=== PATIENT | male | born 1955 | race Caucasian/White ===

== ENCOUNTER → 2018-03-13 10:32 | Outpatient (CLI) | payer BC, SELFPAY | PROVIDERS: PCP Nurse Practitioner Family; Visit Provider Nurse Practitioner Family ==

== ENCOUNTER → 2019-08-29 11:07 | Outpatient (CLI) | payer BC, SELFPAY ==
[2019-08-29 13:07] LABS: Blood Urea Nitrogen 16 mg/dL (7-18); Creatinine,Serum 1.13 mg/dL (0.70-1.30); Estimated Glomerular Filt Rate 66 ml/min (>60); GFR (African American) 79 ML/MIN (>60)
== END ==
PROVIDERS: Visit Provider Urology
DX: Z01.818 Encounter for other preprocedural examination (principal)
CPT/HCPCS: 36415; 82565; 84520

== ENCOUNTER → 2019-09-02 09:46 | Outpatient (CLI) | payer BC, SELFPAY ==
--- NOTE | 2019-09-02 09:50 | CT_ITS ---
PROCEDURE: CT ABDOMEN PELVIS W CON CLINICAL INDICATION: PROSTATE CANCER COMPARISON: ABDPELW/O CT ABD PELVIS W/O CONTRAST from 05/16/2014 TSW/O MRI-T-SPINE W/O from 04/06/2017 TECHNIQUE: IV Contrast: 75ML OPTIRAY 350 Oral Contrast 450ml Redicat Axial images obtained with sagittal and coronal reformats. All CT scans at the facility use one or more dose reduction, viz: automated exposure control, ma/kV adjustment per patient size (including targeted exams where dose is matched to indication, i.e. head), or iterative reconstruction technique. FINDINGS: The liver, spleen, right adrenal gland, and pancreas have an unremarkable appearance. There has been a prior cholecystectomy. There is mild nodularity of the left adrenal gland nonspecific this measures approximately 8 mm. No intestinal obstruction or free air. Unremarkable appendix. No intra-abdominal or pelvic mass evident. There is colonic diverticulosis involving the descending and sigmoid colon with mild thickening of the bowel the sigmoid colon possibly due to muscular hyperplasia. No evidence of diverticulitis. Prostate measures 4 x 2.6 cm. There is prominence of the seminal vesicles. Urinary bladder is decompressed. No pelvic mass abnormal fluid collection or focal inflammatory change. No acute bony findings are evident. No blastic lesions are apparent. No evidence of metastatic disease small cystic area involves the left femoral neck anteriorly well-circumscribed measuring 1 cm may be due to cortical defect. IMPRESSION: 1. No convincing evidence of metastatic disease. There is mild nodularity left adrenal gland nonspecific. 2. Colonic diverticulosis. Dictated by: Serge Booth MD 09/03/2019 15:11 Electronically signed by Serge Booth MD in [facility] 09/03/2019 15:11
--- NOTE | 2019-09-02 09:50 | CT_ITS ---
PROCEDURE: CT CHEST W CON CLINCAL INDICATION: PROSTATE CA Prostate cancer follow-up, evaluate for metastatic disease COMPARISON: CT ABDOMEN PELVIS W CON from 09/02/2019 TECHNIQUE: IV Contrast: 75ml Optiray 350 Axial images obtained with sagittal and coronal reformats. All CT scans at the facility use one or more dose reduction, viz: automated exposure control, ma/kV adjustment per patient size (including targeted exams where dose is matched to indication, i.e. head), or iterative reconstruction technique. FINDINGS: There are coronary artery calcifications. Normal heart size. No mediastinal or hilar mass. No evidence of aortic aneurysm dissection or pulmonary embolus. Small calcific density is present in the right posterior costophrenic sulcus. The lungs are otherwise clear. IMPRESSION: 1. No evidence of metastatic disease. 2. Coronary artery calcifications. Dictated by: Serge Booth MD 09/03/2019 14:02 Electronically signed by Serge Booth MD in [facility] 09/03/2019 14:02
== END ==
PROVIDERS: PCP Family Medicine; Visit Provider Urology
DX: C61 Malignant neoplasm of prostate (principal)
CPT/HCPCS: 36415; 71260; 74177; 82565; 84520; Q9967

== ENCOUNTER → 2019-09-04 08:38 | Outpatient (CLI) | payer BC, SELFPAY ==
--- NOTE | 2019-09-04 08:50 | NM_ITS ---
PROCEDURE: NM BONE SCAN WHOLE BODY CLINICAL INDICATION: PROSTATE CA Malignant neoplasm of the prostate COMPARISON: CT CHEST W CON from 09/02/2019 TECHNIQUE: 26.2 mCi technetium MDP IV FINDINGS: Entire skeletal images obtained. Generalized articular activity noted in the shoulders, sternoclavicular joints, and hips. Small area of increased activity is present involving the right L4-5 region and may be due to facet arthritic change. No convincing evidence of metastatic disease. IMPRESSION: No convincing evidence of bony metastasis Dictated by: Serge Booth MD 09/05/2019 05:36 Electronically signed by Serge Booth MD in [facility] 09/05/2019 05:36
--- NOTE | 2019-09-04 12:25 | HMH.ITSHM ---
Current Home Medications as stated by this patient Kevin Haines or patient accounting representative. []
== END ==
PROVIDERS: PCP Nurse Practitioner Family; Visit Provider Urology
DX: C61 Malignant neoplasm of prostate (principal)
CPT/HCPCS: 78306; A9503

== ENCOUNTER 2025-09-24 04:49 | Emergency (ER) | payer MEDICARE, BC, SELFPAY ==
[2025-09-24] VITALS (12 sets, daily range): BP systolic 150–214; BP diastolic 83–107; PULSE 40–57; RESP 10–18; TEMP 36.7–37; O2SAT 92–99; BMI 26.3
--- NOTE | 2025-09-24 04:49 | ECG_ITS ---
APPROVED REPORT Exam: Resting ECG HR:53 bpm ECG Measurements Heart Rate 53 AXES RI 180 P 65 QRSd 110 QRS 85 QT 446 T 72 QTc 430 Conclusion SINUS BRADYCARDIA WITH OCCASIONAL SUPRAVENTRICULAR PREMATURE COMPLEXES NONSPECIFIC ST & T-WAVE ABNORMALITY BORDERLINE ECG UNCONFIRMED REPORT Electronically signed by : KAVEH HATCH, 09/27/2025 02:14:29
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
--- NOTE | 2025-09-24 05:01 | CT_ITS ---
PROCEDURE INFORMATION: Exam: CTA Chest With Contrast Exam date and time: 09/24/2025 5:36 AM Age: 70 years old Clinical indication: Other: Back pain; Additional info: Severe back pain, HTN TECHNIQUE: Imaging protocol: Computed tomographic angiography of the chest with contrast. Exam focused on the arteries. 3D rendering (Not supervised by radiologist): MIP and/or 3D reconstructed images were created by the technologist. Radiation optimization: All CT scans at this facility use at least one of these dose optimization techniques: automated exposure control; mA and/or kV adjustment per patient size (includes targeted exams where dose is matched to clinical indication); or iterative reconstruction. Contrast material: ISOVUE; Contrast volume: 80 ml; Contrast route: INTRAVENOUS (IV); COMPARISON: CT CHEST W CON 09/02/2019 9:59 AM FINDINGS: Pulmonary arteries: No filling defects suspicious for pulmonary emboli. Aorta: Unremarkable. No aortic aneurysm. No aortic dissection. Lungs: No distinct nodules or infiltrates. There is mild bibasilar subsegmental atelectasis. Mild apical predominant centrilobular emphysema. Minimal diffuse interlobular and intra lobular septal thickening. Nonspecific. Can be seen with minimal interstitial pulmonary edema versus interstitial lung disease. No distinct honeycombing. Minimal diffuse bronchiectasis. Pleural spaces: Unremarkable. No pneumothorax. No pleural effusion. Heart: Cardiomegaly. No pericardial fluid. Mild coronary vessel atherosclerosis. Lymph nodes: Unremarkable. No enlarged lymph nodes. Bones/joints: No acute osseous abnormality. No worrisome lytic or blastic osseous lesion. No cortical erosion or periosteal reaction. No acute osseous fracture or malalignment. Soft tissues: No soft tissue abnormality. IMPRESSION: 1. Cardiomegaly. 2. No filling defects suspicious for pulmonary emboli. 3. No acute osseous abnormality. No worrisome lytic or blastic osseous lesion. No cortical erosion or periosteal reaction. No acute osseous fracture or malalignment. 4. No distinct nodules or infiltrates. 5. Mild apical predominant centrilobular emphysema. 6. Minimal diffuse interlobular and intra lobular septal thickening. Nonspecific. Can be seen with minimal interstitial pulmonary edema versus interstitial lung disease. No distinct honeycombing. Minimal diffuse bronchiectasis. According to clinical discretion, outpatient high-resolution CT can be obtained to evaluate for interstitial lung disease. COMMENTS: The presence of pulmonary emphysema on CT is an independent risk factor for lung cancer. In the absence of a history or active diagnosis of lung cancer, it is recommended that this patient with emphysema be evaluated for enrollment in a low dose CT lung cancer screening program.
--- OUTSIDE RECORDS SUMMARY | 2025-09-24 05:02 | XMS_ITS | Encounter Summary ---
Author Organization [employer] ([place], [place], [place], [place], [place]) Address [address] [place] [address] Care Team Providers Care Bull Wheel Worker Name Role Phone Tee Wade MD Primary Care Provider + [phone] Lennie Coates PA-C Unavailable [phone] Encounter Details Date Type Department Care Team (Late st Contact Info) Description 10/24/2019 Transcribed Document [facility] [place] Family Medicine [address] [place] [address] ProviderJuan MD [address] [place], [place] [id number] Social History Tobacco Use Types Packs/Day Years Used Date Smoking Tobacco: Never Assessed Sex and Gender Information Value Date Recorded Sex Assigned at Not on file Legal Sex Male 3:26 PM CDT Gender Identity Not on file Sexual Orientation Not on file documented as of this encounter Miscellaneous Notes * Cerner Conversion Note - Juan Summers MD - 10/24/2019 5:00 AM LAW LIBRARIAN Chart Check - Review Order Profile Entered On: 10/24/2019 6:55 EST Performed On: 10/24/2019 5:00 EST by BRYANT GABRIEL RN Chart Check Powerplans Initiated/Discontinued as Appropriate : Yes All Active Orders Reviewed : Yes BRYANT GABRIEL RN - 10/24/2019 6:54 EST documented in this encounter Plan of Treatment Not on file documented as of this encounter Visit Diagnoses Not on filedocumented in this encounter Care Teams Bull Wheel Worker Relationship Specialty Start Date End Date Tee Wade MD [address] [facility] [address] [place] [address] PCP - General Neurology 03/07/23 Lennie Coates, PALoveC [address] [facility] [address] [place], [place] [id number] Cardiology 03/11/24 documented as of this encounter
--- OUTSIDE RECORDS SUMMARY | 2025-09-24 05:02 | XMS_ITS | Encounter Summary ---
Author Organization [employer] ([place], [place], [place], [place], [place]) Address [address] [place] [address] Care Team Providers Care Mammography Technician Name Role Phone Tee Wade MD Primary Care Provider + [phone] Lennie Coates PA-C Unavailable [phone] Encounter Details Date Type Department Care Team (Late st Contact Info) Description 10/23/2019 Transcribed Document [facility] Family Medicine [address] [place] [address] ProviderJuan MD [address] [place] [address] Social History Tobacco Use Types Packs/Day Years Used Date Smoking Tobacco: Never Assessed Sex and Gender Information Value Date Recorded Sex Assigned at Not on file Legal Sex Male 3:26 PM CDT Gender Identity Not on file Sexual Orientation Not on file documented as of this encounter Miscellaneous Notes * Cerner Conversion Note - Juan Summers MD - 10/23/2019 11:28 AM COYOTE HUNTER Pain Assessment Entered On: 10/24/2019 15:27 EST Performed On: 10/24/2019 10:48 EST by Jessica Oshea RN-Traveler Intervention Information: acetaminophen-HYDROcodone Performed by Jessica Oshea RN-Traveler on 10/24/2019 09:48:00 EST acetaminophen-HYDROcodone,1Tab Oral,Pain Pain Assessment Pain Assessment : Follow-up assessment Pain Scale Goal : 4 Pain Improved by Intervention : Yes Jessica Oshea RN-Traveler - 10/24/2019 15:27 EST Electronically signed by Mima [facility] Conversion Quality Engineer Medical Device Cerner at 03/09/2023 10:56 AM CDT documented in this encounter Plan of Treatment Not on file documented as of this encounter Visit Diagnoses Not on filedocumented in this encounter Care Teams Mammography Technician Relationship Specialty Start Date End Date Tee Wade MD [address] [facility] [address] [place] [address] PCP - General Neurology 03/07/23 Lennie Coates, PA-C [address] [place] [address] [address] [place] [address] Cardiology 03/11/24 documented as of this encounter
--- OUTSIDE RECORDS SUMMARY | 2025-09-24 05:02 | XMS_ITS | Encounter Summary ---
Author Organization [employer] ([place], [place], [place], [place], [place]) Address [address] [place] [address] Care Team Providers Care Court Bailiff Or Sheriff Name Role Phone Tee Wade MD Primary Care Provider + [phone] Lennie Coates PA-C Unavailable [phone] Encounter Details Date Type Department Care Team (Late st Contact Info) Description 10/24/[address] [facility] [place] Family Medicine [address] [place] [address] ProviderJuan MD [address] [place] [address] Social History Tobacco Use Types Packs/Day Years Used Date Smoking Tobacco: Never Assessed Sex and Gender Information Value Date Recorded Sex Assigned at Not on file Legal Sex Male 3:26 PM CDT Gender Identity Not on file Sexual Orientation Not on file documented as of this encounter Miscellaneous Notes * Cerner Conversion Note - Juan ProviderMD - 10/24/2019 2:00 AM ACCOUNTS ADMINISTRATOR Lap Grinder Details Entered On: 10/24/2019 1:16 EST Performed On: 10/24/2019 2:00 EST by BRYANT GABRIEL RN Order Details Transport Mode Order Detail : Stretcher/Gurney Isolation Precautions Order Detail : Standard Precautions Order Detail : N/A IV Order Detail : 1 Oxygen Order Detail : 0 Nurse Collect Order Detail : 0 Lift/Transfer : Minimal Central Line Order Detail : No Room Service : Appropriate Arterial Line : No BRYANT GABRIEL RN - 10/24/2019 1:16 EST documented in this encounter Plan of Treatment Not on file documented as of this encounter Visit Diagnoses Not on filedocumented in this encounter Care Teams Court Bailiff Or Sheriff Relationship Specialty Start Date End Date Tee Wade MD [address] [facility] [address] [place] [address] PCP - General Neurology 03/07/23 Lennie Coates PA-C [address] [place] [address] [address] [place] [id number] Cardiology 03/11/24 documented as of this encounter
--- OUTSIDE RECORDS SUMMARY | 2025-09-24 05:02 | XMS_ITS | Encounter Summary ---
Author Organization [employer] ([place], [place], [place], [place], [place]) Address [address] [place] [address] Care Team Providers Care Litigation Specialist Name Role Phone Tee Wade MD Primary Care Provider + [phone] Lennie Coates PA-C Unavailable [phone] Encounter Details Date Type Department Care Team (Late st Contact Info) Description 10/24/[address] [facility] [place] Family Medicine [facility] [place] [address] ProviderJuan MD [address] [place] [address] Social History Tobacco Use Types Packs/Day Years Used Date Smoking Tobacco: Never Assessed Sex and Gender Information Value Date Recorded Sex Assigned at Not on file Legal Sex Male 3:26 PM CDT Gender Identity Not on file Sexual Orientation Not on file documented as of this encounter Miscellaneous Notes * Cerner Conversion Note - Juan Summers MD - 10/24/2019 11:45 AM CONTAINER SHOP WELDER Final Discharge Planning Entered On: 10/24/2019 11:45 EST Performed On: 10/24/2019 11:45 EST by LINDA BARRY, Marketing Account Manager Final Discharge Planning Discharge Arrangements : Patient Post-Acute Information Patient Name: JHOANA BRAMBILA Gender: Male : 55 Age: 64 Years No Post-Acute Placement(s) Listed No Post-Acute Service(s) Listed No [place] Referral(s) Listed Transportation Needs : Family/Friend Is Patient High/Moderate Readmission Risk? : No Discharge To Care Management : Home/Residential/Halfway or Self Care -01 LINDA BARRY, Marketing Account Manager - 10/24/2019 11:45 EST Electronically signed by Mima, [facility] Conversion Network Administrator Cerner at 03/07/2023 10:11 AM CDT documented in this encounter Plan of Treatment Not on file documented as of this encounter Visit Diagnoses Not on filedocumented in this encounter Care Teams Litigation Specialist Relationship Specialty Start Date End Date Tee Wade MD [address] [place] [address] [address] [place] [address] PCP - General Neurology 03/07/23 Lennie Coates, PA-C [address] [place] [address] [address] [place] [address] Cardiology 03/11/24 documented as of this encounter
--- OUTSIDE RECORDS SUMMARY | 2025-09-24 05:02 | XMS_ITS | Encounter Summary ---
Author Organization [employer] ([place], [place], [place], [place], [place]) Address [address] [place] [address] Care Team Providers Care Linotype Operator Name Role Phone Tee Wade MD Primary Care Provider [phone] Lennie Coates PA-C Unavailable [phone] Encounter Details Date Type Department Care Team (Late st Contact Info) Description 10/23/2019 Transcribed Document [facility] Family Medicine [address] [place] [address] ProviderJuan MD [address] [place] [address] Social History Tobacco Use Types Packs/Day Years Used Date Smoking Tobacco: Never Assessed Sex and Gender Information Value Date Recorded Sex Assigned at Not on file Legal Sex Male 3:26 PM CDT Gender Identity Not on file Sexual Orientation Not on file documented as of this encounter Miscellaneous Notes * Cerner Conversion Note - Juan Summers MD - 10/23/2019 9:01 AM FIBER OPTICS TECHNICIAN [facility] Main OR IntraOp Summary Primary Physician: LEIGHA LOMBARDI MD-URO Finalized Date/Time: 10/26/19 10:56:42 Pt. Name: JHOANA HAINESO.B./Sex: 1955 Male Med Rec #: [id number] Physician: LEIGHA LOMBARDI MD-URO Financial #: [id number] Pt. Type: O Room/Bed: [facility]/ Admit/Disch: 10/24/19 12:26:00 - 10/24/19 12:40:00 Institution: [facility] IntraOp Case Attendance Entry 1 Entry 2 Entry 3 Case Attendee LEIGHA LOMBARDI GILBERT, DAVID M, POST SPLITTER, AMALIA CARLOS MD-ANS -URO ERGONOMIC SPECIALIST-ANS Role Performed Surgeon/Proceduralist, ERGONOMIC SPECIALIST/Nurse Mandarin Teacher Anesthesiologist of First Record Time In 10/23/19 08:27:00 10/23/19 08:27:00 10/23/19 08:27:00 Time Out 10/23/19 11:30:00 10/23/19 11:30:00 10/23/19 11:30:00 Procedure Prostatectomy Radical Prostatectomy Radical Prostatectomy Radical Robotic, Lymph Node Robotic, Lymph Node Robotic, Lymph Node Dissection Pelvic Dissection Pelvic Dissection Pelvic Laparoscopi(Left) Laparoscopi(Left) Laparoscopi(Left) Other Attendee Superficial Wound Closed By: Last Modified By: Mary Carmen Caro RN Poff, Janie, RN Poff, Janie, RN 10/23/19 11:30:57 10/23/19 11:30:57 10/23/19 11:30:57 Entry 4 Entry 5 Entry 6 Case Attendee JIGNESH LING Robin A, Surgical TODD, JUDY Nurse Assessor Role Performed Frame Gate Mortiser Operator, First Scrub, First Scrub, Second Time In 10/23/19 08:27:00 10/23/19 08:27:00 10/23/19 08:27:00 Time Out 10/23/19 11:30:00 10/23/19 11:30:00 10/23/19 11:30:00 Procedure Prostatectomy Radical Prostatectomy Radical Prostatectomy Radical Robotic, Lymph Node Robotic, Lymph Node Robotic, Lymph Node Dissection Pelvic Dissection Pelvic Dissection Pelvic Laparoscopi(Left) Laparoscopi(Left) Laparoscopi(Left) Other Attendee Superficial Wound Closed By: Last Modified By: Mary Carmen Caro RN Poff, Janie, RN Poff, Janie, RN 10/23/19 11:30:57 10/23/19 11:30:57 10/23/19 11:30:57 Entry 7 Entry 8 Entry 9 Case Attendee Remigio Hall, REP-SSI VITALIY HAGER SSI Poff, Janie, OSVALDO Role Performed Nurse Assessor, Ancillary Nurse Assessor, Ancillary Workers Compensation Manager, First Time In 10/23/19 08:27:00 10/23/19 08:27:00 10/23/19 08:27:00 Time Out 10/23/19 11:30:00 10/23/19 11:30:00 10/23/19 11:30:00 Procedure Prostatectomy Radical Prostatectomy Radical Prostatectomy Radical Robotic, Lymph Node Robotic, Lymph Node Robotic, Lymph Node Dissection Pelvic Dissection Pelvic Dissection Pelvic Laparoscopi(Left) Laparoscopi(Left) Laparoscopi(Left) Other Attendee Superficial Wound Closed By: Last Modified By: Mary Carmen Caro RN Poff, Janie, RN Poff, Janie, RN 10/23/19 11:30:57 10/23/19 11:30:57 10/23/19 11:30:57 Entry 10 Entry 11 Case Attendee Nilsa Fu, REGINE BLOCK, ERGONOMIC SPECIALIST Role Performed Workers Compensation Manager, First ERGONOMIC SPECIALIST/Nurse Mandarin Teacher Time In 10/23/19 09:23:00 10/23/19 10:52:00 Time Out 10/23/19 09:45:00 10/23/19 11:20:00 Procedure Prostatectomy Radical Prostatectomy Radical Robotic, Lymph Node Robotic, Lymph Node Dissection Pelvic Dissection Pelvic Laparoscopi(Left) Laparoscopi(Left) Other Attendee Break relief Superficial Wound Closed By: Last Modified By: Mary Carmen Caro RN Poff, Janie, RN 10/23/19 09:47:22 10/23/19 10:52:27 [facility] IntraOp Case Attendance Audit 10/23/19 11:30:57 Spark Plug Tester: NILSON Modifier: NILSON 1 <+> Time Out 1 <*> Procedure Prostatectomy Radical Robotic, Lymph Node Dissection Pelvic Laparoscopi(Left) 2 <+> Time Out 2 <*> Procedure Prostatectomy Radical Robotic, Lymph Node Dissection Pelvic Laparoscopi(Left) 3 <+> Time Out 3 <*> Procedure Prostatectomy Radical Robotic, Lymph Node Dissection Pelvic Laparoscopi(Left) 4 <+> Time Out 4 <*> Procedure Prostatectomy Radical Robotic, Lymph Node Dissection Pelvic Laparoscopi(Left) 5 <+> Time Out 5 <*> Procedure Prostatectomy Radical Robotic, Lymph Node Dissection Pelvic Laparoscopi(Left) 6 <+> Time Out 6 <*> Procedure Prostatectomy Radical Robotic, Lymph Node Dissection Pelvic Laparoscopi(Left) 7 <+> Time Out 7 <*> Procedure Prostatectomy Radical Robotic, Lymph Node Dissection Pelvic Laparoscopi(Left) 8 <+> Time Out 8 <*> Procedure Prostatectomy Radical Robotic, Lymph Node Dissection Pelvic Laparoscopi(Left) 9 <+> Time Out 9 <*> Procedure Prostatectomy Radical Robotic, Lymph Node Dissection Pelvic Laparoscopi(Left) 10 <*> Procedure Prostatectomy Radical Robotic, Lymph Node Dissection Pelvic Laparoscopi(Left) 11 <*> Procedure Prostatectomy Radical Robotic, Lymph Node Dissection Pelvic Laparoscopi(Left) 10/23/19 11:20:22 Spark Plug Tester: NILSON Modifier: POFFJAN 11 <+> Time Out 11 <*> Procedure Prostatectomy Radical Robotic, Lymph Node Dissection Pelvic Laparoscopi(Left) 10/23/19 10:52:27 Spark Plug Tester: NILSON Modifier: [email or web address] <+> 11 Case Attendee <+> 11 Role Performed <+> 11 Time In <+> 11 Procedure <+> 11 Other Attendee 10/23/19 09:47:22 Spark Plug Tester: NILSON Modifier: [email or web address] 1 <*> Procedure Prostatectomy Radical Robotic, Lymph Node Dissection Pelvic Laparoscopi(Left) 2 <*> Procedure Prostatectomy Radical Robotic, Lymph Node Dissection Pelvic Laparoscopi(Left) 3 <*> Procedure Prostatectomy Radical Robotic, Lymph Node Dissection Pelvic Laparoscopi(Left) 4 <*> Procedure Prostatectomy Radical Robotic, Lymph Node Dissection Pelvic Laparoscopi(Left) 5 <*> Procedure Prostatectomy Radical Robotic, Lymph Node Dissection Pelvic Laparoscopi(Left) 6 <*> Procedure Prostatectomy Radical Robotic, Lymph Node Dissection Pelvic Laparoscopi(Left) 7 <*> Procedure Prostatectomy Radical Robotic, Lymph Node Dissection Pelvic Laparoscopi(Left) 8 <*> Procedure Prostatectomy Radical Robotic, Lymph Node Dissection Pelvic Laparoscopi(Left) 9 <+> Time In 9 <*> Procedure Prostatectomy Radical Robotic, Lymph Node Dissection Pelvic Laparoscopi(Left) <+> 10 Case Attendee <+> 10 Role Performed <+> 10 Time In <+> 10 Time Out <+> 10 Procedure 10/23/19 09:12:34 Spark Plug Tester: NILSON Modifier: POFFJAN 1 <*> Procedure Prostatectomy Radical Robotic, Lymph Node Dissection Pelvic Laparoscopi(Left) 2 <+> Time In 2 <*> Procedure Prostatectomy Radical Robotic, Lymph Node Dissection Pelvic Laparoscopi(Left) 3 <+> Time In 3 <*> Procedure Prostatectomy Radical Robotic, Lymph Node Dissection Pelvic Laparoscopi(Left) 4 <+> Time In 4 <*> Procedure Prostatectomy Radical Robotic, Lymph Node Dissection Pelvic Laparoscopi(Left) 5 <+> Time In 5 <*> Procedure Prostatectomy Radical Robotic, Lymph Node Dissection Pelvic Laparoscopi(Left) 6 <+> Time In 6 <*> Procedure Prostatectomy Radical Robotic, Lymph Node Dissection Pelvic Laparoscopi(Left) 7 <+> Time In 7 <*> Procedure Prostatectomy Radical Robotic, Lymph Node Dissection Pelvic Laparoscopi(Left) 8 <+> Time In 8 <*> Procedure Prostatectomy Radical Robotic, Lymph Node Dissection Pelvic Laparoscopi(Left) <+> 9 Case Attendee <+> 9 Role Performed <+> 9 Procedure [facility] IntraOp Case Times Entry 1 Patient In Room Time 10/23/19 08:27:00 Out Room Time 10/23/19 11:30:00 Anesthesia Start Time 10/23/19 08:27:00 Stop Time 10/23/19 11:30:00 Surgery / Procedure Times Start Time 10/23/19 09:01:00 Stop Time 10/23/19 11:21:00 Last Modified By: Mary Carmen Caro RN 10/23/19 11:21:33 [facility] IntraOp Case Times Audit 10/23/19 11:30:52 Spark Plug Tester: NILSNO Modifier: POFFJAN <+> 1 Out Room Time <+> 1 Stop Time 10/23/19 11:21:33 Spark Plug Tester: NILSON Modifier: POFFJAN <+> 1 Stop Time [facility] IntraOp Cautery Entry 1 ESU Identification Cautery Type Monopolar ESU ID Number [id number] ID Type Hospital Number Cautery Settings Cut Setting 3 Coag Setting 3 Bipolar Setting 4 ESU Grounding Pad Ground Pad Type Adult Grounding Pad Site Left thigh Grounding Pad JIGNESH LING Applied By Grounding Pad Site Warm, dry and intact Skin Condition Before Cautery Grounding Pad Site Warm, dry and intact Skin Condition After Cautery Last Modified By: Mary Carmen Caro RN 10/23/19 09:17:43 [facility] IntraOp Communication Entry 1 Entry 2 Communication To Family/Significant other Family/Significant other Comment PROCEDURE START UPDATE Communication By Mary Carmen Caro, Mary Carmen Syed RN Date and Time 10/23/19 09:01:00 10/23/19 10:08:00 Last Modified By: Mary Carmen Caro RN Poff, Janie, RN 10/23/19 09:18:28 10/23/19 10:08:23 [facility] IntraOp Communication Audit 10/23/19 10:08:23 Spark Plug Tester: NILSON Modifier: NILSON <+> 2 Communication By <+> 2 Date and Time <+> 2 Communication To <+> 2 Comment [facility] IntraOp Counts Verification Entry 1 Procedure Prostatectomy Radical Robotic, Lymph Node Dissection Pelvic Laparoscopi(Left) Count Info Count Type Sponge, Sharps, Instrument, Miscellaneous Counts Verification Baseline/pre-procedure Sequence Count Results Not Applicable Counts Performed By Count Performed By Rajiv Haro, Surgical (Scrub) Nurse Assessor Count Performed By Mary Carmen Caro RN (RN) Last Modified By: Mary Carmen Caro RN 10/23/19 09:15:13 [facility] IntraOp Counts Final Entry 1 Procedure Prostatectomy Radical Robotic, Lymph Node Dissection Pelvic Laparoscopi(Left) Final Count Info Count Type Sponge, Sharps, Miscellaneous Counts Verification Skin Closure/end of Sequence procedure Count Results Correct, surgeon notified Counts Performed By Count Performed By Rajiv Haro, Surgical (Scrub) Nurse Assessor Count Performed By Mary Carmen Caro RN (RN) Last Modified By: Mary Carmen Caro RN 10/23/19 09:19:50 [facility] IntraOp Counts Final Audit 10/23/19 11:13:54 Spark Plug Tester: NILSON Modifier: NILSON 1 <*> Procedure Prostatectomy Radical Robotic, Lymph Node Dissection Pelvic Laparoscopi(Left) 1 <+> Count Performed By (Scrub) 1 <+> Count Performed By (RN) [facility] IntraOp Cultures and Spec Summary Entry 1 Cultrures and Specimens Specimen Ordered: Yes Test(s) Routine/Path-Lab Requested/Final Disposition Last Modified By: Mary Carmen Caro RN 10/23/19 09:19:26 General Comments: A. BLADDER NECK B. LEFT OBTURATOR LYMPH NODE C. PROSTATE AND SEMINAL VESICLES [facility] IntraOp Departure from OR Entry 1 Integumentary Assessment Integumentary WDL with patient Assessment WDL specific variances Patient's Normal Surgical Integumentary incisions-abdomen Variance(s) Transfer/Handoff Transfer to PACU Phase I Handoff Method Phone call Post-op Transport Stretcher/Gurney Via Patient Transport EDITH TERRELL APRN, Accompanied by ERGONOMIC SPECIALIST-ANURADHA CESAR KAREN A. Last Modified By: Mary Carmen Caro RN 10/23/19 09:20:07 [facility] IntraOp Drains and Tubes Entry 1 Device Type Aydin Hamm flat drain Size 10 mm Drain/Tube Activity Inserted Drain/Tube Suction Bulb Drain/Tube Drainage Sanguineous Device Location Abdomen Method of Drainage Active Tube Dressing Dry, Intact Condition Last Modified By: Mary Carmen Caro RN 10/23/19 09:19:41 [facility] IntraOp Dressing and Packing Entry 1 Type Dressing Location Abdomen Wound Dressing Item Skin Closure Glue, 4x4's Tape Type Other Applied By JIGNESH LING Other Comments MEDIPORE TAPE APPLIED TO DRAIN DRESSING. Last Modified By: Mary Carmen Caro RN 10/23/19 09:19:58 [facility] IntraOp Fire Risk Assessment Entry 1 Fire Info Surgical Site or 0- No Incision Above the Xyphoid Open O2 Source 0- No (Mask or Cannula) Available Ignition 1- Yes (ESU, Laser, Light Source) Fire Risk 1 Assessment Score Fire Score Fire Risk Yes Assessment Complete Fire Risk Mary Carmen Caro RN Assessment Verified By Fire Risk 10/23/19 09:01:00 Assessment Verified Date/Time Fire Risk Standard Fire Yes Safety Precautions Followed Last Modified By: Mary Carmen Caro RN 10/23/19 09:13:50 [facility] IntraOp General Case Lathe Set Up Person 1 Case Information OR OR 13 [facility] Case Level 1 Room Verified Yes Wound Class II - Clean-Contaminated Specialty SN Urology Anesthesia Type General ASA Class 2 Diagnosis Preop Diagnosis PROSTATE CANCER Postop Same As Preop No Postop Diagnosis SEE POSTOPERATIVE NOTE Last Modified By: Mary Carmen Caro RN 10/23/19 09:15:36 [facility] IntraOp Intraoperative Assessment Entry 1 Handoff Method Online nursing summary Valid History / Yes Physical in Chart Preoperative Yes Checklist Reviewed/Evaluated Allergies Reviewed Yes Patient is Latex No Sensitive Isolation Not applicable Precautions Noted Level of WDL Consciousness (WDL = Alert, Oriented to Person, Place, and Time) Skin Assessment Yes Verified Present Upon IVs Arrival to OR Last Modified By: Mary Carmen Caro RN 10/23/19 09:14:51 [facility] IntraOp Intraoperative Equipment Entry 1 Type Monitoring Equipment Equipment Jeannie Suction System ID Number [id number] Intraop Monitoring Electrocardiogram Three lead placement (ECG) Electrode Placement Blood Pressure Non-Invasive BP Device Source Blood Pressure Arm, right upper Location Pulse Oximeter Hand, left Probe Site Antiembolic Devices Antiembolic Devices Sequential compression device, knee high Antiembolic Device Bilateral Location Antiembolic Device [id number] ID Number Antiembolic Device 40 mmHg Setting Scopes Photo/Video Documentation Photo No Video No Intraop Equipment Sequential compression Comment devices on and in operation prior to induction of anesthesia. Last Modified By: Mary Carmen Caro RN 10/23/19 09:16:59 [facility] IntraOp Medication Admin Entry 1 Medication/Irrigant JESSICA IRR 0.9% NACL 1000ML --[id number] Time Administered 10/23/19 09:01:00 Route of Irrigation Administration Dose Administered By JIGNESH LING Procedure Irrigation Last Modified By: Mary Carmen Caro RN 10/23/19 09:18:51 [facility] IntraOp Patient Positioning Entry 1 Procedure Prostatectomy Radical Robotic, Lymph Node Dissection Pelvic Laparoscopi(Left) Body Position Lithotomy Left Arm Position Tucked and padded at side Right Arm Position Tucked and padded at side Left Leg Position Secured in Leg Oro Right Leg Position Secured in Leg Oro Position Comments Steep Trendelenburg Feet Uncrossed Yes Pressure Points Yes Checked Positioning Devices Head Rest, Stirrups/Leg Oro, Boot, Pad, Arm, Pad, Arm, Safety Strap, Chest, Stirrups/Leg Oro, Boot Positioned By Mary Carmen Caro RN, EDITH TERRELL APRN, TIFFANY-ANS, JIGNESH LING, LEIGHA LOMBARDI MD-URO Position Verified Positioning Yes Verified by Anesthesia Positioning Yes Verified by Surgeon Last Modified By: Mary Carmen Caro RN 10/23/19 09:13:09 [facility] IntraOp Sign In Entry 1 Patient, Site, Yes Procedure Identified Surgical Consent Yes Confirmed Relevant Surgical Yes Documents Available Surgical Site N/A Marked by person performing procedure Anesthesia Machine Yes Check Completed Medication Checks Yes Completed Allergies Yes Airway Difficult Yes Airway/Aspiration Risk Difficult Yes Airway/Aspiration Intervention Equipment Available Blood Loss Risk Yes Blood Loss Yes Intervention Equipment Prepared and Ready Blood Identifiers Yes Verified Per Policy Hypothermia Risk Yes Warming Measures Yes Taken Last Modified By: Mary Carmen Caro RN 10/23/19 09:06:55 [facility] IntraOp Sign Out Entry 1 RN Confirmation Surgical Yes Procedure(s) Identified Instrument, Sponge Yes and Sharps Counts Correct/Documented Equipment Problems N/A Documented Specimen Labeled Yes Correctly Urinary Catheter Yes Documented in IView See Patient Yes Recovery Concerns Reviewed with Anesthesia Provider, Surgeon and RN See Patient Yes Management Concerns Reviewed with Anesthesia Provider, Surgeon and RN Safety Checklist Yes Elements Complete? RN Sign Out Mary Carmen Caro RN Signature RN Sign Out 10/23/19 11:31:00 Signature Date/Time Plan of Care Outcome - Fire Risk OUTCOME STATEMENT: Goal met Patient is free from injury related to surgical fire Plan of Care Outcome - Pt Positioning OUTCOME STATEMENT: Goal met Absence of signs and symptoms of positioning injury. Plan of Care Outcome - Skin Prep OUTCOME STATEMENT: Goal met Intraoperative care is consistent with measures to prevent infection Plan of Care Outcome - Xray/Images OUTCOME STATEMENT: N/A Absence of observable signs or symptoms of radiation injury Plan of Care Outcome - Counts OUTCOME STATEMENT: Goal met Absence of signs and symptoms of injury related to extraneous objects Last Modified By: Mary Carmen Caro RN 10/23/19 09:20:30 [facility] IntraOp Sign Out Audit 10/23/19 11:31:11 Spark Plug Tester: NILSON Modifier: NILSON <+> 1 RN Sign Out Signature Date/Time [facility] IntraOp Skin Prep Entry 1 Procedure Prostatectomy Radical Robotic, Lymph Node Dissection Pelvic Laparoscopi(Left) Prescribed Yes Pre-Surgical Prep Completed Prep Area Abdomen, genitalia Intraop Prep Integumentary WDL Assessment WDL Prep Agents Chloraprep, Betadine scrub, Betadine solution Prep by Mary Carmen Caro RN Skin Prep Comment Genitalia prepped with betadine scrub and solution Hair Removal Methods Clipper/Scissors Hair Removal Site ABDOMEN Hair Removal By JIGNESH LING Last Modified By: Mary Carmen Caro RN 10/23/19 09:16:12 [facility] IntraOp Surgical Procedures Entry 1 Entry 2 Procedure Prostatectomy Radical Lymph Node Dissection Robotic Pelvic Laparoscopic Modifiers Left Additional ROBOTIC PROSTATECTOMY Procedure WITH LEFT LYMPH NODE Description DISSECTION Primary Procedure Yes No Primary Surgeon LEIGHA LOMBARDI, LEIGHA LOMBARDI MD-URO MD-URO Start 10/23/19 09:01:00 10/23/19 09:01:00 Stop 10/23/19 11:21:00 10/23/19 11:21:00 Physician States Cecum Reached Anesthesia Type General General Specialty SN Urology SN Urology Wound Class II - Clean-Contaminated II - Clean-Contaminated Last Modified By: Mary Carmen Caro RN Poff, Janie, RN 10/23/19 09:13:39 10/23/19 09:20:40 [facility] IntraOp Surgical Procedures Audit 10/23/19 11:31:02 Spark Plug Tester: NILSON Modifier: [email or web address] <+> 1 Stop <+> 2 Stop 10/23/19 09:20:40 Spark Plug Tester: NILSON Modifier: NILSON 2 <*> Procedure Lymph Node Dissection Pelvic Laparoscopic 2 <*> Wound Class I - Clean [facility] IntraOp Temp Regulation Devices Entry 1 Temp Regulation Temperature Warm blankets, Forced Regulation Device Air Warming device, Room temperature Temperature 85406 Regulation Device Serial/Unit Number Temperature Upper body Regulation Site Temperature Device 43 degrees Celsius Setting Temperature EDITH TERRELL APRN, Regulation Device ERGONOMIC SPECIALIST-ANS Applied by Temperature Patient's temperature Regulation Comment and forced air warming device settings monitored by anesthesia provider. Last Modified By: Mary Carmen Caro RN 10/23/19 09:17:12 [facility] IntraOP Time Out Entry 1 Procedure to be Prostatectomy Radical Performed Robotic, Lymph Node Dissection Pelvic Laparoscopi(Left) Time Out Time Out Pause Time 10/23/19 09:01:00 All activity Yes suspended (unless life threatening emergency) Team Verbally Correct patient Confirms Information identity, Consent form is present and accurate, Agreement on the procedure to be done, Correct patient position, Relevant images/results properly labeled/appropriately displayed, Confirm antibiotics have been administered, Confirm the skin prep has dried, Confirm prosthesis/implant/devic e is present, Performed in location of procedure after prepped/draped Antibiotic Yes Prophylaxis Administered Or In Progress Within the Last 60 Minutes Beta Aron N/A Administered Venous Yes Thromboembolism Prophylaxis Required Anticipated Critical Events Surgeon None expected Anesthesia Provider None expected Nursing Assures Sterility of instruments Essential Imaging Yes Labeled and Displayed Last Modified By: Mary Carmen Caro RN 10/23/19 09:14:42 Case Comments <None> Finalized By: RICHA MEHTA Document Signatures Signed By: Mary Carmen Caro RN 10/23/19 11:31 RICHA MEHTA 10/26/19 10:56 Unfinalized History Date/Time Username Reason for Unfinalizing Freetext Reason for Unfinalizing 10/26/19 10:52 [email or web address] Correct Billing Electronically signed by Mima, [facility] Conversion Director Of Individual Giving Cerner at 03/07/2023 10:44 AM CDT documented in this encounter Plan of Treatment Not on file documented as of this encounter Visit Diagnoses Not on filedocumented in this encounter Care Teams Linotype Operator Relationship Specialty Start Date End Date Tee Wade MD [address] [facility] [address] [place] [address] PCP - General Neurology 03/07/23 Lennie Coates PA-C [address] [facility] [address] [place] [address] Cardiology 03/11/24 documented as of this encounter
--- OUTSIDE RECORDS SUMMARY | 2025-09-24 05:02 | XMS_ITS | Encounter Summary ---
Author Organization [employer] ([place], [place], [place], [place], [place]) Address [address] [place] [address] Care Team Providers Care Financial Specialist Name Role Phone Tee Wade MD Primary Care Provider + [phone] Lennie Coates PA-C Unavailable [phone] Encounter Details Date Type Department Care Team (Late st Contact Info) Description 10/23/2019 Transcribed Document [facility] Family Medicine [facility] [place] [address] Juan Summers MD [address] [place] [address] Social History Tobacco Use Types Packs/Day Years Used Date Smoking Tobacco: Never Assessed Sex and Gender Information Value Date Recorded Sex Assigned at Not on file Legal Sex Male 3:26 PM CDT Gender Identity Not on file Sexual Orientation Not on file documented as of this encounter Miscellaneous Notes * Cerner Conversion Note - Juan Summers MD - 10/23/2019 11:39 AM MOVING CONSULTANT DATE OF PROCEDURE: 10/23/2019 SURGEON: Ty Ghotra MD PREOPERATIVE DIAGNOSIS: Adenocarcinoma of the prostate. POSTOPERATIVE DIAGNOSIS: Adenocarcinoma of the prostate. PROCEDURE PERFORMED: Laparoscopic adhesiolysis, robotic-assisted laparoscopic radical prostatectomy with left pelvic lymph node dissection. ANESTHESIA: General. MEDICAL TECHNOLOGIST GENERALIST: Faviola Alatorre CFA. SPECIMENS: Prostate with seminal vesicles, left obturator lymph node packet. COMPLICATIONS: None. ESTIMATED BLOOD LOSS: Less than 50 mL. BRIEF HISTORY: The patient is a 64-year-old gentleman with a family history of prostate carcinoma in his brother. He has had a rising, fluctuating PSA. He had a recent needle biopsy of the prostate, which revealed 6/6 cores positive on the left, Calvin score of 6 (3+3.) All specimens on the right were benign. We discussed treatment options and due to the multiple focal areas, we decided to proceed with robotic prostatectomy. Risks and benefits were discussed extensively including the risk of bleeding and infection. We also discussed the risk of urinary incontinence and erectile dysfunction. He understands and wished to proceed. DESCRIPTION OF PROCEDURE: Sequential compression garments were placed and functioned at the time of induction. General anesthesia was administered. Preoperatively, he received a tap block in the holding area. A Corona catheter was placed. He was placed in the modified lithotomy position. The genital and abdominal area were prepped and draped in a normal fashion. The catheter was placed on the field. Pneumoperitoneum was established using the Veress technique at the umbilicus. He had no previous intra-abdominal surgery. The abdomen was entered at this level with a 0-degree lens. There were no adhesions in the area of trocar placement. There was nice spacing in the standard format. All placed under visualization. The sigmoid colon was adherent to the left groin and pelvic sidewall and this was carefully taken down after docking the robot. The bladder was dropped in the standard manner with nice development of the space of Retzius. This was grasped with the robotic arm and retracted cephalad. The space was developed and the prostate defatted. Endopelvic fascia was incised. The right-sided neurovascular bundle was identified and teased away from the pedicle area down toward the apex and up to the corner of the prostate. The puboprostatic ligaments were divided sharply. The dorsal vein complex was then controlled with a 0 Vicryl suture, passed twice. Attention was then turned to the bladder neck junction. This was established and entered anteriorly. The Corona catheter was grasped and brought through the incision of the anterior bladder and retracted anteriorly using the previously placed 0 Vicryl suture through the eyelet of the catheter. Relatively, the bladder neck was spared. There was a margin taken separately of the anterior bladder neck and sent separately. The ureteral orifices were well away from the bladder neck. There was no significant median lobe. A nice plane was developed posteriorly using electrocautery. This was exposed. The ampulla of the vas was identified bilaterally. This was skeletonized and a long segment of vas was mobilized, sealed, and divided. This was retracted anteriorly and each seminal vesicle was dissected to its apices without difficulty. Denonvilliers' fascia was incised and a nice plane was developed between the rectum and the prostate and the lateral pedicles developed. The robotic vessel sealer was then used to take down each lateral pedicle carefully. The margin was wider on the left. This was taken down toward the apex and then the prostate dropped and the dorsal vein area divided with electrocautery. The nice length of urethra was exposed circumferentially and this was divided sharply and the urethral plate divided and the prostate was freed. This was then placed in an EndoCatch bag. The pedicle area was hemostatic. The specimen was placed in the EndoCatch bag. The left obturator area was exposed and very carefully, the lymph node packet was dissected out and sealed distally and proximally. Care was taken to identify the obturator nerve throughout the dissection. There was no significant bleeding with this maneuver. This was sent separate. The bladder neck was then refashioned slightly using a 2-0 Vicryl suture down to about a centimeter in diameter. The double-armed 2-0 Monocryl suture was then used to perform the anastomosis with a buttress of vas placed posteriorly. The bladder was allowed to descend in the pelvis nicely and there was nice apposition and the new catheter was passed across the anastomosis. The bladder was filled and was demonstrating no leakage. The anastomotic suture was tied. A flat Aydin-Hamm drain was then placed in the pelvis. The robot was undocked and all trocars were removed under visualization and hemostasis was observed. The umbilical trocar site was extended slightly to remove the specimen. The fascia was then reapproximated with 0 PDS. Subcutaneous tissues were reapproximated with 2-0 Vicryl and Dermabond was placed. The patient tolerated the procedure well, was awakened, extubated, and transferred to postoperative recovery room in stable condition. /[id number] MD REENA Larry/AQ / TDDaniel / MODL /[id number] CC: Dr. Bernard Ghotra MD Electronically signed by Mima, [facility] Conversion Electrical Tryout Person Cerner at 03/07/2023 10:31 AM CDT documented in this encounter Plan of Treatment Not on file documented as of this encounter Visit Diagnoses Not on filedocumented in this encounter Care Teams Financial Specialist Relationship Specialty Start Date End Date Tee Wade MD [address] [facility] [address] [place] [id number] PCP - General Neurology 03/07/23 Lennie Coates, PA-C [address] [facility] [address] [place] [address] Cardiology 03/11/24 documented as of this encounter
--- OUTSIDE RECORDS SUMMARY | 2025-09-24 05:02 | XMS_ITS | Encounter Summary ---
Author Organization [employer] ([place], [place], [place], [place], [place]) Address [address] [place] [address] Care Team Providers Care Ip Architect Name Role Phone Tee Wade MD Primary Care Provider + [phone] Lennie Coates PA-C Unavailable [phone] Encounter Details Date Type Department Care Team (Late st Contact Info) Description 10/25/2019 Transcribed Document [facility] [place] Medicine [address] [place] [address] ProviderJuan MD [address] [place] [address] Social History Tobacco Use Types Packs/Day Years Used Date Smoking Tobacco: Never Assessed Sex and Gender Information Value Date Recorded Sex Assigned at Not on file Legal Sex Male 3:26 PM CDT Gender Identity Not on file Sexual Orientation Not on file documented as of this encounter Miscellaneous Notes * Cerner Conversion Note - Juan Summers MD - 10/25/2019 12:36 PM PROSTHETICS TECHNICIAN UM Authorization Entered On: 10/25/2019 12:36 EST Performed On: 10/25/2019 12:36 EST by Ashley López Rn-Utilization Review Primary Insurance Authorization Authorization and Policy Numbers : Insurance 1 Health Plan: [employer] Policy Number: [id number] Authorization Number: Insurance Primary Name : [employer] Policy Number: [id number] Historical Authorization Comments-Primary : Comment 1: Pt not precerted for IP surgery, the CPT code 23544 is for out pt surgery. Pt has d/c order on chart, Called MD office spoke to Marcelino and requested her to notify MD/medical/surgery registered nurse. Awaiting callback (TAMIKO HUERTAS RN 10/24/2019 12:30) Ashley López Rn-Utilization Review - 10/25/2019 12:36 EST Electronically signed by [facility] Conversion Wall Scraper Cerner at 03/07/2023 10:35 AM CDT documented in this encounter Plan of Treatment Not on file documented as of this encounter Visit Diagnoses Not on filedocumented in this encounter Care Teams Ip Architect Relationship Specialty Start Date End Date Tee Wade MD [address] [facility] [address] [place] [address] PCP - General Neurology 03/07/23 Lennie Coates PA-C [address] [place] [address] [address] [place] [address] Cardiology 03/11/24 documented as of this encounter
--- OUTSIDE RECORDS SUMMARY | 2025-09-24 05:02 | XMS_ITS | Encounter Summary ---
Author Organization [employer] ([place], [place], [place], [place], [place]) Address [address] [place] [address] Care Team Providers Care Feed Inspection Supervisor Name Role Phone Tee Wade MD Primary Care Provider + [phone] Lennie Coates PA-C Unavailable [phone] Encounter Details Date Type Department Care Team (Late st Contact Info) Description 10/23/2019 Transcribed Document [facility] Family Medicine [address] [place] [address] ProviderJuan MD [address] [place], [place] [address] Social History Tobacco Use Types Packs/Day Years Used Date Smoking Tobacco: Never Assessed Sex and Gender Information Value Date Recorded Sex Assigned at Not on file Legal Sex Male 3:26 PM CDT Gender Identity Not on file Sexual Orientation Not on file documented as of this encounter Miscellaneous Notes * Cerner Conversion Note - Juan Summers MD - 10/23/2019 8:01 AM TIME CLOCK INSPECTOR Procedural Documentation Entered On: 10/23/2019 8:05 EST Performed On: 10/23/2019 8:01 EST by Jannette Reyes postpartum rn Documentation Procedure to be Performed : taps block Time Out Pause Time : 10/23/2019 7:56 EST All Activity Suspended : Yes Team Verbally Confirms Information : Correct patient identity, Correct side and site are marked, Consent form is present and accurate, Agreement on the procedure to be done, Correct patient position, Confirm the skin prep has dried, Performed in location of procedure after prepped/draped, Performed before each procedure if multiple procedures, Reconcile problems if responses among team members differ Procedure Performed : taps block Proper Use of Sterile Apparel per Policy : Yes Procedure Case Attendee : AMALIA CARLOS MD-ANS Procedure Case Attendee Role : Anesthesiologist Procedure Case Attendee Role 2 : postpartum rn Case Attendee 2 : Jannette Reyes RN Procedure Case Attendee Role 3 : postpartum rn Case Attendee 3 : ROBERTO PORTER RN Wright, Vicky P, RN - 10/23/2019 8:01 EST Postprocedure Documentation Current Time : 8:01 EST Jannette Reyes RN - 10/23/2019 8:01 EST Primo Level I Post Anesthesia Assessment Primo I Activity Status : Moves 4 extremities voluntarily or on command Primo l Respiratory Component : Able to deep breathe and cough freely Primo I Circulation Component : BP 20% of preanesthetic level Primo I Consciousness : Arouses on calling Primo l Oxygen Saturation : Needs oxygen to maintain > 92% Primo l Score : 8 Jannette Reyes RN - 10/23/2019 8:01 EST Vital Measurements Systolic Blood Pressure : 146 mmHg ([place]) Diastolic Blood Pressure : 76 mmHg Jannette Reyes RN - 10/23/2019 8:11 EST Pulse Method : Non-Invasive BP Device Peripheral Pulse Rate : 55 bpm (LOW) Pulse Rhythm : Regular Respiratory Rate : 16 Breaths/Min Blood Pressure Location : Arm, right upper Blood Pressure Source : Non-Invasive BP Device Blood Pressure Position : Supine Jannette Reyes RN - 10/23/2019 8:01 EST Oxygen Therapy Oxygen Titrated : No Oxygen Therapy Mode : Nasal cannula Oxygen Flow Rate : 2 Liter/Min Pulse Oximeter Probe Site : Hand, left O2 Saturation Monitoring Frequency : Continuous Jannette Reyes RN - 10/23/2019 8:01 EST Oxygen Saturation : 100 % Jannette Reyes RN - 10/23/2019 8:11 EST Oxygen Humidification : None Jannette Reyes RN - 10/23/2019 8:01 EST Electronically signed by Mima [facility] Conversion Gaming Cage Worker Cerner at 03/07/2023 10:37 AM CDT documented in this encounter Plan of Treatment Not on file documented as of this encounter Visit Diagnoses Not on filedocumented in this encounter Care Teams Feed Inspection Supervisor Relationship Specialty Start Date End Date Tee Wade MD [address] [address] PCP - General Neurology 03/07/23 Lennie Coates PALoveC [address] [facility] [place] [address] Cardiology 03/11/24 documented as of this encounter
--- OUTSIDE RECORDS SUMMARY | 2025-09-24 05:02 | XMS_ITS | Encounter Summary ---
Author Organization [employer] ([place], [place], [place], [place], [place]) Address [address] [place] [address] Care Team Providers Care Headlight Adjuster Name Role Phone Tee Aguilar MD Primary Care Provider [phone] Lennie Coates PA-C Unavailable [phone] Encounter Details Date Type Department Care Team (Late st Contact Info) Description 10/24/2019 Transcribed Document [facility] Family Medicine [address] [place] [address] ProviderJuan MD [address] [place] [address] Social History Tobacco Use Types Packs/Day Years Used Date Smoking Tobacco: Never Assessed Sex and Gender Information Value Date Recorded Sex Assigned at Not on file Legal Sex Male 3:26 PM CDT Gender Identity Not on file Sexual Orientation Not on file documented as of this encounter Miscellaneous Notes * Cerner Conversion Note - Juan Summers MD - 10/24/2019 12:14 PM 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 [facility] [place], [place] [id number] KOSTA JHOANA LYNN :1955 Visit Time:10/23/2019 Your Visit Summary Your Care Team Admitting Physician - LEIGHA LOMBARDI MD-URO Attending Physician - LEIGHA LOMBARDI MD-URO Primary Care Physician - TEE AGUILAR, IM Referring Physician - LEIGHA LOMBARDI MD-URO PHY, NONE Your Diagnosis Cancer of prostate, Cancer of prostate, Malignant neoplasm of prostate, Malignant neoplasm of prostate What to do next Instructions From Your Care Team Discharge Follow Up Instructions: follow up 12-16 with cystogram at [facility] radiology prior to visit Activity: Discharge Activity: No heavy lifting over 10 lbs Diet: Discharge Diet: Resume usual diet as tolerated Showering/Bathing Instructions: May shower Follow-Up Appointments Follow Up with LEIGHA LOMBARDI MD-URO When 11/03/2019 12:00 AM EST Comments Call for follow up appointment Where: [address] [facility] [address] [place] [address]- Follow Up with TEE AGUILAR IM When Within 2 to 3 days Where: [address] [facility] [address] [place] [address]- Medications What How Much When Instructions Next Dose acetaminophen-hydrocodone ([place] 7.5 mg-325 mg oral tablet) 1 Tablet(s) Oral Every 6 Hours as needed for for pain docusate (Colace 100 mg oral capsule) 1 Capsule(s) Oral Every Day Printed Prescription sulfamethoxazole-trimethoprim (Bactrim DS 800 mg-160 mg oral tablet) 1 Tablet(s) Oral Two Times A Day Duration: 14 Day(s) Printed Prescription amLODIPine 5 Milligram(s) Oral At Bedtime ascorbic acid (Vitamin C) 500 Milligram(s) Oral Every Day garlic 2,000 Milligram(s) Oral Every Day lisinopril 20 Milligram(s) Oral At Bedtime Non Formulary (CBD oil) 1/2 dropper SubLINgual Every Day as needed for pain or sleep Non Formulary (Non Formulary med) 1 Tablet(s) Oral Every Day apple cider vinegar Take your medications faithfully. Do NOT skip medication. Do NOT stop taking medications without the direction of a physician. Carry a list of your medications with you at all times, and take this medication list with you to your first follow up visit. Report any side effects. Avoid herbal remedies unless discussed with your physician. As part of your treatment plan, your physician may have prescribed a limited course of a controlled substance. This medication may be given to help people with moderate or severe pain or for other medical conditions, but there are risks involved with treatment. Common side effects may include nausea, constipation, drowsiness, sweating, itching, dry mouth, and rash. More serious side effects may include cognitive and motor impairment, like problems with thinking, concentrating, alertness, and movement (e.g. slowed reflexes), and driving and operating heavy machinery can be dangerous. It is important for you to talk to your physician if you have these side effects or questions. These controlled substances can produce physical dependence and be habit-forming if taken for an extended period of time, which means that the body has gotten used to them and may experience withdrawal symptoms if they are abruptly stopped. Withdrawal symptoms can include runny nose, sweating, goose bumps, diarrhea, abdominal cramping, rapid heartbeat, difficulty sleeping, and nervousness. Please dispose of unused and medications per your retail pharmacy guidance. Allergies nabumetone (Nausea) Immunizations This Visit No Immunizations Found Education Materials Incision Care, Adult An incision is a surgical cut that is made through your skin. Most incisions are closed after surgery. Your incision may be closed with stitches (sutures), quita, skin glue, or adhesive strips. You may need to return to your health care provider to have sutures or quita removed. This may occur several days to several weeks after your surgery. The incision needs to be cared for properly to prevent infection. How to care for your incision Incision care ??? Follow instructions from your health care provider about how to take care of your incision. Make sure you: ? Wash your hands with soap and water before you change the bandage (dressing). If soap and water are not available, use hand unit clerk. ? Change your dressing as told by your health care provider. ? Leave sutures, skin glue, or adhesive strips in place. These skin closures may need to stay in place for 2 weeks or longer. If adhesive strip edges start to loosen and curl up, you may trim the loose edges. Do not remove adhesive strips completely unless your health care provider tells you to do that. ??? Check your incision area every day for signs of infection. Check for: ? More redness, swelling, or pain. ? More fluid or blood. ? Warmth. ? Pus or a bad smell. ??? Ask your health care provider how to clean the incision. This may include: ? Using mild soap and water. ? Using a clean towel to pat the incision dry after cleaning it. ? Applying a cream or ointment. Do this only as told by your health care provider. ? Covering the incision with a clean dressing. ??? Ask your health care provider when you can leave the incision uncovered. ??? Do not take baths, swim, or use a hot tub until your health care provider approves. Ask your health care provider if you can take showers. You may only be allowed to take sponge baths for bathing. Medicines ??? If you were prescribed an antibiotic medicine, cream, or ointment, take or apply the antibiotic as told by your health care provider. Do not stop taking or applying the antibiotic even if your condition improves. ??? Take zkih-gir-xddqdot and prescription medicines only as told by your health care provider. General instructions ??? Limit movement around your incision to improve healing. ? Avoid straining, lifting, or exercise for the first month, or for as long as told by your health care provider. ? Follow instructions from your health care provider about returning to your normal activities. ? Ask your health care provider what activities are safe. ??? Protect your incision from the sun when you are outside for the first 6 months, or for as long as told by your health care provider. Apply sunscreen around the scar or cover it up. ??? Keep all follow-up visits as told by your health care provider. This is important. Contact a health care provider if: ??? Your have more redness, swelling, or pain around the incision. ??? You have more fluid or blood coming from the incision. ??? Your incision feels warm to the touch. ??? You have pus or a bad smell coming from the incision. ??? You have a fever or shaking chills. ??? You are nauseous or you vomit. ??? You are dizzy. ??? Your sutures or quita come undone. Get help right away if: ??? You have a red streak coming from your incision. ??? Your incision bleeds through the dressing and the bleeding does not stop with gentle pressure. ??? The edges of your incision open up and separate. ??? You have severe pain. ??? You have a rash. ??? You are confused. ??? You faint. ??? You have trouble breathing and a fast heartbeat. This information is not intended to replace advice given to you by your health care provider. Make sure you discuss any questions you have with your health care provider. Document Released: 05/25/2006 Document Revised: 07/13/2017 Document Reviewed: 05/23/2017 [employer] Interactive Patient Education ?? 2019 [employer] Indwelling Urinary Catheter Care, Adult An indwelling urinary catheter is a thin, flexible, germ-free (sterile) tube that is placed into the bladder to help drain urine out of the body. The catheter is inserted into the part of the body that drains urine from the bladder (urethra). Urine drains from the catheter into a drainage bag outside of the body. Taking good care of your catheter will keep it working properly and help to prevent problems from developing. What are the risks? Bacteria may get into your bladder and cause a urinary tract infection. ??? Urine flow can become blocked. This can happen if the catheter is not working correctly, or if you have sediment or a blood clot in your bladder or the catheter. ??? Tissue near the catheter may become irritated and bleed. How to wear your catheter and your drainage bag Supplies needed ??? Adhesive tape or a leg strap. ??? Alcohol wipe or soap and water (if you use tape). ??? A clean towel (if you use tape). ??? Overnight drainage bag. ??? Smaller drainage bag (leg bag). Wearing your catheter and bag Use adhesive tape or a leg strap to attach your catheter to your leg. ??? Make sure the catheter is not pulled tight. ??? If a leg strap gets wet, replace it with a dry one. ??? If you use adhesive tape: 1. Use an alcohol wipe or soap and water to wash off any stickiness on your skin where you had tape before. 2. Use a clean towel to pat-dry the area. 3. Apply the new tape. You should have received a large overnight drainage bag and a smaller leg bag that fits underneath clothing. ??? You may wear the overnight bag at any time, but you should not wear the leg bag at night. ??? Always wear the leg bag below your knee. ??? Make sure the overnight drainage bag is always lower than the level of your bladder, but do not let it touch the floor. Before you go to sleep, hang the bag inside a wastebasket that is covered by a clean plastic bag. How to care for your skin around the catheter Supplies needed ??? A clean washcloth. ??? Water and mild soap. ??? A clean towel. Caring for your skin and catheter ??? Every day, use a clean washcloth and soapy water to clean the skin around your catheter. 1. Wash your hands with soap and water. 2. Wet a washcloth in warm water and mild soap. 3. Clean the skin around your urethra. ? If you are female: ? Use one hand to gently spread the folds of skin around your vagina (labia). ? With the washcloth in your other hand, wipe the inner side of your labia on each side. Do this in a lgqut-pa-lwps direction. ? If you are male: ? Use one hand to pull back any skin that covers the end of your penis (foreskin). ? With the washcloth in your other hand, wipe your penis in small circles. Start wiping at the tip of your penis, then move outward from the catheter. 4. With your free hand, hold the catheter close to where it enters your body. Keep holding the catheter during cleaning so it does not get pulled out. 5. Use your other hand to clean the catheter with the washcloth. ? Only wipe downward on the catheter. ? Do not wipe upward toward your body, because that may push bacteria into your urethra and cause infection. 6. Use a clean towel to pat-dry the catheter and the skin around it. Make sure to wipe off all soap. 7. Wash your hands with soap and water. ??? Shower every day. Do not take baths. ??? Do not use cream, ointment, or lotion on the area where the catheter enters your body, unless your health care provider tells you to do that. ??? Do not use powders, sprays, or lotions on your genital area. ??? Check your skin around the catheter every day for signs of infection. Check for: ? Redness, swelling, or pain. ? Fluid or blood. ? Warmth. ? Pus or a bad smell. How to empty the drainage bag Supplies needed ??? Rubbing alcohol. ??? Gauze pad or cotton ball. ??? Adhesive tape or a leg strap. Emptying the bag Empty your drainage bag (your overnight drainage bag or your leg bag) when it is ? full, or at least 2???3 times a day. Do not clean your drainage bag unless your health care provider tells you to do that. 1. Wash your hands with soap and water. 2. Detach the drainage bag from your leg. 3. Hold the drainage bag over the toilet or a clean container. Make sure the drainage bag is lower than your hips and bladder. This stops urine from going back into the tubing and into your bladder. 4. Open the pour spout at the bottom of the bag. 5. Empty the urine into the toilet or container. Do not let the pour spout touch any surface. This precaution is important to prevent bacteria from getting in the bag and causing infection. 6. Apply rubbing alcohol to a gauze pad or cotton ball. 7. Use the gauze pad or cotton ball to clean the pour spout. 8. Close the pour spout. 9. Attach the bag to your leg with adhesive tape or a leg strap. 10. Wash your hands with soap and water. How to change the drainage bag Supplies needed: ??? Alcohol wipes. ??? A clean drainage bag. ??? Adhesive tape or a leg strap. Changing the bag Replace your drainage bag with a clean bag once a month. Replace the bag sooner if it leaks, starts to smell bad, or looks dirty. 1. Wash your hands with soap and water. 2. Detach the dirty drainage bag from your leg. 3. Pinch the catheter with your fingers so that urine does not spill out. 4. Disconnect the catheter tube from the drainage tube at the connection valve. Do not let the tubes touch any surface. 5. Clean the end of the catheter tube with an alcohol wipe. Use a different alcohol wipe to clean the end of the drainage tube. 6. Connect the catheter tube to the drainage tube of the clean bag. 7. Attach the clean bag to your leg with adhesive tape or a leg strap. Avoid attaching the new bag too tightly. 8. Wash your hands with soap and water. General instructions ??? Never pull on your catheter or try to remove it. Pulling can damage your internal tissues. ??? Always wash your hands before and after you handle your catheter or drainage bag. Use a mild, fragrance-free soap. If soap and water are not available, use hand unit clerk. ??? Always make sure there are no twists or bends (kinks) in the catheter tube. ??? Always make sure there are no leaks in the catheter or drainage bag. ??? Drink enough fluid to keep your urine pale yellow. ??? Do not take baths, swim, or use a hot tub. ??? If you are female, wipe from front to back after having a bowel movement. Contact a health care provider if: ??? Your urine is cloudy. ??? Your urine smells unusually bad. ??? Your catheter gets clogged. ??? Your catheter starts to leak. ??? Your bladder feels full. Get help right away if: ??? You have redness, swelling, or pain where the catheter enters your body. ??? You have fluid, blood, pus, or a bad smell coming from the area where the catheter enters your body. ??? The area where the catheter enters your body feels warm to the touch. ??? You have a fever. ??? You have pain in your abdomen, legs, lower back, or bladder. ??? You see blood in the catheter. ??? Your urine is pink or red. ??? You have nausea, vomiting, or chills. ??? Your urine is not draining into the bag. ??? Your catheter gets pulled out. Summary ??? An indwelling urinary catheter is a thin, flexible, germ-free (sterile) tube that is placed into the bladder to help drain urine out of the body. ??? The catheter is inserted into the part of the body that drains urine from the bladder (urethra). ??? Take good care of your catheter to keep it working properly and help prevent problems from developing. ??? Always wash your hands before and after you handle your catheter or drainage bag. ??? Never pull on your catheter or try to remove it. This information is not intended to replace advice given to you by your health care provider. Make sure you discuss any questions you have with your health care provider. Document Released: 11/05/2006 Document Revised: 06/21/2018 Document Reviewed: 06/21/2018 [employer] Interactive Patient Education ?? 2019 [employer]. Laparoscopic Prostatectomy, Care After This sheet gives you information about how to care for yourself after your procedure. Your health care provider may also give you more specific instructions. If you have problems or questions, contact your health care provider. What can I expect after the procedure? After the procedure, it is common to have: ??? Pain. ??? Abdominal discomfort. ??? Nausea. Follow these instructions at home: Medicines ??? Take nadq-puf-oorkbem and prescription medicines only as told by your health care provider. ??? If you were prescribed an antibiotic medicine, take it as told by your health care provider. Do not stop taking the antibiotic even if you start to feel better. Activity ??? Increase your activity level slowly. Being active after your surgery is important because it reduces your risk of developing blood clots. ??? Get out of bed as much as possible, but do not do activities that require a lot of energy. Walk around as tolerated. ??? For the first 10 days after your procedure, avoid: ? Lifting. ? Straining. ? Running. ? Walking more than a couple of blocks. ? Driving or riding in a car for long periods of time. ? Sexual activity. Diet ??? Avoid alcohol and drinks with caffeine for 2 weeks. Alcohol and caffeine irritate the bladder. ??? Avoid spicy foods. These can irritate the bladder. ??? To prevent or treat constipation while you are taking prescription pain medicine, your health care provider may recommend that you: ? Drink enough fluid to keep your urine clear or pale yellow. ? Take bhxl-qnu-nnlensn or prescription medicines. ? Eat foods that are high in fiber, such as fresh fruits and vegetables, whole grains, and beans. ? Limit foods that are high in fat and processed sugars, such as fried and sweet foods. Bowel and bladder care ??? Follow your health care provider's instructions about caring for your [place]ona catheter. ??? Urinate when you feel the need to. Do not hold in your urine for long periods of time. ??? Do not strain to have a bowel movement. Straining increases the chances of bleeding. Incision care ??? Follow instructions from your health care provider about how to take care of your incisions. Make sure you: ? Wash your hands with soap and water before you change your bandage (dressing). If soap and water are not available, use hand unit clerk. ? Change your dressing as told by your health care provider. ? Leave stitches (sutures) or adhesive strips in place. These skin closures may need to stay in place for 2 weeks or longer. If adhesive strip edges start to loosen and curl up, you may trim the loose edges. Do not remove adhesive strips completely unless your health care provider tells you to do that. ??? Check your incision area every day for signs of infection. Check for: ? Redness, swelling, or pain. ? Fluid or blood discharge. ? Warmth. ? Pus or a bad smell. General instructions ??? Do coughing and deep breathing exercises as told by your health care provider. It may be helpful to take your pain medicines before doing these exercises. ??? Do not use any products that contain nicotine or tobacco, such as cigarettes and e-cigarettes. If you need help quitting, ask your health care provider. ??? Keep all follow-up visits as told by your health care provider. This is important. Contact a health care provider if: ??? You have redness, swelling, or pain around an incision. ??? You have more fluid or blood coming from an incision. ??? An incision feels warm to the touch. ??? You have pus or a bad smell coming from an incision. ??? You have a fever. ??? An incision breaks open before or after sutures or quita have been removed. Get help right away if: ??? Your catheter stops draining urine. ??? Your abdomen becomes swollen. ??? You develop shortness of breath. ??? You have a lot of bleeding from your incision. ??? You have a high fever that does not go away. ??? You develop pain in your chest, back, or abdomen. ??? You develop pain or swelling in your legs. ??? You suddenly gain weight. Summary ??? After your procedure, it is common to have pain, abdominal discomfort, and nausea. ??? Take srqo-anu-olfvjsn and prescription medicines only as told by your health care provider. Finish all the prescribed antibiotic medicines, even if you start to feel better. ??? Increase your activity level slowly to prevent blood clots. ??? Follow your health care provider's instructions about how to take care of your incisions. ??? Get help right away if you develop shortness of breath, or if you develop chest pain. This information is not intended to replace advice given to you by your health care provider. Make sure you discuss any questions you have with your health care provider. Document Released: 11/05/2006 Document Revised: 10/10/2017 Document Reviewed: 10/10/2017 [employer] Interactive Patient Education ?? 2019 [employer]. Laparoscopic Prostatectomy Laparoscopic prostatectomy is a surgery to remove the entire prostate gland and seminal vesicles. The surgery is performed using a thin, pencil-sized instrument (laparoscope) with a light and camera on the end to help the surgeon see inside the abdomen. This surgery may be done to treat prostate cancer or an enlarged prostate gland (benign prostatic hyperplasia). Laparoscopic prostatectomy is less invasive than other types of surgeries for removing the prostate gland. During this procedure, 4???5 small incisions are made in the abdomen. The laparoscope and other surgical instruments are placed through the incisions and the prostate gland is removed. Tell a health care provider about: ??? Any allergies you have. ??? All medicines you are taking, including vitamins, herbs, eye drops, creams, and wyrl-nvv-xzmvcmv medicines. ??? Any problems you or family members have had with anesthetic medicines. ??? Any blood disorders you have. ??? Any surgeries you have had. ??? Any medical conditions you have. What are the risks? Generally, this is a safe procedure. However, problems may occur, including: ??? Infection. ??? Bleeding and the risk that you may require donated blood (transfusion). ??? Allergic reactions to medicines. ??? Damage to other structures or organs, such as the rectum, bladder, or small bowel. ??? Blockage in the intestines or bowel. ??? Scarring (stricture) that causes problems with the flow of urine. ??? Inability to control when you urinate (incontinence). ??? Inability to get or keep an erection (erectile dysfunction). What happens before the procedure? Staying hydrated Follow instructions from your health care provider about hydration, which may include: ??? Up to 2 hours before the procedure ??? you may continue to drink clear liquids, such as water, clear fruit juice, black coffee, and plain tea. Eating and drinking restrictions Follow instructions from your health care provider about eating and drinking, which may include: ??? 8 hours before the procedure ??? stop eating heavy meals or foods such as meat, fried foods, or fatty foods. ??? 6 hours before the procedure ??? stop eating light meals or foods, such as toast or cereal. ??? 6 hours before the procedure ??? stop drinking milk or drinks that contain milk. ??? 2 hours before the procedure ??? stop drinking clear liquids. General instructions ??? Ask your health care provider about: ? Changing or stopping your regular medicines. This is especially important if you are taking diabetes medicines or blood thinners. ? Taking medicines such as aspirin and ibuprofen. These medicines can thin your blood. Do not take these medicines before your procedure if your health care provider instructs you not to. ??? Follow your health care provider's instructions about cleansing your bowels. ??? Do not use any products that contain nicotine or tobacco, such as cigarettes and e-cigarettes. If you need help quitting, ask your health care provider. ??? Practice any breathing exercises as told by your health care provider. ??? Plan to have someone take you home from the hospital or clinic. ??? If you will be going home right after the procedure, plan to have someone with you for 24 hours. What happens during the procedure? To reduce your risk of infection: ? Your health care team will wash or sanitize their hands. ? Your skin will be washed with soap. ? Hair may be removed from the surgical area. ??? An IV tube will be inserted into one of your veins. ??? You will be given one or more of the following: ? A medicine to help you relax (sedative). ? A medicine to make you fall asleep (general anesthetic). ??? A tube (Corona catheter) will be inserted into your urethra to drain urine from your bladder. ??? An incision will be made in your abdomen at your belly button. ??? A laparoscope will be inserted into your abdomen through the incision. ??? Four or more small incisions will be made. ??? Surgical instruments will be inserted into the incisions and used to remove your prostate and seminal vesicles. Your urethra will be disconnected from your bladder. ??? Your urethra will be reconnected to the group of muscles that help push urine through the urethra (bladder neck). ??? The laparoscope and other surgical instruments will be removed. ??? Your incisions will be closed with stitches (sutures). The procedure may vary among health care providers and hospitals. What happens after the procedure? Your blood pressure, heart rate, breathing rate, and blood oxygen level will be monitored until the medicines you were given have worn off. ??? You may continue to receive fluids and medicines through an IV tube. You may be given antibiotics, or medicine to help relieve pain or nausea. ??? You will be encouraged to walk as soon as possible. You will also use a device or do breathing exercises to keep your lungs clear. ??? You may continue to have a Corona catheter draining your urine. You will be instructed on how to care for this at home. ??? Do not drive for 24 hours if you received a sedative. Summary ??? Laparoscopic prostatectomy is a surgery to remove the entire prostate gland and seminal vesicles. The surgery is performed using a thin, pencil-sized instrument (laparoscope) with a light and camera on the end to help the surgeon see inside the abdomen. ??? You may continue to receive fluids and medicines through an IV tube. You may be given antibiotics, or medicine to help relieve pain or nausea. ??? You will continue to have a Corona catheter draining your urine. You will be instructed on how to care for this at home. ??? Plan to have someone take you home from the hospital or clinic. This information is not intended to replace advice given to you by your health care provider. Make sure you discuss any questions you have with your health care provider. Document Released: 11/05/2006 Document Revised: 10/22/2017 Document Reviewed: 10/22/2017 [employer] Interactive Patient Education ?? 2019 [employer] Emergency Awareness and Preventative Care STROKE is an EMERGENCY Every Minute Counts Act FAST and Check for these signs: FACE Does the face look uneven? ARM Does one arm drift down? SPEECH Does their speech sound strange? TIME Call at any sign of stroke Stroke Risk Factors Atrial Fibrillation (irregular heartbeat) Diabetes Family history of stroke Heart Disease Heavy alcohol use High Blood Pressure High Cholesterol Physical inactivity and obesity Smoking Cigarette Smoking The facts are clear, cigarette smoking will shorten your life. Smoking can cause many illnesses along the way. As a healthcare provider, we recommend that you stop smoking. Assistance with quitting is available by contacting 6-680-WDHRNOW. This is a free resource providing counseling, support, and referral. Or you may contact your personal physician. [place] Suicide Prevention Lifeline: The National Suicide Prevention Lifeline is a national network of local crisis centers that provides free and confidential emotional support to people in suicidal crisis or emotional distress 24 hours a day, 7 days a week. Don't Wait! Stop a Heart Attack Before it Starts What is a heart attack? A heart attack is damage or to a part of the heart from severely decreased or lack of blood flow to the heart. Over time, arteries can become narrow from the buildup of fat and cholesterol, which is called plaque. The plaque can rupture causing a blood clot to form. When the blood clot forms, the artery can become severely narrowed or completely blocked, causing a heart attack. Heart attack is the leading cause of in the [place]. 85% of muscle damage occurs within the first 2 hours. Delay in the recognition of heart attack symptoms increases the chances of . Know the early symptoms of a heart attack: Nausea Feeling of fullness in chest Jaw Pain Pain that travels down one or both arms Fatigue/being tired Anxiety Back Pain Chest pressure, squeezing, or discomfort Shortness of breath Sweating, or a cold sweat Feeling of impending doom There are unusual signs of a heart attack, too! Women, the elderly, and diabetics may present with atypical symptoms: Fainting/dizziness Weakness Confusion Risk Factors for a Heart Attack Some heart disease risk factors, such as age and family history, cannot be changed. Others, like smoking and lack of exercise, can be changed. Smoking High Cholesterol High Blood Pressure Family History Obesity Age Gender (Males are at higher risk) Lack of Exercise Diabetes Diet Stress Excessive Alcohol Intake If you or someone you know is experiencing the signs and symptoms of a heart attack, DON???T DELAY. Call immediately and seek help. If someone collapses, perform CPR! Do not attempt to drive if you are having symptoms of heart attack. Hands-Only CPR Why Hands-Only CPR? Hands-Only CPR has been shown to be as effective as conventional CPR for cardiac arrests that occur outside of a hospital. Survival depends on immediately receiving CPR from someone nearby. How do you perform Hands-Only CPR? There are two easy steps: Call 9-1-1 if you see a teen or adult collapse Push hard and fast in the center of the chest at a beat of 100 beats per minute. Save a life! 4 WAYS TO GET AHEAD OF SEPSIS SEPSIS is a MEDICAL EMERGENCY. Time matters! Infections put you and your family at risk for a life-threatening condition called sepsis. Sepsis is the body's extreme response to an infection. It is life-threatening, and without timely treatment, sepsis can rapidly lead to tissue damage, organ failure, and . Sepsis happens when an infection you already have-in your skin, lungs, urinary tract or somewhere else-triggers a chain reaction throughout your body. 1 PREVENT INFECTIONS Take good care of chronic conditions. Talk to your doctor about getting the recommended vaccines. 2 PRACTICE GOOD HYGIENE Wash your hands frequently. Keep cuts or open sores clean and covered until they are healed. 3 KNOW THE SYMPTOMS Confusion or disorientation Shortness of breath High heart rate Fever, shivering, or feeling very cold Extreme pain or discomfort Clammy or sweaty skin 4 ACT FAST Get medical care IMMEDIATELY if you suspect sepsis or if you have an infection that is not getting better or is getting worse. To learn more about sepsis and how to prevent infections, visit www.cdc.gov/sepsis. Test Results Laboratory or Other Results This Visit (last charted value for your 10/23/2019 visit) Hematology 10/24/2019 7:03 AM WBC: 13.8 K/uL -- Normal range between ( 3.6 and 9.5 ) RBC: 4.46 Million/uL -- Normal range between ( 4.20 and 5.70 ) Hct: 39.3 % -- Normal range between ( 40.1 and 51.0 ) Hgb: 13.3 g/dL -- Normal range between ( 13.5 and 17.3 ) Platelet Count: 178 K/uL -- Normal range between ( 163 and 369 ) MCH: 29.8 pg -- Normal range between ( 25.6 and 32.2 ) MCHC: 33.8 Gram/dL -- Normal range between ( 32.2 and 36.5 ) MCV: 88.1 fL -- Normal range between ( 79.0 and 94.8 ) Slide Review: No RDW: 13.2 % -- Normal range between ( 11.7 and 14.9 ) MPV: 11.3 fL -- Normal range between ( 9.4 and 12.4 ) Blood Bank 10/23/2019 7:35 AM ABO/Rh (ECHO): A NEG Antibody Screen (Tube): Negative ABSC 10/17/2019 12:37 PM ABO/Rh Repeat: A NEG General Chemistry 10/24/2019 7:03 AM Creatinine Level: 1.10 mg/dL -- Normal range between ( 0.70 and 1.30 ) Sodium Level: 139 mmol/L -- Normal range between ( 136 and 146 ) Potassium Level: 4.0 mmol/L -- Normal range between ( 3.5 and 5.1 ) Chloride Level: 110 mmol/L -- Normal range between ( 102 and 112 ) Carbon Dioxide Level: 26 mmol/L -- Normal range between ( 21 and 32 ) Anion Gap: 7 -- Normal range between ( 9 and 20 ) Bun/Creatinine: 11.8 -- Normal range between ( 8.0 and 20.0 ) Calcium Level: 8.1 mg/dL -- Normal range between ( 8.4 and 10.1 ) eGFR : >60 mL/min/1.73m2 eGFR NonAfrican: >60 mL/min/1.73m2 Glucose Level: 113 mg/dL -- Normal range between ( 74 and 106 ) Blood Urea Nitrogen: 13 mg/dL -- Normal range between ( 7 and 22 ) 10/23/2019 7:42 AM Potassium POC: 4.5 mmol/L -- Normal range between ( 3.5 and 4.9 ) :Potassium Level POC: :Potassium Level POC Patient Name:JHOANA BRAMBILA I have received and understand this information and was given the opportunity to ask questions. Patient/Ham Curer Name: Patient/Ham Curer Signature: Relationship to Patient: Clinician/Hospital Ham Curer Signature: Date: documented in this encounter Plan of Treatment Not on file documented as of this encounter Visit Diagnoses Not on filedocumented in this encounter Care Teams Headlight Adjuster Relationship Specialty Start Date End Date Tee Aguilar MD [address] [address] PCP - General Neurology 03/07/23 Lennie Coates PA-C [address] [facility] [address] [place] [address] Cardiology 03/11/24 documented as of this encounter
--- OUTSIDE RECORDS SUMMARY | 2025-09-24 05:02 | XMS_ITS | Encounter Summary ---
Author Organization [employer] ([place], [place], [place], [place], [place]) Address [address] [place] [address] Care Team Providers Care Workers Compensation Claims Adjuster Name Role Phone Tee Wade MD Primary Care Provider + [phone] Lennie Coates PA-C Unavailable [phone] Encounter Details Date Type Department Care Team (Late st Contact Info) Description 10/23/2019 Transcribed Document [facility] [place] [address] [place] [address] ProviderJuan MD [address] [place], [place] [id number] Social History Tobacco Use Types Packs/Day Years Used Date Smoking Tobacco: Never Assessed Sex and Gender Information Value Date Recorded Sex Assigned at Not on file Legal Sex Male 3:26 PM CDT Gender Identity Not on file Sexual Orientation Not on file documented as of this encounter Miscellaneous Notes * Cerner Conversion Note - Juan Summers MD - 10/23/2019 5:00 PM RUBBER GOODS TESTER WATER Chart Check - Review Order Profile Entered On: 10/23/2019 18:32 EST Performed On: 10/23/2019 17:00 EST by Jessica Oshea RN-Travelkathie Chart Check Powerplans Initiated/Discontinued as Appropriate : Yes All Active Orders Reviewed : Yes Jessica Oshea RN-Traveler - 10/23/2019 18:32 EST Electronically signed by Slim Guillermo Conversion Process Environmental Technician Cerner at 03/07/2023 10:41 AM CDT documented in this encounter Plan of Treatment Not on file documented as of this encounter Visit Diagnoses Not on filedocumented in this encounter Care Teams Workers Compensation Claims Adjuster Relationship Specialty Start Date End Date Tee Wade MD [address] [facility] [address] [place] [address] PCP - General Neurology 03/07/23 Lennie Coates PALoveC [address] [facility] [address] [place] [address] Cardiology 03/11/24 documented as of this encounter
--- OUTSIDE RECORDS SUMMARY | 2025-09-24 05:02 | XMS_ITS | Encounter Summary ---
Author Organization [employer] ([place], [place], [place], [place], [place]) Address [address] [place] [address] Care Team Providers Care Strategies Analyst Name Role Phone Tee Wade MD Primary Care Provider + [phone] Lennie Coates PA-C Unavailable [phone] Encounter Details Date Type Department Care Team (Late st Contact Info) Description 10/24/2019 Transcribed Document [facility] [place] Family Medicine [address] [place] [address] ProviderJuan MD [address] [place] [address] Social History Tobacco Use Types Packs/Day Years Used Date Smoking Tobacco: Never Assessed Sex and Gender Information Value Date Recorded Sex Assigned at Not on file Legal Sex Male 3:26 PM CDT Gender Identity Not on file Sexual Orientation Not on file documented as of this encounter Miscellaneous Notes * Cerner Conversion Note - Juan Summers MD - 10/24/2019 12:30 PM TAG AND LABEL CUTTER UM Authorization Entered On: 10/24/2019 12:32 EST Performed On: 10/24/2019 12:30 EST by TAMIKO HUERTAS RN Primary Insurance Authorization Authorization and Policy Numbers : Insurance 1 Health Plan: [employer] Policy Number: [id number] Authorization Number: Insurance Primary [facility] Policy Number: [id number] Authorization Comments-Primary : Pt not precerted for IP surgery, the CPT code 78074 is for out pt surgery. Pt has d/c order on chart, Called MD office spoke to Marcelino and requested her to notify MD/home furnishings sales representative. Awaiting callback Historical Authorization Comments-Primary : No Authorization Comments Found TAMIKO HUERTAS, RN - 10/24/2019 12:30 EST Electronically signed by [facility] Conversion Plug Drill Operator Cerner at 03/07/2023 10:18 AM CDT documented in this encounter Plan of Treatment Not on file documented as of this encounter Visit Diagnoses Not on filedocumented in this encounter Care Teams Strategies Analyst Relationship Specialty Start Date End Date Tee Wade MD [address] [facility] [address] [place] [address] PCP - General Neurology 03/07/23 Lennie Coates PA-C [address] [place] [address] [address] [place] [address] Cardiology 03/11/24 documented as of this encounter
--- OUTSIDE RECORDS SUMMARY | 2025-09-24 05:02 | XMS_ITS | Encounter Summary ---
Author Organization [employer] ([place], [place], [place], [place], [place]) Address [address] [place] [address] Care Team Providers Care Validation Scientist Name Role Phone Tee Wade MD Primary Care Provider + [phone] Lennie Coates PA-C Unavailable [phone] Encounter Details Date Type Department Care Team (Late st Contact Info) Description 10/23/2019 Transcribed Document [facility] [place] Family Medicine [address] [place] [address] ProviderJuan MD [address] [place] [address] Social History Tobacco Use Types Packs/Day Years Used Date Smoking Tobacco: Never Assessed Sex and Gender Information Value Date Recorded Sex Assigned at Not on file Legal Sex Male 3:26 PM CDT Gender Identity Not on file Sexual Orientation Not on file documented as of this encounter Miscellaneous Notes * Cerner Conversion Note - Juan Summers MD - 10/23/2019 6:00 AM SYRUP SHED SUPERVISOR RX Interventions Entered On: 10/17/2019 11:30 EST Performed On: 10/17/2019 11:29 EST by GREGOR HAIR RPh Clinical Interventions Clarify Drug Order : Yes GREGOR HAIR RPh - 10/17/2019 11:29 EST Clarify Drug Order Clarify Drug Order, Order : need wt to clarify dose Clarify Drug Order, Value : 0 Dollar Clarify Drug Order, Time : 10 Minute(s) GREGOR HAIR RPh - 10/17/2019 11:29 EST Electronically signed by [facility] Conversion Control Operator Cerner at 03/07/2023 10:39 AM CDT documented in this encounter Plan of Treatment Not on file documented as of this encounter Visit Diagnoses Not on filedocumented in this encounter Care Teams Validation Scientist Relationship Specialty Start Date End Date Tee Wade MD [address] [facility] [address] [place] [address] PCP - General Neurology 03/07/23 Lennie Coates PA-C [address] [facility] [address] [place] [address] Cardiology 03/11/24 documented as of this encounter
--- OUTSIDE RECORDS SUMMARY | 2025-09-24 05:02 | XMS_ITS | Encounter Summary ---
Author Organization [employer] ([place], [place], [place], [place], [place]) Address [address] [place] [address] Care Team Providers Care Principal Technologist Name Role Phone Tee Wade MD Primary Care Provider + [phone] Lennie Coates PA-C Unavailable [phone] Encounter Details Date Type Department Care Team (Late st Contact Info) Description 10/24/2019 Transcribed Document [facility] [place] Family Medicine [address] [place] [address] ProviderJuan MD [address] [place] [address] Social History Tobacco Use Types Packs/Day Years Used Date Smoking Tobacco: Never Assessed Sex and Gender Information Value Date Recorded Sex Assigned at Not on file Legal Sex Male 3:26 PM CDT Gender Identity Not on file Sexual Orientation Not on file documented as of this encounter Miscellaneous Notes * Cerner Conversion Note - Juan Summers MD - 10/24/2019 3:39 PM SPORTS CLERK Nursing Discharge Summary Entered On: 10/24/2019 15:40 EST Performed On: 10/24/2019 15:39 EST by Jessica Oshea RN-Traveler Discharge Documentation Discharge Date/Time : 10/24/2019 12:45 EST Patient Disposition, General : Discharge Discharge To : Home with ambulatory/outpatient follow-up Mode Of Departure, General Discharge : Private vehicle, Wheelchair Accompanied By, Discharge : Spouse IV Discontinued : Yes Personal Belongings With Patient : Yes Prescriptions Given to Patient : Yes Discharge Instructions Reviewed With, Opportunity For Questions Given : Patient Patient Education Completed : Yes Number of Prescriptions Given : 3 Teaching Method : Explanation, Printed materials Teaching Evaluation : Verbalizes understanding Jessica Oshea RN-Traveler - 10/24/2019 15:39 EST Electronically signed by Mima, [facility] Conversion City Auditor Cerner at 03/07/2023 10:41 AM CDT documented in this encounter Plan of Treatment Not on file documented as of this encounter Visit Diagnoses Not on filedocumented in this encounter Care Teams Principal Technologist Relationship Specialty Start Date End Date Tee Wade MD [address] [facility] [address] [place] [address] PCP - General Neurology 03/07/23 Lennie Coates, PA-C [address] [facility] [address] [place] [address] Cardiology 03/11/24 documented as of this encounter
--- OUTSIDE RECORDS SUMMARY | 2025-09-24 05:02 | XMS_ITS | Encounter Summary ---
Author Organization [employer] ([place], [place], [place], [place], [place]) Address [address] [place] [address] Care Team Providers Care Safety Net Maker Name Role Phone Tee Wade MD Primary Care Provider + [phone] Lennie Coates PA-C Unavailable [phone] Encounter Details Date Type Department Care Team (Late st Contact Info) Description 10/23/2019 Transcribed Document [facility] [place] [address] [place] [address] ProviderJuan MD [address] [place] [address] Social History Tobacco Use Types Packs/Day Years Used Date Smoking Tobacco: Never Assessed Sex and Gender Information Value Date Recorded Sex Assigned at Not on file Legal Sex Male 3:26 PM CDT Gender Identity Not on file Sexual Orientation Not on file documented as of this encounter Miscellaneous Notes * Cerner Conversion Note - Juan Summers MD - 10/23/2019 9:30 AM SOCIAL SERVICES ASSISTANT Pain Assessment Entered On: 10/23/2019 15:57 EST Performed On: 10/23/2019 15:55 EST by Jessica Oshea RN-Traveler Intervention Information: fentaNYL Performed by TRAVIS CHRISTIANSON RN on 10/23/2019 15:25:00 EST fentaNYL,25mcg IV Push,Left Hand,Pain (Moderate 4-6) Pain Assessment Pain Assessment : Follow-up assessment Pain Scale Goal : 4 Pain Improved by Intervention : Yes Jessica Oshea RN-Traveler - 10/23/2019 15:57 EST documented in this encounter Plan of Treatment Not on file documented as of this encounter Visit Diagnoses Not on filedocumented in this encounter Care Teams Safety Net Maker Relationship Specialty Start Date End Date Tee Wade MD [facility] [address] [place] [address] PCP - General Neurology 03/07/23 Lennie Coates, PA-C [address] [place] [address] [address] [place] [address] Cardiology 03/11/24 documented as of this encounter
--- OUTSIDE RECORDS SUMMARY | 2025-09-24 05:02 | XMS_ITS | Encounter Summary ---
Author Organization [employer] ([place], [place], [place], [place], [place]) Address [address] [place] [address] Care Team Providers Care Knockup Worker Name Role Phone Tee Wade MD Primary Care Provider + [phone] Lennie Coates PA-C Unavailable [phone] Encounter Details Date Type Department Care Team (Late st Contact Info) Description 10/24/2019 Transcribed Document [facility] [place] [address] [place] [address] ProviderJuan MD [address] [place] [address] Social History Tobacco Use Types Packs/Day Years Used Date Smoking Tobacco: Never Assessed Sex and Gender Information Value Date Recorded Sex Assigned at Not on file Legal Sex Male 3:26 PM CDT Gender Identity Not on file Sexual Orientation Not on file documented as of this encounter Miscellaneous Notes * Cerner Conversion Note - Juan Summers MD - 10/24/2019 11:37 AM INVESTIGATOR CASH SHORTAGE Initial Discharge Planning Entered On: 10/24/2019 11:44 EST Performed On: 10/24/2019 11:37 EST by LINDA BARRY Bottom Turning Lathe Turner Initial Assessment I Previously Documented Living Environment : No qualifying data available. Living Situation : Home with family care Patient Lives With : Spouse Is the Patient a Caregiver at Home? : No Emergency Contact #1 : Minda Haines Emergency Contact #1 cell Emergency Contact #1 Relationship : Emergency Contact #2 : none Emergency Contact #2 Phone Number : none Emergency Contact #2 Relationship : none Enter Doctors Name : Tee Wade Does Patient have PCP Listed? : Yes Legal Guardian : No Is Guardianship Needed : No LINDA BARRY Bottom Turning Lathe Turner - 10/24/2019 11:37 EST Initial Assessment II Sensory and Motor Deficits : None Current Home Treatments and Equipment : None LINDA BARRY Social Worker - 10/24/2019 11:37 EST Discharge Needs I Anticipated Discharge Date : 10/24/2019 EST Anticipated Discharge To, CM : Home with family care Current Home Treatment/Equipment : Current Home Treatment/Equipment No qualifying data available. Post Acute/Home Treatments : None Documentation Status Complete : Yes LINDA BARRY Social Worker - 10/24/2019 11:37 EST Narrative Note Narrative Note : Pt admitted yesterday for robotic assisted lap radical prostatectomy. MDR rounds held in pts room. Explained role of care management. Pt states he will go home with his , Minda , and has no needs. LINDA BARRY Social Worker - 10/24/2019 11:37 EST Electronically signed by [facility], [facility] Conversion Telephone Appointment Clerk Cerner at 03/07/2023 10:42 AM CDT documented in this encounter Plan of Treatment Not on file documented as of this encounter Visit Diagnoses Not on filedocumented in this encounter Care Teams Knockup Worker Relationship Specialty Start Date End Date Tee Wade MD [address] [facility] [address] [place] [address] PCP - General Neurology 03/07/23 Lennie Coates PA-C [address] [facility] [address] [place], [place] [address] Cardiology 03/11/24 documented as of this encounter
--- OUTSIDE RECORDS SUMMARY | 2025-09-24 05:02 | XMS_ITS | Encounter Summary ---
Author Organization [employer] ([place], [place], [place], [place], [place]) Address [address] [place] [address] Care Team Providers Care Software Tester Name Role Phone Tee Wade MD Primary Care Provider + [phone] Lennie Coates PA-C Unavailable [phone] Encounter Details Date Type Department Care Team (Late st Contact Info) Description 10/23/2019 Transcribed Document [facility] [place] [address] [place] [address] ProviderJuan MD [address] [place] [address] Social History Tobacco Use Types Packs/Day Years Used Date Smoking Tobacco: Never Assessed Sex and Gender Information Value Date Recorded Sex Assigned at Not on file Legal Sex Male 3:26 PM CDT Gender Identity Not on file Sexual Orientation Not on file documented as of this encounter Miscellaneous Notes * Cerner Conversion Note - Juan Summers MD - 10/23/2019 8:30 AM FARE ENFORCEMENT OFFICER [facility] Main OR Preop Summary Primary Physician: LEIGHA LOMBARDI MD-URO Finalized Date/Time: 10/23/19 08:49:37 Pt. Name: JHOANA BRAMBILAO.B./Sex: 1955 Male Med Rec #: [id number] Physician: LEIGHA LOMBARDI MD-URO Financial #: [id number] Pt. Type: O Room/Bed: / Admit/Disch: 10/23/19 08:00:00 - Institution: [facility] PreOp Case Times Entry 1 In Preop 10/23/19 06:30:00 Ready for Holding n/a Room Patient Ready for 10/23/19 08:10:00 Surgery Patient Out of Preop 10/23/19 08:24:00 Patient Out of n/a Holding Room Last Modified By: Jannette Reyes RN 10/23/19 08:49:36 [facility] PreOp Case Times Audit 10/23/19 08:49:36 Emergency Vehicle Operations Instructor: WRIGHTVP Modifier: WRIGHTVP <+> 1 Patient Out of Preop 10/23/19 08:08:10 Emergency Vehicle Operations Instructor: WRIGHTVP Modifier: WRIGHTVP <+> 1 Patient Ready for Surgery Finalized By: Jannette Reyes, RN Document Signatures Signed By: Jannette Reyes RN 10/23/19 08:49 Electronically signed by [facility] Conversion Joy Loading Machine Operator Cerner at 03/07/2023 10:44 AM CDT documented in this encounter Plan of Treatment Not on file documented as of this encounter Visit Diagnoses Not on filedocumented in this encounter Care Teams Software Tester Relationship Specialty [place] [address] [place] [address] PCP - General Neurology 03/07/23 Lennie Coates, PA-C [address] [facility] [address] [place] [address] Cardiology 03/11/24 documented as of this encounter
--- OUTSIDE RECORDS SUMMARY | 2025-09-24 05:02 | XMS_ITS | Encounter Summary ---
Author Organization [employer] ([place], [place], [place], [place], [place]) Address [address] [place] [address] Care Team Providers Care Charge Machine Operator Name Role Phone Tee Wade MD Primary Care Provider + [phone] Lennie Coates PA-C Unavailable [phone] Encounter Details Date Type Department Care Team (Late st Contact Info) Description 10/23/2019 Transcribed Document [facility] [place] [address] [place] [address] ProviderJuan MD [address] [place] [address] Social History Tobacco Use Types Packs/Day Years Used Date Smoking Tobacco: Never Assessed Sex and Gender Information Value Date Recorded Sex Assigned at Not on file Legal Sex Male 3:26 PM CDT Gender Identity Not on file Sexual Orientation Not on file documented as of this encounter Miscellaneous Notes * Cerner Conversion Note - Juan Summers MD - 10/23/2019 9:01 AM FAMILY SUPPORT SPECIALIST [facility] Main OR PACU Summary Primary Physician: LEIGHA LOMBARDI MD-URO Finalized Date/Time: 10/23/19 15:50:55 Pt. Name: JHOANA BRAMBILA D.O.B./Sex: 1955 Male Med Rec #: [id number] Physician: LEIGHA LOMBARDI MD-URO Financial #: [id number] Pt. Type: I Room/Bed: [facility]/ Admit/Disch: 10/23/19 08:00:00 - Institution: [facility] Main OR PACU I Case Times Entry 1 In PACU I 10/23/19 11:32:00 Ready for PACU 10/23/19 13:00:00 Discharge Discharge from PACU 10/23/19 15:35:00 I Last Modified By: TRAVIS CHRISTIANSON RN 10/23/19 15:50:45 [facility] Main OR PACU Acuity Entry 1 Start Time 10/23/19 13:00:00 Stop Time 10/23/19 15:35:00 Acuity Level [facility] PACU Acuity I Last Modified By: TRAVIS CHRISTIANSON RN 10/23/19 15:50:53 Finalized By: TRAVIS CHRISTIANSON RN Document Signatures Signed By: TRAVIS CHRISTIANSON RN 10/23/19 15:50 Electronically signed by [facility] Conversion Spoilage Worker Cerner at 03/07/2023 10:30 AM CDT documented in this encounter Plan of Treatment Not on file documented as of this encounter Visit Diagnoses Not on filedocumented in this encounter Care Teams Charge Machine Operator Relationship Specialty [place] [address] [place] [address] [address] [place] [address] PCP - General Neurology 03/07/23 Lennie Coates PA-C [address] [facility] [address] [place] [address] Cardiology 03/11/24 documented as of this encounter
--- OUTSIDE RECORDS SUMMARY | 2025-09-24 05:02 | XMS_ITS | Encounter Summary ---
Author Organization [facility] ([place], [place], [place], [place], [place]) Address [address] [place] [address] Care Team Providers Care Wick And Base Assembler Name Role Phone Tee Wade MD Primary Care Provider + [phone] Lennie Coates PA-C Unavailable [phone] Encounter Details Date Type Department Care Team (Late st Contact Info) Description 10/24/2019 Transcribed Document [facility] [place] [facility] [address] Juan Summers MD [address] [place] [address] Social History Tobacco Use Types Packs/Day Years Used Date Smoking Tobacco: Never Assessed Sex and Gender Information Value Date Recorded Sex Assigned at Not on file Legal Sex Male 3:26 PM CDT Gender Identity Not on file Sexual Orientation Not on file documented as of this encounter Miscellaneous Notes * Cerner Conversion Note - Juan Summers MD - 10/24/2019 8:48 AM CATTLE MANAGER DATE OF DISCHARGE: 10/24/2019 DISCHARGE DIAGNOSIS: Adenocarcinoma of the prostate. OPERATION/PROCEDURE: Robotic assisted laparoscopic radical prostatectomy with left-sided pelvic lymph node dissection Dr. Ty Ghotra. BRIEF HISTORY: The patient is a 64-year-old gentleman who recently was diagnosed with adenocarcinoma of prostate, 6 cores positive on the left side, Custer score of 6. He underwent a metastatic evaluation. All was negative. He presented for a surgical intervention. He was taken to the operating room where this was performed without complications. Postoperatively, he has done excellent. He is tolerating a regular diet. Aydin-Hamm drains had very little output, and we removed. He will be discharged home later today. He will follow up again on the with a cystogram prior to his visit. He was placed on Bactrim Double Strength b.i.d. through that time. /[id number] Ty Ghotra MD TDA/AQ / TDA / MODL /[id number] CC: Ty Ghotra MD Electronically signed by [facility] Conversion Cold Type Composing Machine Operator Cerner at 03/07/2023 10:28 AM CDT documented in this encounter Plan of Treatment Not on file documented as of this encounter Visit Diagnoses Not on filedocumented in this encounter Care Teams Wick And Base Assembler Relationship Specialty Start Date End Date Tee Wade MD [address] [place] [address] PCP - General Neurology 03/07/23 Lennie Coates PA-C [address] [facility] [address] [place] [address] Cardiology 03/11/24 documented as of this encounter
--- OUTSIDE RECORDS SUMMARY | 2025-09-24 05:03 | XMS_ITS | Encounter Summary ---
Author Organization [employer] ([place], [place], [place], [place], [place]) Address [address] [place] [address] Care Team Providers Care Business Development Consultant Name Role Phone Tee Wade MD Primary Care Provider + [phone] Lennie Coates PA-C Unavailable [phone] Encounter Details Date Type Department Care Team (Late st Contact Info) Description 10/24/2019 Transcribed Document [facility] [place] [address] [place] [address] ProviderJuan MD [address] [place] [address] Social History Tobacco Use Types Packs/Day Years Used Date Smoking Tobacco: Never Assessed Sex and Gender Information Value Date Recorded Sex Assigned at Not on file Legal Sex Male 3:26 PM CDT Gender Identity Not on file Sexual Orientation Not on file documented as of this encounter Miscellaneous Notes * Cerner Conversion Note - Juan Summers MD - 10/24/2019 12:13 PM CUSTOMS DIRECTOR Stroke/Warfarin Instructions Entered On: 10/24/2019 12:13 EST Performed On: 10/24/2019 12:13 EST by Jessica Oshea RN-Traveler Stroke/Warfarin Instructions Stroke/TIA Discharge Ins : N/A Warfarin Discharge Ins : N/A Jessica Oshea RN-Traveler - 10/24/2019 12:13 EST documented in this encounter Plan of Treatment Not on file documented as of this encounter Visit Diagnoses Not on filedocumented in this encounter Care Teams Business Development Consultant Relationship Specialty Start Date End Date Tee Wade MD [address] [facility] [address] [place] [address] PCP - General Neurology 03/07/23 Lennie Coates PALoveC [address] [facility] [address] [place] [address] Cardiology 03/11/24 documented as of this encounter
--- OUTSIDE RECORDS SUMMARY | 2025-09-24 05:03 | XMS_ITS | Clinical Summary ---
Author Organization [employer] ([place], [place], [place], [place], [place]) Address [address] [place] [address] Care Team Providers Care Library Services Dean Name Role Phone Tee Wade MD Primary Care Provider [phone] Lennie Coates PA-C Unavailable Allergies Active Allergy Reactions Criticality Noted Date Comments [facility] 02/16/2017 Other reaction(s): Chest Pain, Nausea Medications cyanocobalamin (VITAMIN B-12) 1000 MCG tablet Take 1 tablet (1,000 mcg total) by mouth daily. Active ascorbic acid, vitamin C, (VITAMIN C) 250 MG tablet Take 1 tablet (250 mg total) by mouth daily CHEW AND SWALLOW 1 TABLET DAILY. Active amLODIPine (NORVASC) 5 MG tablet Take 1 tablet (5 mg total) by mouth 2 (two) times daily. 180 tablet 3 07/15/2024 Active losartan (COZAAR) 25 MG tablet Take 1 tablet by mouth twice daily 180 tablet 3 11/16/2024 Active Active Problems Problem Noted Date Diagnosed Date Mixed hyperlipidemia 03/11/2024 Primary hypertension 03/07/2023 Premature atrial contraction 09/13/2021 Palpitations 05/19/2020 Family History Medical History Relation Name Comments Heart disease Father Relation Name Status Comments Father Social History Tobacco Use Types Packs/Day Years Used Date Smoking Tobacco: Never Smokeless Tobacco: Never Tobacco Cessation:Counseling Given: Not Answered Alcohol Use Standard Drinks/Week Comments Yes 0 (1 standard drink = 0.6 oz pur e alcohol) every now and then Food Insecurity Answer Date Recorded Food run out past 12 months Not on file 11/19 Food did not last past 12 months Not on file 12/07/2023 Employment Answer Date Recorded Help finding and keeping a job Not on file 0 12/07/2023 Family and Community Support Answer Fabio e Recorded Help with Day to Day Activities Not on file 12/07/2023 Feeling Lonely or Isolated Not on file 12/07 Educational Attainment Answer Date Dennis rded Speak language other than Togolese at home Not on file 12/07/2023 Want help with school or training Not on file 12/07/2023 Substance Use Answer Date Recorded Used prescription meds for non-medical reasons N ot on file 12/07/2023 Used illegal drugs past 12 months Not on file 12/07/2023 Sex and Gender Information Value Date Recorded Sex Assigned at Not on file Legal Sex Male 3:26 PM CDT Gender Identity Not on file Sexual Orientation Not on file Last Filed Vital Signs Vital Sign Reading Time Taken Comments Blood Pressure 130/90 03/11/2024 1:22 PM EDT Pulse 54 03/11/2024 1:22 PM EDT Temperature - - Respiratory Rate - - Oxygen Saturation - - Inhaled Oxygen Concentration - - Weight 89.8 kg (198 lb) 03/11/2024 1:22 PM EDT Height 180.3 cm (5' 11 ) 03/11/2024 1:22 PM EDT Body Mass Index 27.62 03/11/2024 1:22 PM EDT Plan of Treatment Health Maintenance Due Date Last Done Comments Medicare Initial AWV G0438 CT Colonography 1955 Colonoscopy 1955 Colorectal Cancer Screening 1955 FOBT/FIT 1955 Fit-DNA (Cologuard) 1955 Sigmoidoscopy 1955 Depression Screening (12+) 1967 Hepatitis C Screening 1973 DTAP/TDAP/TD VACCINES (1 - Tdap) 1974 Pneumococcal 50+ years (1 of 1 - PCV) 2005 Shingles Vaccine (Zoster) (1 of 2) 2005 Falls Risk Screening 11/19/2024 Tobacco Cessation Counseling and Screening (12+) 03/1103/11/2024 COVID-19 VACCINE (1 - season) 2025 Influenza Vaccine (#1) 2025 Respiratory Syncytial Virus (RSV) Adult or (1 - 1-dose 75+ series) 2030 Insurance BLUE CROSS/BLUE SHIELD MEDICARE [place] [address] [place] [address] Care Teams Library Services Dean Relationship Specialty Start Date End Date Tee Wade MD [address] [facility] [address] [place] [address] PCP - General Neurology 03/07/23 Lennie Coates, PA-C [address] [facility] [place] [address] [facility] 03/11/24
--- OUTSIDE RECORDS SUMMARY | 2025-09-24 05:03 | XMS_ITS | Referral Summary ---
Author Organization [employer] ([place], [place], [place], [place], [place]) Address [address] [place] [address] Care Team Providers Care Extension Edger Name Role Phone Tee Wade MD Primary Care Provider [phone] Lennie Coates PA-C Unavailable [phone] Allergies Active Allergy Reactions Criticality Noted Date Comments [facility] 02/16/2017 Other reaction(s): Chest Pain, Nausea Medications [...] 03/07/2023 Premature atrial contraction 09/13/2021 Palpitations 05/19/2020 Social History Tobacco Use Types Packs/Day Years [...] Date Dennis rded Speak language other than Guamanian at home Not on file 12/07/2023 Want [...] 03/11/2024 1:22 PM EDT Plan of Treatment Not on file Insurance BLUE CROSS/BLUE SHIELD MEDICARE PART A B [facility] SU[facility] Care Teams Extension Edger Relationship Specialty Start Date End Date Tee Wade MD [address] [facility] [address] [place] [address] PCP - General Neurology 03/07/23 Lennie Coates, PA-C [address] [place] [address] [address] [place] [address] Cardiology 03/11/24
--- OUTSIDE RECORDS SUMMARY | 2025-09-24 05:03 | XMS_ITS | Encounter Summary ---
Author Organization [employer] ([place], [place], [place], [place], [place]) Address [address] [place] [address] Care Team Providers Care Cafe Or Restaurant Manager Name Role Phone Tee Wade MD Primary Care Provider + [phone] Lennie Coates PA-C Unavailable [phone] Encounter Details Date Type Department Care Team (Late st Contact Info) Description 10/25/2019 Transcribed Document [facility] [place] [facility] [place] [address] ProviderJuan MD [address] [place] [address] Social History Tobacco Use Types Packs/Day Years Used Date Smoking Tobacco: Never Assessed Sex and Gender Information Value Date Recorded Sex Assigned at Not on file Legal Sex Male 3:26 PM CDT Gender Identity Not on file Sexual Orientation Not on file documented as of this encounter Miscellaneous Notes * Cerner Conversion Note - Juan Summers MD - 10/25/2019 12:36 PM ADJUNCT PROFESSOR [facility] Authorization Entered On: 10/25/2019 12:36 EST Performed On: 10/25/2019 12:36 EST by Ashley López Rn-Utilization Review Primary Insurance Authorization Authorization and Policy Numbers : Insurance 1 Health Plan: [employer] Policy Number: [id number] Authorization Number: Insurance Primary Name : [employer] Policy Number: [id number] Authorized Service Begin Date-Primary : 10/24/2019 EST Historical Authorization Comments-Primary : Comment 1: Pt not precerted for IP surgery, the CPT code 73174 is for out pt surgery. Pt has d/c order on chart, Called MD office spoke to Marcelino and requested her to notify MD/oral surgery technician. Awaiting callback (TAMIKO HUERTAS RN 10/24/2019 12:30) Ashley López Rn-Utilization Review - 10/25/2019 12:36 EST Electronically signed by [facility] Conversion Supervisor Plastic Sheets Cerner at 03/07/2023 10:11 AM CDT documented in this encounter Plan of Treatment Not on file documented as of this encounter Visit Diagnoses Not on filedocumented in this encounter Care Teams Cafe Or Restaurant Manager Relationship Specialty [place] [address] [place] [address] [address] [place] [address] PCP - General Neurology 03/07/23 Lennie Coates, PA-C [address] [facility] [address] [place] [id number] Cardiology 03/11/24 documented as of this encounter
--- OUTSIDE RECORDS SUMMARY | 2025-09-24 05:03 | XMS_ITS | Encounter Summary ---
Author Organization [employer] ([place], [place], [place], [place], [place]) Address [address] [place] [address] Care Team Providers Care Director Rehabilitation Program Name Role Phone Tee Wade MD Primary Care Provider + [phone] Lennie Coates PA-C Unavailable [phone] Encounter Details Date Type Department Care Team (Late st Contact Info) Description 10/23/2019 Transcribed Document [facility] [place] Family Medicine [address] [place] [address] ProviderJuan MD [address] [place] [address] Social History Tobacco Use Types Packs/Day Years Used Date Smoking Tobacco: Never Assessed Sex and Gender Information Value Date Recorded Sex Assigned at Not on file Legal Sex Male 3:26 PM CDT Gender Identity Not on file Sexual Orientation Not on file documented as of this encounter Miscellaneous Notes * Cerner Conversion Note - Juan Summers MD - 10/23/2019 8:00 AM GAS BOOSTER ENGINEER Admission History, Adult Entered On: 10/23/2019 16:15 EST Performed On: 10/23/2019 16:12 EST by Jessica Oshea RN-Traveler Advance Directive Patient has Advance Directive *Q : No, patient refuses Advance Directive information Jessica Oshea RN-Traveler - 10/23/2019 16:10 EST Anesthesia/Transfusion History Family History of Anesthesia Reaction : No prior transfusion(s) Blood Transfusion Acceptable to Patient : Yes Transfusion History : Prior anesthesia without reaction Family History of Anesthesia Reaction : None Jessica Oshea RN-Traveler - 10/23/2019 16:10 EST Functional Assessment Living Situation : Home Patient Lives With : Spouse Current Home Treatments : None Jessica Oshea RN-Traveler - 10/23/2019 16:10 EST General Info Arrived From : Home Mode of Arrival on Unit : Ambulatory Legal Guardian : Unaccompanied Want Family/Rep/Phys Notified of Admit : No Emergency Contact #1 : Minda Haines Emergency Contact #1 cell Emergency Contact #1 Relationship : Emergency Contact #2 : none Emergency Contact #2 Phone Number : none Emergency Contact #2 Relationship : none Information Obtained From : Patient Primary Language : Belarusian Preferred Communication Mode : Verbal Communication Barrier : None Jessica Oshea RN-Traveler - 10/23/2019 16:10 EST Fall Risk Scales ABCs Fall Injury Risk Identification : Surgery ABC Fall Injury Risk : Moderate to high injury risk Injury Moderate to High Risk Interventions : Supervise toileting as indicated, Transport methods appropriate to patient, Visual cues in place ROBERTS Hx Falls Immediate/Within 3 Months : No Roberts Secondary Diagnosis : Yes ROBERTS Use of Ambulatory Aid : Bed rest/Nurse assist ROBERTS IV Therapy or IV Access : Yes Roberts Gait/Transferring : Normal, bedrest, immobile Roberts Mental Status : Oriented to own ability Roberts Fall Risk Score : 35 ROBERTS Fall Scale Risk Level : 25-45 Medium Risk [place] Fall Interventions : Adequate lighting, Assistive devices within reach, Bed in low position, Call device within reach, Fall prevention handout/education per facility policy, Frequent orientation to call device, Frequent orientation to surroundings, Hourly comfort/safety rounds, Non-slip footwear, Personal items within reach, Reinforced to call for assistance before getting out of bed, Room free of clutter/spills, Upper side-rails up, Wheels locked, Wires/Cords secured Barriers to Learning : None evident Learning Style Preferences Patient : Verbal explanation Fall Risk Scale Calc Temp : 0 Jessica Oshea RN-Traveler - 10/23/2019 16:10 EST Health Histories Smoking Status : Never (less than 100 in lifetime; none in last 30 days) Smokeless Tobacco Status : Never Jessica Oshea RN-Traveler - 10/23/2019 16:10 EST Social History (As Of: 10/23/2019 16:15:59 EST) Tobacco: Never (less than 100 in lifetime) Smoking Status. Never Smokeless Tobacco Status. (Last Updated: 10/17/2019 11:42:10 EST by RG CORRAL RN) Alcohol: Alcohol Use History Yes. Use in Last 12 Months: Yes. Alcohol Use Frequency Socially. (Last Updated: 10/17/2019 11:42:30 EST by RG CORRAL RN) Alcohol Use History Yes. Alcohol Use Frequency Monthly. (Last Updated: 10/17/2019 12:02:20 EST by MARY ALVES RN) Substance Abuse: Drug Use Hx: No. Use in Last 12 Months: No. (Last Updated: 10/17/2019 11:42:36 EST by RG CORRAL RN) Home/Environment: Lives with Spouse. (Last Updated: 10/17/2019 11:42:44 EST by RG CORRAL RN) Height and Weight, Clinical Dosing Height Source : Measured Height Entry Format : [place] Height, Feet : 5 ft(Converted to: 152 cm, 60 Inch) Height, Inches : 11 Inch(Converted to: 0 ft 11 Inch, 27.94 cm) Clinical Height : 180.34 cm Weight Source : Standing scale Weight Entry Format : [place] Clinical Dosing Weight : 89.05 kg Weight, Pounds : 195.9 lb Body Surface Area (BSA) : 2.09 m2 Body Mass Index : 27.4 kg/m2 (HI) [place] Body Weight : 74 kg Jessica Oshea RN-Traveler - 10/23/2019 16:10 EST Infectious Disease History Infectious Disease History : Hepatitis A Isolation Needed : Standard Fever/Chills Last 48 Hours : No Travel To Regions with Travel Advisories : No Travel Outside [place] Within Last 30 Days : No Contact With Traveler to Advisory Region : No Exposure to Contagious Illness : No Tuberculosis Symptoms : Fatigue, Loss of Appetite Jessica Oshea RN-Traveler - 10/23/2019 16:10 EST Influenza Vaccine Asmt, Adult Previous Vaccines from Immunization Schedule : No qualifying data available. Influenza Immunization, Current Season : No Inactivated Flu Vaccine Contraindications : No contraindications to inactivated influenza vaccine Transplant Workup/Recent Transplant : No Order for Influenza Vaccine : Declined Vaccination Jessica Oshea RN-Traveler - 10/23/2019 16:10 EST Pneumococcal Vaccine Previous Vaccines from Immunization Schedule : No qualifying data available. Pneumonia Immunization Received : No Pneumococcal Risk Assessment < Age 65 : None Jessica Oshea RN-Traveler - 10/23/2019 16:10 EST Nutrition History Eating Poorly Due to Decreased Appetite : No Unplanned Weight Loss in Past 3-6 Months : No Malnutrition Screening Tool Total(mal) : 0 Malnutrition Screening Tool Risk Level : Patient not at risk Jessica Oshea RN-Traveler - 10/23/2019 16:10 EST [place] Suicide Severity Rating Scale (C-SSRS) CSSRS Past Month Wish to be : No CSSRS Past Month Suicidal Thoughts : No CSSRS Lifetime Suicide Behavior : No Suicide Severity Rating Score : 0 Suicide Severity Rating : No Additional Care Required at this time Jessica Oshea RN-Traveler - 10/23/2019 16:10 EST Psychosocial History Do You Have a History of the Following? : Patient denies history Currently in Unsafe Situation : No Jessica Oshea RN-Traveler - 10/23/2019 16:10 EST Sleep Apnea Risk Assmt Hx of Obstructive Sleep Apnea Diagnosis : No Snore Loudly : Yes Tired, Fatigued, or Sleepy During Day : Yes Observed Stopping Breathing During Sleep : No Have/Are Being Treated for Hypertension : Yes BMI Greater Than 35 kg/m2 : No Age over 50 Years Old : Yes Neck Circumference Greater Than 40 cm : No Gender Male : Yes STOP-BANG Sleep Apnea Risk Level Score : 5 Jessica Oshea RN-Traveler - 10/23/2019 16:10 EST Valuables and Belongings Valuables and Belongings : Clothing, Personal items, No comfort items, No jewelry, No personal devices, No assistive devices, No respiratory devices, No medications Clothing : Common streetwear Clothing Disposition : Bedside, With patient Personal Items : [place], Cell phone Personal Items Disposition : Bedside, With patient Jessica Oshea RN-Traveler - 10/23/2019 16:10 EST documented in this encounter Plan of Treatment Not on file documented as of this encounter Visit Diagnoses Not on filedocumented in this encounter Care Teams Director Rehabilitation Program Relationship Specialty Start Date End Date Tee Wade MD [address] [address] PCP - General Neurology 03/07/23 Lennie Coates PALoveC [address] [facility] [place] [place] [address] Cardiology 03/11/24 documented as of this encounter
--- OUTSIDE RECORDS SUMMARY | 2025-09-24 05:03 | XMS_ITS | Encounter Summary ---
Author Organization [email or web address] ([place], [place], [place], [place], [place]) Address [address] [place] [address] Care Team Providers Care Literary Agent Name Role Phone Tee Wade MD Primary Care Provider [phone] Lennie Coates PA-C Unavailable [phone] Encounter Details Date Type Department Care Team (Late st Contact Info) Description 10/24/2019 Transcribed Document [facility] [place] Medicine Counts include [address] beds at the [facility] [place] [address] Juan Summers MD [address] [place] [address] Social History Tobacco Use Types Packs/Day Years Used Date Smoking Tobacco: Never Assessed Sex and Gender Information Value Date Recorded Sex Assigned at Not on file Legal Sex Male 3:26 PM CDT Gender Identity Not on file Sexual Orientation Not on file documented as of this encounter Miscellaneous Notes * Cerner Conversion Note - Juan Summers MD - 10/24/2019 12:14 PM [employer] ARCHITECT Patient Education Materials Follows: Incision Care, Adult An incision is a [...] and water are not available, use hand machinist apprentice. ? Change your dressing as told by [...] even if your condition improves. ??? Take xjuv-bll-vdtlvli and prescription medicines only as told by [...] 05/25/2006 Document Revised: 07/13/2017 Document Reviewed: 05/23/2017 [employer] Interactive Patient Education ? 2019 [employer]. Indwelling Urinary Catheter Care, Adult An indwelling [...] on each side. Do this in a vissk-vp-uomg direction. ? If you are male: ? [...] or your leg bag) when it is ??? full, or at least 2?3 times a day. Do not clean your [...] and water are not available, use hand machinist apprentice. ??? Always make sure there are no [...] 11/05/2006 Document Revised: 06/21/2018 Document Reviewed: 06/21/2018 [employer] Interactive Patient Education ? 2019 [employer]. Laparoscopic Prostatectomy, Care After This sheet gives [...] these instructions at home: Medicines ??? Take wthm-vts-vpjvmqq and prescription medicines only as told by [...] urine clear or pale yellow. ? Take qbyr-xyk-ydemfzs or prescription medicines. ? Eat foods that [...] and water are not available, use hand machinist apprentice. ? Change your dressing as told by [...] pain, abdominal discomfort, and nausea. ??? Take hdlo-lha-kvipobz and prescription medicines only as told by [...] 11/05/2006 Document Revised: 10/10/2017 Document Reviewed: 10/10/2017 [employer] Interactive Patient Education ? 2019 [employer] Laparoscopic Prostatectomy Laparoscopic prostatectomy is a surgery [...] removing the prostate gland. During this procedure, 4?5 small incisions are made in the abdomen. The laparoscope and other surgical instruments are placed through the incisions and the prostate gland is removed. Tell a health care provider about: ??? Any allergies you have. ??? All medicines you are taking, including vitamins, herbs, eye drops, creams, and yxmv-isv-uqrzwft medicines. ??? Any problems you or family [...] Up to 2 hours before the procedure ? you may continue to drink clear liquids, such as water, clear fruit juice, black coffee, and plain tea. Eating and drinking restrictions Follow instructions from your health care provider about eating and drinking, which may include: ??? 8 hours before the procedure ? stop eating heavy meals or foods such as meat, fried foods, or fatty foods. ??? 6 hours before the procedure ? stop eating light meals or foods, such as toast or cereal. ??? 6 hours before the procedure ? stop drinking milk or drinks that contain milk. ??? 2 hours before the procedure ? stop drinking clear liquids. General instructions ??? [...] (Corona catheter) will be inserted into your urethra?to drain urine from your bladder. ??? An [...] 11/05/2006 Document Revised: 10/22/2017 Document Reviewed: 10/22/2017 [employer] Interactive Patient Education ? 2019 [employer]. documented in this encounter Plan of Treatment Not on file documented as of this encounter Visit Diagnoses Not on filedocumented in this encounter Care Teams Literary Agent Relationship Specialty Start Date End Date Tee Wade MD [address] [place] [id number] PCP - General Neurology 03/07/23 Lennie Coates PA-C [address] [place] [address] [address] [place] [id number] Cardiology 03/11/24 documented as of this encounter
--- OUTSIDE RECORDS SUMMARY | 2025-09-24 05:03 | XMS_ITS | Encounter Summary ---
Author Organization [employer] ([place], [place], [place], [place], [place]) Address [address] [place] [address] Care Team Providers Care Tail Edger Name Role Phone Tee Wade MD Primary Care Provider + [phone] Lennie Coates PA-C Unavailable [phone] Encounter Details Date Type Department Care Team (Late st Contact Info) Description 10/23/2019 Transcribed Document [facility] [place] Family Medicine [facility] [place] [address] ProviderJuan MD [address] [place] [address] Social History Tobacco Use Types Packs/Day Years Used Date Smoking Tobacco: Never Assessed Sex and Gender Information Value Date Recorded Sex Assigned at Not on file Legal Sex Male 3:26 PM CDT Gender Identity Not on file Sexual Orientation Not on file documented as of this encounter Miscellaneous Notes * Cerner Conversion Note - Juan Summers MD - 10/23/2019 6:40 AM SAND CASTER Patient: JHOANA BRAMBILA Age: 64 years Sex: Male : 1955 Associated Diagnoses: None Author: JASON CASIANO, LAY MIDWIFE Chief Complaint prostate cancer Review of Systems ROS reviewed as documented in chart no change since last seen by surgeon Health Status Allergies: Allergic Reactions (Selected) Severity Not Documented Nabumetone- Nausea., Allergies (1) Active Reaction nabumetone Nausea Current medications: (Selected) Inpatient Medications Ordered Rocephin + Sodium Chloride 0.9% intravenous solution 50 mL: 2,000 mg, 100 mL/Hr, IV Piggyback, 1-Time Documented Medications Documented CBD oil: 1/2 dropper, SubLINgual, Daily, PRN: pain or sleep, 0 Refill(s) Non Formulary med: 1 Tab, Oral, Daily, apple cider vinegar, 0 Refill(s) Vitamin C: 500 mg, Oral, Daily, 0 Refill(s) amLODIPine: 20 mg, Oral, At Bedtime, 0 Refill(s) garlic: 2,000 mg, Oral, Daily, 0 Refill(s) lisinopril: 5 mg, Oral, At Bedtime, 0 Refill(s), Home Medications (6) Active amLODIPine 20 mg, Oral, At Bedtime CBD oil 1/2 dropper, PRN, SubLINgual, Daily garlic 2,000 mg, Oral, Daily lisinopril 5 mg, Oral, At Bedtime Non Formulary med 1 Tab, Oral, Daily Vitamin C 500 mg, Oral, Daily , Medications (1) Active Scheduled: (1) cefTRIAXone + NaCl 0.9% 50 mL 2,000 mg, IV Piggyback, 1-Time Continuous: (0) PRN: (0) Problem list: All Problems Hepatitis A//age early 20,s / SNOMED CT 24302412 / Confirmed at risk Sleep apnea / SNOMED CT 362019900 / Confirmed Renal calculus//HX / SNOMED CT 206280561 / Confirmed Neck pain//shoulder / SNOMED CT 840805625 / Confirmed IBS (irritable bowel syndrome) / SNOMED CT 8608212128 / Confirmed High blood pressure / SNOMED CT 56327370 / Confirmed Diverticulosis of colon / SNOMED CT 9479104589 / Confirmed DDD (degenerative disc disease), cervical / SNOMED CT 851007884 / Confirmed Colitis / SNOMED CT 773335164 / Confirmed Chronic pain / SNOMED CT 715200089 / Confirmed CA - Cancer of prostate / SNOMED CT 7510766924 / Confirmed Back pain / SNOMED CT 9341664847 / Confirmed At risk for sleep apnea / IMO 71044502 / Confirmed Arthritis / SNOMED CT 8454302 / Confirmed, Active Problems (14) Arthritis at risk Sleep apnea At risk for sleep apnea Back pain CA - Cancer of prostate Chronic pain Colitis DDD (degenerative disc disease), cervical Diverticulosis of colon Hepatitis A//age early 20,s High blood pressure IBS (irritable bowel syndrome) Neck pain//shoulder Renal calculus//HX Histories Past Medical History: No active or resolved past medical history items have been selected or recorded. Family History: No family history items have been selected or recorded. Procedure history: gall bladder. traumatic partial amputation left index finger. colonoscopy. Social History Social & Psychosocial Habits Alcohol 10/17/2019 Alcohol Use History, Social Habits Yes Alcohol Use in Last Twelve Months Yes Alcohol Use Frequency Socially 10/17/2019 Alcohol Use History, Social Habits Yes Alcohol Use Frequency Monthly Home/Environment 10/17/2019 Lives with: Spouse Substance Abuse 10/17/2019 Recreational Drug Use History No Recreational Drug Use Last 12 Months No Tobacco 10/17/2019 Smoking Status Never (less than 100 in l Smokeless Tobacco Status Never . Physical Examination VS/Measurements No qualifying data available General: Alert and oriented, No acute distress. Eye: Pupils are equal, round and reactive to light, Extraocular movements are intact, glasses. HENT: Normocephalic, Normal hearing. Neck: Supple, Non-tender. Respiratory: Lungs are clear to auscultation, Respirations are non-labored. Cardiovascular: Normal rate, Regular rhythm, No murmur, No gallop, No edema. Gastrointestinal: Soft, Non-tender. Genitourinary: No costovertebral angle tenderness. Lymphatics: No lymphadenopathy neck, axilla, groin. Musculoskeletal: Normal range of motion, Normal strength. Integumentary: Warm, Dry, [place]. Neurologic: Alert, Oriented. Psychiatric: Cooperative, Appropriate mood & affect. Review / Management Results review: Labs (Last four charted values) HCT 46.2 (OCT 17) K 4.1 (OCT 17) . Impression and Plan Condition: Stable. Electronically signed by Slim Guillermo Conversion Paper Processing Machine Helper Cerner at 03/07/2023 10:15 AM CDT documented in this encounter Plan of Treatment Not on file documented as of this encounter Visit Diagnoses Not on filedocumented in this encounter Care Teams Tail Edger Relationship Specialty Start Date End Date Tee Wade MD [address] [facility] [address] [place] [address] PCP - General Neurology 03/07/23 Lennie Coates PA-C [address] [place] [address] [place] [address] Cardiology 03/11/24 documented as of this encounter
--- OUTSIDE RECORDS SUMMARY | 2025-09-24 05:03 | XMS_ITS | Encounter Summary ---
Author Organization [employer] ([place], [place], [place], [place], [place]) Address [address] [place] [address] Care Team Providers Care Pre Certification Specialist Name Role Phone Tee Wade MD Primary Care Provider [phone] Lennie Coates PA-C Unavailable [phone] Encounter Details Date Type Department Care Team (Late st Contact Info) Description 10/17/2019 Transcribed Document [facility] [place] Family Medicine [address] [place] [address] ProviderJuan MD [address] [place], [place] [address] Social History Tobacco Use Types Packs/Day Years Used Date Smoking Tobacco: Never Assessed Sex and Gender Information Value Date Recorded Sex Assigned at Not on file Legal Sex Male 3:26 PM CDT Gender Identity Not on file Sexual Orientation Not on file documented as of this encounter Miscellaneous Notes * Cerner Conversion Note - Juan Summers MD - 10/17/2019 11:47 AM PARALEGAL SPECIALIST PAT Adult Entered On: 10/17/2019 11:56 EST Performed On: 10/17/2019 11:47 EST by RG CORRAL RN Vital Measurements Temperature, Fahrenheit : 97.9 Deg F Clinical Temperature, C : 36.6 Deg C Pulse Method : Non-Invasive BP Device Peripheral Pulse Rate : 52 bpm (LOW) Respiratory Rate : 18 Breaths/Min Blood Pressure Location : Arm, left upper Blood Pressure Source : Non-Invasive BP Device Blood Pressure Position : Sitting Systolic Blood Pressure : 185 mmHg (HI) Diastolic Blood Pressure : 90 mmHg Oxygen Saturation : 100 % Oxygen Therapy Mode : Room air MARY ALVES RN - 10/17/2019 12:33 EST Temperature Source : Temporal artery scanning Temperature Mode : RG Matias RN - 10/17/2019 11:47 EST Pain Assessment Pain Assessment : Initial assessment Pain Scale Goal : 5 MARY ALVES RN - 10/17/2019 12:00 EST Height and Weight, Clinical Dosing Height Source : Measured Height Entry Format : [place] Height, Feet : 5 ft(Converted to: 152 cm, 60 Inch) Height, Inches : 11 Inch(Converted to: 0 ft 11 Inch, 27.94 cm) Clinical Height : 180.34 cm Weight Source : Standing scale Weight Entry Format : [place] Clinical Dosing Weight : 89.05 kg Weight, Pounds : 195.9 lb Body Surface Area (BSA) : 2.09 m2 Body Mass Index : 27.4 kg/m2 (HI) [place] Body Weight : 74 kg MARY ALVES RN - 10/17/2019 11:58 EST Health Histories Smoking Status : Never (less than 100 in lifetime; none in last 30 days) Smokeless Tobacco Status : Never MARY ALVES RN - 10/17/2019 12:00 EST Social History (As Of: 10/17/2019 12:13:35 EST) Tobacco: Never (less than 100 in [...] 10/17/2019 11:42:44 EST by RG CORRAL RN) Infectious Disease History Fever/Chills Last 48 Hours : No Jannette Reyes RN - 10/23/2019 7:40 EST Infectious Disease History : Hepatitis A Isolation Needed : Standard Travel To Regions with Travel Advisories : No Travel Outside [place] Within Last 30 Days : No Contact With Traveler to Advisory Region : No Exposure to Contagious Illness : No Tuberculosis Symptoms : Fatigue, Loss of Appetite MARY ALVES RN - 10/17/2019 12:00 EST Anesthesia/Transfusion History Family History of Anesthesia Reaction : No prior transfusion(s) Blood Transfusion Acceptable to Patient : Yes Transfusion History : Prior anesthesia without reaction Family History of Anesthesia Reaction : None MARY ALVES RN - 10/17/2019 12:00 EST Advance Directive Patient has Advance Directive *Q : No, patient refuses Advance Directive information MARY ALVES RN - 10/17/2019 12:00 EST [place] Suicide Severity Rating Scale (C-SSRS) CSSRS Past Month Wish to be : No CSSRS Past Month Suicidal Thoughts : No CSSRS Lifetime Suicide Behavior : No Suicide Severity Rating Score : 0 Suicide Severity Rating : No Additional Care Required at this time MARY ALVES RN - 10/17/2019 12:00 EST Psychosocial History Do You Have a History of the Following? : Patient denies history Currently in Unsafe Situation : No MARY ALVES RN - 10/17/2019 12:00 EST Education Topics, Periop Preadmission Perioperative Education Grid Arrival Time/Place : Verbalizes understanding IV's : Verbalizes understanding NPO Status/Directions : Verbalizes understanding Pain Management : Verbalizes understanding Preprocedure Preparations : Verbalizes understanding Preprocedure Tests/Labs : Verbalizes understanding Remove Body Piercings : Verbalizes understanding Responsible Adult : Verbalizes understanding Take/Hold Medications Pre-Procedure : Verbalizes understanding MARY ALVES RN - 10/17/2019 12:00 EST General Info Arrived From : Home [...] Obtained From : Patient Primary Language : Romansh Preferred Communication Mode : Verbal Communication Barrier : None MARY ALVES RN - 10/17/2019 12:00 EST Scott Scale Scott Sensory Perception : No impairment Scott Moisture : Rarely moist Scott Activity : Walks frequently Scott Mobility : No limitation Scott Nutrition : Adequate Scott Friction and Shear : Potential problem Scott Score : 21 MARY ALVES RN - 10/17/2019 12:00 EST Sleep Apnea Risk Assmt Hx of [...] Sleep Apnea Risk Level Score : 5 MARY ALVES RN - 10/17/2019 12:00 EST Electronically signed by Mima, [facility] Conversion Concept Artist Cerner at 03/07/2023 10:22 AM CDT documented in this encounter Plan of Treatment Not on file documented as of this encounter Visit Diagnoses Not on filedocumented in this encounter Care Teams Pre Certification Specialist Relationship Specialty Start Date End Date Tee Wade MD [address] [place] [id number] PCP - General Neurology 03/07/23 Lennie Coates PALoveC [address] [facility] [address] [place] [address] Cardiology 03/11/24 documented as of this encounter
--- OUTSIDE RECORDS SUMMARY | 2025-09-24 05:03 | XMS_ITS | Encounter Summary ---
Author Organization [employer] ([place], [place], [place], [place], [place]) Address [address] [place] [address] Care Team Providers Care Human Resource Professional Name Role Phone Tee Wade MD Primary Care Provider + [phone] Lennie Coates PA-C Unavailable [phone] Reason for Visit * Reason Comments Medication Refill Encounter Details Date Type Department Care Team (Late st Contact Info) Description 03/30/2023 Refill [facility] Cardiology [address] [place] [address] Meghan Franco APRN [address] [facility] [address] [place], [place] [id number] Social History Tobacco Use Types Packs/Day Years Used Date Smoking Tobacco: Former Cigarettes Smokeless Tobacco: Never Sex and Gender Information Value Date Recorded Sex Assigned at Not on file Legal Sex Male 3:26 PM CDT Gender Identity Not on file Sexual Orientation Not on file documented as of this encounter Miscellaneous Notes * Telephone Encounter - Minda Cole - 03/30/2023 11:54 AM EDT Last Office Visit was with Lennie Coates on 03/07/2023. I just sent in a refill for losartan as requested. documented in this encounter Plan of Treatment Not on file documented as of this encounter Visit Diagnoses Not on filedocumented in this encounter Care Teams Human Resource Professional Relationship Specialty Start Date End Date Tee Wade MD [address] [facility] [address] [place] [address] PCP - General Neurology 03/07/23 Lennie Coates PA-C [address] [facility] [address] [place] [address] Cardiology 03/11/24 documented as of this encounter
--- OUTSIDE RECORDS SUMMARY | 2025-09-24 05:03 | XMS_ITS | Data Portability ---
Author Organization [facility] Alpeshi cANNELS ABINGDON CLOSED Address [address] [place] [address] Care Team Providers Care Supervisor Rework Name Role Phone LUIZ AGUILAR Primary Care Provider Assessment No assessment recorded. Plan of Treatment Reminders Order Date Submit Date Provider Last Modified By Organization Details Last Modified Time Details Appointments RECHECK 2024 11:45A M LEIGHA LOMBRADI MD Not available Not available Not available Lab urinalysi s panel, auto [address] [facility], [address], [address], [place], [address], 10/29/2023 21:44:33 PSA, serum or plasma 2022 023 [facility], [address], [address], [place], [address], 10/29/2023 21:44:34 urinalysi s panel, auto 2021 022 [email or web address] [facility], [address], [address], [place], [address], 08/21/2022 15:13:49 PSA, serum or plasma [facility], [address], [address], [place], [address], 08/21/2022 15:46:48 PSA, serum or plasma 2020 021 [facility], [address], [address], [place], [address], 10/18/2021 12:10:00 urinalysi s panel, auto 2020 021 [address] [facility], [address], [address], [place], [address], 04/20/2021 16:37:26 PSA, serum or plasma 2020 [facility]21 [facility], [address], [address], [place], [address], 04/20/2021 16:57:54 PSA, serum or plasma 2019 020 [address] [facility], [address], [address], [place], [address], 10/18/2020 14:02:39 urinalysi s panel, auto [address] [facility], [address], [address], [place], [address], 10/18/2020 14:02:39 Referral None recorded. Procedures None recorded. Surgeries None recorded. Imaging None recorded. Medication Orders potassium citrate ER 10 mEq (1,080 mg) tablet,ex tended release [address] [facility], [address], [address], 04/21/2021 18:04:27 Patient TargetsNo targets recorded. Patient InstructionsNo instructions recorded. Reason for Referral None Reported. Results Created Date Observation Date Name Description Value Unit Range Abnormal Flag Note LastModifiedBy Organization Detail LastModifiedTime 04/20/20 21 04/20/2021 urina lysis panel , auto Unknown Analyte Clean Catch Not Available [facility] [address], [place], [address], 04/20/2021 14:47:36 04/20/2004/20/2021 urina lysis panel , auto Unknown Analyte Yellow Not Available [facility] [address], [place], [address], 04/20/2021 14:47:36 04/20/20 21 04/20/2021 urina lysis panel , auto Unknown Analyte Clear Not Available [facility] [address], [place], [address], 04/20/2021 14:47:36 04/20/2004/20/2021 urina lysis panel , auto Unknown Analyte 1.015 Not Available [facility] [address], [address], 04/20/2021 14:47:36 04/20/20 21 04/20/2021 urina lysis panel , auto Unknown Analyte 1.003- 1.035 Not Available [facility] [address], [place], [address], 04/20/2021 14:47:36 04/20/20 21 04/20/2021 urina lysis panel , auto Unknown Analyte 6.0 Not Available [facility] [address], [place], [address], 04/20/2021 14:47:36 04/20/2004/20/2021 urina lysis panel , auto Unknown Analyte 5.0-8. 0 Not Available [facility] [address], [place], [address], 04/20/2021 14:47:36 04/20/20 21 04/20/2021 urina lysis panel , auto Unknown Analyte Negati ve Not Available [facility] [address], [place], [address], 04/20/2021 14:47:36 04/20/20 21 04/20/2021 urina lysis panel , auto Unknown Analyte Negati ve Not Available [facility] [address], [place], [address], 04/20/2021 14:47:36 04/20/20 21 04/20/2021 urina lysis panel , auto Unknown Analyte Negati ve Not Available [facility] [address], [place], [address], 04/20/2021 14:47:36 04/20/20 21 04/20/2021 urina lysis panel , auto Unknown Analyte Negati ve Not Available [facility] [address], [place], [address], 04/20/2021 14:47:36 04/20/20 21 04/20/2021 urina lysis panel , auto Unknown Analyte Negati ve Not Available [facility] [address], [place], [address], 04/20/2021 14:47:36 04/20/20 21 04/20/2021 urina lysis panel , auto Unknown Analyte Negati ve Not Available [facility] [address], [place], [address], 04/20/2021 14:47:36 04/20/20 21 04/20/2021 urina lysis panel , auto Unknown Analyte Normal Not Available [facility] [address], [place], [address], 04/20/2021 14:47:36 04/20/20 21 04/20/2021 urina lysis panel , auto Unknown Analyte Normal Not Available [facility] [address], [place], [address], 04/20/2021 14:47:36 04/20/2004/20/2021 urina lysis panel , auto Unknown Analyte Negati ve Not Available [facility] [address], [place], [address], 04/20/2021 14:47:36 04/20/2004/20/2021 urina lysis panel , auto Unknown Analyte Negati ve Not Available [facility] [address], [place], [address], 04/20/2021 14:47:36 04/20/20 21 04/20/2021 urina lysis panel , auto Unknown Analyte Normal Not Available [facility] [address], [place], [address], 04/20/2021 14:47:36 04/20/20 21 04/20/2021 urina lysis panel , auto Unknown Analyte Normal 1 mg/dl Not Available [facility] [address], [place], [address], 04/20/2021 14:47:36 04/20/20 21 04/20/2021 urina lysis panel , auto Unknown Analyte Negati ve Not Available [facility] [address], [place], [address], 04/20/2021 14:47:36 04/20/20 21 04/20/2021 urina lysis panel , auto Unknown Analyte Negati ve Not Available [facility] [address], [place], [address], 04/20/2021 14:47:36 04/20/2004/20/2021 urina lysis panel , auto Unknown Analyte Negati ve Not Available [facility] [address], [place], [address], 04/20/2021 14:47:36 04/20/20 21 04/20/2021 urina lysis panel , auto Unknown Analyte Negati ve Not Available [facility] [address], [place], [address], 04/20/2021 14:47:36 10/18/20 20 10/18/2020 urina lysis panel , auto Unknown Analyte Clean Catch Not Available [facility] [address], [place], [address], 10/18/2020 13:53:07 10/18/20 20 10/18/2020 urina lysis panel , auto Unknown Analyte Yellow Not Available [facility] [address], [place], [address], 10/18/2020 13:53:07 10/18/20 20 10/18/2020 urina lysis panel , auto Unknown Analyte Clear Not Available [facility] [address], [place], [address], 10/18/2020 13:53:07 10/18/20 20 10/18/2020 urina lysis panel , auto Unknown Analyte 1.020 Not Available [facility] [address], [place], [address], 10/18/2020 13:53:07 10/18/20 20 10/18/2020 urina lysis panel , auto Unknown Analyte 1.003- 1.035 Not Available [facility] [address], [place], [address], 10/18/2020 13:53:07 10/18/20 20 10/18/2020 urina lysis panel , auto Unknown Analyte 5.0 Not Available [facility] [address], [place], [address], 10/18/2020 13:53:07 10/18/20 20 10/18/2020 urina lysis panel , auto Unknown Analyte 5.0-8. 0 Not Available [facility] [address], [place], [address], 10/18/2020 13:53:07 10/18/20 20 10/18/2020 urina lysis panel , auto Unknown Analyte Negati ve Not Available [facility] [address], [place], [address], 10/18/2020 13:53:07 10/18/20 20 10/18/2020 urina lysis panel , auto Unknown Analyte Negati ve Not Available [facility] [address], [place], [address], 10/18/2020 13:53:07 10/18/2010/18/2020 urina lysis panel , auto Unknown Analyte Negati ve Not Available [facility] [address], [place], [address], 10/18/2020 13:53:07 10/18/2010/18/2020 urina lysis panel , auto Unknown Analyte Negati ve Not Available [facility] [address], [place], [address], 10/18/2020 13:53:07 10/18/2010/18/2020 urina lysis panel , auto Unknown Analyte Negati ve Not Available [facility] [address], [place], [address], 10/18/2020 13:53:07 10/18/2010/18/2020 urina lysis panel , auto Unknown Analyte Negati ve Not Available [facility] [address], [place], [address], 10/18/2020 13:53:07 10/18/2010/18/2020 urina lysis panel , auto Unknown Analyte Normal Not Available [facility] [address], [place], [address], 10/18/2020 13:53:07 10/18/20 20 10/18/2020 urina lysis panel , auto Unknown Analyte Normal Not Available [facility] [address], [place], [address], 10/18/2020 13:53:07 10/18/2010/18/2020 urina lysis panel , auto Unknown Analyte Negati ve Not Available [facility] [address], [place], [address], 10/18/2020 13:53:07 10/18/2010/18/2020 urina lysis panel , auto Unknown Analyte Negati ve Not Available [facility] [address], [place], [address], 10/18/2020 13:53:07 10/18/20 20 10/18/2020 urina lysis panel , auto Unknown Analyte Normal Not Available [facility] [address], [place], [address], 10/18/2020 13:53:07 10/18/20 20 10/18/2020 urina lysis panel , auto Unknown Analyte Normal 1 mg/dl Not Available [facility] [address], [place], [address], 10/18/2020 13:53:07 10/18/20 20 10/18/2020 urina lysis panel , auto Unknown Analyte Negati ve Not Available [facility] [address], [place], [address], 10/18/2020 13:53:07 10/18/20 20 10/18/2020 urina lysis panel , auto Unknown Analyte Negati ve Not Available [facility] [address], [place], [address], 10/18/2020 13:53:07 10/18/20 20 10/18/2020 urina lysis panel , auto Unknown Analyte Negati ve Not Available [facility] [address], [place], [address], 10/18/2020 13:53:07 10/18/20 20 10/18/2020 urina lysis panel , auto Unknown Analyte Negati ve Not Available [facility] [address], [place], [address], 10/18/2020 13:53:07 10/18/20 20 10/18/2020 PSA, serum or plasm a PSA <0.04 NG/mL 0.0 - 4.0 Not Available [facility] [address], [place], [address], 10/18/2020 13:52:42 04/20/20 21 04/20/2021 PSA, serum or plasm a PSA <0.04 NG/mL 0.0 - 4.0 Not Available [facility] [address], [place], [address], 04/20/2021 14:48:22 10/10/20 21 10/10/2021 PSA, serum or plasm a PSA <0.04 NG/mL 0.0 - 4.0 Not Available [facility] [address], [place], [address], 10/10/2021 11:55:58 08/21/2008/21/2022 PSA, serum or plasm a PSA <0.04 NG/mL 0.0 - 4.0 Not Available [facility] [address], [place], [address], 08/21/2022 13:40:35 08/21/2008/21/2022 urina lysis panel , auto Unknown Analyte Clean Catch Not Available [facility] [address], [place], [address], 08/21/2022 13:39:48 08/21/2008/21/2022 urina lysis panel , auto Unknown Analyte Yellow Not Available [facility] [address], [place], [address], 08/21/2022 13:39:48 08/21/2008/21/2022 urina lysis panel , auto Unknown Analyte Clear Not Available [facility] [address], [place], [address], 08/21/2022 13:39:48 08/21/20 22 08/21/2022 urina lysis panel , auto Unknown Analyte 1.020 Not Available [facility] [address], [place], [address], 08/21/2022 13:39:48 08/21/20 22 08/21/2022 urina lysis panel , auto Unknown Analyte 1.003- 1.035 Not Available [facility] [address], [place], [address], 08/21/2022 13:39:48 08/21/20 22 08/21/2022 urina lysis panel , auto Unknown Analyte 5.0 Not Available [facility] [address], [place], [address], 08/21/2022 13:39:48 08/21/20 22 08/21/2022 urina lysis panel , auto Unknown Analyte 5.0-8. 0 Not Available [facility] [address], [place], [address], 08/21/2022 13:39:48 08/21/2008/21/2022 urina lysis panel , auto Unknown Analyte 25 Miya/ul Trace Not Available [facility] [address], [place], [address], 08/21/2022 13:39:48 08/21/20 22 08/21/2022 urina lysis panel , auto Unknown Analyte Negati ve Not Available [facility] [address], [place], [address], 08/21/2022 13:39:48 08/21/20 22 08/21/2022 urina lysis panel , auto Unknown Analyte Negati ve Not Available [facility] [address], [place], [address], 08/21/2022 13:39:48 08/21/20 22 08/21/2022 urina lysis panel , auto Unknown Analyte Negati ve Not Available [facility] [address], [place], [address], 08/21/2022 13:39:48 08/21/2008/21/2022 urina lysis panel , auto Unknown Analyte 30 mg/dl (+) Not Available [facility] [address], [place], [address], 08/21/2022 13:39:48 08/21/2008/21/2022 urina lysis panel , auto Unknown Analyte Negati ve Not Available [facility] [address], [place], [address], 08/21/2022 13:39:48 08/21/2008/21/2022 urina lysis panel , auto Unknown Analyte Normal Not Available [facility] [address], [place], [address], 08/21/2022 13:39:48 08/21/20 22 08/21/2022 urina lysis panel , auto Unknown Analyte Normal Not Available [facility] [address], [place], [address], 08/21/2022 13:39:48 08/21/2008/21/2022 urina lysis panel , auto Unknown Analyte Negati ve Not Available [facility] [address], [place], [address], 08/21/2022 13:39:48 08/21/20 22 08/21/2022 urina lysis panel , auto Unknown Analyte Negati ve Not Available [facility] [address], [place], [address], 08/21/2022 13:39:48 08/21/20 22 08/21/2022 urina lysis panel , auto Unknown Analyte 1 mg/dl Not Available [facility] [address], [place], [address], 08/21/2022 13:39:48 08/21/2008/21/2022 urina lysis panel , auto Unknown Analyte Normal 1 mg/dl Not Available [facility] [address], [place], [address], 08/21/2022 13:39:48 08/21/20 22 08/21/2022 urina lysis panel , auto Unknown Analyte 1 mg/dl (+) Not Available [facility] [address], [place], [address], 08/21/2022 13:39:48 08/21/20 22 08/21/2022 urina lysis panel , auto Unknown Analyte Negati ve Not Available [facility] [address], [place], [address], 08/21/2022 13:39:48 08/21/20 22 08/21/2022 urina lysis panel , auto Unknown Analyte Negati ve Not Available [facility] [address], [place], [address], 08/21/2022 13:39:48 08/21/20 22 08/21/2022 urina lysis panel , auto Unknown Analyte Negati ve Not Available [facility] [address], [place], [address], 08/21/2022 13:39:48 10/29/2010/29/2023 PSA, serum or plasm a PSA <0.04 NG/mL 0.0 - 4.0 Not Available [facility] [address], [place], [address], 10/29/2023 14:13:50 10/29/2010/29/2023 urina lysis panel , auto Unknown Analyte Clean Catch Not Available [facility] [address], [place], [address], 10/29/2023 13:47:51 10/29/2010/29/2023 urina lysis panel , auto Unknown Analyte Yellow Not Available [facility] [address], [place], [address], 10/29/2023 13:47:51 10/29/20 23 10/29/2023 urina lysis panel , auto Unknown Analyte Clear Not Available [facility] [address], [place], [address], 10/29/2023 13:47:51 10/29/2010/29/2023 urina lysis panel , auto Unknown Analyte 1.020 Not Available [facility] [address], [place], [address], 10/29/2023 13:47:51 10/29/20 23 10/29/2023 urina lysis panel , auto Unknown Analyte 1.003- 1.035 Not Available [facility] [address], [place], [address], 10/29/2023 13:47:51 10/29/20 23 10/29/2023 urina lysis panel , auto Unknown Analyte 5.0 Not Available [facility] [address], [place], [address], 10/29/2023 13:47:51 10/29/2010/29/2023 urina lysis panel , auto Unknown Analyte 5.0-8. 0 Not Available [facility] [address], [place], [address], 10/29/2023 13:47:51 10/29/20 23 10/29/2023 urina lysis panel , auto Unknown Analyte 25 Miya/ul Trace Not Available [facility] [address], [place], [address], 10/29/2023 13:47:51 10/29/20 23 10/29/2023 urina lysis panel , auto Unknown Analyte Negati ve Not Available [facility] [address], [place], [address], 10/29/2023 13:47:51 10/29/20 23 10/29/2023 urina lysis panel , auto Unknown Analyte Negati ve Not Available [facility] [address], [place], [address], 10/29/2023 13:47:51 10/29/20 23 10/29/2023 urina lysis panel , auto Unknown Analyte Negati ve Not Available [facility] [address], [place], [address], 10/29/2023 13:47:51 10/29/2010/29/2023 urina lysis panel , auto Unknown Analyte 30 mg/dl (+) Not Available [facility] [address], [place], [address], 10/29/2023 13:47:51 10/29/20 23 10/29/2023 urina lysis panel , auto Unknown Analyte Negati ve Not Available [facility] [address], [place], [address], 10/29/2023 13:47:51 10/29/20 23 10/29/2023 urina lysis panel , auto Unknown Analyte Normal Not Available [facility] [address], [place], [address], 10/29/2023 13:47:51 10/29/20 23 10/29/2023 urina lysis panel , auto Unknown Analyte Normal Not Available [facility] [address], [place], [address], 10/29/2023 13:47:51 10/29/2010/29/2023 urina lysis panel , auto Unknown Analyte Negati ve Not Available [facility] [address], [place], [address], 10/29/2023 13:47:51 10/29/20 23 10/29/2023 urina lysis panel , auto Unknown Analyte Negati ve Not Available [facility] [address], [place], [address], 10/29/2023 13:47:51 10/29/2010/29/2023 urina lysis panel , auto Unknown Analyte Normal Not Available [facility] [address], [place], [address], 10/29/2023 13:47:51 10/29/2010/29/2023 urina lysis panel , auto Unknown Analyte Normal 1 mg/dl Not Available [facility] [address], [place], [address], 10/29/2023 13:47:51 10/29/20 23 10/29/2023 urina lysis panel , auto Unknown Analyte Negati ve Not Available [facility] [address], [place], [address], 10/29/2023 13:47:51 10/29/20 23 10/29/2023 urina lysis panel , auto Unknown Analyte Negati ve Not Available [facility] [address], [place], [address], 10/29/2023 13:47:51 10/29/2010/29/2023 urina lysis panel , auto Unknown Analyte Negati ve Not Available [facility] [address], [place], [address], 10/29/2023 13:47:51 10/29/20 23 10/29/2023 urina lysis panel , auto Unknown Analyte Negati ve Not Available [facility] [address] [facility] [address], [place], [address], 10/29/2023 13:47:51 Result Notes None recorded. Problems Name Problem SNOMED Code Status Onset Date Resolution Date Notes Provider Name and Address Organization Details Recorded Time Left lower quadrant pain 262260480 Active 2015 From Automated Load;Provi sangeetha: Darrell Win;Statu s: Active Not Available [facility] 7 06:46:12 Gastroint estinal tract finding Active 2015 From Automated Load;Provi sangeetha: Darrell Win;Statu s: Active Not Available [facility] 7 07:19:53 Incomplet e passage of stool 145816287 Active 2015 From Automated Load;Provi sangeetha: Darrell Win;Statu s: Active Not Available [facility] 7 07:34:02 Abdominal bloating 571196465 Active 2015 From Automated Load;Provi sangeetha: Darrell Win;Statu s: Active Not Available [facility] 7 07:48:06 Problem Notes None recorded. Procedures Surgical History Date Name Laterality Status Provider Name and Address Organization Details Recorded Time 10/23/20 19 PROSTATECTOMY, LAPAROSCOPIC, ROBOTIC (SURG) completed Marcelino Hsieh [facility] 10/24/2019 09:09:24 Cholecystectomy completed Murelene Damien [facility] 02/16/2017 15:23:07 Imaging Results None recorded. Procedure Notes None recorded. Medical Equipment None Reported. Allergies Allergen ID Allergen Name Allergen Category Reaction Reaction Severity Criticality Documentation Date Start Date Code Code System Note Provider Name and Address Organization Details Recorded Time 912725 nabumeton e medicatio n chest pain severe Not available 03/09/20172016 70820 RxNorm Deseriguy oh [facility] 7 14:26:05 Medications Name Sig Start Date Stop Date Status Note LastModified by Organization Details LastModified Time potassium citrate ER 10 mEq (1,080 mg) tablet,ex tended release Take 1 tablet twice a day by oral route. 2020 active Not Available Not Available Not Avai lable doxycycli ne monohydra te 100 mg capsule Take 1 capsule twice a day by oral route. 07/23 completed Not Available Not Available Not Available Cipro 500 mg tablet Take 1 tablet every 12 hours by oral route as directed for 30 days. 07/23 completed Not Available Not Available Not Available allopurin ol 300 mg tablet Take 1 tablet every day by oral route. 2021 active Not Available Not Available Not Avai lable cefuroxim e axetil 500 mg tablet Take 1 tablet every 12 hours by oral route. 11/03 completed Not Available Not Available Not Available Citrucel (sucrose) oral powder As needed active Frequenc y: prn;Medi cation Descript ion: methylce llulose; Route:or al; refills: 0 Not Available Not Available Not Available nabumeton e 500 mg tablet Take 1 tablet twice a day by oral route. 03/09 completed Not Available Not Available Not Available amlodipin e 10 mg-benaze pril 20 mg capsule Daily active Frequenc y: daily;Me dication Descript ion: amlodipi ne-benaz epril; Dosage:1 ; Route:or al; refills: 0 Not Available Not Available Not Available Vitamin C active Medicati on Descript ion: ascorbic acid; refills: 0 Not Available Not Available Not Available valsartan 10/29 completed Not Available Not Available Not Available zinc gluconate active Medicati on Descript ion: zinc gluconat e; refills: 0 Not Available Not Available Not Available hydrochlo rothiazid e active Not Available Not Available Not Available riboflavi n (vitamin B2) active Not Available Not Available Not Available losartan active Not Available Not Avai lable Not Available lisinopri l Bedtime 08/21 completed Duration : 30 days;Hiren quency: hs;Medic ation Descript ion: lisinopr il; Dosage:1 ; Route:or al; refills: 5; Quantity :30 tablet Not Available Not Available Not Available Miralax Daily active Instruct ions: 17gm in 8oz fluids QTY QS;Frequ ency: daily;Al t Frequenc y: prn;Medi cation Descript ion: polyethy freddy glycol 3350; Dosage:a s directed ; Route:or al; refills: 0; Quantity :1 powder for reconsti tution Not Available Not Available Not Available Vitamin B6 active Medicati on Descript ion: pyridoxi ne; refills: 0 Not Available Not Available Not Available Vitamin B12 active Medicati on Descript ion: cyanocob alamin; refills: 0 Not Available Not Available Not Available Vitals Date Recorded Body height Body mass index (BMI) Body weight Provider Name and Address Organization Details Last Updated DateTime 04/20/2021 180.34 cm 25.8 kg/m2 50302.59 g Ameena Sagastumesarina [facility] 04/20/2021 14:47:15 Date Recorded Body height Body mass index (BMI) Body weight Provider Name and Address Organization Details Last Updated DateTime 10/10/2021 180.34 cm 25.8 kg/m2 00943.59 g Priya Aguilar [facility] 10/10/2021 11:55:13 Date Recorded Body height Body mass index (BMI) Body weight Provider Name and Address Organization Details Last Updated DateTime 10/18/2020 180.34 cm 25.8 kg/m2 87230.59 Priya Aguilar [facility] 10/18/2020 13:52:23 Date Recorded Body weight Body mass index (BMI) Body height Provider Name and Address Organization Details Last Updated DateTime 10/29/2023 15035.77 g 26.1 kg/m2 180.34 cm Linn Ashley [facility] 10/29/2023 13:35:28 Social History Question Answer Notes LastModified by Organizat ion Details LastModified Time Tobacco Smoking Status Never Smoker Priya Aguilar [facility] 06/20/2019 14:08:07 How Much Tobacco Do You Chew? None [email or web address] Information not available 12/11/2018 Marital Status [email or web address] Informatio n not available 02/16/2017 What Was The Date Of Your Most Recent Tobacco Screening? 12/11/2018 8 Information not available 01/06/2020 How Much Tobacco Do You Smoke? No [email or web address] Information not available 08/22/2019 Has Tobacco Cessation Counseling Been Provided? No [email or web address] Information not available 10/10/2021 Have You Recently Traveled Abroad? No [email or web address] Information not available 10/10/2021 Sex: Unknown Functional Status Question Answer Note LastModified by Organizat ion Details LastModified Time Do you use any illicit or recreational drugs? No Information not available 10/10/2021 Do you or have you ever used any other forms of tobacco or nicotine? No [email or web address] Information not available 10/10/2021 What is your level of alcohol consumption? None [email or web address] Information not available 10/18/2020 Mental Status None recorded. Family History Relationship Description Onset Age of this Age Resolved Age Notes LastModified by Organization Details LastModified Time Father Malignant neoplasm of prostate [email or web address] Not available 2016 15:22:49 Medical History Condition Response Hepatitis Y Hypertension Y Kidney Stones Y Past Encounters Encounter ID Performer Location Encounter Start Date Encounter Closed Date Diagnosis/Indication Diagnosis SNOMED-CT Code Diagnosis ICD10 Code Diagnosis IMO Codes Diagnosis Note [id number] LEIGHA LOMBARDI MD [facility] [address] [place] [address] 02/16/2017 14:39:58 02/16/2017 16:16:37 Chronic prostatitis 11852285 N41.1 follow-up 3 weeks with PSA [id number] LEIGHA LOMBARDI MD [facility] [address] [address] 03/09/2017 13:50:51 03/12/2017 09:01:26 Chronic prostatitis 71206245 N41.1 follow-up 6 weeks with PSA Prostate s pecific antigen above reference range 060915861 R97.20 [id number] LEIGAH LOMBARDI MD [facility] [address] [place] [address] 04/20/2017 15:03:00 04/23/2017 09:18:47 Chronic prostatitis 13800710 N41.1 follow-up 6 Months Prostate s pecific antigen above reference range 360864626 R97.20 [id number] LEIGHA LOMBARDI MD [facility] [address] [address] 09/28/2017 10:06:36 09/28/2017 11:47:46 Chronic prostatitis N41.1 follow-up 3 months. He will take 2 months of doxycyclin e. Prostate s pecific antigen above reference range 626088179 R97.20 repeat PSA and follow-up [id number] LEIGHA LOMBARDI MD [facility] [address] [address] 0 12/28/2017 10:24:15 12/31/2017 09:16:21 Chronic prostatitis 02719436 N41.1 6 months Benign pro static hyperplasia 626893343 N40.0 [id number] LEIGHA LOMBARDI MD [facility] [address] [address] 02/25/2018 10:42:12 02/25/2018 13:12:53 Prostate specific antigen above reference range 333000509 R97.20 repeat PSA Chronic prostatitis 19899 N41.1 6 months [id number] LEIGHA LOMBARDI MD [facility] [address] [address] 0 08/16/2018 08:43:51 08/16/2018 10:30:44 Chronic prostatitis N41.1 as above Prostate s pecific antigen above reference range 676276562 R97.20 repeat PSAat follow-up in 1 month [id number] LEIGHA LOMBARDI MD [facility] [address] [address] 0 09/30/2018 11:49:36 09/30/2018 12:44:14 Prostate specific antigen above reference range 542471526 R97.20 follow-up 2 months with repeat PSA Chronic prostatitis 1989 5009 N41.1 as above [id number] LEIGHA LOMBARDI MD [facility] [address] 0 12/11/2018 15:23:45 12/11/2018 16:49:04 Prostate specific antigen above reference range 257643201 R97.20 follow-up 6 months with repeat PSA Chronic prostatitis 1989 5009 N41.1 as above [id number] LEIGHA LOMBARDI MD [facility] [address],[place] [address] 06/20/2019 13:25:30 06/20/2019 14:29:27 Prostate specific antigen above reference range 045205337 R97.20 follow-up 1 months with repeat PSA Chronic prostatitis 1990 5009 N41.1 as above [id number] LEIGHA LOMBARDI MD [facility] [address] [address] 07/23/2019 13:45:44 07/23/2019 14:55:10 Prostate specific antigen above reference range 464757668 R97.20 we will arrange for transrecta l ultrasound and needle biopsy the prostate under local monitored. We will use cefuroxime in place of Levaquin as he has not tolerated the Cipro very well. discussion time 30 minutes [id number] LEIGHA LOMBARDI MD SURGERY SCHEDULE [address] [place] [id number] 07/30/2019 08:15:56 07/30/2019 08:18:05 [id number] LEIGHA LOMBARDI MD [facility] [address] [address] 08/22/2019 14:34:05 08/22/2019 15:14:53 Malignant neoplasm of prostate 207868202 C61 plan as above we will arrange for robotic-as sisted laparoscop ic radical prostatect merrill with left-sided pelvic lymph node dissection .discussio n time 25 minutes [id number] MD [facility] [address] [place] [address] 11/03/2019 13:12:38 11/03/2019 14:18:17 Malignant neoplasm of prostate 887945279 C61 follow-up 3-4 weeks with PSA [id number] LEIGHA LOMBARDI MD [facility] [address] [address] 11/24/2019 12:37:30 11/24/2019 13:38:39 History of malignant neoplasm of prostate 366262104 Z85.46 follow-up 3 months with PSA Secondary erectile dysfunction 813380098 N52.37 plan as above [id number] LEIGHA LOMBARDI MD [facility] [address] [address] 01/19/2020 11:43:42 01/19/2020 12:43:44 Dysuria 83404366 R30.9 Malignant neoplasm of prostate 147777412 C61 follow-up 1 month with PSA [id number] LEIGHA LOMBARDI MD [facility] [address] [address] 03/29/2020 15:00:20 03/29/2020 15:58:26 Malignant neoplasm of prostate 707092770 C61 follow-up 3 month with PSA Secondary erectile dysfunction 322650898 N52.37 plan as above [id number] LEIGHA LOMBARDI MD [facility] [address] [address] 06/25/2020 12:41:49 06/25/2020 13:45:10 Malignant neoplasm of prostate 956752219 C61 follow-up 3 month with PSA Secondary erectile dysfunction 035340534 N52.37 plan as above [id number] LEIGHA LOMBARDI MD [facility] [address] [address] 10/18/2020 13:09:33 10/18/2020 14:40:18 History of malignant neoplasm of prostate 831491295 Z85.46 follow-up 6 months with PSA Secondary erectile dysfunction 920915410 N52.37 plan as above [id number] LEIGHA LOMBARDI MD [facility] [address] [address] 04/20/2021 13:43:00 04/20/2021 15:02:21 Urolithiasis 08777006 N20.9 History of malignant neoplasm of prostate 884453185 Z85.46 follow-up 6 months with PSA Secondary erectile dysfunction 039464957 N52.37 plan as above [id number] LEIGHA LOMBARDI MD [facility] [address] [address] 10/10/2021 11:11:19 10/10/2021 12:43:20 History of malignant neoplasm of prostate 521633152 Z85.46 follow-up 6 months with PSA [id number] LEIGHA LOMBARDI MD [facility] [address] [place] [address] 08/21/2022 13:28:43 08/21/2022 14:20:39 History of malignant neoplasm of prostate 800675728 Z85.46 follow-up 6 months with PSA Urolithiasis 07049223 N2 0.9 observed. 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 2112409710 9103 N32.0 Plan as above cystoscopy with possible interventi on under anesthesia Erectile d ysfunction following radical prostatectomy 8963186359 94226 N52.31 As above Health Concerns Section Related Observation LastModified by Organization Detai ls LastModified Time None Recorded Concern Status LastModified by Organization Details LastModified Time None Recorded Advance Directives Directive None Recorded Payers Insurance Date Sequence Insurance Name Policy Number Policy Oro Covered Member ID Oro Member ID Guarantor Name 10/29/2023 1 [place] [id number] Kevin Haines [id number] Kevin Haines 09/22/2025 2 [place] [id number] Kevin Haines [id number] Kevin Haines 09/22/2025 1 [place] Kevin Haines [id number] Kevin Haines Notes Date Note Type Note Provider Name and Address Organization Details Recorded Time 10/18/2020 text/html patient is now 1 year following robotic prostatectomy. He has no incontinence. He has had significant return of spontaneous erectile function. Previously was using a vacuum erection device. He also tried sildenafil but did not like the side effects. His current function is at least 75% without medication. I recommended that he continue to intermittently use the vacuum erection device therapeutically. PSA today was nondetectable. LEIGHA LOMBARDI MD [address] [place] [address], [phone], [facility] 10/18/2020 14:03:15 04/20/2021 text/html Patient is here history of prostate carcinoma treated with robotic prostatectomy 18 months ago. He has no incontinence. He has had return of significant spontaneous erection function. He is not recently tried sildenafil. PSA today was Nondetectable. He is also having history of urolithiasis. He has passed several small stones recently. We discussed adding potassium citrate. LEIGHA LOMBARDI MD [address] [place] [address], [phone], [facility] 04/21/2021 19:38:42 10/10/2021 text/html patient is now 2 years following robotic prostatectomy. PSA today is pending. He has some spontaneous erectile function but not complete rigidity. He is not interested in additional therapy at this time. He has no incontinence. Assuming his PSA is nondetectable we will [facility] 16:57:52 08/21/2022 text/html patient is here in follow-up for prostate carcinoma treated with robotic prostatectomy 2 years ago. PSA today is non-detectable. He also has history of urolithiasis and has passed several stones recently. He has not had stones analyzed. He did suffer from gout twice this summer we discussed directly starting him on allopurinol. We discussed the importance of hydration he would like to continue current therapy. LEIGHA LOMBARDI MD [address] [place] [address], [phone], [facility] 08/21/2022 15:14:24 10/29/2023 text/html Patient is here with history of prostate carcinoma treated with robotic prostatectomy 3 years ago. He also has history of urolithiasis. He has previously had an injection of Coaptite which seemed to resolve any stress incontinence. He does however now seem to have some difficulty voiding and is concerned that he may have some significant constriction. We discussed arranging for cystoscopy with possible urethral dilation possible incision of bladder neck contracture. His PSA today was nondetectable. He also mention having significant partial erectile function spontaneously without medical therapy. I suggest that he try the sildenafil once again. He has some on hand and will try that. LEIGHA LOMBARDI MD [facility] [place], [address], [facility] 10/29/2023 21:45:09
--- OUTSIDE RECORDS SUMMARY | 2025-09-24 05:03 | XMS_ITS | Encounter Summary ---
Author Organization [employer] ([place], [place], [place], [place], [place]) Address [address] [place] [address] Care Team Providers Care [employer] Developer Name Role Phone Tee Wade MD Primary Care Provider [phone] Lennie Coates PA-C Unavailable [phone] Reason for Visit * Reason Comments Medication Refill Encounter Details Date Type Department Care Team (Late st Contact Info) Description 08/06/2023 Refill [facility] Cardiology [address] [place] [address] Lennie Coates PA-C [address] [facility] [address] [place] [address] Social History Tobacco Use Types Packs/Day Years Used Date Smoking Tobacco: Former Cigarettes Smokeless Tobacco: Never Sex and Gender Information Value Date Recorded Sex Assigned at Not on file Legal Sex Male 3:26 PM CDT Gender Identity Not on file Sexual Orientation Not on file documented as of this encounter Plan of Treatment Not on file documented as of this encounter Visit Diagnoses Not on filedocumented in this encounter Care Teams [employer] Developer Relationship Specialty Start Date End Date Tee Wade MD [address] [facility] [address] [place] [address] PCP - General Neurology 03/07/23 Lennie Coates PA-C [address] [facility] [address] [place] [address] Cardiology 03/11/24 documented as of this encounter
[2025-09-24] MEDS: MORPHINE 4MG/ML SYRINGE 4 MG IV (05:28)
[2025-09-24] MEDS: ACETAMINOPHEN 500MG TAB 1000 MG PO (05:28)
[2025-09-24 05:36] LABS: Albumin Level 5.5 g/dl (3.5-5.0); Chloride 103 mmol/L (98-107); Sodium 144 mmol/L (136-145)
[2025-09-24 05:37] LABS: Potassium 3.5 mmoL/L (3.5-5.1)
[2025-09-24 05:39] LABS: Alanine Aminotransferase 23 U/L (12-78); Anion Gap 13.5 mEq/L (5-15); Aspartate Amino Transferase 38 U/L (17-59); Blood Urea Nitrogen 14 mg/dl (9-20); Carbon Dioxide 31 mmol/L (22.0-30.0); Creatinine Clearance Estimated 76 mL/min (50-200); Creatinine,Serum 1.10 mg/dl (0.66-1.25); Estimated Glomerular Filt Rate 66 ml/min (>60); GFR (African American) 80 ML/MIN (>60)
[2025-09-24 05:40] LABS: Albumin/Globulin Ratio 1.6 (1.1-1.8); Alkaline Phosphatase 70 U/L (38-126); Bilirubin,Total 0.9 mg/dl (0.2-1.3); Calcium 8.8 mg/dl (8.4-10.2); Globulin 3.5 g/dL (1.3-3.2); Glucose 105 mg/dl (74-100); Total Protein,Serum 9.0 g/dl (6.3-8.2)
[2025-09-24] MEDS: IOPAMIDOL-370 (76%);100ML BOTTLE 80 ML IV (05:44)
[2025-09-24] MEDS: SODIUM CHLORIDE 0.9% 10ML SYR (RAD ONLY) 10 ML IV (05:44)
[2025-09-24] MEDS: 0.9 % SODIUM CHLORIDE 50 ML VIAL IV (05:44)
[2025-09-24 05:50] LABS: NT Pro Brain Natriuretic Pep. 66.8 pg/mL (0-125)
[2025-09-24 05:51] LABS: Hematocrit 47.9 % (42.0-52.0); Hemoglobin 16.5 g/dL (14.1-18.0); Immature Granulocytes % 0.3 %; Mean Corpuscular HGB Conc 34.4 g/dL (31.8-35.4); Mean Corpuscular Hemoglobin 29.8 pg (27.0-31.2); Mean Corpuscular Volume 86.6 fl (80-94); Nucleated Red Blood Cells % 0 %; Platelet Count 240 K/mm3 (142-424); Red Blood Count 5.53 M/mm3 (4.60-6.20); Red Cell Distribution Width-SD 41.5 fL; White Blood Count 7.1 K/mm3 (4.8-10.8)
[2025-09-24 06:01] LABS: Troponin I < 0.01 ng/ml (0.00-0.034)
[2025-09-24 06:28] LABS: Hepatitis C Ab Qual. W/ RFX NEGATIVE (Negative)
[2025-09-24 08:50] LABS: Troponin I 0.01 ng/ml (0.00-0.034)
--- NOTE | 2025-09-24 08:59 | PC.NURSE ---
dr fan at bedside to update pt
== END 2025-09-24 09:10 | disposition home or self-care (01) ==
PROVIDERS: Emergency Provider Emergency Medicine; PCP Nurse Practitioner Family
DX: I10 Essential (primary) hypertension (principal); R00.1 Bradycardia, unspecified
CPT/HCPCS: 71275; 80053; 83880; 84484; 85025; 86803; 87389; 93005; 96374; 99285; J2270; Q9967

== ENCOUNTER 2025-09-24 15:19 | Inpatient (IN) | payer MEDICARE, BC, SELFPAY ==
[2025-09-24] VITALS (34 sets, daily range): BP systolic 103–179; BP diastolic 65–102; PULSE 39–86; RESP 12–23; TEMP 36.3–36.9; O2SAT 94–100; BMI 25.7
--- NOTE | 2025-09-24 15:19 | PC.NURSE ---
dr ta at bedside
--- NOTE | 2025-09-24 15:22 | ECG_ITS ---
APPROVED REPORT Exam: Resting ECG HR:46 bpm ECG Measurements Heart Rate 46 AXES NJ 178 P 67 QRSd 110 QRS 87 QT 458 T 9 QTc 419 Conclusion SINUS BRADYCARDIA WITH OCCASIONAL SUPRAVENTRICULAR PREMATURE COMPLEXES NONSPECIFIC ST & T-WAVE ABNORMALITY BORDERLINE ECG UNCONFIRMED REPORT Electronically signed by : KAVEH HATCH, 09/27/2025 02:20:54
--- NOTE | 2025-09-24 15:24 | IR_ITS ---
APPROVED REPORT Patient Location: Emergent Clerk Telegraph Service: Tono Deleon RT (R) PROCEDURES Left heart catheterization Left ventriculogram Selective coronary angiogram Drug-eluting stent deployment to the proximal and mid first diagonal artery Drug-eluting stent deployment to the ostial proximal mid and distal co-dominant right coronary artery in a contiguous manner INDICATION Acute anterior ST elevation myocardial infarction, Coronary artery disease, Informed consent was obtained prior to the procedure. COMPLICATIONS None Estimated Blood Loss: Less than 10 mls TECHNIQUE One percent lidocaine used to anesthetize the right anterior aspect of the wrist. The right radial artery was accessed via the Seldinger technique. A 6 Zambian sheath was placed in the right radial artery. 2.5 mg of Verapamil, 800 mcg of nitroglycerin, 1mg Lidocaine and 5000 U Heparin were given through the arterial sheath. The JL3 catheter was also used to perform left heart catheterization, left ventriculogram and selective coronary angiogram. At the end the diagnostic angiogram therapeutic Was administered giving a therapeutic ACT and the JL 4 guide catheter was placed in left main artery followed by Choice PT extra-support wire went down the LAD and went to the first diagonal artery. A 2 mm x 12 mm balloon was deployed at 15 jeff to predilate and open the diagonal artery restoring BALWINDER II flow. A 2.25 x 15 mm Micha frontier stent was deployed in the proximal portion at 20 jeff reducing the critical stenosis. This demonstrated there was an additional severe to critical stenosis distal to the stent therefore a 2 mm x 26 mm Micha frontier stent was placed distal to the for stent is still overlapping and deployed at 16 jeff. The balloon was brought back and deployed at 24 jeff to match the 2 stents. BALWINDER 0 flow was present at the beginning of the procedure with BALWINDER-3 flow at the end of procedure. Following this a JR4 guide catheter was placed in the right coronary artery followed by Choice PT extra-support wire placed distally. A 3 mm x 38 mm Micha frontier stent was deployed in the ostial proximal segment at 20 jeff reducing the critical stenosis. An additional 3 mm x 38 mm Emerado frontier stent was placed distal to the stent still overlapping and deployed at 20 jeff. An additional 2.75 x 38 mm Emerado frontier stent was placed distal to the second stent it still overlapping and deployed at 16 jeff. The balloon was brought back deployed at 24 jeff throughout the proximal portion of the 2.75 mm stent as well as throughout the entirety of the 3 mm stents. BALWINDER II flow was present at the beginning of the procedure with BALWINDER-3 flow at the end the procedure. Within the procedure the apparatus was removed the sheath was removed and hemostasis was achieved using TR banding patient was transferred to the postop putting in stable condition. Night pride drip was started due to malignant hypertension ANGIOGRAPHIC RESULTS The left main artery Normal The left anterior descending artery Has proximal tendon 20% stenosis with a mid vessel concentric 40% stenosis followed by additional 40% and then 50% mid vessel stenoses. The first diagonal artery is large and proximally occluded. Following revascularization there was wide inflow throughout the entire first diagonal artery The circumflex artery Is a large codominant vessel has proximal 40% stenosis followed by mid vessel 40% stenosis. The first obtuse marginal artery has 30 and 40% stenosis of the second obtuse marginal artery also has 40% stenosis The right coronary artery Is a large codominant vessel and has proximal 90% tandem stenoses followed by an additional 80% mid vessel stenoses and distal 70% stenoses. Distally there are 40 and 50% stenosis The DAMON ventriculogram reveals Reduced at 45% with anterior wall hypokinesis The left ventricular end-diastolic pressure 20 mmHg IMPRESSION Coronary disease as described above Successful stenting of large first diagonal artery 100% occlusion reduced to 0% with 2 contiguous drug-eluting stents Successful reconstruction of the ostial proximal mid and distal codominant right coronary artery critical disease reduced to 0% with 3 contiguous drug-eluting stents Reduced ejection fraction with regional wall motion abnormality Elevated LVEDP Diffuse moderate coronary artery disease PLAN 1. Plavix and aspirin 2. Continue nipride gtt and wean as tolerated 3. Start beta-blockers and YUSEF inhibitors once clinically stable 4. LDL goal of 55 to be achieved with high intensity statin 5. Telemetry monitoring for at least 48 hours 6. Cardiac rehabilitation 7. Recommend renal ultrasound due to malignant hypertension with renal duplex 8. Recommend carotid ultrasound Electronically signed by : Jeronimo Mercado MD 09/24/2025 16:29:37
--- OUTSIDE RECORDS SUMMARY | 2025-09-24 15:26 | XMS_ITS | Clinical Summary ---
Author Organization [employer] ([place], [place], [place], [place], [place]) Address [address] [place] [address] Care Team Providers Care Rn Supplemental Name Role Phone Tee Wade MD Primary Care Provider [phone] Lennie Coates PA-C Unavailable [phone] Allergies Active Allergy Reactions Criticality Noted Date Comments [facility] 02/16/2017 Other reaction(s): Chest Pain, Nausea Medications [...] Date Dennis rded Speak language other than Indian at home Not on file 12/07/2023 Want [...] BLUE CROSS/BLUE SHIELD MEDICARE [place] [address] [place] [address] Care Teams Rn Supplemental Relationship Specialty Start Date End Date Tee Wade MD [address] [facility] [address] [place] [address] PCP - General Neurology 03/07/23 Lennie Coates, PA-C [address] [facility] [place] [address] [facility] 03/11/24
--- OUTSIDE RECORDS SUMMARY | 2025-09-24 15:26 | XMS_ITS | Encounter Summary ---
Author Organization [employer] ([place], [place], [place], [place], [place]) Address [address] [place] [address] Care Team Providers Care Water Restoration Technician Name Role Phone Tee Wade MD Primary Care Provider + [phone] Lennie Coates PA-C Unavailable [phone] Encounter Details Date Type Department Care Team (Late st Contact Info) Description 10/23/2019 Transcribed Document [facility] [place] [address] [place] [address] ProviderJuan MD [address] [place] [address] Social History Tobacco Use Types Packs/Day Years Used Date Smoking Tobacco: Never Assessed Sex and Gender Information Value Date Recorded Sex Assigned at Not on file Legal Sex Male 3:26 PM CDT Gender Identity Not on file Sexual Orientation Not on file documented as of this encounter Miscellaneous Notes * Cerner Conversion Note - Juan Summers MD - 10/23/2019 6:00 AM STEAM DRIER OPERATOR RX Interventions Entered On: 10/17/2019 11:30 EST [...] 10/17/2019 11:29 EST Electronically signed by [facility] Conversion Ad Operations Intern Cerner at 03/07/2023 10:39 AM CDT documented in this encounter Plan of Treatment Not on file documented as of this encounter Visit Diagnoses Not on filedocumented in this encounter Care Teams Water Restoration Technician Relationship Specialty Start Date End Date Tee Wade MD [address] [facility] [address] [place] [address] PCP - General Neurology 03/07/23 Lennie Coates PA-C [address] [facility] [address] [place] [address] Cardiology 03/11/24 documented as of this encounter
--- OUTSIDE RECORDS SUMMARY | 2025-09-24 15:26 | XMS_ITS | Encounter Summary ---
Author Organization [facility] ([place], [place], [place], [place], [place]) Address [address] [place] [address] Care Team Providers Care Business Analytics Director Name Role Phone Tee Wade MD Primary Care Provider + [phone] Lennie Coates PA-C Unavailable [phone] Encounter Details Date Type Department Care Team (Late st Contact Info) Description 10/23/2019 Transcribed Document [facility] [place] [address] [place] [address] ProviderJuan MD [address] [place] [address] Social History Tobacco Use Types Packs/Day Years Used Date Smoking Tobacco: Never Assessed Sex and Gender Information Value Date Recorded Sex Assigned at Not on file Legal Sex Male 3:26 PM CDT Gender Identity Not on file Sexual Orientation Not on file documented as of this encounter Miscellaneous Notes * Cerner Conversion Note - Juan Summers MD - 10/23/2019 11:28 AM POLICE BOOKING OFFICER Pain Assessment Entered On: 10/24/2019 15:27 EST Performed On: 10/24/2019 10:48 EST by Jessica Oshea RN-Traveler Intervention Information: acetaminophen-HYDROcodone Performed by Jessica Oshea RN-Traveler on 10/24/2019 09:48:00 EST acetaminophen-HYDROcodone,1Tab Oral,Pain Pain Assessment Pain Assessment : Follow-up assessment Pain Scale Goal : 4 Pain Improved by Intervention : Yes Jessica Oshea RN-Traveler - 10/24/2019 15:27 EST Electronically signed by [facility] Conversion Computer Network Engineer Cerner at 03/09/2023 10:56 AM CDT documented in this encounter Plan of Treatment Not on file documented as of this encounter Visit Diagnoses Not on filedocumented in this encounter Care Teams Business Analytics Director Relationship Specialty Start Date End Date Tee Wade MD 7 [facility] [address] [place] [address] PCP - General Neurology 03/07/23 Lennie Coates, PA-C [address] [place] [address] [address] [place] [address] Cardiology 03/11/24 documented as of this encounter
--- OUTSIDE RECORDS SUMMARY | 2025-09-24 15:26 | XMS_ITS | Encounter Summary ---
Author Organization [employer] ([place], [place], [place], [place], [place]) Address [address] [place] [address] Care Team Providers Care Armor Reconnaissance Vehicle Crewman Name Role Phone Tee Wade MD Primary Care Provider + [phone] Lennie Coates PA-C Unavailable [phone] Encounter Details Date Type Department Care Team (Late st Contact Info) Description 10/23/2019 Transcribed Document [facility] [place] Family Medicine [address] [place] [address] ProviderJuan MD [address] [place], [place] [address] Social History Tobacco Use Types Packs/Day Years Used Date Smoking Tobacco: Never Assessed Sex and Gender Information Value Date Recorded Sex Assigned at Not on file Legal Sex Male 3:26 PM CDT Gender Identity Not on file Sexual Orientation Not on file documented as of this encounter Miscellaneous Notes * Cerner Conversion Note - Juan Summers MD - 10/23/2019 5:00 PM SALMON TROLL FISHER Chart Check - Review Order Profile Entered On: 10/23/2019 18:32 EST Performed On: 10/23/2019 17:00 EST by Jessica Oshea RN-Travelkathie Chart Check Powerplans Initiated/Discontinued as Appropriate : Yes All Active Orders Reviewed : Yes Jessica Oshea RN-Traveler - 10/23/2019 18:32 EST documented in this encounter Plan of Treatment Not on file documented as of this encounter Visit Diagnoses Not on filedocumented in this encounter Care Teams Armor Reconnaissance Vehicle Crewman Relationship Specialty Start Date End Date Tee Wade MD [address] [facility] [address] [place] [address] PCP - General Neurology 03/07/23 Lennie Coates PALoveC [address] [facility] [address] [place] [address] Cardiology 03/11/24 documented as of this encounter
--- OUTSIDE RECORDS SUMMARY | 2025-09-24 15:26 | XMS_ITS | Encounter Summary ---
Author Organization [employer] ([place], [place], [place], [place], [place]) Address [address] [place] [address] Care Team Providers Care Structural Layout Worker Name Role Phone Tee Wade MD Primary Care Provider + [phone] Lennie Coates PA-C Unavailable [phone] Encounter Details Date Type Department Care Team (Late st Contact Info) Description 10/25/2019 Transcribed Document [facility] [place] Family Medicine [address] [place] [address] ProviderJuan MD [address] [place] [address] Social History Tobacco Use Types Packs/Day Years Used Date Smoking Tobacco: Never Assessed Sex and Gender Information Value Date Recorded Sex Assigned at Not on file Legal Sex Male 3:26 PM CDT Gender Identity Not on file Sexual Orientation Not on file documented as of this encounter Miscellaneous Notes * Cerner Conversion Note - Juan Summers MD - 10/25/2019 12:36 PM PHARMACY ASSOCIATE UM Authorization Entered On: 10/25/2019 12:36 EST Performed On: 10/25/2019 12:36 EST by Ashley López Rn-Utilization Review Primary Insurance Authorization Authorization and Policy Numbers : Insurance 1 Health Plan: ANTHEM HMOPPO Policy Number: [id number] Authorization Number: Insurance Primary Name : ANTHEM HMOPPO Policy Number: [id number] Historical Authorization Comments-Primary : Comment 1: Pt not precerted for IP surgery, the CPT code 39316 is for out pt surgery. Pt has d/c order on chart, Called MD office spoke to Marcelino and requested her to notify MD/contracts attorney. Awaiting callback (TAMIKO HUERTAS RN 10/24/2019 12:30) Ashley López Rn-Utilization Review - 10/25/2019 12:36 EST Electronically signed by [facility] Conversion Cloud Security Architect Cerner at 03/07/2023 10:35 AM CDT documented in this encounter Plan of Treatment Not on file documented as of this encounter Visit Diagnoses Not on filedocumented in this encounter Care Teams Structural Layout Worker Relationship Specialty Start Date End Date Tee Wade MD [address] [facility] [address] [place] [address] PCP - General Neurology 03/07/23 Lennie Coates PA-C [address] [place] [address] [address] [place] [address] Cardiology 03/11/24 documented as of this encounter
--- OUTSIDE RECORDS SUMMARY | 2025-09-24 15:26 | XMS_ITS | Encounter Summary ---
Author Organization [employer] ([place], [place], [place], [place], [place]) Address [address] [place] [address] Care Team Providers Care Steerer Name Role Phone Tee Wade MD Primary Care Provider + [phone] Lennie Coates PA-C Unavailable [phone] Encounter Details Date Type Department Care Team (Late st Contact Info) Description 10/24/2019 Transcribed Document [facility] [place] Family Medicine Replaced by [facility] [place] [address] Juan Summers MD [address] [place] [address] Social History Tobacco Use Types Packs/Day Years Used Date Smoking Tobacco: Never Assessed Sex and Gender Information Value Date Recorded Sex Assigned at Not on file Legal Sex Male 3:26 PM CDT Gender Identity Not on file Sexual Orientation Not on file documented as of this encounter Miscellaneous Notes * Cerner Conversion Note - Juan Summers MD - 10/24/2019 12:14 PM CONCRETE PILE DRIVER OPERATOR Patient Education Materials Follows: Incision Care, Adult [...] and water are not available, use hand railroad conductor. ? Change your dressing as told by [...] even if your condition improves. ??? Take roof-ysx-ivylykv and prescription medicines only as told by [...] 05/25/2006 Document Revised: 07/13/2017 Document Reviewed: 05/23/2017 [employer] Patient Education ? 2019 [employer]. Indwelling Urinary Catheter Care, Adult An indwelling [...] on each side. Do this in a nptsw-so-pzma direction. ? If you are male: ? [...] and water are not available, use hand railroad conductor. ??? Always make sure there are no [...] 11/05/2006 Document Revised: 06/21/2018 Document Reviewed: 06/21/2018 [employer] Patient Education ? 2019 [employer]. Laparoscopic Prostatectomy, Care After This sheet gives [...] these instructions at home: Medicines ??? Take yyfh-klx-hznaxao and prescription medicines only as told by [...] urine clear or pale yellow. ? Take dgsy-gfg-whsfqns or prescription medicines. ? Eat foods that [...] and water are not available, use hand railroad conductor. ? Change your dressing as told by [...] pain, abdominal discomfort, and nausea. ??? Take gbkx-zfr-vepyktv and prescription medicines only as told by [...] 11/05/2006 Document Revised: 10/10/2017 Document Reviewed: 10/10/2017 [employer] Patient Education ? 2019 [employer] Laparoscopic Prostatectomy Laparoscopic prostatectomy is a [...] including vitamins, herbs, eye drops, creams, and xkru-eny-xnxpxas medicines. ??? Any problems you or family [...] 11/05/2006 Document Revised: 10/22/2017 Document Reviewed: 10/22/2017 [employer] Patient Education ? 2019 [employer]. documented in this encounter Plan of Treatment Not on file documented as of this encounter Visit Diagnoses Not on filedocumented in this encounter Care Teams Steerer Relationship Specialty Start Date End Date Tee Wade MD [address] [place] [address] PCP - General Neurology 03/07/23 Lennie Coates PA-C [address] [place] [address] [address] [place] [id number] Cardiology 03/11/24 documented as of this encounter
--- OUTSIDE RECORDS SUMMARY | 2025-09-24 15:26 | XMS_ITS | Encounter Summary ---
Author Organization [employer] ([place], [place], [place], [place], [place]) Address [address] [place] [address] Care Team Providers Care Grocery Team Member Name Role Phone Tee Wade MD Primary Care Provider + [phone] Lennie Coates PA-C Unavailable Encounter Details Date Type Department Care Team (Late st Contact Info) Description 10/24/2019 Transcribed Document [facility] [place] Family Medicine [address] [place] [address] ProviderJuan MD [address] [place] [address] Social History Tobacco Use Types Packs/Day Years Used Date Smoking Tobacco: Never Assessed Sex and Gender Information Value Date Recorded Sex Assigned at Not on file Legal Sex Male 3:26 PM CDT Gender Identity Not on file Sexual Orientation Not on file documented as of this encounter Miscellaneous Notes * Cerner Conversion Note - Juan Summers MD - 10/24/2019 12:13 PM IT OPERATIONS MANAGER Stroke/Warfarin Instructions Entered On: 10/24/2019 12:13 EST Performed On: 10/24/2019 12:13 EST by Jessica Oshea RN-Traveler Stroke/Warfarin Instructions Stroke/TIA Discharge Ins : N/A Warfarin Discharge Ins : N/A Jessica Oshea RN-Traveler - 10/24/2019 12:13 EST Electronically signed by Slim Guillermo Conversion Vice President [employer] Cerner at 03/07/2023 10:42 AM CDT documented in this encounter Plan of Treatment Not on file documented as of this encounter Visit Diagnoses Not on filedocumented in this encounter Care Teams Grocery Team Member Relationship Specialty Start Date End Date Tee Wade MD [address] [facility] [address] [place] [address] PCP - General Neurology 03/07/23 Lennie Coates PALoveC [address] [facility] [address] [place] [address] Cardiology 03/11/24 documented as of this encounter
--- OUTSIDE RECORDS SUMMARY | 2025-09-24 15:26 | XMS_ITS | Encounter Summary ---
Author Organization [employer] ([place], [place], [place], [place], [place]) Address [address] [place] [address] Care Team Providers Care Inseam Trimming Machine Operator Name Role Phone Tee Wade MD Primary Care Provider + [phone] Lennie Coates PA-C Unavailable [phone] Encounter Details Date Type Department Care Team (Late st Contact Info) Description 10/23/2019 Transcribed Document [facility] [place] [address] Juan Summers MD [address] [place] [address] Social History Tobacco Use Types Packs/Day Years Used Date Smoking Tobacco: Never Assessed Sex and Gender Information Value Date Recorded Sex Assigned at Not on file Legal Sex Male 3:26 PM CDT Gender Identity Not on file Sexual Orientation Not on file documented as of this encounter Miscellaneous Notes * Cerner Conversion Note - Juan Summers MD - 10/23/2019 11:39 AM LABOR RELATIONS DIRECTOR DATE OF PROCEDURE: 10/23/2019 SURGEON: Ty Ghotra MD PREOPERATIVE DIAGNOSIS: Adenocarcinoma of the prostate. POSTOPERATIVE DIAGNOSIS: Adenocarcinoma of the prostate. PROCEDURE PERFORMED: Laparoscopic adhesiolysis, robotic-assisted laparoscopic radical prostatectomy with left pelvic lymph node dissection. ANESTHESIA: General. PROGRAM CLINICIAN: Faviola Alatorre CFA. SPECIMENS: Prostate with seminal [...] to postoperative recovery room in stable condition. /[id number] MD REENA Larry/AQ / TDDaniel / MODL /[id number] CC: Dr. Bernard Ghotra MD documented in this encounter Plan of Treatment Not on file documented as of this encounter Visit Diagnoses Not on filedocumented in this encounter Care Teams Inseam Trimming Machine Operator Relationship Specialty Start Date End Date Tee Wade MD [address] [facility] [address] [place] [address] PCP - General Neurology 03/07/23 Lennie Coates, PA-C [address] [facility] [address] [place] [address] Cardiology 03/11/24 documented as of this encounter
--- OUTSIDE RECORDS SUMMARY | 2025-09-24 15:26 | XMS_ITS | Encounter Summary ---
Author Organization [employer] ([place], [place], [place], [place], [place]) Address [address] [place] [address] Care Team Providers Care Digital Media Specialist Name Role Phone Tee Wade MD Primary Care Provider + [phone] Lennie Coates PA-C Unavailable [phone] Encounter Details Date Type Department Care Team (Late st Contact Info) Description 10/24/2019 Transcribed Document [facility] [place] [address] [place] [address] ProviderJuan MD [address] [place] [address] Social History Tobacco Use Types Packs/Day Years Used Date Smoking Tobacco: Never Assessed Sex and Gender Information Value Date Recorded Sex Assigned at Not on file Legal Sex Male 3:26 PM CDT Gender Identity Not on file Sexual Orientation Not on file documented as of this encounter Miscellaneous Notes * Cerner Conversion Note - Juan ProviderMD - 10/24/2019 2:00 AM CHECK PROCESSOR Children Teacher Details Entered On: 10/24/2019 1:16 EST Performed [...] on filedocumented in this encounter Care Teams Digital Media Specialist Relationship Specialty Start Date End Date Tee Wade MD 1 [facility] [address] [place] [address] PCP - General Neurology 03/07/23 Lennie Coates PA-C [address] [place] [address] [address] [place] [id number] Cardiology 03/11/24 documented as of this encounter
--- OUTSIDE RECORDS SUMMARY | 2025-09-24 15:26 | XMS_ITS | Encounter Summary ---
Author Organization [facility] ([place], [place], [place], [place], [place]) Address [address] [place] [address] Care Team Providers Care Electric Distribution Checker Name Role Phone Tee Wade MD Primary Care Provider + [phone] Lennie Coates PA-C Unavailable [phone] Encounter Details Date Type Department Care Team (Late st Contact Info) Description 10/24/2019 Transcribed Document [facility] [place] Family Medicine [address] [place] [address] ProviderJuan MD [address] [place], [place] [address] Social History Tobacco Use Types Packs/Day Years Used Date Smoking Tobacco: Never Assessed Sex and Gender Information Value Date Recorded Sex Assigned at Not on file Legal Sex Male 3:26 PM CDT Gender Identity Not on file Sexual Orientation Not on file documented as of this encounter Miscellaneous Notes * Cerner Conversion Note - Juan Summers MD - 10/24/2019 5:00 AM CASINO SHIFT MANAGER Chart Check - Review Order Profile Entered [...] on filedocumented in this encounter Care Teams Electric Distribution Checker Relationship Specialty Start Date End Date Tee Wade MD [address] [facility] [address] [place] [address] PCP - General Neurology 03/07/23 Lennie Coates, PALoveC [address] [facility] [address] [place], [place] [address] Cardiology 03/11/24 documented as of this encounter
--- OUTSIDE RECORDS SUMMARY | 2025-09-24 15:26 | XMS_ITS | Encounter Summary ---
Author Organization [employer] ([place], [place], [place], [place], [place]) Address [address] [place] [address] Care Team Providers Care Senior Reservations Agent Name Role Phone Tee Wade MD Primary Care Provider + [phone] Lennie Coates PA-C Unavailable [phone] Encounter Details Date Type Department Care Team (Late st Contact Info) Description 10/24/2019 Transcribed Document [facility] [place] Family Medicine [facility] [place] [address] Juan Summers MD [address] [place] [address] Social History Tobacco Use Types Packs/Day Years Used Date Smoking Tobacco: Never Assessed Sex and Gender Information Value Date Recorded Sex Assigned at Not on file Legal Sex Male 3:26 PM CDT Gender Identity Not on file Sexual Orientation Not on file documented as of this encounter Miscellaneous Notes * Cerner Conversion Note - Juan Summers MD - 10/24/2019 8:48 AM SUPERVISOR INSPECTION DEPARTMENT DATE OF DISCHARGE: 10/24/2019 DISCHARGE DIAGNOSIS: Adenocarcinoma of the prostate. OPERATION/PROCEDURE: Robotic assisted laparoscopic radical prostatectomy with left-sided pelvic lymph node dissection Dr. Ty Ghotra. BRIEF HISTORY: The patient is a 64-year-old gentleman who recently was diagnosed with adenocarcinoma of prostate, 6 cores positive on the left side, [place] score of 6. He underwent a metastatic [...] Bactrim Double Strength b.i.d. through that time. /[id number] yT Ghotra MD TDA/AQ / TDA / MODL /[id number] CC: Ty Ghotra MD Electronically signed by [facility], [facility] Conversion Book Jogger Cerner at 03/07/2023 10:28 AM CDT documented in this encounter Plan of Treatment Not on file documented as of this encounter Visit Diagnoses Not on filedocumented in this encounter Care Teams Senior Reservations Agent Relationship Specialty Start Date End Date Tee Wade MD [address] [place] [address] PCP - General Neurology 03/07/23 Lennie Coates PA-C [address] [facility] [address] [place] [address] Cardiology 03/11/24 documented as of this encounter
--- OUTSIDE RECORDS SUMMARY | 2025-09-24 15:26 | XMS_ITS | Encounter Summary ---
Author Organization [employer] ([place], [place], [place], [place], [place]) Address [address] [place] [address] Care Team Providers Care Integrity Engineer Name Role Phone Tee Wade MD Primary Care Provider + [phone] Lennie Coates PA-C Unavailable [phone] Encounter Details Date Type Department Care Team (Late st Contact Info) Description 10/25/2019 Transcribed Document [facility] Family Medicine [facility] [place] [address] ProviderJuan MD [address] [place] [address] Social History Tobacco Use Types Packs/Day Years Used Date Smoking Tobacco: Never Assessed Sex and Gender Information Value Date Recorded Sex Assigned at Not on file Legal Sex Male 3:26 PM CDT Gender Identity Not on file Sexual Orientation Not on file documented as of this encounter Miscellaneous Notes * Cerner Conversion Note - Juan Summers MD - 10/25/2019 12:36 PM BUILDING CUSTODIAN UM Authorization Entered On: 10/25/2019 12:36 EST Performed On: 10/25/2019 12:36 EST by Ashley López Rn-Utilization Review Primary Insurance Authorization Authorization and Policy Numbers : Insurance 1 Health Plan: [employer] Policy Number: [id number] Authorization Number: Insurance Primary Name : ANTH HMOPPO Policy Number: [id number] Authorized Service Begin Date-Primary : 10/24/2019 EST Historical Authorization Comments-Primary : Comment 1: Pt not precerted for IP surgery, the CPT code 84088 is for out pt surgery. Pt has d/c order on chart, Called MD office spoke to Marcelino and requested her to notify MD/medical/surgery registered nurse. Awaiting callback (TAMIKO HUERTAS RN 10/24/2019 12:30) Ashley López Rn-Utilization Review - 10/25/2019 12:36 EST Electronically signed by [facility], [facility] Conversion Dulite Machine Bluer Cerner at 03/07/2023 10:11 AM CDT documented in this encounter Plan of Treatment Not on file documented as of this encounter Visit Diagnoses Not on filedocumented in this encounter Care Teams Integrity Engineer Relationship Specialty [place] [address] [place] [address] [address] [place] [address] PCP - General Neurology 03/07/23 Lennie Coates, PA-C [address] [facility] [address] [place] [id number] Cardiology 03/11/24 documented as of this encounter
--- OUTSIDE RECORDS SUMMARY | 2025-09-24 15:26 | XMS_ITS | Encounter Summary ---
Author Organization [employer] ([place], [place], [place], [place], [place]) Address [address] [place] [address] Care Team Providers Care Lead Based Paint Technician Name Role Phone Tee Wade MD Primary Care Provider + [phone] Lennie Coates PA-C Unavailable [phone] Encounter Details Date Type Department Care Team (Late st Contact Info) Description 10/23/2019 Transcribed Document [facility] [place] Family Medicine [address] [place] [address] ProviderJuan MD [address] [place], [place] [address] Social History Tobacco Use Types Packs/Day Years Used Date Smoking Tobacco: Never Assessed Sex and Gender Information Value Date Recorded Sex Assigned at Not on file Legal Sex Male 3:26 PM CDT Gender Identity Not on file Sexual Orientation Not on file documented as of this encounter Miscellaneous Notes * Cerner Conversion Note - Juan Summers MD - 10/23/2019 8:01 AM SUPERVISOR RESIDENTIAL Procedural Documentation Entered On: 10/23/2019 8:05 EST Performed On: 10/23/2019 8:01 EST by Jannette Reyes area field worker Documentation Procedure to be Performed : taps [...] Anesthesiologist Procedure Case Attendee Role 2 : area field worker Case Attendee 2 : Jannette Reyes RN Procedure Case Attendee Role 3 : area field worker Case Attendee 3 : ROBERTO PORTER RN [...] 10/23/2019 8:01 EST Electronically signed by [facility] Conversion Plate Shop Helper Cerner at 03/07/2023 10:37 AM CDT documented in this encounter Plan of Treatment Not on file documented as of this encounter Visit Diagnoses Not on filedocumented in this encounter Care Teams Lead Based Paint Technician Relationship Specialty Start Date End Date Tee Wade MD [address] [address] PCP - General Neurology 03/07/23 Lennie Coates PALoveC [address] [facility] [place] [place] [address] Cardiology 03/11/24 documented as of this encounter
--- OUTSIDE RECORDS SUMMARY | 2025-09-24 15:26 | XMS_ITS | Encounter Summary ---
Author Organization [employer] ([place], [place], [place], [place], [place]) Address [address] [place] [address] Care Team Providers Care Steaming Machine Operator Name Role Phone Tee Wade MD Primary Care Provider [phone] Lennie Coates PA-C Unavailable [phone] Encounter Details Date Type Department Care Team (Late st Contact Info) Description 10/17/2019 Transcribed Document [facility] [place] [address] [place] [address] ProviderJuan MD [address] [place], [place] [address] Social History Tobacco Use Types Packs/Day Years Used Date Smoking Tobacco: Never Assessed Sex and Gender Information Value Date Recorded Sex Assigned at Not on file Legal Sex Male 3:26 PM CDT Gender Identity Not on file Sexual Orientation Not on file documented as of this encounter Miscellaneous Notes * Cerner Conversion Note - Juan Summers MD - 10/17/2019 11:47 AM CORPORATE SALES MANAGER PAT Adult Entered On: 10/17/2019 11:56 EST [...] Source : Measured Height Entry Format : [facility] Height, Feet : 5 ft(Converted to: 152 cm, 60 Inch) Height, Inches : 11 Inch(Converted to: 0 ft 11 Inch, 27.94 cm) Clinical Height : 180.34 cm Weight Source : Standing scale Weight Entry Format : [facility] Clinical Dosing Weight : 89.05 kg Weight, Pounds : 195.9 lb Body Surface Area (BSA) : 2.09 m2 Body Mass Index : 27.4 kg/m2 (HI) Reserve Body Weight : 74 kg MARY ALVES [...] MARY ALVES RN - 10/17/2019 12:00 EST [place] Suicide Severity Rating Scale (C-SSRS) CSSRS Past [...] Obtained From : Patient Primary Language : Japanese Preferred Communication Mode : Verbal Communication Barrier [...] 10/17/2019 12:00 EST Electronically signed by Mima, [facility] Conversion Termite Control Servicer Cerner at 03/07/2023 10:22 AM CDT documented in this encounter Plan of Treatment Not on file documented as of this encounter Visit Diagnoses Not on filedocumented in this encounter Care Teams Steaming Machine Operator Relationship Specialty Start Date End Date Tee Wade MD [address] [place] [address] PCP - General Neurology 03/07/23 Lennie Coates PALoveC [address] [facility] [address] [place] [address] Cardiology 03/11/24 documented as of this encounter
--- OUTSIDE RECORDS SUMMARY | 2025-09-24 15:26 | XMS_ITS | Encounter Summary ---
Author Organization [employer] ([place], [place], [place], [place], [place]) Address [address] [place] [address] Care Team Providers Care Farm Products Shipper Name Role Phone Tee Wade MD Primary Care Provider + [phone] Lennie Coates PA-C Unavailable [phone] Encounter Details Date Type Department Care Team (Late st Contact Info) Description 10/24/2019 Transcribed Document [facility] [place] [place] [address] [place] [address] ProviderJuan MD [address] [place] [address] Social History Tobacco Use Types Packs/Day Years Used Date Smoking Tobacco: Never Assessed Sex and Gender Information Value Date Recorded Sex Assigned at Not on file Legal Sex Male 3:26 PM CDT Gender Identity Not on file Sexual Orientation Not on file documented as of this encounter Miscellaneous Notes * Cerner Conversion Note - Juan Summers MD - 10/24/2019 12:30 PM BUYER AGENT UM Authorization Entered On: 10/24/2019 12:32 EST Performed On: 10/24/2019 12:30 EST by TAMIKO HUERTAS RN Primary Insurance Authorization Authorization and Policy Numbers : Insurance 1 Health Plan: [employer] Policy Number: [id number] Authorization Number: Insurance Primary Name : [facility] Policy Number: [id number] Authorization Comments-Primary : Pt not precerted for IP surgery, the CPT code 15743 is for out pt surgery. Pt has d/c order on chart, Called MD office spoke to Marcelino and requested her to notify MD/electrical and electronic assembler. Awaiting callback Historical Authorization Comments-Primary : No Authorization Comments Found TAMIKO HUERTAS, RN - 10/24/2019 12:30 EST documented in this encounter Plan of Treatment Not on file documented as of this encounter Visit Diagnoses Not on filedocumented in this encounter Care Teams Farm Products Shipper Relationship Specialty Start Date End Date Tee Wade MD [address] [facility] [address] [place] [address] PCP - General Neurology 03/07/23 Lennie Coates PA-C [address] [place] [address] [address] [place] [address] Cardiology 03/11/24 documented as of this encounter
--- OUTSIDE RECORDS SUMMARY | 2025-09-24 15:26 | XMS_ITS | Encounter Summary ---
Author Organization [employer] ([place], [place], [place], [place], [place]) Address [address] [place] [address] Care Team Providers Care Boot And Shoe Repairman Name Role Phone Tee Wade MD Primary Care Provider + [phone] Lennie Coates PA-C Unavailable [phone] Encounter Details Date Type Department Care Team (Late st Contact Info) Description 10/23/2019 Transcribed Document [facility] [place] Family Medicine [address] [place] [address] ProviderJuan MD [address] [place] [address] Social History Tobacco Use Types Packs/Day Years Used Date Smoking Tobacco: Never Assessed Sex and Gender Information Value Date Recorded Sex Assigned at Not on file Legal Sex Male 3:26 PM CDT Gender Identity Not on file Sexual Orientation Not on file documented as of this encounter Miscellaneous Notes * Cerner Conversion Note - Juan Summers MD - 10/23/2019 8:30 AM PHYSICAL CHEMISTRY PROFESSOR [facility] Main OR Preop Summary Primary Physician: LEIGHA LOMBARDI MD-URO Finalized Date/Time: 10/23/19 08:49:37 Pt. Name: JHOANA BRAMBILAO.B./Sex: 1955 Male Med Rec #: [id number] Physician: LEIGHA LOMBARDI MD-URO Financial #: [id number] Pt. Type: O Room/Bed: / Admit/Disch: 10/23/19 08:00:00 - Institution: [facility] PreOp Case Times Entry 1 In Preop 10/23/19 06:30:00 Ready for Holding n/a Room Patient Ready for 10/23/19 08:10:00 Surgery Patient Out of Preop 10/23/19 08:24:00 Patient Out of n/a Holding Room Last Modified By: Jannette Reyse RN 10/23/19 08:49:36 [facility] PreOp Case Times Audit 10/23/19 08:49:36 Rn Prior Authorization: WRIGHTVP Modifier: WRIGHTVP <+> 1 Patient Out of Preop 10/23/19 08:08:10 Rn Prior Authorization: WRIGHTVP Modifier: WRIGHTVP <+> 1 Patient Ready for Surgery Finalized By: Jannette Reyes, RN Document Signatures Signed By: Jannette Reyes RN 10/23/19 08:49 Electronically signed by Mima [facility] Conversion Lead Welder Cerner at 03/07/2023 10:44 AM CDT documented in this encounter Plan of Treatment Not on file documented as of this encounter Visit Diagnoses Not on filedocumented in this encounter Care Teams Boot And Shoe Repairman Relationship Specialty [place] [address] [place] [address] PCP - General Neurology 03/07/23 Lennie Coates, PA-C [address] [facility] [address] [place] [address] Cardiology 03/11/24 documented as of this encounter
--- OUTSIDE RECORDS SUMMARY | 2025-09-24 15:26 | XMS_ITS | Referral Summary ---
Author Organization [employer] ([place], [place], [place], [place], [place]) Address [address] [place] [address] Care Team Providers Care Drafter Electronic Name Role Phone Tee Wade MD Primary Care Provider [phone] Lennie Coates PA-C Unavailable [phone] Allergies Active Allergy Reactions Criticality Noted Date Comments [facility] 02/16/2017 Other reaction(s): Chest Pain, Nausea Medications [...] Date Dennis rded Speak language other than Italian at home Not on file 12/07/2023 Want [...] BLUE CROSS/BLUE SHIELD MEDICARE PART A B [facility] SUPP Care Teams Drafter Electronic Relationship Specialty Start Date End Date Tee Wade MD [address] [facility] [address] [place] [address] PCP - General Neurology 03/07/23 Lennie Coates, PA-C [address] [place] [address] [address] [place] [address] Cardiology 03/11/24
--- OUTSIDE RECORDS SUMMARY | 2025-09-24 15:26 | XMS_ITS | Encounter Summary ---
Author Organization [employer] ([place], [place], [place], [place], [place]) Address [address] [place] [address] Care Team Providers Care Optical Effects Line Up Person Name Role Phone Tee Wade MD Primary Care Provider + [phone] Lennie Coates PA-C Unavailable [phone] Encounter Details Date Type Department Care Team (Late st Contact Info) Description 10/23/[address] [facility] [place] [place] Family Medicine [address] [place] [address] ProviderJuan MD [address] [place] [address] Social History Tobacco Use Types Packs/Day Years Used Date Smoking Tobacco: Never Assessed Sex and Gender Information Value Date Recorded Sex Assigned at Not on file Legal Sex Male 3:26 PM CDT Gender Identity Not on file Sexual Orientation Not on file documented as of this encounter Miscellaneous Notes * Cerner Conversion Note - Juan Summers MD - 10/23/2019 9:30 AM FLOOR FINISHER HELPER Pain Assessment Entered On: 10/23/2019 15:57 EST [...] on filedocumented in this encounter Care Teams Optical Effects Line Up Person Relationship Specialty Start Date End Date Tee Wade MD 7 [facility] [address] [place] [address] PCP - General Neurology 03/07/23 Lennie Coates, PA-C [address] [place] [address] [address] [place] [address] Cardiology 03/11/24 documented as of this encounter
--- OUTSIDE RECORDS SUMMARY | 2025-09-24 15:26 | XMS_ITS | Encounter Summary ---
Author Organization [employer] ([place], [place], [place], [place], [place]) Address [address] [place] [address] Care Team Providers Care Proctologist Name Role Phone Tee Wade MD Primary Care Provider + [phone] Lennie Coates PA-C Unavailable [phone] Encounter Details Date Type Department Care Team (Late st Contact Info) Description 10/23/2019 Transcribed Document [facility] Family Medicine [address] [place] [address] ProviderJuan MD [address] [place] [address] Social History Tobacco Use Types Packs/Day Years Used Date Smoking Tobacco: Never Assessed Sex and Gender Information Value Date Recorded Sex Assigned at Not on file Legal Sex Male 3:26 PM CDT Gender Identity Not on file Sexual Orientation Not on file documented as of this encounter Miscellaneous Notes * Cerner Conversion Note - Juan Summers MD - 10/23/2019 9:01 AM DENTAL HYGIENE INSTRUCTOR [facility] Main OR IntraOp Summary Primary Physician: LEIGHA LOMBARDI MD-URO Finalized Date/Time: 10/26/19 10:56:42 Pt. Name: JHOANA HAINESO.B./Sex: 1955 Male Med Rec #: [id number] Physician: LEIGHA LOMBARDI MD-URO Financial #: [id number] Pt. Type: O Room/Bed: [facility]/ Admit/Disch: 10/24/19 12:26:00 - 10/24/19 12:40:00 Institution: [facility] IntraOp Case Attendance Entry 1 Entry 2 Entry 3 Case Attendee LEIGHA LOMBARDI GILBERT, DAVID M, FIRE CHIEF DEPUTY, AMALIA CARLOS MD-ANS -URO [place] BAILIFF-ANS Role Performed Surgeon/Proceduralist, CITY BAILIFF/Nurse Biodiesel Technology Manager Anesthesiologist of First Record Time In 10/23/19 [...] JIGNESH LING Robin A, Surgical TODD, JUDY Billing Machine Operator Role Performed Custom Seamstress, First Scrub, First Scrub, Second Time In [...] HAGER SSI Poff, Janie, OSVALDO Role Performed Billing Machine Operator, Ancillary Billing Machine Operator, Ancillary Technology Program Manager, First Time In 10/23/19 08:27:00 10/23/19 [...] 11 Case Attendee Nilsa Fu, REGINE BLOCK, CITY BAILIFF Role Performed Technology Program Manager, First CITY BAILIFF/Nurse Biodiesel Technology Manager Time In 10/23/19 09:23:00 10/23/19 10:52:00 Time Out 10/23/19 09:45:00 10/23/19 11:20:00 Procedure Prostatectomy Radical Prostatectomy Radical Robotic, Lymph Node Robotic, Lymph Node Dissection Pelvic Dissection Pelvic Laparoscopi(Left) Laparoscopi(Left) Other Attendee Break relief Superficial Wound Closed By: Last Modified By: Mary Carmen Caro RN Poff, Janie, RN 10/23/19 09:47:22 10/23/19 10:52:27 [facility] IntraOp Case Attendance Audit 10/23/19 11:30:57 Dowel Pin Man: NILSON Modifier: NILSON 1 <+> Time Out [...] Lymph Node Dissection Pelvic Laparoscopi(Left) 10/23/19 11:20:22 Dowel Pin Man: NILSON Modifier: POFFJAN 11 <+> Time Out 11 <*> Procedure Prostatectomy Radical Robotic, Lymph Node Dissection Pelvic Laparoscopi(Left) 10/23/19 10:52:27 Dowel Pin Man: NILSON Modifier: POVAMSHIJAN <+> 11 Case Attendee <+> 11 Role Performed <+> 11 Time In <+> 11 Procedure <+> 11 Other Attendee 10/23/19 09:47:22 Dowel Pin Man: NILSON Modifier: NGOCJAN 1 <*> Procedure Prostatectomy [...] Time Out <+> 10 Procedure 10/23/19 09:12:34 Dowel Pin Man: NILSON Modifier: POFFJAN 1 <*> Procedure Prostatectomy [...] <+> 9 Role Performed <+> 9 Procedure [facility] IntraOp Case Times Entry 1 Patient In Room Time 10/23/19 08:27:00 Out Room Time 10/23/19 11:30:00 Anesthesia Start Time 10/23/19 08:27:00 Stop Time 10/23/19 11:30:00 Surgery / Procedure Times Start Time 10/23/19 09:01:00 Stop Time 10/23/19 11:21:00 Last Modified By: Mary Carmen Caro RN 10/23/19 11:21:33 [facility] IntraOp Case Times Audit 10/23/19 11:30:52 Dowel Pin Man: NILSON Modifier: POFFJAN <+> 1 Out Room Time <+> 1 Stop Time 10/23/19 11:21:33 Dowel Pin Man: NILSON Modifier: POFFJAN <+> 1 Stop Time [facility] IntraOp Cautery Entry 1 ESU Identification Cautery Type Monopolar ESU ID Number [id number] ID Type Hospital Number Cautery Settings Cut [...] By: Mary Carmen Caro RN 10/23/19 09:17:43 [facility] IntraOp Communication Entry 1 Entry 2 Communication To Family/Significant other Family/Significant other Comment PROCEDURE START UPDATE Communication By Mary Carmen Caro, Mary Carmen Syed RN Date and Time 10/23/19 09:01:00 10/23/19 10:08:00 Last Modified By: Mary Carmen Caro RN Poff, Janie, RN 10/23/19 09:18:28 10/23/19 10:08:23 [facility] IntraOp Communication Audit 10/23/19 10:08:23 Dowel Pin Man: NILSON Modifier: NILSON <+> 2 Communication By <+> 2 Date and Time <+> 2 Communication To <+> 2 Comment [facility] IntraOp Counts Verification Entry 1 Procedure Prostatectomy Radical Robotic, Lymph Node Dissection Pelvic Laparoscopi(Left) Count Info Count Type Sponge, Sharps, Instrument, Miscellaneous Counts Verification Baseline/pre-procedure Sequence Count Results Not Applicable Counts Performed By Count Performed By Rajiv Haro, Surgical (Scrub) Billing Machine Operator Count Performed By Mary Carmen Caro RN (RN) Last Modified By: Mary Carmen Caro RN 10/23/19 09:15:13 [facility] IntraOp Counts Final Entry 1 Procedure Prostatectomy Radical Robotic, Lymph Node Dissection Pelvic Laparoscopi(Left) Final Count Info Count Type Sponge, Sharps, Miscellaneous Counts Verification Skin Closure/end of Sequence procedure Count Results Correct, surgeon notified Counts Performed By Count Performed By Rajiv Haro, Surgical (Scrub) Billing Machine Operator Count Performed By Mary Carmen Caro RN (RN) Last Modified By: Mary Carmen Caro RN 10/23/19 09:19:50 [facility] IntraOp Counts Final Audit 10/23/19 11:13:54 Dowel Pin Man: NILSON Modifier: NILSON 1 <*> Procedure Prostatectomy Radical Robotic, Lymph Node Dissection Pelvic Laparoscopi(Left) 1 <+> Count Performed By (Scrub) 1 <+> Count Performed By (RN) [facility] IntraOp Cultures and Spec Summary Entry 1 Cultrures and Specimens Specimen Ordered: Yes Test(s) Routine/Path-Lab Requested/Final Disposition Last Modified By: Mary Carmen Caro RN 10/23/19 09:19:26 General Comments: A. BLADDER NECK B. LEFT OBTURATOR LYMPH NODE C. PROSTATE AND SEMINAL VESICLES [facility] IntraOp Departure from OR Entry 1 Integumentary Assessment Integumentary WDL with patient Assessment WDL specific variances Patient's Normal Surgical Integumentary incisions-abdomen Variance(s) Transfer/Handoff Transfer to PACU Phase I Handoff Method Phone call Post-op Transport Stretcher/Gurney Via Patient Transport EDITH TERRELL APRN, Accompanied by CITY BAILIFF-ANURADHA CESAR KAREN A. Last Modified By: Mary Carmen Caor RN 10/23/19 09:20:07 [facility] IntraOp Drains and Tubes Entry 1 Device Type Aydin Hamm flat drain Size 10 mm Drain/Tube Activity Inserted Drain/Tube Suction Bulb Drain/Tube Drainage Sanguineous Device Location Abdomen Method of Drainage Active Tube Dressing Dry, Intact Condition Last Modified By: Mary Carmen Caro RN 10/23/19 09:19:41 [facility] IntraOp Dressing and Packing Entry 1 Type Dressing Location Abdomen Wound Dressing Item Skin Closure Glue, 4x4's Tape Type Other Applied By JIGNESH LING Other Comments MEDIPORE TAPE APPLIED TO DRAIN DRESSING. Last Modified By: Mary Carmen Caro RN 10/23/19 09:19:58 [facility] IntraOp Fire Risk Assessment [...] By: Mary Carmen Caro RN 10/23/19 09:13:50 [facility] IntraOp General Case Screen Making Supervisor 1 Case Information OR OR 13 [facility] Case Level 1 Room Verified Yes Wound Class II - Clean-Contaminated Specialty SN Urology Anesthesia Type General ASA Class 2 Diagnosis Preop Diagnosis PROSTATE CANCER Postop Same As Preop No Postop Diagnosis SEE POSTOPERATIVE NOTE Last Modified By: Mary Carmen Caro RN 10/23/19 09:15:36 [facility] IntraOp Intraoperative Assessment Entry [...] By: Mary Carmen Caro RN 10/23/19 09:14:51 [facility] IntraOp Intraoperative Equipment Entry 1 Type Monitoring Equipment Equipment Jeannie Suction System ID Number [id number] Intraop Monitoring Electrocardiogram Three lead placement (ECG) Electrode Placement Blood Pressure Non-Invasive BP Device Source Blood Pressure Arm, right upper Location Pulse Oximeter Hand, left Probe Site Antiembolic Devices Antiembolic Devices Sequential compression device, knee high Antiembolic Device Bilateral Location Antiembolic Device 53560 ID Number Antiembolic Device 40 mmHg Setting Scopes Photo/Video Documentation Photo No Video No Intraop Equipment Sequential compression Comment devices on and in operation prior to induction of anesthesia. Last Modified By: Mary Carmen Caro RN 10/23/19 09:16:59 [facility] IntraOp Medication Admin Entry 1 Medication/Irrigant JESSICA IRR 0.9% NACL 1000ML --[id number] Time Administered 10/23/19 09:01:00 Route of Irrigation Administration Dose Administered By JIGNESH LING Procedure Irrigation Last Modified By: Mary Carmen Caro RN 10/23/19 09:18:51 [facility] IntraOp Patient Positioning Entry [...] By: Mary Carmen Caro RN 10/23/19 09:13:09 [facility] IntraOp Sign In Entry [...] By: Mary Carmen Caro RN 10/23/19 09:06:55 [facility] IntraOp Sign Out Entry [...] By: Mary Carmen Caro RN 10/23/19 09:20:30 [facility] IntraOp Sign Out Audit 10/23/19 11:31:11 Dowel Pin Man: NILSON Modifier: NILSON <+> 1 RN Sign Out Signature Date/Time [facility] IntraOp Skin Prep Entry [...] Removal Site ABDOMEN Hair Removal By JIGNESH LNIG Last Modified By: Mary Carmen Caro RN 10/23/19 09:16:12 [facility] IntraOp Surgical Procedures Entry [...] Poff, Janie, RN 10/23/19 09:13:39 10/23/19 09:20:40 [facility] IntraOp Surgical Procedures Audit 10/23/19 11:31:02 Dowel Pin Man: NILSON Modifier: POVAMSHIADARSH <+> 1 Stop <+> 2 Stop 10/23/19 09:20:40 Dowel Pin Man: NILSON Modifier: NILSON 2 <*> Procedure Lymph Node Dissection Pelvic Laparoscopic 2 <*> Wound Class I - Clean [facility] IntraOp Temp Regulation Devices Entry 1 Temp Regulation Temperature Warm blankets, Forced Regulation Device Air Warming device, Room temperature Temperature 33892 Regulation Device Serial/Unit Number Temperature Upper body Regulation Site Temperature Device 43 degrees Celsius Setting Temperature EDITH TERRELL APRN, Regulation Device [place] BAILIFF-ANS Applied by Temperature Patient's temperature Regulation Comment and forced air warming device settings monitored by anesthesia provider. Last Modified By: Mary Carmen Caro RN 10/23/19 09:17:12 [facility] IntraOP Time Out Entry [...] WATJESSA Correct Billing Electronically signed by Mima, [facility] Conversion Recycling Technician Cerner at 03/07/2023 10:44 AM CDT documented in this encounter Plan of Treatment Not on file documented as of this encounter Visit Diagnoses Not on filedocumented in this encounter Care Teams Proctologist Relationship Specialty Start Date End Date Tee Wade MD [address] [facility] [address] [place] [address] PCP - General Neurology 03/07/23 Lennie Coates PA-C [address] [facility] [address] [place] [address] Cardiology 03/11/24 documented as of this encounter
--- OUTSIDE RECORDS SUMMARY | 2025-09-24 15:26 | XMS_ITS | Encounter Summary ---
Author Organization [employer] ([place], [place], [place], [place], [place]) Address [address] [place] [address] Care Team Providers Care Wood Furniture Assembler Name Role Phone Tee Wade MD Primary Care Provider + [phone] Lennie Coates PA-C Unavailable [phone] Encounter Details Date Type Department Care Team (Late st Contact Info) Description 10/23/2019 Transcribed Document [facility] Family Medicine [address] [place] [address] ProviderJuan MD [address] [place] [address] Social History Tobacco Use Types Packs/Day Years Used Date Smoking Tobacco: Never Assessed Sex and Gender Information Value Date Recorded Sex Assigned at Not on file Legal Sex Male 3:26 PM CDT Gender Identity Not on file Sexual Orientation Not on file documented as of this encounter Miscellaneous Notes * Cerner Conversion Note - Juan Summers MD - 10/23/2019 9:01 AM COMMERCIAL CLEANER [facility] Main OR PACU Summary Primary Physician: LEIGHA LOMBARDI MD-URO Finalized Date/Time: 10/23/19 15:50:55 Pt. Name: JHOANA BRAMBILA D.O.B./Sex: 1955 Male Med Rec #: [id number] Physician: LEIGHA LOMBARDI MD-URO Financial #: [id number] Pt. Type: I Room/Bed: [facility]/ Admit/Disch: 10/23/19 08:00:00 - Institution: [facility] Main OR PACU I Case Times Entry 1 In PACU I 10/23/19 11:32:00 Ready for PACU 10/23/19 13:00:00 Discharge Discharge from PACU 10/23/19 15:35:00 I Last Modified By: TRAVIS CHRISTIANSON RN 10/23/19 15:50:45 [facility] Main OR PACU Acuity Entry 1 Start Time 10/23/19 13:00:00 Stop Time 10/23/19 15:35:00 Acuity Level [facility] PACU Acuity I Last Modified By: TRAVIS CHRISTIANSON RN 10/23/19 15:50:53 Finalized By: TRAVIS CHRISTIANSON RN Document Signatures Signed By: TRAVIS CHRISTIANSON RN 10/23/19 15:50 Electronically signed by Mima [facility] Conversion Online Advertising Manager Cerner at 03/07/2023 10:30 AM CDT documented in this encounter Plan of Treatment Not on file documented as of this encounter Visit Diagnoses Not on filedocumented in this encounter Care Teams Wood Furniture Assembler Relationship Specialty [place] [address] [place] [address] [address] [place] [address] PCP - General Neurology 03/07/23 Lennie Coates PA-C [address] [facility] [address] [place] [address] Cardiology 03/11/24 documented as of this encounter
--- OUTSIDE RECORDS SUMMARY | 2025-09-24 15:27 | XMS_ITS | Encounter Summary ---
Author Organization [employer] ([place], [place], [place], [place], [place]) Address [address] [place] [address] Care Team Providers Care Painter Helper Name Role Phone Tee Wade MD Primary Care Provider + [phone] Lennie Coates PA-C Unavailable [phone] Encounter Details Date Type Department Care Team (Late st Contact Info) Description 10/24/2019 Transcribed Document [facility] Family Medicine [address] [place] [address] ProviderJuan MD [address] [place] [address] Social History Tobacco Use Types Packs/Day Years Used Date Smoking Tobacco: Never Assessed Sex and Gender Information Value Date Recorded Sex Assigned at Not on file Legal Sex Male 3:26 PM CDT Gender Identity Not on file Sexual Orientation Not on file documented as of this encounter Miscellaneous Notes * Cerner Conversion Note - Juan Summers MD - 10/24/2019 3:39 PM BENCH INSPECTOR Nursing Discharge Summary Entered On: 10/24/2019 15:40 [...] 10/24/2019 15:39 EST Electronically signed by Mima, [facility] Conversion Leadership Recruiter Cerner at 03/07/2023 10:41 AM CDT documented in this encounter Plan of Treatment Not on file documented as of this encounter Visit Diagnoses Not on filedocumented in this encounter Care Teams Painter Helper Relationship Specialty Start Date End Date Tee Wade MD [address] [facility] [address] [place] [address] PCP - General Neurology 03/07/23 Lennie Coates, PA-C [address] [facility] [address] [place] [address] Cardiology 03/11/24 documented as of this encounter
--- OUTSIDE RECORDS SUMMARY | 2025-09-24 15:27 | XMS_ITS | Encounter Summary ---
Author Organization [employer] ([place], [place], [place], [place], [place]) Address [address] [place] [address] Care Team Providers Care Facilities Operator Name Role Phone Tee Wade MD Primary Care Provider + [phone] Lennie Coates PA-C Unavailable [phone] Encounter Details Date Type Department Care Team (Late st Contact Info) Description 10/23/2019 Transcribed Document [facility] [place] Family Medicine [address] [place] [address] ProviderJuan MD [address] [place] [address] Social History Tobacco Use Types Packs/Day Years Used Date Smoking Tobacco: Never Assessed Sex and Gender Information Value Date Recorded Sex Assigned at Not on file Legal Sex Male 3:26 PM CDT Gender Identity Not on file Sexual Orientation Not on file documented as of this encounter Miscellaneous Notes * Cerner Conversion Note - Juan Summers MD - 10/23/2019 8:00 AM CRUMB PACKER Admission History, Adult Entered On: 10/23/2019 16:15 [...] Obtained From : Patient Primary Language : Urdu Preferred Communication Mode : Verbal Communication Barrier [...] Scale Risk Level : 25-45 Medium Risk [place] Fall Interventions : Adequate lighting, Assistive devices [...] Source : Measured Height Entry Format : Henderson Height, Feet : 5 ft(Converted to: 152 cm, 60 Inch) Height, Inches : 11 Inch(Converted to: 0 ft 11 Inch, 27.94 cm) Clinical Height : 180.34 cm Weight Source : Standing scale Weight Entry Format : Henderson Clinical Dosing Weight : 89.05 kg Weight, Pounds : 195.9 lb Body Surface Area (BSA) : 2.09 m2 Body Mass Index : 27.4 kg/m2 (HI) [place] Body Weight : 74 kg Jessica Oshea [...] Jessica Oshea RN-Traveler - 10/23/2019 16:10 EST [place] Suicide Severity Rating Scale (C-SSRS) CSSRS Past [...] on filedocumented in this encounter Care Teams Facilities Operator Relationship Specialty Start Date End Date Tee Wade MD [address] [address] PCP - General Neurology 03/07/23 Lennie Coates PALoveC [address] [facility] [place] [address] Cardiology 03/11/24 documented as of this encounter
--- OUTSIDE RECORDS SUMMARY | 2025-09-24 15:27 | XMS_ITS | Encounter Summary ---
Author Organization [employer] ([place], [place], [place], [place], [place]) Address [address] [place] [address] Care Team Providers Care Operator Specialist Communications Name Role Phone Tee Wade MD Primary Care Provider + [phone] Lennie Coates PA-C Unavailable [phone] Encounter Details Date Type Department Care Team (Late st Contact Info) Description 10/24/2019 Transcribed Document [facility] [place] Family Medicine [address] [place] [address] ProviderJuan MD [address] [place] [address] Social History Tobacco Use Types Packs/Day Years Used Date Smoking Tobacco: Never Assessed Sex and Gender Information Value Date Recorded Sex Assigned at Not on file Legal Sex Male 3:26 PM CDT Gender Identity Not on file Sexual Orientation Not on file documented as of this encounter Miscellaneous Notes * Cerner Conversion Note - Juan Summers MD - 10/24/2019 11:37 AM EMPLOYEE COMMUNICATIONS MANAGER Initial Discharge Planning Entered On: 10/24/2019 11:44 EST Performed On: 10/24/2019 11:37 EST by LINDA BARRY Flatbed Company Driver Initial Assessment I Previously Documented Living Environment [...] Is Guardianship Needed : No LINDA BARRY Flatbed Company Driver - 10/24/2019 11:37 EST Initial Assessment II [...] - 10/24/2019 11:37 EST Electronically signed by [facility], [facility] Conversion Case Aide Cerner at 03/07/2023 10:42 AM CDT documented in this encounter Plan of Treatment Not on file documented as of this encounter Visit Diagnoses Not on filedocumented in this encounter Care Teams Operator Specialist Communications Relationship Specialty Start Date End Date Tee Wade MD [address] [facility] [address] [place] [address] PCP - General Neurology 03/07/23 Lennie Coates PA-C [address] [facility] [address] [place], [place] [id number] Cardiology 03/11/24 documented as of this encounter
--- OUTSIDE RECORDS SUMMARY | 2025-09-24 15:27 | XMS_ITS | Encounter Summary ---
Author Organization [employer] ([place], [place], [place], [place], [place]) Address [address] [place] [address] Care Team Providers Care Custom Marine Canvas Fabricator Name Role Phone Tee Wade MD Primary Care Provider + [phone] Lennie Coates PA-C Unavailable [phone] Encounter Details Date Type Department Care Team (Late st Contact Info) Description 10/24/2019 Transcribed Document [facility] [place] [facility] [place] [address] ProviderJuan MD [address] [place] [address] Social History Tobacco Use Types Packs/Day Years Used Date Smoking Tobacco: Never Assessed Sex and Gender Information Value Date Recorded Sex Assigned at Not on file Legal Sex Male 3:26 PM CDT Gender Identity Not on file Sexual Orientation Not on file documented as of this encounter Miscellaneous Notes * Cerner Conversion Note - Juan Summers MD - 10/24/2019 11:45 AM PEDIATRIC CLINICAL DIETICIAN Final Discharge Planning Entered On: 10/24/2019 11:45 EST Performed On: 10/24/2019 11:45 EST by LINDA BARRY, Supervisor Roller Printing Final Discharge Planning Discharge Arrangements : Patient Post-Acute Information Patient Name: JHOANA BRAMBILA Gender: Male : [birth year] Age: 64 Years No Post-Acute Placement(s) Listed No Post-Acute Service(s) Listed No [place] Referral(s) Listed Transportation Needs : Family/Friend Is Patient High/Moderate Readmission Risk? : No Discharge To Care Management : Home/Residential/Usp or Self Care -01 LINDA BARRY, Supervisor Roller Printing - 10/24/2019 11:45 EST Electronically signed by Mima, [facility] Conversion Ocean Import Representative Cerner at 03/07/2023 10:11 AM CDT documented in this encounter Plan of Treatment Not on file documented as of this encounter Visit Diagnoses Not on filedocumented in this encounter Care Teams Custom Marine Canvas Fabricator Relationship Specialty Start Date End Date Tee Wade MD [address] [place] [address] [address] [place] [address] PCP - General Neurology 03/07/23 Lennie Coates, PA-C [address] [place] [address] [address] [place] [address] Cardiology 03/11/24 documented as of this encounter
--- OUTSIDE RECORDS SUMMARY | 2025-09-24 15:27 | XMS_ITS | Encounter Summary ---
Author Organization [employer] ([place], [place], [place], [place], [place]) Address [address] [place] [address] Care Team Providers Care Securities Attorney Name Role Phone Tee Aguilar MD Primary Care Provider + [phone] Lennie Coates PA-C Unavailable [phone] Encounter Details Date Type Department Care Team (Late st Contact Info) Description 10/24/2019 Transcribed Document [facility] [place] [address] [place] [address] ProviderJuan MD [address] [place] [address] Social History Tobacco Use Types Packs/Day Years Used Date Smoking Tobacco: Never Assessed Sex and Gender Information Value Date Recorded Sex Assigned at Not on file Legal Sex Male 3:26 PM CDT Gender Identity Not on file Sexual Orientation Not on file documented as of this encounter Miscellaneous Notes * Cerner Conversion Note - Juan Summers MD - 10/24/2019 12:14 PM 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 [facility] [place], [place] [id number] KOSTA JHOANA LYNN :1955 Visit Time:10/23/2019 Your [...] Instructions: follow up 12-16 with cystogram at [facility] radiology prior to visit Activity: Discharge Activity: No heavy lifting over 10 lbs Diet: Discharge Diet: Resume usual diet as tolerated Showering/Bathing Instructions: May shower Follow-Up Appointments Follow Up with LEIGHA LOMBARDI MD-URO When 11/03/2019 12:00 AM EST Comments Call for follow up appointment Where: [address] [facility] [address] [place] [address]- Follow Up with TEE AGUILAR IM When Within 2 to 3 days Where: [address] [facility] [address] [place] [address]- Medications What How Much When Instructions Next Dose acetaminophen-hydrocodone ([place] 7.5 mg-325 mg oral tablet) 1 Tablet(s) [...] and water are not available, use hand hospital ward clerk. ? Change your dressing as told [...] even if your condition improves. ??? Take qvlt-ihu-dmvfpft and prescription medicines only as told by [...] 05/25/2006 Document Revised: 07/13/2017 Document Reviewed: 05/23/2017 [employer] Interactive Patient Education ?? 2019 [employer] Indwelling Urinary Catheter Care, Adult An [...] on each side. Do this in a jhqtp-bm-fgon direction. ? If you are male: ? [...] and water are not available, use hand hospital ward clerk. ??? Always make sure there are [...] 11/05/2006 Document Revised: 06/21/2018 Document Reviewed: 06/21/2018 [employer] Interactive Patient Education ?? 2019 [employer]. Laparoscopic Prostatectomy, Care After This sheet gives [...] these instructions at home: Medicines ??? Take xaus-nho-alorwxh and prescription medicines only as told by [...] urine clear or pale yellow. ? Take odbt-wen-hxyqaqe or prescription medicines. ? Eat foods that [...] and water are not available, use hand hospital ward clerk. ? Change your dressing as told [...] pain, abdominal discomfort, and nausea. ??? Take oczm-yle-admawrf and prescription medicines only as told by [...] 11/05/2006 Document Revised: 10/10/2017 Document Reviewed: 10/10/2017 [employer] Interactive Patient Education ?? 2019 [employer]. Laparoscopic Prostatectomy Laparoscopic prostatectomy is a surgery [...] including vitamins, herbs, eye drops, creams, and ewlk-unt-kvjwlym medicines. ??? Any problems you or family [...] 11/05/2006 Document Revised: 10/22/2017 Document Reviewed: 10/22/2017 [employer] Interactive Patient Education ?? 2019 [employer] Emergency Awareness and Preventative Care STROKE [...] Assistance with quitting is available by contacting 3-823-WKFBNOW. This is a free resource providing counseling, support, and referral. Or you may contact your personal physician. [place] Suicide Prevention Lifeline: The National Suicide Prevention [...] was given the opportunity to ask questions. Patient/Lumber Salvager Name: Patient/Lumber Salvager Signature: Relationship to Patient: Clinician/Hospital Lumber Salvager Signature: Date: documented in this encounter Plan of Treatment Not on file documented as of this encounter Visit Diagnoses Not on filedocumented in this encounter Care Teams Securities Attorney Relationship Specialty Start Date End Date Tee Aguilar MD [address] [address] PCP - General Neurology 03/07/23 Lennie Coates PA-C [address] [facility] [address] [place] [address] Cardiology 03/11/24 documented as of this encounter
--- OUTSIDE RECORDS SUMMARY | 2025-09-24 15:27 | XMS_ITS | Encounter Summary ---
Author Organization [employer] ([place], [place], [place], [place], [place]) Address [address] [place] [address] Care Team Providers Care Managing Director Atlas Name Role Phone Tee Wade MD Primary Care Provider [phone] Lennie Coates PA-C Unavailable [phone] Encounter Details Date Type Department Care Team (Late st Contact Info) Description 10/23/[address] [facility] [place] Family Medicine [facility] [place] [address] ProviderJuan MD [address] [place] [address] Social History Tobacco Use Types Packs/Day Years Used Date Smoking Tobacco: Never Assessed Sex and Gender Information Value Date Recorded Sex Assigned at Not on file Legal Sex Male 3:26 PM CDT Gender Identity Not on file Sexual Orientation Not on file documented as of this encounter Miscellaneous Notes * Cerner Conversion Note - Juan Summers MD - 10/23/2019 6:40 AM TEACHER INSTRUMENTAL Patient: JHOANA BRAMBILA Age: 64 years Sex: Male : 1955 Associated Diagnoses: None Author: JASON CASIANO, FINAL FINISHER FORGING DIES Chief Complaint prostate cancer Review of Systems [...] Hepatitis A//age early 20,s / SNOMED CT 58405789 / Confirmed at risk Sleep apnea / SNOMED CT 144922271 / Confirmed Renal calculus//HX / SNOMED CT 521714614 / Confirmed Neck pain//shoulder / SNOMED CT 928467869 / Confirmed IBS (irritable bowel syndrome) / SNOMED CT 3504854653 / Confirmed High blood pressure / SNOMED CT 86073879 / Confirmed Diverticulosis of colon / SNOMED CT 9492135514 / Confirmed DDD (degenerative disc disease), cervical / SNOMED CT 577250954 / Confirmed Colitis / SNOMED CT 592716771 / Confirmed Chronic pain / SNOMED CT 236295295 / Confirmed CA - Cancer of prostate / SNOMED CT 5107763250 / Confirmed Back pain / SNOMED CT 6144437109 / Confirmed At risk for sleep apnea / IMO 85267436 / Confirmed Arthritis / SNOMED CT 7945855 / Confirmed, Active Problems (14) Arthritis at [...] of motion, Normal strength. Integumentary: Warm, Dry, [place]. Neurologic: Alert, Oriented. Psychiatric: Cooperative, Appropriate mood & affect. Review / Management Results review: Labs (Last four charted values) HCT 46.2 (OCT 17) K 4.1 (OCT 17) . Impression and Plan Condition: Stable. documented in this encounter Plan of Treatment Not on file documented as of this encounter Visit Diagnoses Not on filedocumented in this encounter Care Teams Managing Director Atlas Relationship Specialty Start Date End Date Tee Wade MD [address] [facility] [address] [place] [address] PCP - General Neurology 03/07/23 Lennie Coates PA-C [address] [place] [address] [place] [address] Cardiology 03/11/24 documented as of this encounter
--- NOTE | 2025-09-24 15:29 | HMH.EDCP ---
Discharge Plan Disposition Patient Disposition: Admitted Referrals Follow up/Referrals: Mallory Martinez APRN [Primary Care Provider, Medical] - See instructions Clinical Impressions Clinical Impression: ST elevation (STEMI) myocardial infarction Print Language Print Language: New Zealander Discharge ED Provider: Martin Ibarra General Stated Complaint: Chest Pain Time Seen by Provider: 09/24/25 15:19 Mode of Arrival: EMS Source of Information: Patient and EMS History of Present Illness HPI narrative: Kevin Haines is a 70-year-old male with a history of hypertension, no history of heart attacks, who presents to the emergency department for complaints of chest pain and back pain. Patient states that pain began at approximately 1:00 this morning. He states it is worsened throughout the day. He was seen in the emergency department previously but states that it got worse when he was discharged home. EMS sent twelve-lead and route concerning for STEMI. He received 324 mg of aspirin, 2 rounds of sublingual nitroglycerin, 4 mg of morphine, 4 mg of Zofran and route. Patient denies any shortness of breath. Related Data Allergies Allergy/AdvReac Type Severity Reaction Status Date / Time No Known Drug Allergies Allergy Unknown Verified 09/24/25 05:24 allergy reaction [facility] Disclaimer: The information contained in this section may have been updated after the patient was seen, as this information can be updated by other users. Social History (Updated 09/24/25 @ 08:28 by Triston Proctor MD) Smoking Status: Never smoker alcohol intake: never current occupational status: other Travel in the last 8 weeks?: None Have you lived/traveled outside US in past 30 days?: No Contact w/someone who lives/traveled outside US past 30 days?: No Exposure to someone with infectious disease in past 14 days?: No Do you have a fever (greater than 100.4 F or 38 C)?: No Have you tested positive for COVID-19?: No Exposed to someone with COVID-19 in past 14 days?: No Do you have a sore throat?: No Do you have a cough?: No Do you have any weakness?: No Do you have any diarrhea?: No Are you experiencing any unusual bleeding?: No Do you have any muscle aches/pain?: No Do you have any abdominal pain?: No Are you experiencing loss of taste or smell?: No ROS Obtained: Yes Systems reviewed as appropriate & no additional complaints except as documented Physical Exam General General appearance: alert Comment: Appears uncomfortable Head Head exam: atraumatic Eye Eye exam: Present normal appearance ENT ENT exam: Present normal external ear exam Neck Neck exam: Present full ROM Chest Chest inspection: Present symmetric chest wall rise Respiratory Respiratory exam: Present normal lung sounds bilaterally; Absent respiratory distress, wheezes or stridor Cardiovascular Cardiovascular exam: Present normal rhythm and bradycardia Abdominal Exam Abdominal exam: Present soft; Absent tenderness or guarding exam: Present deferred Extremities Exam Extremities exam: Present normal inspection Back Exam Back exam: Present normal inspection Neurological Exam Neurological exam: Present alert and oriented X3 Psychiatric Psychiatric exam: Present normal affect Skin Skin exam: Present warm and dry HEART Score HEART Score HEART Score assessment performed?: No Critical Care Critical Care Time Critical Care Time: Yes Attestation: On 09/24/25, the high probability of a clinically significant, sudden or life threatening deterioration of the following system(s) required my full and direct attention, intervention and personal management. The time I documented below is in addition to time spent performing reported procedures but includes the following listed in this critical care notation. Total Time Total Critical Care Time: 35 Medical Decision Making Rhys Inquiry Pt receiving controlled substance: No Response Orders (Tests/Meds): ORDERS Category Date Time Status BNP [NT Pro Brain Natriuretic Pep.] Stat Lab 09/24/25 15:28 Ordered Basic Metabolic Panel Stat Lab 09/24/25 15:28 Ordered CBC w/Auto Diff [Complete Blood Count Auto Diff] Stat Lab 09/24/25 15:28 Ordered CMP [Comprehensive Metabolic Panel] Stat Lab 09/24/25 15:28 Ordered PT INR [Prothrombin Time INR] Stat Lab 09/24/25 15:28 Ordered PTT [Activated Partial Thrombo Time] Stat Lab 09/24/25 15:28 Ordered Troponin I Q3H Lab 09/24/25 18:30 Ordered Troponin I Q3H Lab 09/24/25 21:30 Ordered Troponin I Stat Lab 09/24/25 15:28 Ordered ECG Data Tracing #1: Attestation: I reviewed this ECG and interpreted as documented below: ECG Narrative: ST depressions in the inferior and lateral leads with ST elevations in aVL. Bradycardic but normal sinus. Concerning for STEMI MDM Narrative Medical Decision Narrative: Kevin Haines is a 70-year-old male with a history of hypertension, no history of heart attacks, who presents to the emergency department for complaints of chest pain and back pain. Patient states that pain began at approximately 1:00 this morning. He states it is worsened throughout the day. He was seen in the emergency department previously but states that it got worse when he was discharged home. EMS sent twelve-lead and route concerning for STEMI. He received 324 mg of aspirin, 2 rounds of sublingual nitroglycerin, 4 mg of morphine, 4 mg of Zofran and route. Patient denies any shortness of breath. On arrival, patient is hypertensive with blood pressure 177/87, borderline bradycardic with heart rate in the 55-60 range. Afebrile. Oxygen saturation 99% on room air. Physical exam, stated above, revealed an ill appearing male in no respiratory distress. He is alert and answering questions appropriately. Cardiopulmonary exam without murmurs or rubs. No wheezing, rales or rhonchi. EMS send twelve-lead EKG prior to arrival that showed ST depressions in leads II, III, aVF, V3, V4, V5 and V6 as well as elevations in aVL concerning for STEMI. Isobutylene Operator Chief was activated prior to arrival. I did review patient's EKG earlier this morning and these do represent dynamic changes. Patient did have a CTA of the chest that was interpreted by me personally and did not demonstrate any aortic dissection or pulmonary embolism. I did discuss patient's case and EKG with Dr. Mercado prior to arrival and he agreed to initiate Isobutylene Operator Chief and is concern for left main disease. He recommended holding Brilinta at this time. EKG obtained in the emergency department showed similar findings as mentioned above. No acute interventions for stabilization are needed here in the emergency department and patient is appropriate for transport to Isobutylene Operator Chief at this time. Patient was taken to Isobutylene Operator Chief at approximately 1530.
--- NOTE | 2025-09-24 15:30 | PC.NURSE ---
O2 applied at 2L NC for patient comfort
--- NOTE | 2025-09-24 15:30 | PC.NURSE ---
[address] Mercado hold Brilinta dose at this time
--- NOTE | 2025-09-24 15:32 | PC.NURSE ---
1507, ems sent EKG, DR BARRIENTOS SPEAKING WITH DR. CARUSO, STEMI ALERT CALLED. SUPERVISOR METER REPA[employer] SHOP NOTIFIED AND CATHLAB TEAM NOTIFIED
[2025-09-24 15:34] LABS: Hematocrit 43.9 % (42.0-52.0); Hemoglobin 15.0 g/dL (14.1-18.0); Immature Granulocytes % 0.3 %; Mean Corpuscular HGB Conc 34.2 g/dL (31.8-35.4); Mean Corpuscular Hemoglobin 29.4 pg (27.0-31.2); Mean Corpuscular Volume 86.1 fl (80-94); Nucleated Red Blood Cells % 0 %; Platelet Count 226 K/mm3 (142-424); Red Blood Count 5.10 M/mm3 (4.60-6.20); Red Cell Distribution Width-SD 40.7 fL; White Blood Count 9.1 K/mm3 (4.8-10.8)
[2025-09-24 15:40] LABS: Albumin Level 5.1 g/dl (3.5-5.0); Chloride 105 mmol/L (98-107); Potassium 3.6 mmoL/L (3.5-5.1); Sodium 141 mmol/L (136-145)
[2025-09-24 15:43] LABS: Alanine Aminotransferase 57 U/L (12-78); Albumin/Globulin Ratio 1.9 (1.1-1.8); Alkaline Phosphatase 75 U/L (38-126); Anion Gap 16.6 mEq/L (5-15); Aspartate Amino Transferase 61 U/L (17-59); Bilirubin,Total 1.1 mg/dl (0.2-1.3); Blood Urea Nitrogen 12 mg/dl (9-20); Calcium 8.4 mg/dl (8.4-10.2); Carbon Dioxide 23 mmol/L (22.0-30.0); Creatinine Clearance Estimated 82 mL/min (50-200); Creatinine,Serum 1.00 mg/dl (0.66-1.25); Estimated Glomerular Filt Rate 74 ml/min (>60); GFR (African American) 89 ML/MIN (>60); Globulin 2.7 g/dL (1.3-3.2); Glucose 181 mg/dl (74-100); Total Protein,Serum 7.8 g/dl (6.3-8.2)
[2025-09-24 15:44] LABS: Activated Partial Thrombo Time 23.1 seconds (22.8-30.6); INR 1.02 (0.9-1.1); Prothrombin Time 11.3 seconds (10.1-12.5)
[2025-09-24 15:53] LABS: NT Pro Brain Natriuretic Pep. 108 pg/mL (0-125)
[2025-09-24 16:18] LABS: Troponin I 0.47 ng/ml (0.00-0.034)
[2025-09-24] MEDS: 0.9 % SODIUM CHLORIDE 500 ML 25 ML IV (16:35)
[2025-09-24] MEDS: IOPAMIDOL-370 (76%);100ML BOTTLE 210 ML IV (16:35)
[2025-09-24] MEDS: NITROGLYCERIN 800MCG/8ML SYR (CATH LAB) 800 MCG IA (16:35)
[2025-09-24] MEDS: LIDOCAINE 1% 10ML MDV 10 ML IJ (16:35)
[2025-09-24] MEDS: HEPARIN 1,000 UNITS/500ML NS (CATH LAB) 3000 UNIT IV (16:36)
[2025-09-24] MEDS: HEPARIN 1,000 UNITS/ML 10ML VIAL (CATH LAB) 5000 UNIT IV (16:36)
[2025-09-24] MEDS: VERAPAMIL 2.5MG/ML 2ML VIAL 2.5 MG IV (16:36)
[2025-09-24] MEDS: FENTANYL 100MCG/2ML VIAL 50 MCG IV (16:37)
[2025-09-24] MEDS: MIDAZOLAM HCL 1MG/ML 5ML VIAL 1 MG IV (16:37)
[2025-09-24 16:38] LABS: CATHL Activated Clotting Time 208 SEC (74-125)
--- NOTE | 2025-09-24 16:54 | PC.NURSE ---
patient arrived via stretcher from union laborer to icu
[2025-09-24] MEDS: NITROPRUSSIDE SODIUM 50 MG in DEXTROSE 5 % IN WATER 250 ML 7.61 MG IV (16:56)
--- NOTE | 2025-09-24 17:20 | ECG_ITS ---
APPROVED REPORT Exam: Resting ECG HR:54 bpm ECG Measurements Heart Rate 54 AXES OH 177 P 29 QRSd 107 QRS 3 QT 481 T 95 QTc [address] DEVIATION AND MODERATE T-WAVE ABNORMALITY, CONSIDER LATERAL ISCHEMIA [-0.1+ mV T-WAVE IN I/aVL/V5/V6] ABNORMAL ECG UNCONFIRMED REPORT Electronically signed by : Yves Hale MD 09/25/2025 17:21:49
--- NOTE | 2025-09-24 18:17 | EXP.HP ---
History of Present Illness *History of present illness: Kevin Haines is a 70-year-old male with a history of hypertension, no history of heart attacks, who presents to the emergency department for complaints of chest pain and back pain. Patient states that pain began at approximately 1:00 this morning. He states it is worsened throughout the day. He was seen in the emergency department previously today, but states that it got worse when he was discharged home. He devoped nausea, vomiting and diaphoresis. His contacted EMS. EMS sent twelve-lead enroute concerning for STEMI. He received 324 mg of aspirin, 2 rounds of sublingual nitroglycerin, 4 mg of morphine, 4 mg of Zofran and route. On arrival, patient was hypertensive with blood pressure 177/87, borderline bradycardic with heart rate in the 55-60 range. He was afebrile. Oxygen saturation 99% on room air. Physical exam in ER, revealed an ill appearing male in no respiratory distress. He was alert and answered questions appropriately. Cardiopulmonary exam was without murmurs or rubs. No wheezing, rales or rhonchi. EMS sent twelve-lead EKG prior to arrival that showed ST depressions in leads II, III, aVF, V3, V4, V5 and V6 as well as elevations in aVL concerning for STEMI. Rental Clerk was activated prior to arrival. Patient did have a CTA of the chest that did not demonstrate any aortic dissection or pulmonary embolism. The ER MD did discuss patient's case and EKG with Dr. Mercado prior to arrival and Dr. Mercado agreed to initiate Rental Clerk and with concern for left main disease. He recommended holding Brilinta at this time. EKG obtained in the emergency department showed similar findings as mentioned above. No acute interventions for stabilization were needed in the emergency department. Patient was taken to Rental Clerk at approximately 1530. Five stents were placed. See cath report. EF was 45%. [facility] Disclaimer: The information contained in this section may have been updated after the patient was seen, as this information can be updated by other users. Medical History (Updated 09/24/25 @ 18:37 by Henry Wade MD) History of prostate cancer CAD (coronary artery disease) Hypertension Prostate cancer Cholecystectomy planned Family History (Updated 09/24/25 @ 17:37 by Brenda Hughes RN) Other Family history of acute heart failure Family history of hypertension Family history of stroke Social History (Updated 09/24/25 @ 17:37 by Brenda Hughes RN) Smoking Status: Never smoker alcohol intake: never current occupational status: other Travel in the last 8 weeks?: None Have you lived/traveled outside US in past 30 days?: No Contact w/someone who lives/traveled outside US past 30 days?: No Exposure to someone with infectious disease in past 14 days?: No Do you have a fever (greater than 100.4 F or 38 C)?: No Have you tested positive for COVID-19?: No Exposed to someone with COVID-19 in past 14 days?: No Do you have a sore throat?: No Do you have a cough?: No Do you have any weakness?: No Are you experiencing any nausea/vomitting?: No Do you have any diarrhea?: No Are you experiencing any unusual bleeding?: No Do you have any muscle aches/pain?: No Do you have any abdominal pain?: No Are you experiencing loss of taste or smell?: No Other Medical History Have you received the Flu Vaccine for this season: No Have you received the Pneumonia Vaccine: No Review of Systems Review of Systems Review of systems:: unable to obtain (The patient was under sedation at the time of exam, post procedure. His assisted in the history.) Constitutional Constitutional: Reports fatigue, Reports lethargy and Reports malaise Comments: Has not felt well over the past 2 months and has had some back pain. ENT Ears, Nose, Mouth, and Throat: Reports system reviewed and no additional complaints, except as documented *Cardiovascular Cardiovascular: Reports as per HPI and Denies dyspnea *Respiratory Respiratory: Reports system reviewed and no additional complaints, except as documented and Denies dyspnea *Gastrointestinal Gastrointestinal: Reports system reviewed and no additional complaints, except as documented *Genitourinary Genitourinary: Reports system reviewed and no additional complaints, except as documented (Hx of prostate cancer with surgery 6 years ago, Dr. Jj.) *Musculoskeletal Musculoskeletal: Reports system reviewed and no additional complaints, except as documented Comments: finger tip Integumentary/Breasts Skin/Breast: Reports system reviewed and no additional complaints, except as documented *Neurologic Neurologic: Reports system reviewed and no additional complaints, except as documented Psychiatric Psychiatric: Reports system reviewed and no additional complaints, except as documented Endocrine Endocrine: Reports system reviewed and no additional complaints, except as documented and Reports fatigue Hematologic/Lymphatic Hematologic/Lymphatic: Reports system reviewed and no additional complaints, except as documented Allergic/Immunologic Allergic/Immunologic: Reports system reviewed and no additional complaints, except as documented Meds Home Medications and Allergies Home Medications ?Medication ?Instructions ?Recorded ?Confirmed ?Type amlodipine 5 mg tablet 5 mg PO DAILY 09/24/25 09/24/25 History losartan 25 mg tablet 25 mg PO BID 09/24/25 09/24/25 History New Prescriptions to Start Prescriptions: Allergies Allergy/AdvReac Type Severity Reaction Status Date / Time No Known Drug Allergies Allergy Unknown Verified 09/24/25 05:24 allergy reaction Exam Data for Last 24 hours Vital signs and Labs for Last 24 Hours: Temp Pulse Resp BP Pulse Ox O2 Del Method O2 Flow Rate 97.4 F L 61 13 168/92 H 96 Room Air 2 09/24/25 17:00 09/24/25 17:45 09/24/25 17:45 09/24/25 17:45 09/24/25 17:45 09/24/25 17:45 09/24/25 16:30 Laboratory Results - last 24 hr 09/24/25 14:24: WBC 9.1 D, RBC 5.10, Hgb 15.0, Hct 43.9, MCV 86.1, MCH 29.4, MCHC 34.2, RDW 13.1, Plt Count 226, MPV 11.0 H, Neut % (Auto) 78.0, Lymph % (Auto) 16.9, Lucas % (Auto) 4.6, Eos % (Auto) 0.0 L, Baso % (Auto) 0.2, Neut # (Auto) 7.1, Lymph # (Auto) 1.5, Lucas # (Auto) 0.4, Eos # (Auto) 0.0, Baso # (Auto) 0.0, PT 11.3, INR 1.02, APTT 23.1, Sodium 141, Potassium 3.6, Chloride 105, Carbon Dioxide 23, Anion Gap 16.6 H, BUN 12, Creatinine 1.00, Estimated Creat Clear 82, Estimated GFR 74, Est GFR ( Amer) 89, Glucose 181 H D, Calcium 8.4, Total Bilirubin 1.1, AST 61 H D, ALT 57 D, Alkaline Phosphatase 75, Troponin I 0.47 H, NT-Pro-B Natriuret Pep 108, Total Protein 7.8, Albumin 5.1 H, Globulin 2.7, Albumin/Globulin Ratio 1.9 H 09/24/25 17:19: Activated Clotting Time 208 H* I & O for Last 24 hours: Intake & Output 09/22/25 09/23/25 09/24/25 09/25/25 11:59 11:59 11:59 11:59 Intake Total 7.301 / 7.301 Balance 7.301 / 7.301 Weight 185 lb Constitutional Constitutional: no acute distress Comments: Sedated post procedure *Routine HEENT Exam Head: Present normocephalic Eye: Present PERRL ENT: Present mucous membranes moist *Routine Neck Exam Neck: Present full ROM; Absent JVD Routine Chest/Breast/Axilla Exam Chest wall: Absent tenderness Breast: Absent tenderness Axillae: Absent lymphadenopathy *Routine Respiratory Exam Respiratory: Present CTA bilaterally; Absent respiratory distress, rhonchi, stridor or wheezes *Routine Cardiovascular Exam Cardiovascular: Present RRR; Absent gallop, rubs or ectopic *Routine Abdominal Exam Abdominal: Present soft; Absent tenderness *Routine Rectal Exam Rectal:: deferred *Routine Genitalia Exam Genitalia:: deferred *Routine Extremities Exam Extremities: Absent cyanosis, clubbing or edema Routine Back/Spine/Pelvis Exam Back/Spine: Present full ROM; Absent CVA tenderness *Routine Skin Exam Skin: Present intact *Routine Neurological Exam Comments: speaks, responds, but sedated. Routine Psychiatric Exam Psychiatric: Present unable to assess Assessment and Plan *Assessment and plan (1) STEMI (ST elevation myocardial infarction): Status: Acute Category: Medical Code(s): I21.3 - ST elevation (STEMI) myocardial infarction of unspecified site (2) Back pain: Status: Acute Category: Medical Code(s): M54.9 - Dorsalgia, unspecified (3) HTN (hypertension): Status: Acute Category: Medical Code(s): I10 - Essential (primary) hypertension (4) CAD (coronary artery disease): Status: Acute Category: Medical Code(s): I25.10 - Atherosclerotic heart disease of [place] coronary artery without angina pectoris (5) History of prostate cancer: Status: Acute Category: Medical Code(s): Z85.46 - Personal history of malignant neoplasm of prostate Plan See cath report. Admitted for obsevation.
--- NOTE | 2025-09-24 18:52 | PC.NURSE ---
radial band bleeding at 1830, 2 ml of air added back in band
[2025-09-24] MEDS: ATROPINE 1MG/10ML SYRINGE (CRASH CART) 0.5 MG IV (19:26)
--- NOTE | 2025-09-24 19:26 | ECG_ITS ---
APPROVED REPORT Exam: Resting ECG HR:43 bpm ECG Measurements Heart Rate 43 AXES MS 179 P 41 QRSd 110 QRS 40 QT 497 T 109 QTc 442 Conclusion SINUS BRADYCARDIA NONSPECIFIC ST & T-WAVE ABNORMALITY ABNORMAL ECG UNCONFIRMED REPORT Electronically signed by : Yves Hale MD 09/25/2025 17:21:38
--- NOTE | 2025-09-24 19:40 | PC.NURSE ---
1920 Pts came out of room and stated pt was having chest pain. Pt assessed immediately and found to be lethargic, diaphoretic, and pale. Pts heart rate then decreased to the 30's. Nipride gtt paused. 1921- rapid response called 1922- 0.5mg atropine administered per Adalberto DONALDSON. Hospitalist speaking with Dr. Mercado. Per Dr. Mercado, reassess in 10mins 1932- pt asymptomatic, states he feels normal . HR in 80's SBP in 140's. Adalberto DONALDSON spoke with DR Mercado and states to leave Nipride gtt off at this time.
[2025-09-24] MEDS: ATORVASTATIN 40MG TABLET 40 MG PO (20:43)
[2025-09-25] VITALS (26 sets, daily range): BP systolic 125–178; BP diastolic 70–100; PULSE 50–91; RESP 12–18; TEMP 36.7–37.2; O2SAT 94–97; BMI 25.9
[2025-09-25] MEDS: ACETAMINOPHEN 325MG TAB 650 MG PO (02:10)
--- NOTE | 2025-09-25 02:33 | PC.NURSE ---
Addendum entered by Catalina Syed RN 09/25/25 07:19: no other issues or complaints throughout the rest of the night. Pt remains hypertensive. See VS. Sinus esau with HR in 50's while pt sleeping Original Note: Pt c/o headache and reports the headache is because of his blood pressure. Pt states if his BP is >150 normally he will have a headache. Pt requesting antihypertensive home medications. Adalberto DONALDSON notified. States to give Tylenol at this time
[2025-09-25 05:33] LABS: Hematocrit 42.7 % (42.0-52.0); Hemoglobin 14.8 g/dL (14.1-18.0); Immature Granulocytes % 0.3 %; Mean Corpuscular HGB Conc 34.7 g/dL (31.8-35.4); Mean Corpuscular Hemoglobin 29.5 pg (27.0-31.2); Mean Corpuscular Volume 85.1 fl (80-94); Nucleated Red Blood Cells % 0 %; Platelet Count 224 K/mm3 (142-424); Red Blood Count 5.02 M/mm3 (4.60-6.20); Red Cell Distribution Width-SD 41.1 fL; White Blood Count 11.3 K/mm3 (4.8-10.8)
[2025-09-25 05:37] LABS: Chloride 105 mmol/L (98-107); Potassium 3.6 mmoL/L (3.5-5.1); Sodium 139 mmol/L (136-145)
[2025-09-25 05:40] LABS: Anion Gap 12.6 mEq/L (5-15); Blood Urea Nitrogen 12 mg/dl (9-20); Calcium 8.2 mg/dl (8.4-10.2); Carbon Dioxide 25 mmol/L (22.0-30.0); Creatinine Clearance Estimated 82 mL/min (50-200); Creatinine,Serum 1.00 mg/dl (0.66-1.25); Estimated Glomerular Filt Rate 74 ml/min (>60); GFR (African American) 89 ML/MIN (>60); Glucose 111 mg/dl (74-100)
--- NOTE | 2025-09-25 08:48 | HMH.PHAINT1 ---
Pharmacy Intervention Comments: MEDICATION RECONCILIATION COMPLETED ON PATIENT USING EXTERNAL FILL HISTORY FROM PHARMACY. -LORRI BLISS, FAVIAND
--- NOTE | 2025-09-25 09:06 | P.PN_ITS ---
Subjective *Date: 09/25/25 *Time: 09:06 Interval history: Patient is feeling better this am. He still has some dull pain in the chest and arm. He did sleep better. Medical Exam Vital signs and Labs for Last 24 Hours: Vital Signs Temp Pulse Pulse Resp BP BP Pulse Ox 09/25/25 08:01 98.9 F 60 16 154/88 H 95 09/25/25 07:00 62 16 178/93 H 96 09/25/25 07:00 09/25/25 06:30 56 L 13 174/94 H 96 09/25/25 06:01 59 L 18 164/92 H 97 09/25/25 05:00 55 L 15 164/88 H 95 09/25/25 05:00 09/25/25 04:45 58 L 15 157/91 H 95 09/25/25 04:30 61 14 162/94 H 95 09/25/25 04:00 09/25/25 04:00 56 L 09/25/25 04:00 59 L 17 163/87 H 95 09/25/25 03:45 59 L 15 165/89 H 96 09/25/25 03:00 64 13 154/82 H 96 09/25/25 03:00 09/25/25 02:07 67 12 166/99 H 95 09/25/25 02:00 66 18 172/100 H 95 09/25/25 01:00 09/25/25 01:00 68 16 166/94 H 96 09/25/25 00:30 65 17 151/91 H 95 09/25/25 00:15 66 17 155/91 H 94 L 09/25/25 00:00 09/25/25 00:00 66 09/25/25 00:00 98.6 F 09/25/25 00:00 65 16 164/94 H 96 09/24/25 23:45 67 16 162/92 H 95 09/24/25 23:30 68 16 152/83 H 96 09/24/25 23:15 69 13 155/94 H 95 09/24/25 23:00 09/24/25 22:45 66 16 167/97 H 94 L 09/24/25 22:30 71 16 160/90 H 94 L 09/24/25 22:00 69 14 172/92 H 95 09/24/25 21:45 66 16 176/95 H 95 09/24/25 21:30 70 17 160/91 H 95 09/24/25 21:15 67 18 149/88 H 95 09/24/25 21:00 66 16 164/92 H 96 09/24/25 21:00 09/24/25 20:45 68 20 176/93 H 96 09/24/25 20:30 65 16 162/86 H 96 09/24/25 20:00 82 09/24/25 20:00 09/24/25 19:59 78 16 157/89 H 100 09/24/25 19:57 98.5 F 09/24/25 19:46 84 23 151/85 H 97 09/24/25 19:45 82 23 151/85 H 96 09/24/25 19:32 81 17 143/85 H 97 09/24/25 19:30 85 12 130/85 96 09/24/25 19:29 75 16 129/80 97 09/24/25 19:27 57 L 15 113/71 97 09/24/25 19:25 39 L 17 103/65 L 96 09/24/25 19:15 68 21 153/81 H 98 09/24/25 18:52 68 20 159/85 H 96 09/24/25 18:49 09/24/25 18:15 62 19 147/95 H 98 09/24/25 17:45 61 13 168/92 H 96 09/24/25 17:15 54 L 14 136/75 95 09/24/25 17:00 97.4 F L 84 16 160/81 H 96 09/24/25 17:00 09/24/25 16:45 77 20 171/97 H 98 09/24/25 16:40 78 20 151/102 H 98 09/24/25 16:35 86 20 177/101 H 98 09/24/25 16:30 81 20 179/100 H 98 09/24/25 16:30 81 81 20 179/100 H 98 09/24/25 15:32 98.2 F 63 18 177/87 H 09/24/25 15:19 62 09/24/25 15:19 98.2 F 63 18 177/87 H 99 O2 Del Method O2 Flow Rate 09/25/25 08:01 Room Air 09/25/25 07:00 09/25/25 07:00 Room Air 09/25/25 06:30 Room Air 09/25/25 06:01 Room Air 09/25/25 05:00 Room Air 09/25/25 05:00 Room Air 09/25/25 04:45 Room Air 09/25/25 04:30 Room Air 09/25/25 04:00 Room Air 09/25/25 04:00 09/25/25 04:00 Room Air 09/25/25 03:45 Room Air 09/25/25 03:00 Room Air 09/25/25 03:00 Room Air 09/25/25 02:07 Room Air 09/25/25 02:00 Room Air 09/25/25 01:00 Room Air 09/25/25 01:00 Room Air 09/25/25 00:30 Room Air 09/25/25 00:15 Room Air 09/25/25 00:00 Room Air 09/25/25 00:00 09/25/25 00:00 09/25/25 00:00 Room Air 09/24/25 23:45 Room Air 09/24/25 23:30 09/24/25 23:15 09/24/25 23:00 Room Air 09/24/25 22:45 Room Air 09/24/25 22:30 Room Air 09/24/25 22:00 09/24/25 21:45 Room Air 09/24/25 21:30 Room Air 09/24/25 21:15 Room Air 09/24/25 21:00 Room Air 09/24/25 21:00 Room Air 09/24/25 20:45 Room Air 09/24/25 20:30 Room Air 09/24/25 20:00 09/24/25 20:00 Room Air 09/24/25 19:59 09/24/25 19:57 09/24/25 19:46 09/24/25 19:45 Room Air 09/24/25 19:32 09/24/25 19:30 09/24/25 19:29 09/24/25 19:27 09/24/25 19:25 09/24/25 19:15 Room Air 09/24/25 18:52 Room Air 09/24/25 18:49 Room Air 09/24/25 18:15 Room Air 09/24/25 17:45 Room Air 09/24/25 17:15 Room Air 09/24/25 17:00 Room Air 09/24/25 17:00 Room Air 09/24/25 16:45 Room Air 09/24/25 16:40 Room Air 09/24/25 16:35 Room Air 09/24/25 16:30 Nasal Cannula 2 09/24/25 16:30 Nasal Cannula 2 09/24/25 15:32 Nasal Cannula 2 09/24/25 15:19 09/24/25 15:19 Intake and Output 09/24/25 09/25/25 09/25/25 19:59 03:59 11:59 Intake Total 17.194 / 137.194 120 / 137.194 Output Total 500 / 900 400 / 900 Balance 17.194 / -762.806 -500 / -762.806 -280 / -762.806 Intake: Intake, Oral Amount 120 / 120 Intake, Total IV Amount 17.194 / 17.194 0.9 % Sodium Chloride 500 ml @ 3.75 / 3.75 25 mls/hr IV .Q20H MILO Rx#: [id number] Nitroprusside Sodium 50 mg In 13.444 / 13.444 Dextrose 5 % in Water 250 ml @ 0.3 MCG/KG/MIN 7.613 mls/hr IV .Q24H MILO Rx#:[id number] Output: Output, Urine Amount 500 / 900 400 / 900 Other: Number of Voids 2 Number of Unmeasured Voids 1 Weight 185 lb 185 lb 10.067 oz Patient Weight 09/25/25 11:59 Weight 185 lb 10.067 oz Laboratory Results - last 24 hr 09/24/25 14:24: WBC 9.1 D, RBC 5.10, Hgb 15.0, Hct 43.9, MCV 86.1, MCH 29.4, MCHC 34.2, RDW 13.1, Plt Count 226, MPV 11.0 H, Neut % (Auto) 78.0, Lymph % (Auto) 16.9, [place] % (Auto) 4.6, Eos % (Auto) 0.0 L, Baso % (Auto) 0.2, Neut # (Auto) 7.1, Lymph # (Auto) 1.5, [place] # (Auto) 0.4, Eos # (Auto) 0.0, Baso # (Auto) 0.0, PT 11.3, INR 1.02, APTT 23.1, Sodium 141, Potassium 3.6, Chloride 105, Carbon Dioxide 23, Anion Gap 16.6 H, BUN 12, Creatinine 1.00, Estimated Creat Clear 82, Estimated GFR 74, Est GFR ( Amer) 89, Glucose 181 H D, Calcium 8.4, Total Bilirubin 1.1, AST 61 H D, ALT 57 D, Alkaline Phosphatase 75, Troponin I 0.47 H, NT-Pro-B Natriuret Pep 108, Total Protein 7.8, Albumin 5.1 H, Globulin 2.7, Albumin/Globulin Ratio 1.9 H 09/24/25 17:19: Activated Clotting Time 208 H* 09/25/25 04:18: WBC 11.3 H, RBC 5.02, Hgb 14.8, Hct 42.7, MCV 85.1, MCH 29.5, MCHC 34.7, RDW 13.2, Plt Count 224, MPV 11.2 H, Neut % (Auto) 72.6, Lymph % (Auto) 16.8, [place] % (Auto) 10.0 H, Eos % (Auto) 0.1, Baso % (Auto) 0.2, Neut # (Auto) 8.2 H, Lymph # (Auto) 1.9, [place] # (Auto) 1.1 H, Eos # (Auto) 0.0, Baso # (Auto) 0.0, Sodium 139, Potassium 3.6, Chloride 105, Carbon Dioxide 25, Anion Gap 12.6, BUN 12, Creatinine 1.00, Estimated Creat Clear 82, Estimated GFR 74, Est GFR ( Amer) 89, Glucose 111 H D, Calcium 8.2 L I & O for Labs for Last 24 Hours: Intake & Output 09/22/25 09/23/25 09/24/25 09/25/25 11:59 11:59 11:59 11:59 Intake Total 137.194 / 137.194 Output Total 900 / 900 Balance -762.806 / -762.806 Weight 185 lb 10.067 oz Constitutional: Present no acute distress Respiratory: Present CTA bilaterally Cardiac: Present Reg Rate and Rhythm GI: Present soft and normal bowel sounds; Absent distention or tenderness Extremities: Absent edema, clubbing or cyanosis Skin: Present intact Neuro: Present alert and awake Assessment and Plan *Assessment and plan (1) STEMI (ST elevation myocardial infarction): Status: Acute Category: Medical Code(s): I21.3 - ST elevation (STEMI) myocardial infarction of unspecified site (2) Back pain: Status: Acute Category: Medical Code(s): M54.9 - Dorsalgia, unspecified (3) HTN (hypertension): Status: Acute Category: Medical Code(s): I10 - Essential (primary) hypertension (4) CAD (coronary artery disease): Status: Acute Category: Medical Code(s): I25.10 - Atherosclerotic heart disease of [place] coronary artery without angina pectoris (5) History of prostate cancer: Status: Acute Category: Medical Code(s): Z85.46 - Personal history of malignant neoplasm of prostate Plan Patient can be transferred to the 2nd floor but will need to stay one more night per cardiology. He will need an echo, carotid U/S, renal and renal artery U/S.
--- NOTE | 2025-09-25 09:09 | CA_ITS ---
FINAL REPORT TECHNIQUE: Haile scale, color and spectral doppler images of the bilateral carotid arteries were obtained. CLINICAL HISTORY: HTN, CAD COMPARISON: None FINDINGS: Peak systolic velocity in the right internal carotid artery is 85 cm/sec. The internal carotid to common carotid artery ratio is 1.2. There is no significant carotid artery stenosis and moderate plaque formation. The right vertebral artery is normal in direction. Peak systolic velocity in the left internal carotid artery is 150 cm/sec. The internal carotid to common carotid artery ratio is 1.8. There is no significant carotid artery stenosis and moderate plaque formation. The left vertebral artery is normal in direction. IMPRESSION: No ultrasound evidence of hemodynamically significant carotid artery stenosis. Normal peak systolic velocities and normal internal to common carotid artery ratios bilaterally. Less than 50% luminal diameter stenosis in the bilateral carotid arteries. Reviewed, Interpreted and Dictated by Lele Araiza MD Transcribed by Marilyn Lima Authenticated and [facility]
--- NOTE | 2025-09-25 09:09 | CA_ITS ---
APPROVED REPORT EXAM: Comprehensive 2D, Doppler, and color-flow Echocardiogram [employer] Hel[employer]: 154 Ht: 5 ft 10 in Wt: 185lbs BSA: 2.02 BP: 154/88 mmHg Indications: Chest Pain, STEMI, Hypertension/HDD, stents 2D Dimensions LA Volume 40.50 mL LA Volume Index 19.60 mL/m2 (M/F) 16-34 M-Mode Dimensions RVDd 3.34 cm (0.9-2.6) LA Diam 3.73 cm (1.9-4.0) LVDd 4.41 cm (3.5-5.7) LVDs 2.58 cm (3.5-5.7) IVSd 2.01 cm (0.6-1.1) PWd 1.25 cm (0.6-1.1) EF (Teich) 72.70% FS 41.50% EDV (Teich) 88.20 mL ESV (Teich) 24.10 mL LV Diastology E Decel Time 150 (160-240 msec) E/A Ratio 0.72 MED A' 14.10 cm/s LAT A' 10.50 cm/s Aortic Valve AO Peak GR. 5.80 mmHg Mitral Valve MV E Max Azeem. 49.0 (40-130 cm/s) MV A Velocity 68.0 (40-130 cm/s) E/A Ratio 0.72 MV PHT 44.0 ms Pulmonary Valve PV Peak Velocity 144.0 (50-150 cm/s) Tricuspid Valve TR P. Velocity 225.00 cm/s RAP Estimate 10.00 mmHg RVSP 30.20 mmHg Left Ventricle The left ventricle is normal size. Left ventricular systolic function is normal. The left ventricular ejection fraction is within the normal range. There is increased left ventricular wall thickness. There is normal LV segmental wall motion. Transmitral Doppler flow pattern suggests impaired LV relaxation. LVEF is 55% Right Ventricle The right ventricle is borderline dilated. The right ventricular systolic function is normal. Atria The left atrium is mildly dilated. The right atrium is mildly dilated. There is no color Doppler evidence of interatrial shunt. Aortic Valve The aortic valve is mildly thickened. There is no hemodynamically significant aortic valvular stenosis. Trace aortic regurgitation is present. Mitral Valve The mitral valve is normal in structure. No evidence of mitral valve stenosis. Mild mitral regurgitation is present. Tricuspid Valve The tricuspid valve leaflets are thin and pliable. Mild tricuspid regurgitation. RVSP is 20-25 mmHg. Pulmonic Valve The pulmonary valve is grossly normal in structure. Mild pulmonic valve regurgitation is present. Great Vessels The aortic root is normal in size. IVC is normal in size and collapses >50% with inspiration. Pericardium There is no pericardial effusion. Other Information Study Quality: Fair Conclusion Normal biventricular systolic function. Mild biatrial dilation. Mild MR, mild TR, mild PI. Electronically signed by : Christina Cortes MD 09/26/2025 01:19:42
--- NOTE | 2025-09-25 09:10 | CA_ITS ---
FINAL REPORT TECHNIQUE: Grayscale, color Doppler and duplex Doppler ultrasound of the kidneys, aorta and renal arteries was performed. Multiple velocities were measured. CLINICAL HISTORY: HTN, CAD FINDINGS: Aorta velocity: 80 per cm/sec Right kidney: 10.9 cm. No evidence of hydronephrosis or mass. Right intrarenal RI: 0.63-0.72 Right renal artery velocity: 159 cm/sec. Right RAR (Renal artery-Aortic Ratio): 1.89 Left Kidney: 10.4 cm. No evidence of hydronephrosis or mass. Left intrarenal RI: 0.67-0.78 Left renal artery velocity: 161 cm/sec. Left RAR (Renal Artery-Aortic Ratio): 1.91 IMPRESSION: Less than 50% bilateral renal artery stenosis. CT angiogram or postcontrast MR angiogram would be more sensitive for evaluation of possible renal artery stenosis. Reviewed, Interpreted and Dictated by Lele Araiza MD Transcribed by Jyotsna Tripp Authenticated and [facility]
--- NOTE | 2025-09-25 09:10 | US_ITS ---
FINAL REPORT CLINICAL HISTORY: Hypertension COMPARISON: None FINDINGS: RENAL ULTRASOUND Ultrasound images of the kidneys were obtained. The right kidney measures 10.2 cm in length. The left kidney measures 9.4 cm in length. No evidence of mass or hydronephrosis. There are tiny echogenic foci bilaterally, likely nonobstructing stones. IMPRESSION: Tiny nonobstructing stones bilaterally. Reviewed, Interpreted and Dictated by Lele Araiza MD Transcribed by Jyotsna Tripp Authenticated and [facility]
--- NOTE | 2025-09-25 09:11 | EXP.CARD.CON ---
History of Present Illness History of Present Illness Consult date: 09/25/25 Requesting physician: Henry Wade Consult reason: chest pain Chief complaint: chest pain Additional Medical History:: 1. CAD A. STEMI with subsequent coronary stenting of RCA and diagonal arteries with 5 stents, 09/24/2025 2. Hypertension since age 42 A. Renal ultrasound and duplex pending 3. Right carotid bruit A. Carotid ultrasound pending 4. Family history of heart disease in his father at age 47 and was a smoker 5. History of prostate cancer History of present illness: 70-year-old white male with history of hypertension presented to the emergency department yesterday for onset of discomfort between the shoulder blades. Workup in the ER was unremarkable with normal troponins and no acute EKG changes. He was ultimately discharged home but after returning home symptoms worsened to include chest pain with increased intensity. EMS was alerted and twelve-lead and route suggested acute STEMI for which patient was ultimately taken to the [facility] with stenting of his RCA and diagonal arteries. EF at the time of the cath was 45%. Patient had no complications from the procedure. This morning the patient is feeling significantly better and is anxious to get up and move about. He does have some lingering soreness in the chest and fluttering sensations although no arrhythmias noted on telemetry. [facility] Disclaimer: The information contained in this section may have been updated after the patient was seen, as this information can be updated by other users. Medical History (Updated 09/25/25 @ 09:16 by TJ Brooke) History of prostate cancer CAD (coronary artery disease) Hypertension Prostate cancer Cholecystectomy planned Family History (Updated 09/24/25 @ 17:37 by Brenda Hughes RN) Other Family history of acute heart failure Family history of hypertension Family history of stroke Social History (Updated 09/24/25 @ 17:37 by Brenda Hughes RN) Smoking Status: Never smoker alcohol intake: never current occupational status: other Travel in the last 8 weeks?: None Have you lived/traveled outside US in past 30 days?: No Contact w/someone who lives/traveled outside US past 30 days?: No Exposure to someone with infectious disease in past 14 days?: No Do you have a fever (greater than 100.4 F or 38 C)?: No Have you tested positive for COVID-19?: No Exposed to someone with COVID-19 in past 14 days?: No Do you have a sore throat?: No Do you have a cough?: No Do you have any weakness?: No Are you experiencing any nausea/vomitting?: No Do you have any diarrhea?: No Are you experiencing any unusual bleeding?: No Do you have any muscle aches/pain?: No Do you have any abdominal pain?: No Are you experiencing loss of taste or smell?: No Review of Systems Review of Systems Review of systems:: pertinent systems reviewed and negative unless documented below *Cardiovascular Cardiovascular: Reports chest pain, Reports dyspnea on exertion and Reports irregular heart rhythm *Respiratory Respiratory: Denies cough and Reports dyspnea on exertion *Neurologic Neurologic: Reports system reviewed and no additional complaints, except as documented Exam Data for Last 24 hours Vital signs and Labs for Last 24 Hours: Temp Pulse Resp BP Pulse Ox O2 Del Method O2 Flow Rate 98.9 F 60 16 154/88 H 95 Room Air 2 09/25/25 08:01 09/25/25 08:01 09/25/25 08:01 09/25/25 08:01 09/25/25 08:01 09/25/25 08:01 09/24/25 16:30 Laboratory Results - last 24 hr 09/24/25 14:24: WBC 9.1 D, RBC 5.10, Hgb 15.0, Hct 43.9, MCV 86.1, MCH 29.4, MCHC 34.2, RDW 13.1, Plt Count 226, MPV 11.0 H, Neut % (Auto) 78.0, Lymph % (Auto) 16.9, [place] % (Auto) 4.6, Eos % (Auto) 0.0 L, Baso % (Auto) 0.2, Neut # (Auto) 7.1, Lymph # (Auto) 1.5, [place] # (Auto) 0.4, Eos # (Auto) 0.0, Baso # (Auto) 0.0, PT 11.3, INR 1.02, APTT 23.1, Sodium 141, Potassium 3.6, Chloride 105, Carbon Dioxide 23, Anion Gap 16.6 H, BUN 12, Creatinine 1.00, Estimated Creat Clear 82, Estimated GFR 74, Est GFR ( Amer) 89, Glucose 181 H D, Calcium 8.4, Total Bilirubin 1.1, AST 61 H D, ALT 57 D, Alkaline Phosphatase 75, Troponin I 0.47 H, NT-Pro-B Natriuret Pep 108, Total Protein 7.8, Albumin 5.1 H, Globulin 2.7, Albumin/Globulin Ratio 1.9 H 09/24/25 17:19: Activated Clotting Time 208 H* 09/25/25 04:18: WBC 11.3 H, RBC 5.02, Hgb 14.8, Hct 42.7, MCV 85.1, MCH 29.5, MCHC 34.7, RDW 13.2, Plt Count 224, MPV 11.2 H, Neut % (Auto) 72.6, Lymph % (Auto) 16.8, [place] % (Auto) 10.0 H, Eos % (Auto) 0.1, Baso % (Auto) 0.2, Neut # (Auto) 8.2 H, Lymph # (Auto) 1.9, [place] # (Auto) 1.1 H, Eos # (Auto) 0.0, Baso # (Auto) 0.0, Sodium 139, Potassium 3.6, Chloride 105, Carbon Dioxide 25, Anion Gap 12.6, BUN 12, Creatinine 1.00, Estimated Creat Clear 82, Estimated GFR 74, Est GFR ( Amer) 89, Glucose 111 H D, Calcium 8.2 L I & O for Last 24 hours: Intake & Output 09/22/25 09/23/25 09/24/25 09/25/25 11:59 11:59 11:59 11:59 Intake Total 137.194 / 137.194 Output Total 900 / 900 Balance -762.806 / -762.806 Weight 185 lb 10.067 oz Constitutional Constitutional: no acute distress *Routine Neck Exam Neck: Present carotid bruit (Right side) *Routine Respiratory Exam Respiratory: Present CTA bilaterally *Routine Cardiovascular Exam Cardiovascular: Present RRR and murmur; Absent gallop or rubs *Routine Extremities Exam Extremities: Absent edema *Routine Neurological Exam Neurological: Present alert, oriented X3 and CN II-XII intact Meds Home Medications and Allergies Home Medications ?Medication ?Instructions ?Recorded ?Confirmed ?Type amlodipine 5 mg tablet 5 mg PO DAILY 09/24/25 09/24/25 History losartan 25 mg tablet 25 mg PO BID 09/24/25 09/24/25 History New Prescriptions to Start Prescriptions: Allergies Allergy/AdvReac Type Severity Reaction Status Date / Time No Known Drug Allergies Allergy Unknown Verified 09/24/25 05:24 allergy reaction Assessment and Plan *Assessment and plan (1) STEMI (ST elevation myocardial infarction): Status: Acute Qualifiers: Involved coronary artery: right coronary artery Qualified Code(s): I21.11 - ST elevation (STEMI) myocardial infarction involving right coronary artery Category: Medical Code(s): I21.3 - ST elevation (STEMI) myocardial infarction of unspecified site (2) HTN (hypertension): Status: Acute Qualifiers: Hypertension type: primary hypertension Qualified Code(s): I10 - Essential (primary) hypertension Category: Medical Code(s): I10 - Essential (primary) hypertension (3) CAD (coronary artery disease): Status: Acute Qualifiers: Associated angina: with unstable angina Coronary Disease-Associated Artery/Lesion type: [place] artery [place] vs. transplanted heart: [place] heart Qualified Code(s): I25.110 - Atherosclerotic heart disease of [place] coronary artery with unstable angina pectoris Category: Medical Code(s): I25.10 - Atherosclerotic heart disease of [place] coronary artery without angina pectoris (4) History of prostate cancer: Status: Acute Category: Medical Code(s): Z85.46 - Personal history of malignant neoplasm of prostate Plan 1. STEMI with a total of 5 stents placed to RCA and diagonal artery, 09/24/2025 -On aspirin and Plavix -Check echo to reevaluate LVEF and reported history of aortic regurgitation -Restart losartan 25 mg twice daily -Consider low-dose beta-arash therapy but will need to closely monitor heart rate as patient states his resting heart rate is in the high 40s low 50s -If patient's cardiomyopathy is confirmed by echo then would try to stay away from amlodipine 2. Hypertension -Restart losartan 25 mg twice daily and monitor -Check renal duplex and renal ultrasound 3. Cardiomyopathy, ischemic with EF 45% at the time of the cath -Echo pending -If confirmed then will need GDMT ( including ARB, SGLT2 inhibitor, spironolactone, possible beta-arash and diuretic) 4. Chest fluttering -Continue to monitor on telemetry for an additional 24 hours 5. Right carotid bruit -Check carotid u/s Add low dose coreg for CAD, possible ischemic cardiomyopathy and HTN. Monitor pulse. Further recommendations to follow pending results of echo, carotid ultrasound, renal duplex and renal ultrasound. If patient remains stable and blood pressure is controlled and would anticipate discharge home tomorrow. Preliminary echo shows normal LVEF. OK to resume norvasc and stop coreg if bradycardia becomes an issue. Recommend 7 day event monitor at discharge. Follow-up in our office in 1 to 2 weeks. Home medication recommendations: Aspirin 81 mg daily Plavix 75 mg daily Atorvastatin 40 mg daily Carvedilol 3.125 mg twice daily Irbesartan 75 mg daily or resume losartan 25 mg twice daily Amlodipine 5 mg daily if needed for sustained blood pressure over 140/90 mmHg.
[2025-09-25] MEDS: CLOPIDOGREL 75MG TAB 75 MG PO (10:21)
[2025-09-25] MEDS: ASPIRIN EC 81MG TABLET 81 MG PO (10:21)
--- NOTE | 2025-09-25 11:22 | PC.NURSE ---
1117 pt left unit with SRNA for transfer to [facility]
[2025-09-25] MEDS: IRBESARTAN 75MG TABLET 75 MG PO (12:54)
[2025-09-25] MEDS: ATORVASTATIN 40MG TABLET 40 MG PO (20:39)
[2025-09-26] VITALS: BP 138/78; PULSE 57; PULSE 75; RESP 14; TEMP 37.2; O2SAT 96
--- NOTE | 2025-09-26 02:57 | PC.NURSE ---
Pt AOx4. VSS. Continually denies pain or any additional needs throughout the shift. Pt is currently resting in bed with eyes closed. Respirations even and unlabored. Bed is low, locked, and call light is in reach.
[2025-09-26 04:00] VITALS: BP 142/68; PULSE 54; PULSE 55; RESP 14; TEMP 36.9; O2SAT 95; BMI 25.4
[2025-09-26 08:00] VITALS: BP 130/70; PULSE 50; PULSE 56; RESP 14; TEMP 36.9; O2SAT 94
[2025-09-26] MEDS: CLOPIDOGREL 75MG TAB 75 MG PO (08:21)
[2025-09-26] MEDS: ASPIRIN EC 81MG TABLET 81 MG PO (08:21)
[2025-09-26] MEDS: IRBESARTAN 75MG TABLET 75 MG PO (08:21)
--- NOTE | 2025-09-26 09:01 | EXP.ACUTE.PN ---
Subjective *Date: 09/26/25 *Time: 09:01 Interval history: He is feeling well. He did not sleep well. We discussed his case. We discussed medications. We discussed follow-up. Medical Exam Vital signs and Labs for Last 24 Hours: Vital Signs Temp Pulse Pulse Resp BP BP Pulse Ox 09/26/25 08:00 98.5 F 56 L 14 130/70 94 L 09/26/25 06:47 09/26/25 05:00 09/26/25 04:00 55 L 09/26/25 04:00 98.4 F 54 L 14 142/68 H 95 09/26/25 03:00 09/26/25 01:00 09/26/25 00:00 75 09/26/25 00:00 98.9 F 57 L 14 138/78 96 09/25/25 23:00 09/25/25 21:00 09/25/25 20:00 85 09/25/25 20:00 09/25/25 19:58 99.0 F 63 12 125/70 95 09/25/25 18:48 09/25/25 17:58 50 L 09/25/25 17:05 09/25/25 16:00 98.5 F 61 16 131/78 96 09/25/25 15:20 09/25/25 13:00 09/25/25 12:03 60 09/25/25 12:00 98.1 F 86 14 168/96 H 94 L 09/25/25 11:03 09/25/25 10:00 75 17 151/80 H 95 O2 Del Method 09/26/25 08:00 Room Air 09/26/25 06:47 Room Air 09/26/25 05:00 Room Air 09/26/25 04:00 09/26/25 04:00 Room Air 09/26/25 03:00 Room Air 09/26/25 01:00 Room Air 09/26/25 00:00 09/26/25 00:00 Nasal Cannula 09/25/25 23:00 Room Air 09/25/25 21:00 Room Air 09/25/25 20:00 09/25/25 20:00 Room Air 09/25/25 19:58 Room Air 09/25/25 18:48 Room Air 09/25/25 17:58 09/25/25 17:05 Room Air 09/25/25 16:00 Room Air 09/25/25 15:20 Room Air 09/25/25 13:00 Room Air 09/25/25 12:03 09/25/25 12:00 Room Air 09/25/25 11:03 Room Air 09/25/25 10:00 Room Air Intake and Output 09/25/25 09/26/25 09/26/25 19:59 03:59 11:59 Intake Total 360 / 600 240 / 600 Output Total 250 / 250 Balance 360 / 350 240 / 350 -250 / 350 Intake: Intake, Oral Amount 360 / 600 240 / 600 Output: Output, Urine Amount 250 / 250 Other: Number of Unmeasured Voids 0 Weight 182 lb Patient Weight 09/26/25 11:59 Weight 182 lb I & O for Labs for Last 24 Hours: Intake & Output 09/23/25 09/24/25 09/25/25 09/26/25 11:59 11:59 11:59 11:59 Intake Total 137.194 / 137.194 600 / 600 Output Total 900 / 900 250 / 250 Balance -762.806 / -762.806 350 / 350 Weight 185 lb 10.067 oz 182 lb Head: Present normocephalic Neck: Present normal inspection Respiratory: Present CTA bilaterally; Absent respiratory distress Cardiac: Present Reg Rate and Rhythm (Occasional ectopic. These monitor as atrial.) GI: Present soft; Absent tenderness Rectal (male): Present deferred (male): Present deferred Extremities: Present normal inspection; Absent edema Comment:: left second digit tip with amputation Skin: Present intact Neuro: Present alert and oriented x 3 Assessment and Plan *Assessment and plan (1) STEMI (ST elevation myocardial infarction): Status: Acute Qualifiers: Involved coronary artery: right coronary artery Qualified Code(s): I21.11 - ST elevation (STEMI) myocardial infarction involving right coronary artery Category: Medical Code(s): I21.3 - ST elevation (STEMI) myocardial infarction of unspecified site (2) CAD (coronary artery disease): Status: Acute Qualifiers: Coronary Disease-Associated Artery/Lesion type: [place] artery [place] vs. transplanted heart: [place] heart Associated angina: with unstable angina Qualified Code(s): I25.110 - Atherosclerotic heart disease of [place] coronary artery with unstable angina pectoris Category: Medical Code(s): I25.10 - Atherosclerotic heart disease of [place] coronary artery without angina pectoris (3) HTN (hypertension): Status: Acute Qualifiers: Hypertension type: primary hypertension Qualified Code(s): I10 - Essential (primary) hypertension Category: Medical Code(s): I10 - Essential (primary) hypertension (4) History of prostate cancer: Status: Acute Category: Medical Code(s): Z85.46 - Personal history of malignant neoplasm of prostate (5) Stented coronary artery: Status: Acute Category: Surgical Code(s): Z95.5 - Presence of coronary angioplasty implant and graft Plan See Cardiology note from 09/25. See medication list. See follow-up.
--- NOTE | 2025-09-26 10:52 | PC.NURSE ---
pt continued to refuse his morning dose of coreg even after explained to him the reasons he needed to take it. pt stated the 2 times he has taken med he has had what he called flu-like symptoms for about 4 hours afterwards. pt stated that is a horrible feeling and was not going to take anything that made him feel that way.
--- NOTE | 2025-09-29 11:26 | SW/DCPLANNER ---
Phoned patient x2. Patient's phone just rings and was not able to leave a message. Trevon Bartlett
--- NOTE | 2025-10-01 16:00 | EXP.DC.SUM ---
General Admission date:: 09/24/25 Discharge date: 09/26/25 HPI HPI HPI: Kevin Haines is a 70-year-old male with a history of hypertension, no history of heart attacks, who presents to the emergency department for complaints of chest pain and back pain. Patient states that pain began at approximately 1:00 this morning. He states it is worsened throughout the day. He was seen in the emergency department previously today, but states that it got worse when he was discharged home. He devoped nausea, vomiting and diaphoresis. His contacted EMS. EMS sent twelve-lead enroute concerning for STEMI. He received 324 mg of aspirin, 2 rounds of sublingual nitroglycerin, 4 mg of morphine, 4 mg of Zofran and route. On arrival, patient was hypertensive with blood pressure 177/87, borderline bradycardic with heart rate in the 55-60 range. He was afebrile. Oxygen saturation 99% on room air. Physical exam in ER, revealed an ill appearing male in no respiratory distress. He was alert and answered questions appropriately. Cardiopulmonary exam was without murmurs or rubs. No wheezing, rales or rhonchi. EMS sent twelve-lead EKG prior to arrival that showed ST depressions in leads II, III, aVF, V3, V4, V5 and V6 as well as elevations in aVL concerning for STEMI. Brand Marketing Coordinator was activated prior to arrival. Patient did have a CTA of the chest that did not demonstrate any aortic dissection or pulmonary embolism. The ER MD did discuss patient's case and EKG with Dr. Mercado prior to arrival and Dr. Mercado agreed to initiate Brand Marketing Coordinator and with concern for left main disease. He recommended holding Brilinta at this time. EKG obtained in the emergency department showed similar findings as mentioned above. No acute interventions for stabilization were needed in the emergency department. Patient was taken to Brand Marketing Coordinator at approximately 1530. Five stents were placed. See cath report. EF was 45%. Hospital Course Hospital Course Hospital Course: The patient was taken directly to the Brand Marketing Coordinator and received 5 stents. He was admitted for observation post stenting. He did have some dull pain in the chest and arm after his cath, but overall felt much better. He was transferred out of the ICU to the second floor. Cardiology ordered an echo to reevaluate LVEF and restarted his losartan 25 mg twice a day. They also checked a renal duplex and renal ultrasound as well as a carotid ultrasound. The patient's carotid ultrasound showed less than 50% stenosis in the bilateral carotid arteries. His renal artery duplex showed less than 50% bilateral renal artery stenosis. His renal ultrasound showed tiny nonobstructing stones bilaterally. His echo showed a normal LVEF. They wanted the patient to have a 7-day event monitor at discharge and he was stable to be discharged home. Exam Data for Last 24 hours Vital signs and Labs for Last 24 Hours: Temp Pulse Resp BP Pulse Ox O2 Del Method O2 Flow Rate 98.5 F 56 L 14 130/70 94 L Room Air 2 09/26/25 08:00 09/26/25 08:00 09/26/25 08:00 09/26/25 08:00 09/26/25 08:00 09/26/25 09:00 09/24/25 16:30 Narrative: Constitutional Constitutional: no acute distress Comments: Sedated post procedure *Routine HEENT Exam Head: Present normocephalic Eye: Present PERRL ENT: Present mucous membranes moist *Routine Neck Exam Neck: Present full ROM; Absent JVD Routine Chest/Breast/Axilla Exam Chest wall: Absent tenderness Breast: Absent tenderness Axillae: Absent lymphadenopathy *Routine Respiratory Exam Respiratory: Present CTA bilaterally; Absent respiratory distress, rhonchi, stridor or wheezes *Routine Cardiovascular Exam Cardiovascular: Present RRR; Absent gallop, rubs or ectopic *Routine Abdominal Exam Abdominal: Present soft; Absent tenderness *Routine Rectal Exam Rectal:: deferred *Routine Genitalia Exam Genitalia:: deferred *Routine Extremities Exam Extremities: Absent cyanosis, clubbing or edema Routine Back/Spine/Pelvis Exam Back/Spine: Present full ROM; Absent CVA tenderness *Routine Skin Exam Skin: Present intact *Routine Neurological Exam Comments: speaks, responds, but sedated. Routine Psychiatric Exam Psychiatric: Present unable to assess DS: Diagnosis Discharge Diagnosis (1) STEMI (ST elevation myocardial infarction): Status: Acute Code(s): I21.3 - ST elevation (STEMI) myocardial infarction of unspecified site Qualifiers: Involved coronary artery: right coronary artery Qualified Code(s): I21.11 - ST elevation (STEMI) myocardial infarction involving right coronary artery (2) CAD (coronary artery disease): Status: Acute Code(s): I25.10 - Atherosclerotic heart disease of [place] coronary artery without angina pectoris Qualifiers: Coronary Disease-Associated Artery/Lesion type: [place] artery [place] vs. transplanted heart: [place] heart Associated angina: with unstable angina Qualified Code(s): I25.110 - Atherosclerotic heart disease of [place] coronary artery with unstable angina pectoris (3) HTN (hypertension): Status: Acute Code(s): I10 - Essential (primary) hypertension Qualifiers: Hypertension type: primary hypertension Qualified Code(s): I10 - Essential (primary) hypertension (4) History of prostate cancer: Status: Acute Code(s): Z85.46 - Personal history of malignant neoplasm of prostate (5) Stented coronary artery: Status: Acute Code(s): Z95.5 - Presence of coronary angioplasty implant and graft Meds Home Medications and Allergies Home Medications ?Medication ?Instructions ?Recorded ?Confirmed ?Type aspirin 81 mg tablet,delayed 81 mg PO DAILY #90 tabs 09/26/25 09/29/25 Rx release amlodipine 5 mg tablet 5 mg PO DAILY PRN 09/29/25 09/29/25 History atorvastatin 40 mg tablet 40 mg PO HS #30 tabs 09/29/25 09/29/25 Rx carvedilol 3.125 mg tablet 3.125 mg PO BID #60 tabs 09/29/25 09/29/25 Rx clopidogrel 75 mg tablet 75 mg PO DAILY #30 tabs 09/29/25 09/29/25 Rx losartan 25 mg tablet 25 mg PO BID #60 tabs 09/29/25 09/29/25 Rx New Prescriptions to Start Prescriptions: aspirin Henry Wade Allergies Allergy/AdvReac Type Severity Reaction Status Date / Time No Known Drug Allergies Allergy Unknown Verified 09/29/25 10:42 allergy reaction Discharge Plan Disposition Patient Disposition: Home, Self-Care Condition: Good Discharge Order Discharge Orders: Discharge Order (Routine); Ordered 09/26/25 Ordered By: Henry Wade Follow up Plan Follow up with: Henry Wade MD [Staff Physician, Medical] - 10/01/25 David Cortes MD [Staff Physician, Cardiology] - 10/05/25 Prescriptions/Medication Reconciliation: New aspirin 81 mg Tablet,Delayed Release (Dr/Ec) 81 mg PO DAILY Qty: 90 0RF No Action losartan 25 mg tablet 25 mg PO BID Qty: 60 5RF clopidogrel 75 mg tablet 75 mg PO DAILY Qty: 30 11RF carvedilol 3.125 mg tablet 3.125 mg PO BID Qty: 60 5RF atorvastatin 40 mg tablet 40 mg PO HS Qty: 30 5RF amlodipine 5 mg tablet 5 mg PO DAILY PRN Problem Reconciliation Problems Reviewed?: Yes Patient Discharge Instructions ACTIVITY: Limited activity DIET: low fat, low cholesterol Patient Instructions: Heart Attack, High Blood Pressure, DI for Cardiac Catheterization, Surgical Site Infection, Post TransRadial Cath Discharge Instructions, Stop Light Infection Print Language: Samoan Providers Primary Care Provider: Mallory Martinez Admit Provider: Bernard Pena Attending Provider: Henry Wade
--- NOTE | 2025-10-09 11:16 | PC.NURSE ---
10/02/2025 called pt 2 times no answer no voice mail
== END 2025-09-26 10:57 | disposition home or self-care (01) | DRG 321 ==
LOC: ER 15:24 → CATHLAB 15:33 → ICU 16:39 → 2ND 09-25 09:40
PROVIDERS: Internal Medicine; Admitting Provider Student in an Organized Health Care Education/Training Program; Emergency Provider Student in an Organized Health Care Education/Training Program; PCP Nurse Practitioner Family; Visit Provider Family Medicine
PROC: 4A023N7 Measurement of Cardiac Sampling and Pressure, Left Heart, Percutaneous Approach (ICD-10-PCS; CPT 93452; principal; 2025-09-24 15:25)
DX: I21.11 ST elevation (STEMI) myocardial infarction involving right coronary artery (principal); I10 Essential (primary) hypertension; I70.1 Atherosclerosis of renal artery; I25.5 Ischemic cardiomyopathy; I25.10 Atherosclerotic heart disease of native coronary artery without angina pectoris; N20.0 Calculus of kidney; M54.9 Dorsalgia, unspecified; R09.89 Other specified symptoms and signs involving the circulatory and respiratory systems; M54.6 Pain in thoracic spine; R00.1 Bradycardia, unspecified; Z82.49 Family history of ischemic heart disease and other diseases of the circulatory system; Z85.46 Personal history of malignant neoplasm of prostate; Z79.899 Other long term (current) drug therapy
CPT/HCPCS: 76770; 80048; 80053; 83880; 84484; 85025; 85347; 85610; 85730; 93005; 93306; 93880; 93976; 99152; 99153; 99285; C1725; C1769; C1874; C1887; J0461; J1200; J1644; J2250; J3010; J7040; J7060; Q9967

== ENCOUNTER 2025-09-29 12:03 | Outpatient (CLI) | payer MEDICARE, BC, SELFPAY ==
--- OUTSIDE RECORDS SUMMARY | 2025-09-29 12:06 | XMS_ITS | Encounter Summary ---
Author Organization [employer] ([place], [place], [place], [place], [place]) Address [address] [place] [address] Care Team Providers Care Ship Engineer Name Role Phone Tee Wade MD Primary Care Provider + [phone] Lennie Coates PA-C Unavailable [phone] Encounter Details Date Type Department Care Team (Late st Contact Info) Description 10/25/2019 Transcribed Document [facility] [place] Family Medicine [address] [place] [address] ProviderJuan MD [address] [place] [address] Social History Tobacco Use Types Packs/Day Years Used Date Smoking Tobacco: Never Assessed Sex and Gender Information Value Date Recorded Sex Assigned at Not on file Legal Sex Male 3:26 PM CDT Gender Identity Not on file Sexual Orientation Not on file documented as of this encounter Miscellaneous Notes * Cerner Conversion Note - Juan Summers MD - 10/25/2019 12:36 PM LEATHER GRADER UM Authorization Entered On: 10/25/2019 12:36 EST Performed On: 10/25/2019 12:36 EST by Ashley López Rn-Utilization Review Primary Insurance Authorization Authorization and Policy Numbers : Insurance 1 Health Plan: ANTHEM HMOPPO Policy Number: [id number] Authorization Number: Insurance Primary Name : ANTHEM HMOPPO Policy Number: [id number] Historical Authorization Comments-Primary : Comment 1: Pt not precerted for IP surgery, the CPT code 95913 is for out pt surgery. Pt has d/c order on chart, Called MD office spoke to Marcelino and requested her to notify MD/sixth grade teacher. Awaiting callback (TAMIKO HUERTAS RN 10/24/2019 12:30) Ashley López Rn-Utilization Review - 10/25/2019 12:36 EST Electronically signed by [facility], [facility] Conversion Wafer Fabrication Technician Cerner at 03/07/2023 10:35 AM CDT documented in this encounter Plan of Treatment Not on file documented as of this encounter Visit Diagnoses Not on filedocumented in this encounter Care Teams Ship Engineer Relationship Specialty Start Date End Date Tee Wade MD [address] [facility] [address] [place] [address] PCP - General Neurology 03/07/23 Lennie Coates PA-C [address] [place] [address] [address] [place] [address] Cardiology 03/11/24 documented as of this encounter
--- OUTSIDE RECORDS SUMMARY | 2025-09-29 12:06 | XMS_ITS | Encounter Summary ---
Author Organization [employer] ([place], [place], [place], [place], [place]) Address [address] [place] [address] Care Team Providers Care Environmental Marketer Name Role Phone Tee Wade MD Primary Care Provider + [phone] Lennie Coates PA-C Unavailable [phone] Encounter Details Date Type Department Care Team (Late st Contact Info) Description 10/23/2019 Transcribed Document [facility] [place] Family Medicine [address] [place] [address] ProviderJuan MD [address] [place] [address] Social History Tobacco Use Types Packs/Day Years Used Date Smoking Tobacco: Never Assessed Sex and Gender Information Value Date Recorded Sex Assigned at Not on file Legal Sex Male 3:26 PM CDT Gender Identity Not on file Sexual Orientation Not on file documented as of this encounter Miscellaneous Notes * Cerner Conversion Note - Juan Summers MD - 10/23/2019 11:28 AM CURED MEAT PACKING SUPERVISOR Pain Assessment Entered On: 10/24/2019 15:27 EST Performed On: 10/24/2019 10:48 EST by Jessica Oshea RN-Traveler Intervention Information: acetaminophen-HYDROcodone Performed by Jessica Oshea RN-Traveler on 10/24/2019 09:48:00 EST acetaminophen-HYDROcodone,1Tab Oral,Pain Pain Assessment Pain Assessment : Follow-up assessment Pain Scale Goal : 4 Pain Improved by Intervention : Yes Jessica Oshea RN-Traveler - 10/24/2019 15:27 EST Electronically signed by [facility] Conversion Elementary Librarian Cerner at 03/09/2023 10:56 AM CDT documented in this encounter Plan of Treatment Not on file documented as of this encounter Visit Diagnoses Not on filedocumented in this encounter Care Teams Environmental Marketer Relationship Specialty Start Date End Date Tee Wade MD [address] [facility] [address] [place] [address] PCP - General Neurology 03/07/23 Lennie Coates, PA-C [address] [place] [address] [address] [place] [address] Cardiology 03/11/24 documented as of this encounter
--- OUTSIDE RECORDS SUMMARY | 2025-09-29 12:06 | XMS_ITS | Encounter Summary ---
Author Organization [employer] ([place], [place], [place], [place], [place]) Address [address] [place] [address] Care Team Providers Care Director Of Pulmonary Unit Name Role Phone Tee Wade MD Primary Care Provider + [phone] Lennie Coates PA-C Unavailable [phone] Encounter Details Date Type Department Care Team (Late st Contact Info) Description 10/24/2019 Transcribed Document [facility] [place] Family Medicine [place] [address] Juan Summers MD [address] [place] [address] Social History Tobacco Use Types Packs/Day Years Used Date Smoking Tobacco: Never Assessed Sex and Gender Information Value Date Recorded Sex Assigned at Not on file Legal Sex Male 3:26 PM CDT Gender Identity Not on file Sexual Orientation Not on file documented as of this encounter Miscellaneous Notes * Cerner Conversion Note - Juan Summers MD - 10/24/2019 12:14 PM WASTE COLLECTOR Patient Education Materials Follows: Incision Care, Adult [...] and water are not available, use hand nuclear medicine officer. ? Change your dressing as told by [...] even if your condition improves. ??? Take mhxg-fxo-mturyel and prescription medicines only as told by [...] 05/25/2006 Document Revised: 07/13/2017 Document Reviewed: 05/23/2017 [employer] Patient Education ? 2019 [employer]mob. Indwelling Urinary Catheter Care, Adult An indwelling [...] on each side. Do this in a lenmj-er-nger direction. ? If you are male: ? [...] and water are not available, use hand nuclear medicine officer. ??? Always make sure there are no [...] 11/05/2006 Document Revised: 06/21/2018 Document Reviewed: 06/21/2018 [employer] Patient Education ? 2019 [employer]mob. Laparoscopic Prostatectomy, Care After This sheet gives [...] these instructions at home: Medicines ??? Take rmvz-brm-cznjafs and prescription medicines only as told by [...] urine clear or pale yellow. ? Take caui-rfd-vpzzfbs or prescription medicines. ? Eat foods that [...] and water are not available, use hand nuclear medicine officer. ? Change your dressing as told by [...] pain, abdominal discomfort, and nausea. ??? Take juth-kfc-jgjiwrr and prescription medicines only as told by [...] 11/05/2006 Document Revised: 10/10/2017 Document Reviewed: 10/10/2017 [employer] Patient Education ? 2019 [employer]. Laparoscopic Prostatectomy Laparoscopic prostatectomy is a [...] including vitamins, herbs, eye drops, creams, and idbq-wlj-wpazkzv medicines. ??? Any problems you or family [...] 11/05/2006 Document Revised: 10/22/2017 Document Reviewed: 10/22/2017 [employer] Interactive Patient Education ? 2019 travelmob. documented in this encounter Plan of Treatment Not on file documented as of this encounter Visit Diagnoses Not on filedocumented in this encounter Care Teams Director Of Pulmonary Unit Relationship Specialty Start Date End Date Tee Wade MD [address] [place] [address] PCP - General Neurology 03/07/23 Lennie Coates PA-C [address] [place] [address] [address] [place] [id number] Cardiology 03/11/24 documented as of this encounter
--- OUTSIDE RECORDS SUMMARY | 2025-09-29 12:06 | XMS_ITS | Encounter Summary ---
Author Organization [employer] ([place], [place], [place], [place], [place]) Address [address] [place] [address] Care Team Providers Care Lieutenant Shift Supervisor Name Role Phone Tee Wade MD Primary Care Provider + [phone] Lennie Coates PA-C Unavailable [phone] Encounter Details Date Type Department Care Team (Late st Contact Info) Description 10/25/2019 Transcribed Document [facility] [place] Family Medicine [facility] [place] [address] ProviderJuan MD [address] [place] [address] Social History Tobacco Use Types Packs/Day Years Used Date Smoking Tobacco: Never Assessed Sex and Gender Information Value Date Recorded Sex Assigned at Not on file Legal Sex Male 3:26 PM CDT Gender Identity Not on file Sexual Orientation Not on file documented as of this encounter Miscellaneous Notes * Cerner Conversion Note - Juan Summers MD - 10/25/2019 12:36 PM CURATORIAL SPECIALIST UM Authorization Entered On: 10/25/2019 12:36 EST Performed On: 10/25/2019 12:36 EST by Ashley López Rn-Utilization Review Primary Insurance Authorization Authorization and Policy Numbers : Insurance 1 Health Plan: ANTH[employer]PO Policy Number: [id number] Authorization Number: Insurance Primary Name : ANTH HMOPPO Policy Number: [id number] Authorized Service Begin Date-Primary : 10/24/2019 EST Historical Authorization Comments-Primary : Comment 1: Pt not precerted for IP surgery, the CPT code 11625 is for out pt surgery. Pt has d/c order on chart, Called MD office spoke to Marcelino and requested her to notify MD/dental scheduler. Awaiting callback (TAMIKO HUERTAS RN 10/24/2019 12:30) Ashley López Rn-Utilization Review - 10/25/2019 12:36 EST Electronically signed by [facility], [facility] Conversion Perioperative Nurse Cerner at 03/07/2023 10:11 AM CDT documented in this encounter Plan of Treatment Not on file documented as of this encounter Visit Diagnoses Not on filedocumented in this encounter Care Teams Lieutenant Shift Supervisor Relationship Specialty [place] [address] [place] [address] [address] [place] [address] PCP - General Neurology 03/07/23 Lennie Coates, PA-C [address] [facility] [address] [place] [id number] Cardiology 03/11/24 documented as of this encounter
--- OUTSIDE RECORDS SUMMARY | 2025-09-29 12:06 | XMS_ITS | Encounter Summary ---
Author Organization [employer] ([place], [place], [place], [place], [place]) Address [address] [place] [address] Care Team Providers Care Pharmacy Intake Technician Name Role Phone Tee Wade MD Primary Care Provider + [phone] Lennie Coates PA-C Unavailable [phone] Encounter Details Date Type Department Care Team (Late st Contact Info) Description 10/23/2019 Transcribed Document [facility] [place] Family Medicine [address] [place] [address] ProviderJuan MD [address] [place] [address] Social History Tobacco Use Types Packs/Day Years Used Date Smoking Tobacco: Never Assessed Sex and Gender Information Value Date Recorded Sex Assigned at Not on file Legal Sex Male 3:26 PM CDT Gender Identity Not on file Sexual Orientation Not on file documented as of this encounter Miscellaneous Notes * Cerner Conversion Note - Juan Summers MD - 10/23/2019 8:30 AM BOTTOM PRESSER [facility] Main OR Preop Summary Primary Physician: LEIGHA LOMBARDI MD-URO Finalized Date/Time: 10/23/19 08:49:37 Pt. Name: JHOANA BRAMBILAO.B./Sex: 1955 Male Med Rec #: [id number] Physician: LEIGHA LOMBARDI MD-URO Financial #: [id number] Pt. Type: O Room/Bed: / Admit/Disch: 10/23/19 08:00:00 - Institution: [facility] PreOp Case Times Entry 1 In Preop 10/23/19 06:30:00 Ready for Holding n/a Room Patient Ready for 10/23/19 08:10:00 Surgery Patient Out of Preop 10/23/19 08:24:00 Patient Out of n/a Holding Room Last Modified By: Jannette Reyes RN 10/23/19 08:49:36 [facility] PreOp Case Times Audit 10/23/19 08:49:36 Table Machine Operator: [id number] Modifier: WRIGHTVP <+> 1 Patient Out of Preop 10/23/19 08:08:10 Table Machine Operator: [id number] Modifier: WRIGHTVP <+> 1 Patient Ready for Surgery Finalized By: Jannette Reyes, RN Document Signatures Signed By: Jannette Reyes RN 10/23/19 08:49 Electronically signed by [facility] Conversion [employer] Senior Sergeant Cerner at 03/07/2023 10:44 AM CDT documented in this encounter Plan of Treatment Not on file documented as of this encounter Visit Diagnoses Not on filedocumented in this encounter Care Teams Pharmacy Intake Technician Relationship Specialty [place] [address] [place] [address] PCP - General Neurology 03/07/23 Lennie Coates, PA-C [address] [facility] [address] [place] [address] Cardiology 03/11/24 documented as of this encounter
--- OUTSIDE RECORDS SUMMARY | 2025-09-29 12:06 | XMS_ITS | Encounter Summary ---
Author Organization [employer] ([place], [place], [place], [place], [place]) Address [address] [place] [address] Care Team Providers Care Vulcanizer Name Role Phone Tee Wade MD Primary Care Provider + [phone] Lennie Coates PA-C Unavailable [phone] Encounter Details Date Type Department Care Team (Late st Contact Info) Description 10/23/2019 Transcribed Document [facility] [place] Family Medicine [address] [place] [address] ProviderJuan MD [address] [place] [address] Social History Tobacco Use Types Packs/Day Years Used Date Smoking Tobacco: Never Assessed Sex and Gender Information Value Date Recorded Sex Assigned at Not on file Legal Sex Male 3:26 PM CDT Gender Identity Not on file Sexual Orientation Not on file documented as of this encounter Miscellaneous Notes * Cerner Conversion Note - Juan Summers MD - 10/23/2019 6:00 AM INVESTMENT BANKING MANAGER RX Interventions Entered On: 10/17/2019 11:30 EST [...] 10/17/2019 11:29 EST Electronically signed by [facility] Conversion Race Car Driver Cerner at 03/07/2023 10:39 AM CDT documented in this encounter Plan of Treatment Not on file documented as of this encounter Visit Diagnoses Not on filedocumented in this encounter Care Teams Vulcanizer Relationship Specialty Start Date End Date Tee Wade MD [address] [facility] [address] [place] [address] PCP - General Neurology 03/07/23 Lennie Coates PA-C [address] [facility] [address] [place] [address] Cardiology 03/11/24 documented as of this encounter
--- OUTSIDE RECORDS SUMMARY | 2025-09-29 12:06 | XMS_ITS | Encounter Summary ---
Author Organization [employer] ([place], [place], [place], [place], [place]) Address [address] [place] [address] Care Team Providers Care Irrigation Specialist Name Role Phone Tee Wade MD Primary Care Provider + [phone] Lennie Coates PA-C Unavailable [phone] Encounter Details Date Type Department Care Team (Late st Contact Info) Description 10/23/2019 Transcribed Document [facility] [place] Family Medicine [address] [place] [address] ProviderJuan MD [address] [place] [address] Social History Tobacco Use Types Packs/Day Years Used Date Smoking Tobacco: Never Assessed Sex and Gender Information Value Date Recorded Sex Assigned at Not on file Legal Sex Male 3:26 PM CDT Gender Identity Not on file Sexual Orientation Not on file documented as of this encounter Miscellaneous Notes * Cerner Conversion Note - Juan Summers MD - 10/23/2019 9:[address] [facility] Main OR IntraOp Summary Primary Physician: LEIGHA LOMBARDI MD-URO Finalized Date/Time: 10/26/19 10:56:42 Pt. Name: JHOANA HAINESO.B./Sex: 1955 Male Med Rec #: [id number] Physician: LEIGHA LOMBARDI MD-URO Financial #: [id number] Pt. Type: O Room/Bed: [facility]/ Admit/Disch: 10/24/19 12:26:00 - 10/24/19 12:40:00 Institution: [facility] IntraOp Case Attendance Entry 1 Entry 2 Entry 3 Case Attendee LEIGHA LOMBARDI GILBERT, DAVID M, NEWSPAPER STUFFER, AMALIA CARLOS MD-ANS -URO TUNNEL KILN OPERATOR-ANS Role Performed Surgeon/Proceduralist, TUNNEL KILN OPERATOR/Nurse Grease Refiner Operator Anesthesiologist of First Record Time In 10/23/19 [...] JIGNESH LING Robin A, Surgical TODD, JUDY Biology Laboratory Assistant Role Performed Nurse Informatics Educator, First Scrub, First Scrub, Second Time In [...] HAGER SSI Poff, Janie, OSVALDO Role Performed Biology Laboratory Assistant, Ancillary Biology Laboratory Assistant, Ancillary Employment Training Specialist, First Time In 10/23/19 08:27:00 10/23/19 08:27:00 [...] 11 Case Attendee Nilsa Fu, REGINE BLOCK, TUNNEL KILN OPERATOR Role Performed Employment Training Specialist, First TUNNEL KILN OPERATOR/Nurse Grease Refiner Operator Time In 10/23/19 09:23:00 10/23/19 10:52:00 Time Out 10/23/19 09:45:00 10/23/19 11:20:00 Procedure Prostatectomy Radical Prostatectomy Radical Robotic, Lymph Node Robotic, Lymph Node Dissection Pelvic Dissection Pelvic Laparoscopi(Left) Laparoscopi(Left) Other Attendee Break relief Superficial Wound Closed By: Last Modified By: Mary Carmen Caro RN Poff, Janie, RN 10/23/19 09:47:22 10/23/19 10:52:27 [facility] IntraOp Case Attendance Audit 10/23/19 11:30:57 Construction Rigger: NILSON Modifier: NILSON 1 <+> Time Out [...] Lymph Node Dissection Pelvic Laparoscopi(Left) 10/23/19 11:20:22 Construction Rigger: NILSON Modifier: POFFJAN 11 <+> Time Out 11 <*> Procedure Prostatectomy Radical Robotic, Lymph Node Dissection Pelvic Laparoscopi(Left) 10/23/19 10:52:27 Construction Rigger: NILSON Modifier: POVAMSHIJAN <+> 11 Case Attendee <+> 11 Role Performed <+> 11 Time In <+> 11 Procedure <+> 11 Other Attendee 10/23/19 09:47:22 Construction Rigger: NILSON Modifier: NGOCJAN 1 <*> Procedure Prostatectomy [...] Time Out <+> 10 Procedure 10/23/19 09:12:34 Construction Rigger: NILSON Modifier: POFFJAN 1 <*> Procedure Prostatectomy [...] <+> 9 Role Performed <+> 9 Procedure [facility] IntraOp Case Times Entry 1 Patient In Room Time 10/23/19 08:27:00 Out Room Time 10/23/19 11:30:00 Anesthesia Start Time 10/23/19 08:27:00 Stop Time 10/23/19 11:30:00 Surgery / Procedure Times Start Time 10/23/19 09:01:00 Stop Time 10/23/19 11:21:00 Last Modified By: Mary Carmen Caro RN 10/23/19 11:21:33 [facility] IntraOp Case Times Audit 10/23/19 11:30:52 Construction Rigger: NILSON Modifier: POFFJAN <+> 1 Out Room Time <+> 1 Stop Time 10/23/19 11:21:33 Construction Rigger: NILSON Modifier: POFFJAN <+> 1 Stop Time [facility] IntraOp Cautery Entry 1 ESU Identification Cautery Type Monopolar ESU ID Number [id number] ID Type Hospital Number Cautery Settings Cut [...] By: Mary Carmen Caro RN 10/23/19 09:17:43 [facility] IntraOp Communication Entry 1 Entry 2 Communication To Family/Significant other Family/Significant other Comment PROCEDURE START UPDATE Communication By Mary Carmen Caro, Mary Carmen Syed RN Date and Time 10/23/19 09:01:00 10/23/19 10:08:00 Last Modified By: Mary Carmen Caro RN Poff, Janie, RN 10/23/19 09:18:28 10/23/19 10:08:23 [facility] IntraOp Communication Audit 10/23/19 10:08:23 Construction Rigger: NILSON Modifier: NILSON <+> 2 Communication By <+> 2 Date and Time <+> 2 Communication To <+> 2 Comment [facility] IntraOp Counts Verification Entry 1 Procedure Prostatectomy Radical Robotic, Lymph Node Dissection Pelvic Laparoscopi(Left) Count Info Count Type Sponge, Sharps, Instrument, Miscellaneous Counts Verification Baseline/pre-procedure Sequence Count Results Not Applicable Counts Performed By Count Performed By Rajiv Haro, Surgical (Scrub) Biology Laboratory Assistant Count Performed By Mary Carmen Caro RN (RN) Last Modified By: Mary Carmen Caro RN 10/23/19 09:15:13 [facility] IntraOp Counts Final Entry 1 Procedure Prostatectomy Radical Robotic, Lymph Node Dissection Pelvic Laparoscopi(Left) Final Count Info Count Type Sponge, Sharps, Miscellaneous Counts Verification Skin Closure/end of Sequence procedure Count Results Correct, surgeon notified Counts Performed By Count Performed By Rajiv Haro, Surgical (Scrub) Biology Laboratory Assistant Count Performed By Mary Carmen Caro RN (RN) Last Modified By: Mary Carmen Caro RN 10/23/19 09:19:50 [facility] IntraOp Counts Final Audit 10/23/19 11:13:54 Construction Rigger: NILSON Modifier: NILSON 1 <*> Procedure Prostatectomy Radical Robotic, Lymph Node Dissection Pelvic Laparoscopi(Left) 1 <+> Count Performed By (Scrub) 1 <+> Count Performed By (RN) [facility] IntraOp Cultures and Spec Summary Entry 1 Cultrures and Specimens Specimen Ordered: Yes Test(s) Routine/Path-Lab Requested/Final Disposition Last Modified By: Mary Carmen Caro RN 10/23/19 09:19:26 General Comments: A. BLADDER NECK B. LEFT OBTURATOR LYMPH NODE C. PROSTATE AND SEMINAL VESICLES [facility] IntraOp Departure from OR Entry 1 Integumentary Assessment Integumentary WDL with patient Assessment WDL specific variances Patient's Normal Surgical Integumentary incisions-abdomen Variance(s) Transfer/Handoff Transfer to PACU Phase I Handoff Method Phone call Post-op Transport Stretcher/Gurney Via Patient Transport EDITH TERRELL APRN, Accompanied by TUNNEL KILN OPERATOR-ANURADHA CESAR KAREN A. Last Modified By: Mary Carmen Caro RN 10/23/19 09:20:07 [facility] IntraOp Drains and Tubes Entry 1 Device Type Aydin Hamm flat drain Size 10 mm Drain/Tube Activity Inserted Drain/Tube Suction Bulb Drain/Tube Drainage Sanguineous Device Location Abdomen Method of Drainage Active Tube Dressing Dry, Intact Condition Last Modified By: Mary Carmen Caro RN 10/23/19 09:19:41 [facility] IntraOp Dressing and Packing Entry 1 Type Dressing Location Abdomen Wound Dressing Item Skin Closure Glue, 4x4's Tape Type Other Applied By JIGNESH LING Other Comments MEDIPORE TAPE APPLIED TO DRAIN DRESSING. Last Modified By: Mary Carmen Caro RN 10/23/19 09:19:58 [facility] IntraOp Fire Risk Assessment Entry 1 Fire [...] By: Mary Carmen Caro RN 10/23/19 09:13:50 [facility] IntraOp General Case Doweler 1 Case Information OR OR 13 [facility] Case Level 1 Room Verified Yes Wound Class II - Clean-Contaminated Specialty SN Urology Anesthesia Type General ASA Class 2 Diagnosis Preop Diagnosis PROSTATE CANCER Postop Same As Preop No Postop Diagnosis SEE POSTOPERATIVE NOTE Last Modified By: Mary Carmen Caro RN 10/23/19 09:15:36 [facility] IntraOp Intraoperative Assessment Entry 1 Handoff Method [...] By: Mary Carmen Caro RN 10/23/19 09:14:51 [facility] IntraOp Intraoperative Equipment Entry 1 Type Monitoring Equipment Equipment Jeannie Suction System ID Number [id number] Intraop Monitoring Electrocardiogram Three lead placement (ECG) Electrode Placement Blood Pressure Non-Invasive BP Device Source Blood Pressure Arm, right upper Location Pulse Oximeter Hand, left Probe Site Antiembolic Devices Antiembolic Devices Sequential compression device, knee high Antiembolic Device Bilateral Location Antiembolic Device [id number] ID Number Antiembolic Device 40 mmHg Setting Scopes Photo/Video Documentation Photo No Video No Intraop Equipment Sequential compression Comment devices on and in operation prior to induction of anesthesia. Last Modified By: Mary Carmen Caro RN 10/23/19 09:16:59 [facility] IntraOp Medication Admin Entry 1 Medication/Irrigant JESSICA IRR 0.9% NACL 1000ML --[id number] Time Administered 10/23/19 09:01:00 Route of Irrigation Administration Dose Administered By JIGNESH LING Procedure Irrigation Last Modified By: Mary Carmen Caro RN 10/23/19 09:18:51 [facility] IntraOp Patient Positioning Entry 1 Procedure Prostatectomy [...] By: Mary Carmen Caro RN 10/23/19 09:13:09 [facility] Intra[facility] Sign In Entry 1 Patient, Site, [...] By: Mary Carmen Caro RN 10/23/19 09:06:55 [facility] Intra[facility] Sign Out Entry 1 RN Confirmation [...] By: Mary Carmen Caro RN 10/23/19 09:20:30 [facility] Intra[facility] Sign Out Audit 10/23/19 11:31:11 Construction Rigger: NILSON Modifier: NILSON <+> 1 RN Sign Out Signature Date/Time [facility] IntraOp Skin Prep Entry 1 Procedure Prostatectomy [...] By: Mary Carmen Caro RN 10/23/19 09:16:12 [facility] IntraOp Surgical Procedures Entry 1 Entry 2 [...] Poff, Janie, RN 10/23/19 09:13:39 10/23/19 09:20:40 [facility] IntraOp Surgical Procedures Audit 10/23/19 11:31:02 Construction Rigger: NILSON Modifier: POVAMSHIADARSH <+> 1 Stop <+> 2 Stop 10/23/19 09:20:40 Construction Rigger: NILSON Modifier: NILSON 2 <*> Procedure Lymph Node Dissection Pelvic Laparoscopic 2 <*> Wound Class I - Clean [facility] IntraOp Temp Regulation Devices Entry 1 Temp Regulation Temperature Warm blankets, Forced Regulation Device Air Warming device, Room temperature Temperature 95835 Regulation Device Serial/Unit Number Temperature Upper body Regulation Site Temperature Device 43 degrees Celsius Setting Temperature EDITH TERRELL APRN, Regulation Device TUNNEL KILN OPERATOR-ANS Applied by Temperature Patient's temperature Regulation Comment and forced air warming device settings monitored by anesthesia provider. Last Modified By: Mary Carmen Caro RN 10/23/19 09:17:12 [facility] IntraOP Time Out Entry 1 Procedure to [...] WATJESSA Correct Billing Electronically signed by Mima, [facility] Conversion Energy Management Specialist Cerner at 03/07/2023 10:44 AM CDT documented in this encounter Plan of Treatment Not on file documented as of this encounter Visit Diagnoses Not on filedocumented in this encounter Care Teams Irrigation Specialist Relationship Specialty Start Date End Date Tee Wade MD [address] [facility] [address] [place] [address] PCP - General Neurology 03/07/23 Lennie Coates PA-C [address] [facility] [address] [place] [address] Cardiology 03/11/24 documented as of this encounter
--- OUTSIDE RECORDS SUMMARY | 2025-09-29 12:06 | XMS_ITS | Encounter Summary ---
Author Organization [employer] ([place], [place], [place], [place], [place]) Address [address] [place] [address] Care Team Providers Care Curing Oven Attendant Name Role Phone Tee Wade MD Primary Care Provider + [phone] Lennie Coates PA-C Unavailable [phone] Encounter Details Date Type Department Care Team (Late st Contact Info) Description 10/24/2019 Transcribed Document [facility] [place] Family Medicine [address] [place] [address] ProviderJuan MD [address] [place] [address] Social History Tobacco Use Types Packs/Day Years Used Date Smoking Tobacco: Never Assessed Sex and Gender Information Value Date Recorded Sex Assigned at Not on file Legal Sex Male 3:26 PM CDT Gender Identity Not on file Sexual Orientation Not on file documented as of this encounter Miscellaneous Notes * Cerner Conversion Note - Juan Summers MD - 10/24/2019 12:13 PM DEVELOPMENT EXECUTIVE Stroke/Warfarin Instructions Entered On: 10/24/2019 12:13 EST Performed On: 10/24/2019 12:13 EST by Jessica Oshea RN-Traveler Stroke/Warfarin Instructions Stroke/TIA Discharge Ins : N/A Warfarin Discharge Ins : N/A Jessica Oshea RN-Traveler - 10/24/2019 12:13 EST documented in this encounter Plan of Treatment Not on file documented as of this encounter Visit Diagnoses Not on filedocumented in this encounter Care Teams Curing Oven Attendant Relationship Specialty Start Date End Date Tee Wade MD [address] [facility] [address] [place] [address] PCP - General Neurology 03/07/23 Lennie Coates PALoveC [address] [facility] [address] [place] [address] Cardiology 03/11/24 documented as of this encounter
--- OUTSIDE RECORDS SUMMARY | 2025-09-29 12:06 | XMS_ITS | Encounter Summary ---
Author Organization [employer] ([place], [place], [place], [place], [place]) Address [address] [place] [address] Care Team Providers Care Cad Specialist Name Role Phone Tee Wade MD Primary Care Provider + [phone] Lennie Coates PA-C Unavailable [phone] Encounter Details Date Type Department Care Team (Late st Contact Info) Description 10/23/2019 Transcribed Document [facility] [place] Family Medicine [facility] [place] [address] Juan Summers MD [address] [place] [address] Social History Tobacco Use Types Packs/Day Years Used Date Smoking Tobacco: Never Assessed Sex and Gender Information Value Date Recorded Sex Assigned at Not on file Legal Sex Male 3:26 PM CDT Gender Identity Not on file Sexual Orientation Not on file documented as of this encounter Miscellaneous Notes * Cerner Conversion Note - Juan Summers MD - 10/23/2019 11:39 AM EARTH SCIENCE TECHNICIAN DATE OF PROCEDURE: 10/23/2019 SURGEON: Ty Ghotra MD PREOPERATIVE DIAGNOSIS: Adenocarcinoma of the prostate. POSTOPERATIVE DIAGNOSIS: Adenocarcinoma of the prostate. PROCEDURE PERFORMED: Laparoscopic adhesiolysis, robotic-assisted laparoscopic radical prostatectomy with left pelvic lymph node dissection. ANESTHESIA: General. SUPERVISOR LEAF SPRING FABRICATION: Faviola Alatorre CFA. SPECIMENS: Prostate with seminal [...] to postoperative recovery room in stable condition. /[id number] MD REENA Larry/AQ / TDDaniel / MODL /[id number] CC: Dr. Bernard Ghotra MD Electronically signed by Mima, [facility] Conversion Information Systems Professor Cerner at 03/07/2023 10:31 AM CDT documented in this encounter Plan of Treatment Not on file documented as of this encounter Visit Diagnoses Not on filedocumented in this encounter Care Teams Cad Specialist Relationship Specialty Start Date End Date Tee Wade MD [address] [facility] [address] [place] [phone] PCP - General Neurology 03/07/23 Lennie Coates, PA-C [address] [facility] [address] [place] [address] Cardiology 03/11/24 documented as of this encounter
--- OUTSIDE RECORDS SUMMARY | 2025-09-29 12:06 | XMS_ITS | Encounter Summary ---
Author Organization [employer] ([place], [place], [place], [place], [place]) Address [address] [place] [address] Care Team Providers Care Apprentice Instrument Technician Name Role Phone Tee Wade MD Primary Care Provider + [phone] Lennie Coates PA-C Unavailable [phone] Encounter Details Date Type Department Care Team (Late st Contact Info) Description 10/23/2019 Transcribed Document [facility] [place] Family Medicine [address] [place] [address] ProviderJuan MD [address] [place] [address] Social History Tobacco Use Types Packs/Day Years Used Date Smoking Tobacco: Never Assessed Sex and Gender Information Value Date Recorded Sex Assigned at Not on file Legal Sex Male 3:26 PM CDT Gender Identity Not on file Sexual Orientation Not on file documented as of this encounter Miscellaneous Notes * Cerner Conversion Note - Juan Summers MD - 10/23/2019 9:01 AM HYDRO TECHNICIAN [facility] Main OR PACU Summary Primary Physician: LEIGHA LOMBARDI MD-URO Finalized Date/Time: 10/23/19 15:50:55 Pt. Name: JHOANA BRAMBILA D.O.B./Sex: 1955 Male Med Rec #: [id number] Physician: LEIGHA LOMBARDI MD-URO Financial #: [id number] Pt. Type: I Room/Bed: [facility]/ Admit/Disch: 10/23/19 08:00:00 - Institution: [facility] Main OR PACU I Case Times Entry 1 In PACU I 10/23/19 11:32:00 Ready for PACU 10/23/19 13:00:00 Discharge Discharge from PACU 10/23/19 15:35:00 I Last Modified By: TRAVIS CHRISTIANSON RN 10/23/19 15:50:45 [facility] Main OR PACU Acuity Entry 1 Start Time 10/23/19 13:00:00 Stop Time 10/23/19 15:35:00 Acuity Level [facility] PACU Acuity I Last Modified By: TRAVIS CHRISTIANSON RN 10/23/19 15:50:53 Finalized By: TRAVIS CHRISTIANSON RN Document Signatures Signed By: TRAVIS CHRISTIANSON RN 10/23/19 15:50 Electronically signed by Mima [facility] Conversion Waste Disposal Plant Operator Cerner at 03/07/2023 10:30 AM CDT documented in this encounter Plan of Treatment Not on file documented as of this encounter Visit Diagnoses Not on filedocumented in this encounter Care Teams Apprentice Instrument Technician Relationship Specialty [place] [address] [place] [address] [address] [place] [address] PCP - General Neurology 03/07/23 Lennie Coates PA-C [address] [facility] [address] [place] [address] Cardiology 03/11/24 documented as of this encounter
--- OUTSIDE RECORDS SUMMARY | 2025-09-29 12:06 | XMS_ITS | Encounter Summary ---
Author Organization [employer] ([place], [place], [place], [place], [place]) Address [address] [place] [address] Care Team Providers Care Dye Tank Tender Name Role Phone Tee Wade MD Primary Care Provider + [phone] Lennie Coates PA-C Unavailable [phone] Encounter Details Date Type Department Care Team (Late st Contact Info) Description 10/23/2019 Transcribed Document [facility] [place] Family Medicine [address] [place] [address] ProviderJuan MD [address] [place] [address] Social History Tobacco Use Types Packs/Day Years Used Date Smoking Tobacco: Never Assessed Sex and Gender Information Value Date Recorded Sex Assigned at Not on file Legal Sex Male 3:26 PM CDT Gender Identity Not on file Sexual Orientation Not on file documented as of this encounter Miscellaneous Notes * Cerner Conversion Note - Juan Summers MD - 10/23/2019 9:30 AM STONE DERRICKMAN AND RIGGER Pain Assessment Entered On: 10/23/2019 15:57 EST [...] on filedocumented in this encounter Care Teams Dye Tank Tender Relationship Specialty Start Date End Date Tee Wade MD [address] [facility] [address] [place] [address] PCP - General Neurology 03/07/23 Lennie Coates, PA-C [address] [place] [address] [address] [place] [address] Cardiology 03/11/24 documented as of this encounter
--- OUTSIDE RECORDS SUMMARY | 2025-09-29 12:06 | XMS_ITS | Encounter Summary ---
Author Organization [employer] ([place], [place], [place], [place], [place]) Address [address] [place] [address] Care Team Providers Care Support Services Manager Name Role Phone Tee Wade MD Primary Care Provider + [phone] Lennie Coates PA-C Unavailable [phone] Encounter Details Date Type Department Care Team (Late st Contact Info) Description 10/23/2019 Transcribed Document [facility] [place] [address] [place] [address] ProviderJuan MD [address] [place], [place] [address] Social History Tobacco Use Types Packs/Day Years Used Date Smoking Tobacco: Never Assessed Sex and Gender Information Value Date Recorded Sex Assigned at Not on file Legal Sex Male 3:26 PM CDT Gender Identity Not on file Sexual Orientation Not on file documented as of this encounter Miscellaneous Notes * Cerner Conversion Note - Juan Summers MD - 10/23/2019 8:01 AM CHILD CARE LEAD TEACHER Procedural Documentation Entered On: 10/23/2019 8:05 EST Performed On: 10/23/2019 8:01 EST by Jannette Reyes inventory management specialist Documentation Procedure to be Performed : taps [...] Anesthesiologist Procedure Case Attendee Role 2 : inventory management specialist Case Attendee 2 : Jannette Reyes RN Procedure Case Attendee Role 3 : inventory management specialist Case Attendee 3 : ROBERTO PORTER RN [...] 10/23/2019 8:01 EST Electronically signed by Mima [facility] Conversion Grinding Wheel Facer Cerner at 03/07/2023 10:37 AM CDT documented in this encounter Plan of Treatment Not on file documented as of this encounter Visit Diagnoses Not on filedocumented in this encounter Care Teams Support Services Manager Relationship Specialty Start Date End Date Tee Wade MD [address] [address] PCP - General Neurology 03/07/23 Lennie Coates PALoveC [address] [place] [address] Cardiology 03/11/24 documented as of this encounter
--- OUTSIDE RECORDS SUMMARY | 2025-09-29 12:07 | XMS_ITS | Encounter Summary ---
Author Organization [employer] ([place], [place], [place], [place], [place]) Address [address] [place] [address] Care Team Providers Care Automotive Brake Adjuster Name Role Phone Tee Wade MD Primary Care Provider + [phone] Lennie Coates PA-C Unavailable [phone] Encounter Details Date Type Department Care Team (Late st Contact Info) Description 10/24/2019 Transcribed Document [facility] [place] [facility] [place] [address] ProviderJuan MD [address] [place] [address] Social History Tobacco Use Types Packs/Day Years Used Date Smoking Tobacco: Never Assessed Sex and Gender Information Value Date Recorded Sex Assigned at Not on file Legal Sex Male 3:26 PM CDT Gender Identity Not on file Sexual Orientation Not on file documented as of this encounter Miscellaneous Notes * Cerner Conversion Note - Juan Summers MD - 10/24/2019 11:45 AM INSIDE SALES CONSULTANT Final Discharge Planning Entered On: 10/24/2019 11:45 EST Performed On: 10/24/2019 11:45 EST by LINDA BARRY, Developmental Services Worker Final Discharge Planning Discharge Arrangements : Patient Post-Acute Information Patient Name: JHOANA BRAMBILA Gender: Male : [birth year] Age: 64 Years No Post-Acute Placement(s) Listed No Post-Acute Service(s) Listed No [place] Referral(s) Listed Transportation Needs : Family/Friend Is Patient High/Moderate Readmission Risk? : No Discharge To Care Management : Home/Residential/Shelter or Self Care -01 LINDA BARRY, Developmental Services Worker - 10/24/2019 11:45 EST Electronically signed by Mima, [facility] Conversion Grant Manager Cerner at 03/07/2023 10:11 AM CDT documented in this encounter Plan of Treatment Not on file documented as of this encounter Visit Diagnoses Not on filedocumented in this encounter Care Teams Automotive Brake Adjuster Relationship Specialty Start Date End Date Tee Wade MD [address] [place] [address] [address] [place] [address] PCP - General Neurology 03/07/23 Lennie Coates, PA-C [address] [place] [address] [address] [place] [address] Cardiology 03/11/24 documented as of this encounter
--- OUTSIDE RECORDS SUMMARY | 2025-09-29 12:07 | XMS_ITS | Encounter Summary ---
Author Organization [employer] ([place], [place], [place], [place], [place]) Address [address] [place] [address] Care Team Providers Care Scooter Mechanic Name Role Phone Tee Wade MD Primary Care Provider [phone] Lennie Coates PA-C Unavailable [phone] Encounter Details Date Type Department Care Team (Late st Contact Info) Description 10/17/2019 Transcribed Document [facility] [place] Family Medicine [address] [place] [address] ProviderJuan MD [address], [place] [address] Social History Tobacco Use Types Packs/Day Years Used Date Smoking Tobacco: Never Assessed Sex and Gender Information Value Date Recorded Sex Assigned at Not on file Legal Sex Male 3:26 PM CDT Gender Identity Not on file Sexual Orientation Not on file documented as of this encounter Miscellaneous Notes * Cerner Conversion Note - Juan Summers MD - 10/17/2019 11:47 AM COMMODITIES CLERK PAT Adult Entered On: 10/17/2019 11:56 EST [...] Source : Measured Height Entry Format : [place] Height, Feet : 5 ft(Converted to: 152 cm, 60 Inch) Height, Inches : 11 Inch(Converted to: 0 ft 11 Inch, 27.94 cm) Clinical Height : 180.34 cm Weight Source : Standing scale Weight Entry Format : [place] Clinical Dosing Weight : 89.05 kg Weight, Pounds : 195.9 lb Body Surface Area (BSA) : 2.09 m2 Body Mass Index : 27.4 kg/m2 (HI) [place] Body Weight : 74 kg MARY ALVES [...] MARY ALVES RN - 10/17/2019 12:00 EST [place] Suicide Severity Rating Scale (C-SSRS) CSSRS Past [...] Obtained From : Patient Primary Language : Guinean Preferred Communication Mode : Verbal Communication Barrier : None MARY ALVES RN - 10/17/2019 12:00 EST Scott Scale Scott Sensory Perception : No impairment Scott Moisture : Rarely moist Scott Activity : Walks frequently Csott Mobility : No limitation Scott Nutrition : [...] 10/17/2019 12:00 EST Electronically signed by Mima, [facility] Conversion Nurse Case Manager Cerner at 03/07/2023 10:22 AM CDT documented in this encounter Plan of Treatment Not on file documented as of this encounter Visit Diagnoses Not on filedocumented in this encounter Care Teams Scooter Mechanic Relationship Specialty Start Date End Date Tee Wade MD [address] [place] [address] PCP - General Neurology 03/07/23 Lennie Coates PALoveC [address] [facility] [address] [place] [address] Cardiology 03/11/24 documented as of this encounter
--- OUTSIDE RECORDS SUMMARY | 2025-09-29 12:07 | XMS_ITS | Encounter Summary ---
Author Organization [employer] ([place], [place], [place], [place], [place]) Address [address] [place] [address] Care Team Providers Care Pie Icer Machine Name Role Phone Tee Wade MD Primary Care Provider + [phone] Lennie Coates PA-C Unavailable [phone] Encounter Details Date Type Department Care Team (Late st Contact Info) Description 10/24/2019 Transcribed Document [facility] [place] [address] [place] [address] ProviderJuan MD [address] [place], [place] [address] Social History Tobacco Use Types Packs/Day Years Used Date Smoking Tobacco: Never Assessed Sex and Gender Information Value Date Recorded Sex Assigned at Not on file Legal Sex Male 3:26 PM CDT Gender Identity Not on file Sexual Orientation Not on file documented as of this encounter Miscellaneous Notes * Cerner Conversion Note - Juan Summers MD - 10/24/2019 5:00 AM RACKING MACHINE OPERATOR Chart Check - Review Order Profile Entered [...] on filedocumented in this encounter Care Teams Pie Icer Machine Relationship Specialty Start Date End Date Tee Wade MD [address] [facility] [address] [place] [address] PCP - General Neurology 03/07/23 Lennie Coates, PALoveC [address] [facility] [place] [address] [place], [place] [address] Cardiology 03/11/24 documented as of this encounter
--- OUTSIDE RECORDS SUMMARY | 2025-09-29 12:07 | XMS_ITS | Encounter Summary ---
Author Organization [employer] ([place], [place], [place], [place], [place]) Address [address] [place] [address] Care Team Providers Care Medical Front Desk Specialist Name Role Phone Tee Wade MD Primary Care Provider + [phone] Lennie Coates PA-C Unavailable [phone] Encounter Details Date Type Department Care Team (Late st Contact Info) Description 10/23/2019 Transcribed Document [facility] [place] Family Medicine [facility] [place] [address] ProviderJuan MD [address] [place] [address] Social History Tobacco Use Types Packs/Day Years Used Date Smoking Tobacco: Never Assessed Sex and Gender Information Value Date Recorded Sex Assigned at Not on file Legal Sex Male 3:26 PM CDT Gender Identity Not on file Sexual Orientation Not on file documented as of this encounter Miscellaneous Notes * Cerner Conversion Note - Juan Summers MD - 10/23/2019 6:40 AM MILL RECORDER Patient: JHOANA BRAMBILA Age: 64 years Sex: Male : 1955 Associated Diagnoses: None Author: JASON CASIANO, ESTATE AND TRUST TAX PRINCIPAL Chief Complaint prostate cancer Review of Systems [...] Hepatitis A//age early 20,s / SNOMED CT 79441230 / Confirmed at risk Sleep apnea / SNOMED CT 961891597 / Confirmed Renal calculus//HX / SNOMED CT 270760052 / Confirmed Neck pain//shoulder / SNOMED CT 552223462 / Confirmed IBS (irritable bowel syndrome) / SNOMED CT 6724506804 / Confirmed High blood pressure / SNOMED CT 58199866 / Confirmed Diverticulosis of colon / SNOMED CT 3232111945 / Confirmed DDD (degenerative disc disease), cervical / SNOMED CT 372119592 / Confirmed Colitis / SNOMED CT 300828127 / Confirmed Chronic pain / SNOMED CT 116324207 / Confirmed CA - Cancer of prostate / SNOMED CT 4152110581 / Confirmed Back pain / SNOMED CT 6429619569 / Confirmed At risk for sleep apnea / IMO 62526067 / Confirmed Arthritis / SNOMED CT 8011161 / Confirmed, Active Problems (14) Arthritis at [...] of motion, Normal strength. Integumentary: Warm, Dry, [place]. Neurologic: Alert, Oriented. Psychiatric: Cooperative, Appropriate mood & affect. Review / Management Results review: Labs (Last four charted values) HCT 46.2 (OCT 17) K 4.1 (OCT 17) . Impression and Plan Condition: Stable. documented in this encounter Plan of Treatment Not on file documented as of this encounter Visit Diagnoses Not on filedocumented in this encounter Care Teams Medical Front Desk Specialist Relationship Specialty Start Date End Date Tee Wade MD [address] [facility] [address] [place] [address] PCP - General Neurology 03/07/23 Lennie Coates PA-C [address] [place] [address] [place] [address] Cardiology 03/11/24 documented as of this encounter
--- OUTSIDE RECORDS SUMMARY | 2025-09-29 12:07 | XMS_ITS | Encounter Summary ---
Author Organization [employer] ([place], [place], [place], [place], [place]) Address [address] [place] [address] Care Team Providers Care Instrument And Control Technician Name Role Phone Tee Wade MD Primary Care Provider + [phone] Lennie Coates PA-C Unavailable [phone] Encounter Details Date Type Department Care Team (Late st Contact Info) Description 10/24/2019 Transcribed Document [facility] [place] [address] [place] [address] ProviderJuan MD [address] [place] [address] Social History Tobacco Use Types Packs/Day Years Used Date Smoking Tobacco: Never Assessed Sex and Gender Information Value Date Recorded Sex Assigned at Not on file Legal Sex Male 3:26 PM CDT Gender Identity Not on file Sexual Orientation Not on file documented as of this encounter Miscellaneous Notes * Cerner Conversion Note - Juan ProviderMD - 10/24/2019 2:00 AM CHIEF BUILDING INSPECTOR Cleaner And Preparer Details Entered On: 10/24/2019 1:16 EST Performed [...] on filedocumented in this encounter Care Teams Instrument And Control Technician Relationship Specialty Start Date End Date Tee Wade MD [address] [facility] [address] [place] [address] PCP - General Neurology 03/07/23 Lennie Coates PA-C [address] [place] [address] [address] [place] [id number] Cardiology 03/11/24 documented as of this encounter
--- OUTSIDE RECORDS SUMMARY | 2025-09-29 12:07 | XMS_ITS | Encounter Summary ---
Author Organization [employer] ([place], [place], [place], [place], [place]) Address [address] [place] [address] Care Team Providers Care Low Heel Builder Name Role Phone Tee Wade MD Primary Care Provider + [phone] Lennie Coates PA-C Unavailable [phone] Encounter Details Date Type Department Care Team (Late st Contact Info) Description 10/24/2019 Transcribed Document [facility] [place] Family Medicine [address] [place] [address] ProviderJuan MD [address] [place] [address] Social History Tobacco Use Types Packs/Day Years Used Date Smoking Tobacco: Never Assessed Sex and Gender Information Value Date Recorded Sex Assigned at Not on file Legal Sex Male 3:26 PM CDT Gender Identity Not on file Sexual Orientation Not on file documented as of this encounter Miscellaneous Notes * Cerner Conversion Note - Juan Summers MD - 10/24/2019 11:37 AM BOX MACHINE OPERATOR Initial Discharge Planning Entered On: 10/24/2019 11:44 EST Performed On: 10/24/2019 11:37 EST by LINDA BARRY Balloon Design Printer Initial Assessment I Previously Documented Living Environment [...] Is Guardianship Needed : No LINDA BARRY Balloon Design Printer - 10/24/2019 11:37 EST Initial Assessment II [...] - 10/24/2019 11:37 EST Electronically signed by [facility] Conversion Pin Machine Operator Cerner at 03/07/2023 10:42 AM CDT documented in this encounter Plan of Treatment Not on file documented as of this encounter Visit Diagnoses Not on filedocumented in this encounter Care Teams Low Heel Builder Relationship Specialty Start Date End Date Tee Wade MD [address] [facility] [address] [place] [address] PCP - General Neurology 03/07/23 Lennie Coates PA-C [address] [facility] [address] [place], [place] [address] Cardiology 03/11/24 documented as of this encounter
--- OUTSIDE RECORDS SUMMARY | 2025-09-29 12:07 | XMS_ITS | Clinical Summary ---
Author Organization [employer] ([place], [place], [place], [place], [place]) Address [address] [place] [address] Care Team Providers Care Manager Behavioral Name Role Phone Tee Wade MD Primary Care Provider [phone] Lennie Coates PA-C Unavailable [phone] Allergies Active Allergy Reactions Criticality Noted Date Comments [facility] 02/16/2017 Other reaction(s): Chest Pain, Nausea Medications [...] Date Dennis rded Speak language other than Lithuanian at home Not on file 12/07/2023 Want [...] BLUE CROSS/BLUE SHIELD MEDICARE [place] [place] [address] Care Teams Manager Behavioral Relationship Specialty Start Date End Date Tee Wade MD [address] [facility] [address] [place] [address] PCP - General Neurology 03/07/23 Lennie Coates, PA-C [address] [facility] [place] [address] [facility] 03/11/24
--- OUTSIDE RECORDS SUMMARY | 2025-09-29 12:07 | XMS_ITS | Referral Summary ---
Author Organization [employer] ([place], [place], [place], [place], [place]) Address [address] [place] [address] Care Team Providers Care District Traffic Chief Name Role Phone Tee Wade MD Primary Care Provider [phone] Lennie Coates PA-C Unavailable [phone] Allergies Active Allergy Reactions Criticality Noted Date Comments [facility] 02/16/2017 Other reaction(s): Chest Pain, Nausea Medications [...] Date Dennis rded Speak language other than Georgian at home Not on file 12/07/2023 Want [...] BLUE CROSS/BLUE SHIELD MEDICARE PART A B [facility] SUPP Care Teams District Traffic Chief Relationship Specialty Start Date End Date Tee Wade MD [address] [facility] [address] [place] [address] PCP - General Neurology 03/07/23 Lennie Coates, PA-C [address] [place] [address] [address] [place] [address] Cardiology 03/11/24
--- OUTSIDE RECORDS SUMMARY | 2025-09-29 12:07 | XMS_ITS | Encounter Summary ---
Author Organization [employer] ([place], [place], [place], [place], [place]) Address [address] [place] [address] Care Team Providers Care Grief Counsellor Name Role Phone Tee Wade MD Primary Care Provider + [phone] Lennie Coates PA-C Unavailable [phone] Encounter Details Date Type Department Care Team (Late st Contact Info) Description 10/23/2019 Transcribed Document [facility] [place] Family Medicine [address] [place] [address] ProviderJuan MD [address] [place] [address] Social History Tobacco Use Types Packs/Day Years Used Date Smoking Tobacco: Never Assessed Sex and Gender Information Value Date Recorded Sex Assigned at Not on file Legal Sex Male 3:26 PM CDT Gender Identity Not on file Sexual Orientation Not on file documented as of this encounter Miscellaneous Notes * Cerner Conversion Note - Juan Summers MD - 10/23/2019 8:00 AM INDUSTRIAL WORKERS Admission History, Adult Entered On: 10/23/2019 16:15 [...] Obtained From : Patient Primary Language : Kazakh Preferred Communication Mode : Verbal Communication Barrier [...] Scale Risk Level : 25-45 Medium Risk [place] Fall Interventions : Adequate lighting, Assistive devices [...] Source : Measured Height Entry Format : [place] Height, Feet : 5 ft(Converted to: 152 cm, 60 Inch) Height, Inches : 11 Inch(Converted to: 0 ft 11 Inch, 27.94 cm) Clinical Height : 180.34 cm Weight Source : Standing scale Weight Entry Format : [place] Clinical Dosing Weight : 89.05 kg Weight, Pounds : 195.9 lb Body Surface Area (BSA) : 2.09 m2 Body Mass Index : 27.4 kg/m2 (HI) [place] Body Weight : 74 kg Jessica Oshea [...] Jessica Oshea RN-Traveler - 10/23/2019 16:10 EST [place] Suicide Severity Rating Scale (C-SSRS) CSSRS Past [...] on filedocumented in this encounter Care Teams Grief Counsellor Relationship Specialty Start Date End Date Tee Wade MD [address] [address] PCP - General Neurology 03/07/23 Lennie Coates PALoveC [address] [facility] [place] [address] Cardiology 03/11/24 documented as of this encounter
--- OUTSIDE RECORDS SUMMARY | 2025-09-29 12:07 | XMS_ITS | Encounter Summary ---
Author Organization [employer] ([place], [place], [place], [place], [place]) Address [address] [place] [address] Care Team Providers Care Cam Maker Name Role Phone Tee Wade MD Primary Care Provider + [phone] Lennie Coates PA-C Unavailable [phone] Encounter Details Date Type Department Care Team (Late st Contact Info) Description 10/24/2019 Transcribed Document [facility] Family Medicine [address] [place] [address] ProviderJuan MD [address] [place] [address] Social History Tobacco Use Types Packs/Day Years Used Date Smoking Tobacco: Never Assessed Sex and Gender Information Value Date Recorded Sex Assigned at Not on file Legal Sex Male 3:26 PM CDT Gender Identity Not on file Sexual Orientation Not on file documented as of this encounter Miscellaneous Notes * Cerner Conversion Note - Juan Summers MD - 10/24/2019 3:39 PM OFFICE RUNNER Nursing Discharge Summary Entered On: 10/24/2019 15:40 [...] Jessica Oshea RN-Traveler - 10/24/2019 15:39 EST documented in this encounter Plan of Treatment Not on file documented as of this encounter Visit Diagnoses Not on filedocumented in this encounter Care Teams Cam Maker Relationship Specialty Start Date End Date Tee Wade MD [address] [facility] [address] [place] [address] PCP - General Neurology 03/07/23 Lennie Coates, PA-C [address] [facility] [address] [place] [address] Cardiology 03/11/24 documented as of this encounter
--- OUTSIDE RECORDS SUMMARY | 2025-09-29 12:07 | XMS_ITS | Encounter Summary ---
Author Organization [employer] ([place], [place], [place], [place], [place]) Address [address] [place] [address] Care Team Providers Care Signal Inspector Name Role Phone Tee Aguilar MD Primary Care Provider + [phone] Lennie Coates PA-C Unavailable [phone] Encounter Details Date Type Department Care Team (Late st Contact Info) Description 10/24/2019 Transcribed Document [facility] [place] Family Medicine [address] [place] [address] ProviderJuan MD [address] [place] [address] Social History Tobacco Use Types Packs/Day Years Used Date Smoking Tobacco: Never Assessed Sex and Gender Information Value Date Recorded Sex Assigned at Not on file Legal Sex Male 3:26 PM CDT Gender Identity Not on file Sexual Orientation Not on file documented as of this encounter Miscellaneous Notes * Cerner Conversion Note - Juan Summers MD - 10/24/2019 12:14 PM ACCOUNTS PAYABLE BOOKKEEPER [facility] [place], [place] [id number] KOSTA JHOANA LYNN :1955 Visit Time:10/23/2019 Your [...] Instructions: follow up 12-16 with cystogram at [facility] radiology prior to visit Activity: Discharge Activity: No heavy lifting over 10 lbs Diet: Discharge Diet: Resume usual diet as tolerated Showering/Bathing Instructions: May shower Follow-Up Appointments Follow Up with LEIGHA LOMBARDI MD-URO When 11/03/2019 12:00 AM EST Comments Call for follow up appointment Where: [address] [facility] [address] [place] [address]- Follow Up with TEE AGUILAR IM When Within 2 to 3 days Where: [address] [facility] [address] [place] [address]- Medications What How Much When Instructions Next Dose acetaminophen-hydrocodone (Mears 7.5 mg-325 mg oral tablet) 1 Tablet(s) [...] and water are not available, use hand rn orthopaedic. ? Change your dressing as told by [...] even if your condition improves. ??? Take ywtv-xxx-eoaykmw and prescription medicines only as told by [...] 05/25/2006 Document Revised: 07/13/2017 Document Reviewed: 05/23/2017 [employer] Interactive Patient Education ?? 2019 [employer] Indwelling Urinary Catheter Care, Adult An [...] on each side. Do this in a whosi-dr-lymz direction. ? If you are male: ? [...] and water are not available, use hand rn orthopaedic. ??? Always make sure there are no [...] 11/05/2006 Document Revised: 06/21/2018 Document Reviewed: 06/21/2018 [employer] Interactive Patient Education ?? 2019 [employer]. Laparoscopic Prostatectomy, Care After This sheet gives [...] these instructions at home: Medicines ??? Take mpzu-dxm-hfwhoda and prescription medicines only as told by [...] urine clear or pale yellow. ? Take ocsx-jpv-wobower or prescription medicines. ? Eat foods that [...] and water are not available, use hand rn orthopaedic. ? Change your dressing as told by [...] pain, abdominal discomfort, and nausea. ??? Take gzub-dum-zhizaag and prescription medicines only as told by [...] 11/05/2006 Document Revised: 10/10/2017 Document Reviewed: 10/10/2017 [employer] Interactive Patient Education ?? 2019 [employer]. Laparoscopic Prostatectomy Laparoscopic prostatectomy is a surgery [...] including vitamins, herbs, eye drops, creams, and ygqz-smo-mhmckcj medicines. ??? Any problems you or family [...] 11/05/2006 Document Revised: 10/22/2017 Document Reviewed: 10/22/2017 [employer] Interactive Patient Education ?? 2019 [employer] Emergency Awareness and Preventative Care STROKE [...] Assistance with quitting is available by contacting 1-245-DESZNOW. This is a free resource providing counseling, support, and referral. Or you may contact your personal physician. [place] Suicide Prevention Lifeline: The National Suicide Prevention [...] was given the opportunity to ask questions. Patient/Edger Technician Name: Patient/Edger Technician Signature: Relationship to Patient: Clinician/Hospital Edger Technician Signature: Date: documented in this encounter Plan of Treatment Not on file documented as of this encounter Visit Diagnoses Not on filedocumented in this encounter Care Teams Signal Inspector Relationship Specialty Start Date End Date Tee Aguilar MD [address] [address] PCP - General Neurology 03/07/23 Lennie Coates PA-C [address] [facility] [address] [place] [address] Cardiology 03/11/24 documented as of this encounter
--- OUTSIDE RECORDS SUMMARY | 2025-09-29 12:07 | XMS_ITS | Encounter Summary ---
Author Organization [employer] ([place], [place], [place], [place], [place]) Address [address] [place] [address] Care Team Providers Care School Speech Therapist Name Role Phone Tee Wade MD Primary Care Provider + [phone] Lennie Coates PA-C Unavailable [phone] Encounter Details Date Type Department Care Team (Late st Contact Info) Description 10/24/2019 Transcribed Document [facility] [place] Family Medicine [address] [place] [address] ProviderJuan MD [address] [place] [address] Social History Tobacco Use Types Packs/Day Years Used Date Smoking Tobacco: Never Assessed Sex and Gender Information Value Date Recorded Sex Assigned at Not on file Legal Sex Male 3:26 PM CDT Gender Identity Not on file Sexual Orientation Not on file documented as of this encounter Miscellaneous Notes * Cerner Conversion Note - Juan Summers MD - 10/24/2019 12:30 PM IRONING WORKER UM Authorization Entered On: 10/24/2019 12:32 EST Performed On: 10/24/2019 12:30 EST by TAMIKO HUERTAS RN Primary Insurance Authorization Authorization and Policy Numbers : Insurance 1 Health Plan: [id number] Policy Number: [id number] Authorization Number: Insurance [facility] Policy Number: [id number] Authorization Comments-Primary : Pt not precerted for IP surgery, the CPT code 13929 is for out pt surgery. Pt has d/c order on chart, Called MD office spoke to Marcelino and requested her to notify MD/truck driving. Awaiting callback Historical Authorization Comments-Primary : No Authorization Comments Found TAMIKO HUERTAS, RN - 10/24/2019 12:30 EST Electronically signed by Mima [facility] Conversion Nutrition Services Assistant Cerner at 03/07/2023 10:18 AM CDT documented in this encounter Plan of Treatment Not on file documented as of this encounter Visit Diagnoses Not on filedocumented in this encounter Care Teams School Speech Therapist Relationship Specialty Start Date End Date Tee Wade MD 3 [facility] [address] [place] [address] PCP - General Neurology 03/07/23 Lennie Coates PA-C [address] [place] [address] [address] [place] [address] Cardiology 03/11/24 documented as of this encounter
--- OUTSIDE RECORDS SUMMARY | 2025-09-29 12:07 | XMS_ITS | Encounter Summary ---
Author Organization [employer] ([place], [place], [place], [place], [place]) Address [address] [place] [address] Care Team Providers Care Pulmonology Physician Name Role Phone Tee Wade MD Primary Care Provider + [phone] Lennie Coates PA-C Unavailable [phone] Encounter Details Date Type Department Care Team (Late st Contact Info) Description 10/24/2019 Transcribed Document [facility] Family Medicine Formerly [facility] [place] [address] Juan Summers MD [address] [place] [address] Social History Tobacco Use Types Packs/Day Years Used Date Smoking Tobacco: Never Assessed Sex and Gender Information Value Date Recorded Sex Assigned at Not on file Legal Sex Male 3:26 PM CDT Gender Identity Not on file Sexual Orientation Not on file documented as of this encounter Miscellaneous Notes * Cerner Conversion Note - Juan Summers MD - 10/24/2019 8:48 AM ADVERTISING ASSISTANT MANAGER DATE OF DISCHARGE: 10/24/2019 DISCHARGE DIAGNOSIS: Adenocarcinoma of the prostate. OPERATION/PROCEDURE: Robotic assisted laparoscopic radical prostatectomy with left-sided pelvic lymph node dissection Dr. Ty Ghotra. BRIEF HISTORY: The patient is a 64-year-old gentleman who recently was diagnosed with adenocarcinoma of prostate, 6 cores positive on the left side, Calvin score of 6. He underwent a metastatic [...] Bactrim Double Strength b.i.d. through that time. /[id number] Ty Ghotra MD TDA/AQ / TDA / MODL /[id number] CC: Ty Ghotra MD Electronically signed by [facility] Conversion [employer] at 03/07/2023 10:28 AM CDT documented in this encounter Plan of Treatment Not on file documented as of this encounter Visit Diagnoses Not on filedocumented in this encounter Care Teams Pulmonology Physician Relationship Specialty Start Date End Date Tee Wade MD [address] [place] [id number] PCP - General Neurology 03/07/23 Lennie Coates PA-C [address] [facility] [address] [place] [address] Cardiology 03/11/24 documented as of this encounter
--- OUTSIDE RECORDS SUMMARY | 2025-09-29 12:07 | XMS_ITS | Encounter Summary ---
Author Organization [employer] ([place], [place], [place], [place], [place]) Address [address] [place] [address] Care Team Providers Care Dishwasher Name Role Phone Tee Wade MD Primary Care Provider [phone] Lennie Coates PA-C Unavailable [phone] Encounter Details Date Type Department Care Team (Late st Contact Info) Description 10/23/2019 Transcribed Document [facility] [place] [facility] [address] [place] [address] ProviderJuan MD [address] [place], [place] [id number] Social History Tobacco Use Types Packs/Day Years Used Date Smoking Tobacco: Never Assessed Sex and Gender Information Value Date Recorded Sex Assigned at Not on file Legal Sex Male 3:26 PM CDT Gender Identity Not on file Sexual Orientation Not on file documented as of this encounter Miscellaneous Notes * Cerner Conversion Note - Juan Summers MD - 10/23/2019 5:00 PM BEHAVIORAL SERVICES TECH Chart Check - Review Order Profile Entered [...] on filedocumented in this encounter Care Teams Dishwasher Relationship Specialty Start Date End Date Tee Wade MD [address] [facility] [address] [place] [address] PCP - General Neurology 03/07/23 Lennie Coates PALoveC [address] [facility] [address] [place] [address] Cardiology 03/11/24 documented as of this encounter
[2025-09-29 12:52] LABS: Alanine Aminotransferase 31 U/L (12-78); Albumin Level 4.5 g/dl (3.5-5.0); Alkaline Phosphatase 79 U/L (38-126); Aspartate Amino Transferase 36 U/L (17-59); Bilirubin,Direct 0.1 mg/dl (0.0-0.4); Bilirubin,Indirect 0.7 mg/dL (0.0-0.9); Bilirubin,Total 0.8 mg/dl (0.2-1.3); Bilirubin,Unconjugated 0.7 mg/dL (0.0-1.1); Cholesterol 207 mg/dl (140-200); HDL Cholesterol 40 mg/dl (40-60); Total Protein,Serum 7.8 g/dl (6.3-8.2); Triglycerides 187 mg/dl (30-150)
== END 2025-09-29 23:59 | disposition home or self-care (01) ==
LOC: LAB 12:04
PROVIDERS: PCP Nurse Practitioner Family; Visit Provider Internal Medicine
DX: I25.10 Atherosclerotic heart disease of native coronary artery without angina pectoris (principal); I10 Essential (primary) hypertension; E78.5 Hyperlipidemia, unspecified
CPT/HCPCS: 36415; 80061; 80076

== ENCOUNTER 2025-10-02 13:36 | Emergency (ER) | payer MEDICARE, BC, SELFPAY ==
[2025-10-02] VITALS (10 sets, daily range): BP systolic 144–177; BP diastolic 79–99; PULSE 42–57; RESP 13–23; TEMP 36.9; O2SAT 97–99; BMI 25.7
--- NOTE | 2025-10-02 13:37 | XR_ITS ---
FINAL REPORT TECHNIQUE: Single view chest CLINICAL HISTORY: SOA and CP, recent stents FINDINGS: A single view of the chest was obtained. The heart and mediastinum are within normal limits. The lungs are clear. There is no pneumothorax. IMPRESSION: No acute cardiopulmonary process. Reviewed, Interpreted and Dictated by Henry Gonsalez MD Transcribed by Chelsea Jo Authenticated and [facility] [place] [place]
--- NOTE | 2025-10-02 13:40 | ECG_ITS ---
APPROVED REPORT Exam: Resting ECG HR:53 bpm ECG Measurements Heart Rate 53 AXES AZ 181 P 56 QRSd 113 QRS 87 QT 452 T 76 QTc 435 Conclusion SINUS BRADYCARDIA WITH MARKED SINUS ARRHYTHMIA MODERATE INTRAVENTRICULAR CONDUCTION DELAY [110+ ms QRS DURATION] NONSPECIFIC ST & T-WAVE ABNORMALITY BORDERLINE ECG UNCONFIRMED REPORT Sinus bradycardia, mild ST depressions in leads V5 and V6 without reciprocal changes. QTc of 435 Electronically signed by : ANTONIO BARRIENTOS, 10/03/2025 07:05:06
--- NOTE | 2025-10-02 13:48 | ED_ITS ---
<Statement entered by Martin Ibarra MD - 10/03/25 07:00> I was consulted by the MIRANDA, and we discussed the complexity of the problems being addressed. I approve the treatment and management plan for this patient's care in the emergency department, thus performing a substantive portion of the medical decision making. Martin Ibarra MD <Statement entered by Eliazar Carr DO - 10/03/25 01:14> I was consulted by the MIRANDA, and we discussed the complexity of problems being addressed. I approved the treatment and management plan for this patient's care in the emergency department, thus performing a substantive portion of the medical decision making. Eliazar Carr DO Discharge Plan Disposition Patient Disposition: Home, Self-Care Condition: Good Prescriptions Prescriptions: No Action losartan 25 mg tablet 25 mg PO BID Qty: 60 5RF clopidogrel 75 mg tablet 75 mg PO DAILY Qty: 30 11RF carvedilol 3.125 mg tablet 3.125 mg PO BID Qty: 60 5RF atorvastatin 40 mg tablet 40 mg PO HS Qty: 30 5RF aspirin 81 mg Tablet,Delayed Release (Dr/Ec) 81 mg PO DAILY Qty: 90 0RF amlodipine 5 mg tablet 5 mg PO DAILY PRN Referrals Follow up/Referrals: Mallory Martinez APRN [Primary Care Provider, Medical] - See instructions Jeronimo Bravo MD [Staff Physician, Cardiology] - See instructions Activity Restrictions/Add. Instructions Additional Instructions/Restrictions: Please return to the emergency department with any worsening signs or symptoms. Please continue to take all your medication as prescribed. Please follow-up with the radius grinder Sunday at 9 AM in clinic. Clinical Impressions Clinical Impression: Chest pain CAD (coronary artery disease) Qualifiers: Coronary Disease-Associated Artery/Lesion type: [place] artery [place] vs. transplanted heart: [place] heart Associated angina: with unstable angina Q ualified Code(s): I25.110 - Atherosclerotic heart disease of [place] coronary artery with unstable angina pectoris Instructions Patient Instructions: DI for Chest Pain Print Language Print Language: Sinhala Discharge ED Provider: Martin Ibarra General Chief Complaint: Chest Pain Stated Complaint: CP Time Seen by Provider: 10/02/25 13:37 Mode of Arrival: Ambulatory Source of Information: Patient, Significant Other and Medical Record Description of Symptoms (Recalled from ER Triage Doc. by RN): patient states this am he start having left sided chest pain that leaves him broke out in a sweat. he reports he forgot to take his carvedilol this am and took it when he remembered and after he checked his bp and it was 205/99, he also took his amlodipine. he reports he had 5 stents placed her with dr bravo last week. he denies any symptoms at this time. History of Present Illness HPI narrative: 70-year-old male presents the emergency department with left-sided chest pain that he describes as a pressure , this started approximately 1.5 hours ago, initial pain was a 4 out of 10, currently a 0 or 1 out of 10, patient states when this pain occurred he notices blood pressure at home was over 200 , systolic, thus prompted emergency department visit. Patient has shortness of breath accompanied with this pain as well as nausea and diaphoresis, admits to history of constipation, last bowel movement was this morning, no abdominal pain no vomiting, no diarrhea no urinary symptomatology, patient denies any alcohol drug use, former tobacco use, other past medical history is consistent with recent cardiac catheterization for CAD, that occurred on 09/24/2025, patient received 5 cardiac stents. Patient has been on dual antiplatelet therapy of Plavix and aspirin taking medication as prescribed. Other past medical history consistent with hyperlipidemia, history of prostatic cancer status post prostatectomy, hypertension. Initial triage vitals are unremarkable. Please note that above description of symptoms, in this electronic medical record under categorization of recalled from ER triage doctor by RN are reflective of an initial nursing assessment, however, is not reflective of my full history and physical exam that was personally taken and clarified. Consequentially, this preceding description of symptoms, which may include the patient's categorized chief complaint in the EMR, do not reflect my personal clinical impression, and the ultimate description of history of present illness and patient stated complaints should be deferred to this section of the note. Unless stated otherwise or congruent with this section of the note, additional signs, symptoms, or incongruence should be interpreted as inaccurate with my clinical impression. complaint: chest pain Related Data Home Medications ?Medication ?Instructions ?Recorded ?Confirmed amlodipine 5 mg tablet 5 mg PO DAILY PRN 09/29/25 1 11/29/24 Previous Rx's ?Medication ?Instructions ?Recorded aspirin 81 mg tablet,delayed 81 mg PO DAILY #90 tabs 1 11/26/24 release atorvastatin 40 mg tablet 40 mg PO HS #30 tabs 5 carvedilol 3.125 mg tablet 3.125 mg PO BID #60 tabs clopidogrel 75 mg tablet 75 mg PO DAILY #30 tabs 09/19 12/13 losartan 25 mg tablet 25 mg PO BID #60 tabs Allergies Allergy/AdvReac Type Severity Reaction Status Date / Time No Known Drug Allergies Allergy Unknown Verified 09/29/25 10:42 allergy reaction [facility] Disclaimer: The information contained in this section may have been updated after the patient was seen, as this information can be updated by other users. Medical History Back pain History of prostate cancer CAD (coronary artery disease) Hypertension Prostate cancer Cholecystectomy planned Surgical History Stented coronary artery Family History Other Family history of acute heart failure Family history of hypertension Family history of stroke Social History Smoking Status: Never smoker alcohol intake: never current occupational status: other Travel in the last 8 weeks?: None Have you lived/traveled outside US in past 30 days?: No Contact w/someone who lives/traveled outside US past 30 days?: No Exposure to someone with infectious disease in past 14 days?: No Do you have a fever (greater than 100.4 F or 38 C)?: No Have you tested positive for COVID-19?: No Exposed to someone with COVID-19 in past 14 days?: No Do you have a sore throat?: No Do you have a cough?: No Do you have any weakness?: No Do you have any diarrhea?: No Are you experiencing any unusual bleeding?: No Do you have any muscle aches/pain?: No Do you have any abdominal pain?: No Are you experiencing loss of taste or smell?: No Other Medical History Have you received the Flu Vaccine for this season: No Have you received the Pneumonia Vaccine: No ROS Obtained: Yes All systems reviewed & no additional complaints except as documented Physical Exam General General appearance: alert and in no apparent distress Head Head exam: atraumatic and normocephalic Eye Eye exam: Present normal appearance, PERRL and EOMI Neck Neck exam: Present full ROM; Absent meningismus Chest Chest inspection: Present normal inspection and tenderness Respiratory Respiratory exam: Absent respiratory distress, wheezes, stridor, accessory muscle use or prolonged expiratory phase Cardiovascular Cardiovascular exam: Present normal rhythm and other (Pulses equal and symmetric in bilateral upper and lower extremities) Abdominal Exam Abdominal exam: Absent distention Extremities Exam Extremities exam: Absent edema Neurological Exam Neurological exam: Present alert Psychiatric Psychiatric exam: Present normal affect Skin Skin exam: Present warm and dry HEART Score HEART Score HEART Score assessment performed?: Yes HEART Score: 5 Critical Care Critical Care Time Critical Care Time: No Medical Decision Making Medical Records Medical records reviewed: Yes I reviewed the patient's medical records. Rhys Inquiry Pt receiving controlled substance: No Rhys was queried for this patient: No Vital Signs Vital Signs: 10/02/25 13:42 10/02/25 14:01 10/02/25 14:30 Temperature 98.4 F Temperature Source Oral Pulse Rate 49 L 54 L Pulse Rate [Right Radial] 57 L Respiratory Rate 14 13 15 Blood Pressure 160/80 H 154/79 H Blood Pressure [Right Arm] 177/95 H Blood Pressure Mean [Right Arm] 122 Blood Pressure Source [Right Arm] Automatic Cuff Blood Pressure Position [Right Arm] Supine 02 Sat by Pulse Oximetry 97 99 99 Oxygen Delivery Method Room Air Room Air Room Air 10/02/25 14:45 10/02/25 15:01 10/02/25 15:31 Temperature Temperature Source Pulse Rate 49 L 51 L 57 L Pulse Rate [Right Radial] Respiratory Rate 19 23 15 Blood Pressure 165/93 H 167/99 H Blood Pressure [Right Arm] Blood Pressure Mean [Right Arm] Blood Pressure Source [Right Arm] Blood Pressure Position [Right Arm] 02 Sat by Pulse Oximetry 98 98 97 Oxygen Delivery Method Room Air Room Air 10/02/25 16:00 10/02/25 16:30 10/02/25 17:00 Temperature Temperature Source Pulse Rate 46 L 42 L 48 L Pulse Rate [Right Radial] Respiratory Rate 16 18 15 Blood Pressure 149/85 H 144/87 H 154/84 H Blood Pressure [Right Arm] Blood Pressure Mean [Right Arm] Blood Pressure Source [Right Arm] Blood Pressure Position [Right Arm] 02 Sat by Pulse Oximetry 97 97 97 Oxygen Delivery Method Room Air Lab Data Lab results reviewed: Yes I reviewed the patient's lab results. Labs: Lab Results 10/02/25 13:45: WBC 6.0, RBC 4.96, Hgb 14.5, Hct 43.2, MCV 87.1, MCH 29.2, MCHC 33.6, RDW 13.0, Plt Count 233, MPV 11.1 H, Neut % (Auto) 56.6, Lymph % (Auto) 29.2, Norton % (Auto) 10.3 H, Eos % (Auto) 2.8, Baso % (Auto) 0.8, Neut # (Auto) 3.4, Lymph # (Auto) 1.8, Norton # (Auto) 0.6, Eos # (Auto) 0.2, Baso # (Auto) 0.1, PT 10.9, INR 0.98, Sodium 140, Potassium 3.9, Chloride 105, Carbon Dioxide 28, Anion Gap 10.9, BUN 10, Creatinine 1.00, Estimated Creat Clear 82, Estimated GFR 74, Est GFR ( Amer) 89, Glucose 101 H, Calcium 8.8, Magnesium 2.0, Total Bilirubin 0.6, AST 29, ALT 28, Alkaline Phosphatase 73, Troponin I 0.41 H, Total Protein 8.1, Albumin 4.5, Globulin 3.6 H, Albumin/Globulin Ratio 1.3, Lipase 651 H 10/02/25 16:33: Troponin I 0.34 H 10/02/25 13:45 10/02/25 13:45 Response Orders (Tests/Meds): ED MEDICATIONS Discontinued Medications Generic Name Dose Route Start Last Admin Trade Name Herbert PRN Reason Stop Dose Admin Aspirin 243 mg 10/02/25 13:48 10/02/25 13:52 Aspirin 81mg Chewable Tablet PO 10/02/25 13:49 243 mg ONCE ONE Administration Iopamidol 75 ml 10/02/25 14:20 10/02/25 14:20 Iopamidol-370 (76%);100ml Bottle IV 10/02/25 14:21 75 ml ONCE ONE Administration Sodium Chloride 10 ml 10/02/25 14:20 10/02/25 14:20 Sodium Chloride 0.9% 10ml Syr (Rad Only) IV 10/02/25 14:21 10 ml ONCE ONE Administration ORDERS Category Date Time Status CT abdomen pelvis w con Stat Cat Scan 10/02/25 14:12 Completed XR chest portable Stat Exams 10/02/25 13:37 Completed Complete Blood Count Auto Diff Stat Lab 10/02/25 13:45 Completed Comprehensive Metabolic Panel Stat Lab 10/02/25 13:45 Completed Lipase Stat Lab 10/02/25 13:45 Completed Magnesium Stat Lab 10/02/25 13:45 Completed PT INR [Prothrombin Time INR] Stat Lab 10/02/25 13:45 Completed Troponin I Q3H Lab 10/02/25 16:33 Completed Troponin I Q3H Lab 10/02/25 19:45 Ordered Troponin I Stat Lab 10/02/25 13:45 Completed CA echo doppler complete Stat Y 10/02/25 14:57 Completed MDM Narrative Medical Decision Narrative: 70-year-old male presents the emergency department with chest pain/chest pressure that occurred 1.5 hours ago, differential diagnose include but not limited to ACS, cardiac arrhythmia, electrolyte disturbance, pneumonia, costochondritis, anxiety reaction, panic attack, gastritis, hypertensive emergency/urgency among others. I discussed this patient's case with the attending physician Dr. Ibarra Will obtain basic laboratory studies, magnesium level, troponin proBNP EKG, x- ray, lipase level, will give 243 p.o. milligram ASA for symptomatic relief. CBC unremarkable and coags are within normal limits. CMP is notable for elevated lipase at 651, thus will obtain CT abdomen pelvis with contrast. I reviewed the patient's chest x-ray along the corresponding radiologic report no acute cardiopulmonary process. Initial troponin is 0.41, of note I attempted to call on-call laundry folder Dr. Bravo at approximately 2:20 PM, no answer we will try again. I discussed this patient's case in depth with Dr. 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 Patient is 1 week status post 5 stents, he did not believe the patient is having an acute STEMI after reviewing the patient's EKG, he is less concerned about the patient's elevated troponin in the setting of recent cardiac instrumentation and the patient's clinical history. Could be some related to pancreatitis and if does have clinical concern for that could consider admission. I reviewed the patient CT ab pelvis with contrast and with corresponding radiologic report, interval development of nonobstructing bilateral renal stones, persistent severe sigmoid diverticulosis without evidence of diverticulitis. Repeat troponin is improved at 0.34. Reexamination of the patient at approximately 5:30 PM, patient is still chest pain-free resting comfortably in bed hemodynamically stable. Repeat EKG was obtained and closed-loop communication was performed with on-call laundry folder Dr. Bravo at approximately 5:33 PM, he believes the patient is still has Damian syndrome, repeat troponin pending downward he evaluated/interpreted both EKGs, I discussed my personal interpretation as well as attending physician Dr. Carr's interpretation of the patient's full echocardiogram, normal EF, as well as left diastolic dysfunction, Dr. Bravo agrees patient can be discharged home to self-care with cardiology follow-up Sunday in the office at 9 AM. I discussed these results/recommendations with the patient family the bedside patient and family are in agreement with the current discharge plan/treatment plan. Lipase elevation is not within 2 times upper limit, patient does not have clinical symptomatology consistent with pancreatitis no radiographic evidence of pancreatitis will have the patient's PCP follow-up on this. Patient and family voiced understanding and agreement with the current treatment plan/discharge plan. Strict return precaution given.
[2025-10-02] MEDS: ASPIRIN 81MG CHEWABLE TABLET 243 MG PO (13:52)
[2025-10-02 13:54] LABS: Hematocrit 43.2 % (42.0-52.0); Hemoglobin 14.5 g/dL (14.1-18.0); Immature Granulocytes % 0.3 %; Mean Corpuscular HGB Conc 33.6 g/dL (31.8-35.4); Mean Corpuscular Hemoglobin 29.2 pg (27.0-31.2); Mean Corpuscular Volume 87.1 fl (80-94); Nucleated Red Blood Cells % 0 %; Platelet Count 233 K/mm3 (142-424); Red Blood Count 4.96 M/mm3 (4.60-6.20); Red Cell Distribution Width-SD 41.3 fL; White Blood Count 6.0 K/mm3 (4.8-10.8)
[2025-10-02 14:00] LABS: Alanine Aminotransferase 28 U/L (12-78); Albumin Level 4.5 g/dl (3.5-5.0); Albumin/Globulin Ratio 1.3 (1.1-1.8); Alkaline Phosphatase 73 U/L (38-126); Anion Gap 10.9 mEq/L (5-15); Aspartate Amino Transferase 29 U/L (17-59); Bilirubin,Total 0.6 mg/dl (0.2-1.3); Blood Urea Nitrogen 10 mg/dl (9-20); Calcium 8.8 mg/dl (8.4-10.2); Carbon Dioxide 28 mmol/L (22.0-30.0); Chloride 105 mmol/L (98-107); Creatinine Clearance Estimated 82 mL/min (50-200); Creatinine,Serum 1.00 mg/dl (0.66-1.25); Estimated Glomerular Filt Rate 74 ml/min (>60); GFR (African American) 89 ML/MIN (>60); Globulin 3.6 g/dL (1.3-3.2); Glucose 101 mg/dl (74-100); INR 0.98 (0.9-1.1); Lipase 651 U/L (23-300); Magnesium 2.0 mg/dl (1.6-2.3); Potassium 3.9 mmoL/L (3.5-5.1); Prothrombin Time 10.9 seconds (10.1-12.5); Sodium 140 mmol/L (136-145); Total Protein,Serum 8.1 g/dl (6.3-8.2)
--- NOTE | 2025-10-02 14:12 | CT_ITS ---
FINAL REPORT TECHNIQUE: IV contrast enhanced exam This study was performed with techniques to keep radiation doses as low as reasonably achievable, (ALARA). Individualized dose reduction techniques using automated exposure control or adjustment of mA and/or kV according to the patient''s size were employed. CLINICAL HISTORY: Left-sided abdominal/chest pain elevated lipase COMPARISON: 09/02/2019 FINDINGS: Abdomen: Lung bases are clear. The gallbladder is unremarkable. Liver has an unremarkable CT appearance. Patient is status postcholecystectomy. The spleen, and pancreas are unremarkable. There is an 8 mm left adrenal nodule which is unchanged. There are new, bilateral nonobstructing renal stones with the largest in the lower pole of the left kidney measuring 6 mm. There is moderate bilateral renal scarring, stable. 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 No bowel obstruction or fluid collection is seen. Pelvis: The appendix is normal. There is severe sigmoid diverticulosis without evidence of diverticulitis. Tiny bilateral inguinal hernias are seen containing fat. There are postoperative changes of prostatectomy. No fluid collection or adenopathy is seen. IMPRESSION: Interval development of nonobstructing bilateral renal stones. Persistent, severe sigmoid diverticulosis without evidence of diverticulitis. Reviewed, Interpreted and Dictated by Henry Gonsalez MD Transcribed by Chelsea Jo Authenticated and [facility]
[2025-10-02 14:15] LABS: Troponin I 0.41 ng/ml (0.00-0.034)
--- NOTE | 2025-10-02 14:15 | PC.NURSE ---
CRITICAL TROP 0.41, PT NAME AND R/V. JOEY OTT NOTIFIED
[2025-10-02] MEDS: SODIUM CHLORIDE 0.9% 10ML SYR (RAD ONLY) 10 ML IV (14:20)
[2025-10-02] MEDS: IOPAMIDOL-370 (76%);100ML BOTTLE 75 ML IV (14:20)
--- NOTE | 2025-10-02 14:54 | PC.NURSE ---
JOEY OTT SPEAKING WITH DR CARUSO
--- NOTE | 2025-10-02 14:57 | CA_ITS ---
APPROVED REPORT EXAM: Comprehensive 2D, Doppler, and color-flow Echocardiogram Window Repairer: BRI Galarza, RVS Ht: 5 ft 11 in Wt: 185lbs BSA: 2.04 BP: 190/80 mmHg Indications: CP, HTN, Pancreatitis, Echo 09/25/25 Echo Enhancing Agent Comments: TDE scanned bedside in ER 2D Dimensions Left Atrium 3.52 cm M-Mode Dimensions RVDd 2.64 cm (0.9-2.6) LA Diam 3.71 cm (1.9-4.0) LVDd 5.15 cm (3.5-5.7) LVDs 3.07 cm (3.5-5.7) IVSd 1.58 cm (0.6-1.1) PWd 1.19 cm (0.6-1.1) EF (Teich) 70.80% EPSs 0.60 cm FS 40.40% EDV (Teich) 126.60 mL TAPSE 2.35 (<1.7) ESV (Teich) 37.00 mL LV Diastology E Decel Time 253 (160-240 msec) E/A Ratio 1.11 MED A' 10.90 cm/s Aortic Valve JOSE Index 1.31 cm2/m2 AoV Peak Azeem. 120.0 (50-130 cm/s) AI PHT 524.00 ms AO Peak GR. 5.80 mmHg AO Mean GR. 3.10 (<5 mmHg) AO VTI 25.4 (18-25 cm) JOSE (VTI) 2.74 (2.5-4.5 cm2) Mitral Valve MV A Velocity 49.0 (40-130 cm/s) E/A Ratio 1.11 Pulmonary Valve TX End VMAX 120.0 cm/s Tricuspid Valve TR P. Velocity 251.00 cm/s RAP Estimate 10.00 mmHg RVSP 35.20 mmHg Left Ventricle The left ventricle is normal size. Left ventricular systolic function is normal. The left ventricular ejection fraction is within the normal range. There is increased left ventricular wall thickness. There is normal LV segmental wall motion. Transmitral Doppler flow pattern suggests impaired LV relaxation. LVEF is 55%. Right Ventricle The right ventricle is normal size. The right ventricular systolic function is normal. Atria Left atrium is mildly dilated. Right atrium is mildly dilated. There is no color Doppler evidence of interatrial shunt. Aortic Valve The aortic valve is mildly thickened. There is no hemodynamically significant aortic valvular stenosis. Mild aortic regurgitation is present. Mitral Valve The mitral valve is normal in structure. No evidence of mitral valve stenosis. Mild mitral regurgitation is present. Tricuspid Valve The tricuspid valve leaflets are thin and pliable. Trace tricuspid regurgitation. There is insufficient TR jet to estimate RVSP. Pulmonic Valve The pulmonary valve is grossly normal in structure. Trace pulmonic valve regurgitation is present. Great Vessels The aortic root is normal in size. IVC is normal in size and collapses >50% with inspiration. Pericardium There is no pericardial effusion. Other Information Study Quality: Fair Conclusion Normal biventricular systolic function. Mild biatrial dilation. Mild AI, mild MR. Electronically signed by : Christina Cortes MD 10/02/2025 23:58:29
[2025-10-02 17:01] LABS: Troponin I 0.34 ng/ml (0.00-0.034)
--- NOTE | 2025-10-02 17:17 | ECG_ITS ---
APPROVED REPORT Exam: Resting ECG HR:49 bpm ECG Measurements Heart Rate 49 AXES CO 169 P 21 QRSd 113 QRS 92 QT 456 T -3 QTc 427 Conclusion Sinus bradycardia with sinus arrhythmia Right axis Subtle ST depressions in the inferior leads Electronically signed by : Eliazar Carr, 10/03/2025 01:28:57
== END 2025-10-02 17:58 | disposition home or self-care (01) ==
PROVIDERS: Physician Assistant; Emergency Provider Student in an Organized Health Care Education/Training Program; PCP Nurse Practitioner Family
DX: I25.10 Atherosclerotic heart disease of native coronary artery without angina pectoris (principal); R07.9 Chest pain, unspecified; I10 Essential (primary) hypertension; E78.5 Hyperlipidemia, unspecified
CPT/HCPCS: 71045; 74177; 80053; 83690; 83735; 84484; 85025; 85610; 93005; 93306; 99285; Q9967

== ENCOUNTER 2025-10-12 14:47 | Outpatient (CLI) | payer MEDICARE, BC, SELFPAY ==
--- NOTE | 2025-10-12 14:48 | XR_ITS ---
FINAL REPORT CLINICAL HISTORY: Right shoulder pain FINDINGS: Two views of the right shoulder were obtained. There is no fracture or dislocation. There is degenerative joint disease of the AC and glenohumeral joints. Soft tissues are unremarkable. IMPRESSION: Degenerative joint disease. Reviewed, Interpreted and Dictated by Kathleen Bautista MD Transcribed by Mallory Joyner Authenticated and [facility]
== END 2025-10-12 23:59 | disposition home or self-care (01) ==
LOC: RAD 14:48
PROVIDERS: PCP Nurse Practitioner Family; Visit Provider Orthopaedic Surgery
DX: M19.011 Primary osteoarthritis, right shoulder (principal); S49.91XA Unspecified injury of right shoulder and upper arm, initial encounter
CPT/HCPCS: 73030

== ENCOUNTER 2025-10-16 13:02 | Outpatient (CLI) | payer MEDICARE, BC, SELFPAY ==
--- OUTSIDE RECORDS SUMMARY | 2025-01-13 05:15 | XMS_ITS ---
Author Organization [facility] Address [address] [place] [address] [id number] Care Team Providers Care Process Specialist Name Role Phone José Miguel Pizarro Primary Care Provider [phone] Anastasiya Martinez [phone] REASON FOR VISIT check up and nlood, Needs labs with PSA & Prevnar Encounters Encounter Location Date Provider Diagnosis [facility] [address] [place] [id number] 01/13/2025 Anastasiya Martinez Plan Of Treatment No Information Progress Notes * Kevin BRAMBILADOB:1954 (70 yo M)Acc No.[id number]:01/13/2025 Progress Notes Patient: Kevin BROWN Provider: NYASIA Araujo :1955 A ge:69 Y S ex:Male Date:01/13/2025 Address:[address] [place], [place] [id number] Pcp:José Miguel Pizarro Subjective: * Chief Complaints: * 1 . Check up and nlood. 2. Needs labs with PSA & Prevnar. * Medical History: Objective: * Vitals: Assessment: Plan: * Treatment: * Images: Billing Information: * Visit Code: * Procedure Codes: * Electronic signature of Marybeth Martinez APRN on 10/16/2025 at 01:05 PM EST Sign off status: Pending * Provider: NYASIA Araujo Date: 0 01/13/2025 Generated for Sapphire morin/Jose/Logan on: 1 12/16/2024 01:05 PM EST
--- OUTSIDE RECORDS SUMMARY | 2025-10-12 10:30 | XMS_ITS ---
[facility] [address] [facility] [address] [id number] Care Team Providers Care Assembler For Puller Over Machine Name Role Phone José Miguel Pizarro Primary Care Provider Anastasiya Martinez [phone] REASON FOR VISIT check PSA Encounters Encounter Location Date Provider Diagnosis [facility] [address] [id number] 10/12/2025 Anastasiya Martinez Plan Of Treatment No Information Progress Notes * Kevin BRAMBILADOB:1954 (70 yo M)Acc No.[id number]:10/12/2025 Progress Notes Patient: Kevin BROWN Provider: NYASIA Araujo :1955 A ge:70 Y S ex:Male Date:10/12/2025 Address:[address] [place], [place] [id number] Pcp:José Miguel Pizarro Subjective: * Chief Complaints: * 1 . check PSA. * Medical History: Objective: * Vitals: Assessment: Plan: * Treatment: * Images: Billing Information: * Visit Code: * Procedure Codes: * Electronic signature of Marybeth Martinez APRN on 10/16/2025 at 01:06 PM EST Sign off status: Pending * Provider: NYASIA Araujo Date: 12/12/2024 Generated for Sapphire morin/Jose/eTransmitting on: 12/16/2024 01:06 PM EST
--- OUTSIDE RECORDS SUMMARY | 2025-10-16 13:06 | XMS_ITS | Encounter Summary ---
Author Organization [employer] ([place], [place], [place], [place], [place]) Address [address] [place] [address] Care Team Providers Care Cogeneration Operator Name Role Phone Tee Wade MD Primary Care Provider [phone] Lennie Coates PA-C Unavailable [phone] Encounter Details Date Type Department Care Team (Late st Contact Info) Description 10/24/2019 Transcribed Document [facility] [place] [facility] [place] [address] [place] [address] ProviderJuan MD [address] [place] [address] Social History Tobacco Use Types Packs/Day Years Used Date Smoking Tobacco: Never Assessed Sex and Gender Information Value Date Recorded Sex Assigned at Not on file Legal Sex Male 3:26 PM CDT Gender Identity Not on file Sexual Orientation Not on file documented as of this encounter Miscellaneous Notes * Cerner Conversion Note - Juan ProviderMD - 10/24/2019 2:00 AM RESIDENT CARE ASSISTANT Temporary Receptionist Details Entered On: 10/24/2019 1:16 EST Performed [...] Service : Appropriate Arterial Line : No BRYATN GABRIEL RN - 10/24/2019 1:16 EST Electronically signed by Howard Guillermo Conversion Family Independence Case Manager Cerner at 03/07/2023 10:16 AM CDT documented in this encounter Plan of Treatment Not on file documented as of this encounter Visit Diagnoses Not on filedocumented in this encounter Care Teams Cogeneration Operator Relationship Specialty Start Date End Date Tee Wade MD [address] [facility] [address] [place] [address] PCP - General Neurology 03/07/23 Lennie Coates PA-C [address] [place] [address] [address] [place] [id number] Cardiology 03/11/24 documented as of this encounter
--- OUTSIDE RECORDS SUMMARY | 2025-10-16 13:06 | XMS_ITS | Encounter Summary ---
Author Organization [employer] ([place], [place], [place], [place], [place]) Address [address] [place] [address] Care Team Providers Care Health Sciences Dean Name Role Phone Tee Wade MD Primary Care Provider + [phone] Lennie Coates PA-C Unavailable Encounter Details Date Type Department Care Team (Late st Contact Info) Description 10/23/2019 Transcribed Document [facility] Family Medicine [address] [place] [address] ProviderJuan MD [address] [place] [address] Social History Tobacco Use Types Packs/Day Years Used Date Smoking Tobacco: Never Assessed Sex and Gender Information Value Date Recorded Sex Assigned at Not on file Legal Sex Male 3:26 PM CDT Gender Identity Not on file Sexual Orientation Not on file documented as of this encounter Miscellaneous Notes * Cerner Conversion Note - Juan Summers MD - 10/23/2019 9:01 AM SECURITY MANAGEMENT SPECIALIST [facility] Main OR PACU Summary Primary Physician: LEIGHA LOMBARDI MD-URO Finalized Date/Time: 10/23/19 15:50:55 Pt. Name: JHOANA BRAMBILA D.O.B./Sex: 1955 Male Med Rec #: [id number] Physician: LEIGHA LOMBARDI MD-URO Financial #: [id number] Pt. Type: I Room/Bed: [facility]/ Admit/Disch: 10/23/19 08:00:00 - Institution: [facility] Main OR PACU I Case Times Entry 1 In PACU I 10/23/19 11:32:00 Ready for PACU 10/23/19 13:00:00 Discharge Discharge from PACU 10/23/19 15:35:00 I Last Modified By: TRAVIS CHRISTIANSON RN 10/23/19 15:50:45 [facility] Main OR PACU Acuity Entry 1 Start Time 10/23/19 13:00:00 Stop Time 10/23/19 15:35:00 Acuity Level [facility] PACU Acuity I Last Modified By: TRAVIS CHRISTIANSON RN 10/23/19 15:50:53 Finalized By: TRAVIS CHRISTIANSON RN Document Signatures Signed By: TRAVIS CHRISTIANSON RN 10/23/19 15:50 Electronically signed by Mima [facility] Conversion Retail Services Professional Cerner at 03/07/2023 10:30 AM CDT documented in this encounter Plan of Treatment Not on file documented as of this encounter Visit Diagnoses Not on filedocumented in this encounter Care Teams Health Sciences Dean Relationship Specialty [place] [address] [place] [address] [address] [place] [address] PCP - General Neurology 03/07/23 Lennie Coates PA-C [address] [facility] [address] [place] [address] Cardiology 03/11/24 documented as of this encounter
--- OUTSIDE RECORDS SUMMARY | 2025-10-16 13:06 | XMS_ITS | Clinical Summary ---
Author Organization [employer] ([place], [place], [place], [place], [place]) Address [address] [place] [address] Care Team Providers Care Tankroom Tender Name Role Phone Tee Wade MD Primary Care Provider [phone] Lennie Coates PA-C Unavailable [phone] Allergies Active Allergy Reactions Criticality Noted Date Comments [facility] 02/16/2017 Other reaction(s): Chest Pain, [...] Date Dennis rded Speak language other than Dominican at home Not on file 12/07/2023 Want [...] BLUE CROSS/BLUE SHIELD MEDICARE [place] [address] [place] [address] Care Teams Tankroom Tender Relationship Specialty Start Date End Date Tee Wade MD [address] [facility] [address] [place] [address] PCP - General Neurology 03/07/23 Lennie Coates, PA-C [address] [place] [place] [address] [facility] 03/11/24
--- OUTSIDE RECORDS SUMMARY | 2025-10-16 13:06 | XMS_ITS | Encounter Summary ---
Author Organization [employer] ([place], [place], [place], [place], [place]) Address [address] [place] [address] Care Team Providers Care Weekend Caregiver Name Role Phone Tee Wade MD Primary Care Provider + [phone] Lennie Coates PA-C Unavailable [phone] Encounter Details Date Type Department Care Team (Late st Contact Info) Description 10/23/2019 Transcribed Document [facility] Family Medicine [address] [place] [address] ProviderJuan MD [address] [place] [address] Social History Tobacco Use Types Packs/Day Years Used Date Smoking Tobacco: Never Assessed Sex and Gender Information Value Date Recorded Sex Assigned at Not on file Legal Sex Male 3:26 PM CDT Gender Identity Not on file Sexual Orientation Not on file documented as of this encounter Miscellaneous Notes * Cerner Conversion Note - Juan Summers MD - 10/23/2019 8:00 AM IMAGING ENGINEER Admission History, Adult Entered On: 10/23/2019 [...] Obtained From : Patient Primary Language : Ug[place]an Preferred Communication Mode : Verbal Communication Barrier [...] Scale Risk Level : 25-45 Medium Risk [place] Fall Interventions : Adequate lighting, Assistive devices [...] Source : Measured Height Entry Format : [place] Height, Feet : 5 ft(Converted to: 152 cm, 60 Inch) Height, Inches : 11 Inch(Converted to: 0 ft 11 Inch, 27.94 cm) Clinical Height : 180.34 cm Weight Source : Standing scale Weight Entry Format : [place] Clinical Dosing Weight : 89.05 kg Weight, Pounds : 195.9 lb Body Surface Area (BSA) : 2.09 m2 Body Mass Index : 27.4 kg/m2 (HI) [place] Body Weight : 74 kg Jessica Oshea [...] Jessica Oshea RN-Traveler - 10/23/2019 16:10 EST [place] Suicide Severity Rating Scale (C-SSRS) CSSRS Past [...] Jessica Oshea RN-Traveler - 10/23/2019 16:10 EST Electronically signed by Slim Guillermo Conversion Director Intelligence Analysis Programs Cerner at 03/07/2023 10:14 AM CDT documented in this encounter Plan of Treatment Not on file documented as of this encounter Visit Diagnoses Not on filedocumented in this encounter Care Teams Weekend Caregiver Relationship Specialty Start Date End Date Tee Wade MD [address] [address] PCP - General Neurology 03/07/23 Lennie Coates PALoveC [address] [facility] [address] Cardiology 03/11/24 documented as of this encounter
--- OUTSIDE RECORDS SUMMARY | 2025-10-16 13:06 | XMS_ITS | Encounter Summary ---
Author Organization [employer] ([place], [place], [place], [place], [place]) Address [address] [place] [address] Care Team Providers Care Certified Coatings Inspector Name Role Phone Tee Wade MD Primary Care Provider + [phone] Lennie Coates PA-C Unavailable [phone] Encounter Details Date Type Department Care Team (Late st Contact Info) Description 10/23/2019 Transcribed Document [facility] [place] Family Medicine [address] [place] [address] ProviderJuan MD [address] [place] [address] Social History Tobacco Use Types Packs/Day Years Used Date Smoking Tobacco: Never Assessed Sex and Gender Information Value Date Recorded Sex Assigned at Not on file Legal Sex Male 3:26 PM CDT Gender Identity Not on file Sexual Orientation Not on file documented as of this encounter Miscellaneous Notes * Cerner Conversion Note - Juan Summers MD - 10/23/2019 8:30 AM CHAR FILTER TANK TENDER [facility] Main OR Preop Summary Primary Physician: LEIGHA LOMBARDI MD-URO Finalized Date/Time: 10/23/19 08:49:37 Pt. Name: JHOANA BRAMBILAO.B./Sex: 1955 Male Med Rec #: [id number] Physician: LEIGHA LOMBARDI MD-URO Financial #: [id number] Pt. Type: O Room/Bed: / Admit/Disch: 10/23/19 08:00:00 - Institution: [facility] PreOp Case Times Entry 1 In Preop 10/23/19 06:30:00 Ready for Holding n/a Room Patient Ready for 10/23/19 08:10:00 Surgery Patient Out of Preop 10/23/19 08:24:00 Patient Out of n/a Holding Room Last Modified By: Jannette Reyes RN 10/23/19 08:49:36 [facility] PreOp Case Times Audit 10/23/19 08:49:36 Director Dental Services: WRIGHTVP Modifier: [email or web address] <+> 1 Patient Out of Preop 10/23/19 08:08:10 Director Dental Services: WRIGHTVP Modifier: [email or web address] <+> 1 Patient Ready for Surgery Finalized By: Jannette Reyes, RN Document Signatures Signed By: Jannette Reyes RN 10/23/19 08:49 Electronically signed by Mima [facility] Conversion Sub Acute Care Nurse Cerner at 03/07/2023 10:44 AM CDT documented in this encounter Plan of Treatment Not on file documented as of this encounter Visit Diagnoses Not on filedocumented in this encounter Care Teams Certified Coatings Inspector Relationship Specialty [place] [address] [place] [address] PCP - General Neurology 03/07/23 Lennie Coates, PA-C [address] [facility] [address] [place] [address] Cardiology 03/11/24 documented as of this encounter
--- OUTSIDE RECORDS SUMMARY | 2025-10-16 13:06 | XMS_ITS | Encounter Summary ---
Author Organization [employer] ([place], [place], [place], [place], [place]) Address [address] [place] [address] Care Team Providers Care Housekeeping And Laundry Team Leader Name Role Phone Tee Wade MD Primary Care Provider + [phone] Lennie Coates PA-C Unavailable [phone] Encounter Details Date Type Department Care Team (Late st Contact Info) Description 10/24/2019 Transcribed Document [facility] [place] Medicine [place] [address] ProviderJuan MD [address] [place] [address] Social History Tobacco Use Types Packs/Day Years Used Date Smoking Tobacco: Never Assessed Sex and Gender Information Value Date Recorded Sex Assigned at Not on file Legal Sex Male 3:26 PM CDT Gender Identity Not on file Sexual Orientation Not on file documented as of this encounter Miscellaneous Notes * Cerner Conversion Note - Juan Summers MD - 10/24/2019 11:45 AM APPLICATIONS CHEMIST Final Discharge Planning Entered On: 10/24/2019 11:45 EST Performed On: 10/24/2019 11:45 EST by LINDA BARRY, Circuitry Negative Inspector Final Discharge Planning Discharge Arrangements : Patient Post-Acute Information Patient Name: JHOANA BRAMBILA Gender: Male : [birth year] Age: 64 Years No Post-Acute Placement(s) Listed No Post-Acute Service(s) Listed No [place] Referral(s) Listed Transportation Needs : Family/Friend Is Patient High/Moderate Readmission Risk? : No Discharge To Care Management : Home/Residential/Jail or Self Care -01 LINDA BARRY, Circuitry Negative Inspector - 10/24/2019 11:45 EST Electronically signed by Mima, [facility] Conversion Wind Turbine Design Engineer Cerner at 03/07/2023 10:11 AM CDT documented in this encounter Plan of Treatment Not on file documented as of this encounter Visit Diagnoses Not on filedocumented in this encounter Care Teams Housekeeping And Laundry Team Leader Relationship Specialty Start Date End Date Tee Wade MD [address] [place] [address] [address] [place] [address] PCP - General Neurology 03/07/23 Lennie Coates, PA-C [address] [place] [address] [address] [place] [address] Cardiology 03/11/24 documented as of this encounter
--- OUTSIDE RECORDS SUMMARY | 2025-10-16 13:06 | XMS_ITS | Encounter Summary ---
Author Organization [employer] ([place], [place], [place], [place], [place]) Address [address] [place] [address] Care Team Providers Care Carbonation Tester Name Role Phone Tee Wade MD Primary Care Provider + [phone] Lennie Coates PA-C Unavailable Encounter Details Date Type Department Care Team (Late st Contact Info) Description 10/23/2019 Transcribed Document [facility] [place] Family Medicine [address] [place] [address] ProviderJuan MD [address] [place] [address] Social History Tobacco Use Types Packs/Day Years Used Date Smoking Tobacco: Never Assessed Sex and Gender Information Value Date Recorded Sex Assigned at Not on file Legal Sex Male 3:26 PM CDT Gender Identity Not on file Sexual Orientation Not on file documented as of this encounter Miscellaneous Notes * Cerner Conversion Note - Juan Summers MD - 10/23/2019 9:30 AM ENTEROSTOMAL THERAPY NURSE Pain Assessment Entered On: 10/23/2019 15:57 EST [...] on filedocumented in this encounter Care Teams Carbonation Tester Relationship Specialty Start Date End Date Tee Wade MD [address] [facility] [address] [place] [address] PCP - General Neurology 03/07/23 Lennie Coates, PA-C [address] [place] [address] [address] [place] [address] Cardiology 03/11/24 documented as of this encounter
--- OUTSIDE RECORDS SUMMARY | 2025-10-16 13:06 | XMS_ITS | Data Portability ---
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 Plan of Treatment Reminders Order Date Submit Date Provider Last Modified By Organization Details Last Modified Time Details Appointments RECHECK 2025 02:45P M LEIGHA LOMBARDI MD Not available Not available Not available Lab urinalysi s panel, auto [id number] [facility], [address], [address], [place], [address], 10/29/2023 21:44:33 PSA, serum or plasma 2022 023 [id number] [facility], [address], [address], [place], [address], 10/29/2023 21:44:34 urinalysi s panel, auto 2021 022 [email or web address] [facility], [address], [address], [place], [address], 08/21/2022 15:13:49 PSA, serum or plasma 2021 022 GHAZAL [facility], [address], [address], [place], [address], 08/21/2022 15:46:48 PSA, serum or plasma 2020 021 [facility], [address], [address], [place], [address], 10/18/2021 12:10:00 urinalysi s panel, auto 2020 021 [address] [facility], [address], [address], [place], [address], 04/20/2021 16:37:26 PSA, serum or plasma 2020 021 [facility], [address], [address], [place], [address], 04/20/2021 16:57:54 PSA, serum or plasma 2019 020 03 [facility], [address], [address], [place], [address], 10/18/2020 14:02:39 urinalysi s panel, auto [address] [facility], [address], [address], [place], [address], 10/18/2020 14:02:39 Referral None recorded. Procedures None recorded. Surgeries None recorded. Imaging None recorded. Medication Orders potassium citrate ER 10 mEq (1,080 mg) tablet,ex tended release [address] [facility], [address], [address], 04/21/2021 18:04:27 Patient TargetsNo targets recorded. Patient InstructionsNo instructions recorded. Reason for Referral None Reported. Results Created Date Observation Date Name Description Value Unit Range Abnormal Flag Note LastModifiedBy Organization Detail LastModifiedTime 04/20/20 21 04/20/2021 urina lysis panel , auto Unknown Analyte Clean Catch Not Available [facility] [address], [address], 04/20/2021 14:47:36 04/20/2004/20/2021 urina lysis panel , auto Unknown Analyte Yellow Not Available [facility] [address], [address], 04/20/2021 14:47:36 04/20/2004/20/2021 urina lysis panel , auto Unknown Analyte Clear Not Available [facility] [address], [address], 04/20/2021 14:47:36 04/20/2004/20/2021 urina lysis panel , auto Unknown Analyte 1.015 Not Available [facility] [address], [address], 04/20/2021 14:47:36 04/20/2004/20/2021 urina lysis panel , auto Unknown Analyte 1.003- 1.035 Not Available [facility] [address], [address], 04/20/2021 14:47:36 04/20/20 21 04/20/2021 urina lysis panel , auto Unknown Analyte 6.0 Not Available [facility] [address], [place], [address], 04/20/2021 14:47:36 04/20/2004/20/2021 urina lysis panel , auto Unknown Analyte 5.0-8. 0 Not Available [facility] [address], [place], [address], 04/20/2021 14:47:36 04/20/20 21 04/20/2021 urina lysis panel , auto Unknown Analyte Negati ve Not Available [facility] [address], [place], [address], 04/20/2021 14:47:36 04/20/2004/20/2021 urina lysis panel , auto Unknown Analyte Negati ve Not Available [facility] [address], [place], [address], 04/20/2021 14:47:36 04/20/2004/20/2021 urina lysis panel , auto Unknown Analyte Negati ve Not Available [facility] [address], [place], [address], 04/20/2021 14:47:36 04/20/2004/20/2021 urina lysis panel , auto Unknown Analyte Negati ve Not Available [facility] [address] [place] [address] Rd [address], [place], [address], 04/20/2021 14:47:36 04/20/20 21 04/20/2021 urina lysis panel , auto Unknown Analyte Negati ve Not Available [facility] [address], [place], [address], 04/20/2021 14:47:36 04/20/20 21 04/20/2021 urina lysis panel , auto Unknown Analyte Negati ve Not Available [facility] [address], [place], [address], 04/20/2021 14:47:36 04/20/20 21 04/20/2021 urina lysis panel , auto Unknown Analyte Normal Not Available [facility] [address], [place], [address], 04/20/2021 14:47:36 04/20/20 21 04/20/2021 urina lysis panel , auto Unknown Analyte Normal Not Available [facility] [address], [place], [address], 04/20/2021 14:47:36 04/20/2004/20/2021 urina lysis panel , auto Unknown Analyte Negati ve Not Available [facility] [address], [place], [address], 04/20/2021 14:47:36 04/20/2004/20/2021 urina lysis panel , auto Unknown Analyte Negati ve Not Available [facility] [address], [address], 04/20/2021 14:47:36 04/20/20 21 04/20/2021 urina lysis panel , auto Unknown Analyte Normal Not Available [facility] [address], [address], 04/20/2021 14:47:36 04/20/20 21 04/20/2021 urina lysis panel , auto Unknown Analyte Normal 1 mg/dl Not Available [facility] [address], [place], [address], 04/20/2021 14:47:36 04/20/20 21 04/20/2021 urina lysis panel , auto Unknown Analyte Negati ve Not Available [facility] [address], [place], [address], 04/20/2021 14:47:36 04/20/20 21 04/20/2021 urina lysis panel , auto Unknown Analyte Negati ve Not Available [facility] [address], [place], [address], 04/20/2021 14:47:36 04/20/2004/20/2021 urina lysis panel , auto Unknown Analyte Negati ve Not Available [facility] [address], [place], [address], 04/20/2021 14:47:36 04/20/2004/20/2021 urina lysis panel , auto Unknown Analyte Negati ve Not Available [facility] [address], [place], [address], 04/20/2021 14:47:36 10/18/20 20 10/18/2020 urina lysis panel , auto Unknown Analyte Clean Catch Not Available [facility] [address], [place], [address], 10/18/2020 13:53:07 10/18/20 20 10/18/2020 urina lysis panel , auto Unknown Analyte Yellow Not Available [facility] [address], [place], [address], 10/18/2020 13:53:07 10/18/20 20 10/18/2020 urina lysis panel , auto Unknown Analyte Clear Not Available [facility] [address], [place], [address], 10/18/2020 13:53:07 10/18/20 20 10/18/2020 urina lysis panel , auto Unknown Analyte 1.020 Not Available [facility] [address], [place], [address], 10/18/2020 13:53:07 10/18/20 20 10/18/2020 urina lysis panel , auto Unknown Analyte 1.003- 1.035 Not Available [facility] [address], [place], [address], 10/18/2020 13:53:07 10/18/20 20 10/18/2020 urina lysis panel , auto Unknown Analyte 5.0 Not Available [facility] [address], [place], [address], 10/18/2020 13:53:07 10/18/20 20 10/18/2020 urina lysis panel , auto Unknown Analyte 5.0-8. 0 Not Available [facility] [address], [address], 10/18/2020 13:53:07 10/18/20 20 10/18/2020 urina lysis panel , auto Unknown Analyte Negati ve Not Available [facility] [address], [place], [address], 10/18/2020 13:53:07 10/18/2010/18/2020 urina lysis panel , auto Unknown Analyte Negati ve Not Available [facility] [address], [place], [address], 10/18/2020 13:53:07 10/18/2010/18/2020 urina lysis panel , auto Unknown Analyte Negati ve Not Available [facility] [address] [place] [address] [address], [place], [address], 10/18/2020 13:53:07 10/18/2010/18/2020 urina lysis panel , auto Unknown Analyte Negati ve Not Available [facility] [address] [place] [address] [address], [place], [address], 10/18/2020 13:53:07 10/18/2010/18/2020 urina lysis panel , auto Unknown Analyte Negati ve Not Available [facility] [address] [place] [address] [address], [place], [address], 10/18/2020 13:53:07 10/18/2010/18/2020 urina lysis panel , auto Unknown Analyte Negati ve Not Available [facility] [address] [place] [address] [address], [place], [address], 10/18/2020 13:53:07 10/18/2010/18/2020 urina lysis panel , auto Unknown Analyte Normal Not Available [facility] [address], [place], [address], 10/18/2020 13:53:07 10/18/20 20 10/18/2020 urina lysis panel , auto Unknown Analyte Normal Not Available [facility] [address], [place], [address], 10/18/2020 13:53:07 10/18/2010/18/2020 urina lysis panel , auto Unknown Analyte Negati ve Not Available [facility] [address], [place], [address], 10/18/2020 13:53:07 10/18/2010/18/2020 urina lysis panel , auto Unknown Analyte Negati ve Not Available [facility] [address], [place], [address], 10/18/2020 13:53:07 10/18/20 20 10/18/2020 urina lysis panel , auto Unknown Analyte Normal Not Available [facility] [address], [place], [address], 10/18/2020 13:53:07 10/18/20 20 10/18/2020 urina lysis panel , auto Unknown Analyte Normal 1 mg/dl Not Available [facility] [address], [place], [address], 10/18/2020 13:53:07 10/18/20 20 10/18/2020 urina lysis panel , auto Unknown Analyte Negati ve Not Available [facility] [address], [place], [address], 10/18/2020 13:53:07 10/18/20 20 10/18/2020 urina lysis panel , auto Unknown Analyte Negati ve Not Available [facility] [address], [place], [address], 10/18/2020 13:53:07 10/18/20 20 10/18/2020 urina lysis panel , auto Unknown Analyte Negati ve Not Available [facility] [address], [place], [address], 10/18/2020 13:53:07 10/18/20 20 10/18/2020 urina lysis panel , auto Unknown Analyte Negati ve Not Available [facility] [address], [address], 10/18/2020 13:53:07 10/18/20 20 10/18/2020 PSA, serum or plasm a PSA <0.04 NG/mL 0.0 - 4.0 Not Available [facility] [address], [address], 10/18/2020 13:52:42 04/20/20 21 04/20/2021 PSA, serum or plasm a PSA <0.04 NG/mL 0.0 - 4.0 Not Available [facility] [address], [address], 04/20/2021 14:48:22 10/10/20 21 10/10/2021 PSA, serum or plasm a PSA <0.04 NG/mL 0.0 - 4.0 Not Available [facility] [address], [place], [address], 10/10/2021 11:55:58 08/21/2008/21/2022 PSA, serum or plasm a PSA <0.04 NG/mL 0.0 - 4.0 Not Available [facility] [address], [place], [address], 08/21/2022 13:40:35 08/21/2008/21/2022 urina lysis panel , auto Unknown Analyte Clean Catch Not Available [facility] [address], [place], [address], 08/21/2022 13:39:48 08/21/2008/21/2022 urina lysis panel , auto Unknown Analyte Yellow Not Available [facility] [address], [address], 08/21/2022 13:39:48 08/21/2008/21/2022 urina lysis panel , auto Unknown Analyte Clear Not Available [facility] [address], [address], 08/21/2022 13:39:48 08/21/20 22 08/21/2022 urina lysis panel , auto Unknown Analyte 1.020 Not Available [facility] [address], [address], 08/21/2022 13:39:48 08/21/20 22 08/21/2022 urina lysis panel , auto Unknown Analyte 1.003- 1.035 Not Available [facility] [address] [place] [address] [address], [place], [address], 08/21/2022 13:39:48 08/21/2008/21/2022 urina lysis panel , auto Unknown Analyte 5.0 Not Available [facility] [address], [place], [address], 08/21/2022 13:39:48 08/21/2008/21/2022 urina lysis panel , auto Unknown Analyte 5.0-8. 0 Not Available [facility] [address] [place] [address] [address], [place], [address], 08/21/2022 13:39:48 08/21/2008/21/2022 urina lysis panel , auto Unknown Analyte 25 Miya/ul Trace Not Available [facility] [address], [place], [address], 08/21/2022 13:39:48 08/21/20 22 08/21/2022 urina lysis panel , auto Unknown Analyte Negati ve Not Available [facility] [address], [place], [address], 08/21/2022 13:39:48 08/21/20 22 08/21/2022 urina lysis panel , auto Unknown Analyte Negati ve Not Available [facility] [address] [place] [address] [address], [place], [address], 08/21/2022 13:39:48 08/21/20 22 08/21/2022 urina lysis panel , auto Unknown Analyte Negati ve Not Available [facility] [address], [place], [address], 08/21/2022 13:39:48 08/21/2008/21/2022 urina lysis panel , auto Unknown Analyte 30 mg/dl (+) Not Available [facility] [address], [place], [address], 08/21/2022 13:39:48 08/21/2008/21/2022 urina lysis panel , auto Unknown Analyte Negati ve Not Available [facility] [address] [place] [address] [address], [place], [address], 08/21/2022 13:39:48 08/21/2008/21/2022 urina lysis panel , auto Unknown Analyte Normal Not Available [facility] [address], [place], [address], 08/21/2022 13:39:48 08/21/20 22 08/21/2022 urina lysis panel , auto Unknown Analyte Normal Not Available [facility] [address], [place], [address], 08/21/2022 13:39:48 08/21/2008/21/2022 urina lysis panel , auto Unknown Analyte Negati ve Not Available [facility] [address] [place] [address] [address], [place], [address], 08/21/2022 13:39:48 08/21/20 22 08/21/2022 urina lysis panel , auto Unknown Analyte Negati ve Not Available [facility] [address], [place], [address], 08/21/2022 13:39:48 08/21/2008/21/2022 urina lysis panel , auto Unknown Analyte 1 mg/dl Not Available [facility] [address] [place] [address] [address], [place], [address], 08/21/2022 13:39:48 08/21/2008/21/2022 urina lysis panel , auto Unknown Analyte Normal 1 mg/dl Not Available [facility] [address], [place], [address], 08/21/2022 13:39:48 08/21/2008/21/2022 urina lysis panel , auto Unknown Analyte 1 mg/dl (+) Not Available [facility] [address] [place] [address] [address], [place], [address], 08/21/2022 13:39:48 08/21/20 22 08/21/2022 urina lysis panel , auto Unknown Analyte Negati ve Not Available [facility] [address] [place] [address] [address], [place], [address], 08/21/2022 13:39:48 08/21/20 22 08/21/2022 urina lysis panel , auto Unknown Analyte Negati ve Not Available [facility] [address] [place] [address] [address], [place], [address], 08/21/2022 13:39:48 08/21/20 22 08/21/2022 urina lysis panel , auto Unknown Analyte Negati ve Not Available [facility] [address], [place], [address], 08/21/2022 13:39:48 10/29/2010/29/2023 PSA, serum or plasm a PSA <0.04 NG/mL 0.0 - 4.0 Not Available [facility] [address], [place], [address], 10/29/2023 14:13:50 10/29/2010/29/2023 urina lysis panel , auto Unknown Analyte Clean Catch Not Available [facility] [address], [place], [address], 10/29/2023 13:47:51 10/29/2010/29/2023 urina lysis panel , auto Unknown Analyte Yellow Not Available [facility] [address], [place], [address], 10/29/2023 13:47:51 10/29/20 23 10/29/2023 urina lysis panel , auto Unknown Analyte Clear Not Available [facility] [address], [place], [address], 10/29/2023 13:47:51 10/29/2010/29/2023 urina lysis panel , auto Unknown Analyte 1.020 Not Available [facility] [address], [place], [address], 10/29/2023 13:47:51 10/29/20 23 10/29/2023 urina lysis panel , auto Unknown Analyte 1.003- 1.035 Not Available [facility] [address], [place], [address], 10/29/2023 13:47:51 10/29/20 23 10/29/2023 urina lysis panel , auto Unknown Analyte 5.0 Not Available [facility] [address] [place] [address] [address], [place], [address], 10/29/2023 13:47:51 10/29/2010/29/2023 urina lysis panel , auto Unknown Analyte 5.0-8. 0 Not Available [facility] [address], [place], [address], 10/29/2023 13:47:51 10/29/20 23 10/29/2023 urina lysis panel , auto Unknown Analyte 25 Miya/ul Trace Not Available [facility] [address] [place] [address] [address], [place], [address], 10/29/2023 13:47:51 10/29/20 23 10/29/2023 urina lysis panel , auto Unknown Analyte Negati ve Not Available [facility] [address] [place] [address] [address], [place], [address], 10/29/2023 13:47:51 10/29/20 23 10/29/2023 urina lysis panel , auto Unknown Analyte Negati ve Not Available [facility] [address] [place] [address] [address], [place], [address], 10/29/2023 13:47:51 10/29/20 23 10/29/2023 urina lysis panel , auto Unknown Analyte Negati ve Not Available [facility] [address], [place], [address], 10/29/2023 13:47:51 10/29/2010/29/2023 urina lysis panel , auto Unknown Analyte 30 mg/dl (+) Not Available [facility] [address], [place], [address], 10/29/2023 13:47:51 10/29/20 23 10/29/2023 urina lysis panel , auto Unknown Analyte Negati ve Not Available [facility] [address], [place], [address], 10/29/2023 13:47:51 10/29/20 23 10/29/2023 urina lysis panel , auto Unknown Analyte Normal Not Available [facility] [address], [place], [address], 10/29/2023 13:47:51 10/29/2010/29/2023 urina lysis panel , auto Unknown Analyte Normal Not Available [facility] [address], [place], [address], 10/29/2023 13:47:51 10/29/2010/29/2023 urina lysis panel , auto Unknown Analyte Negati ve Not Available [facility] [address], [place], [address], 10/29/2023 13:47:51 10/29/20 23 10/29/2023 urina lysis panel , auto Unknown Analyte Negati ve Not Available [facility] [address], [place], [address], 10/29/2023 13:47:51 10/29/2010/29/2023 urina lysis panel , auto Unknown Analyte Normal Not Available [facility] [facility] [address], [place], [address], 10/29/2023 13:47:51 10/29/2010/29/2023 urina lysis panel , auto Unknown Analyte Normal 1 mg/dl Not Available [facility] [address], [place], [address], 10/29/2023 13:47:51 10/29/20 23 10/29/2023 urina lysis panel , auto Unknown Analyte Negati ve Not Available [facility] [address], [place], [address], 10/29/2023 13:47:51 10/29/2010/29/2023 urina lysis panel , auto Unknown Analyte Negati ve Not Available [facility] [address], [place], [address], 10/29/2023 13:47:51 10/29/2010/29/2023 urina lysis panel , auto Unknown Analyte Negati ve Not Available [facility] [address], [place], [address], 10/29/2023 13:47:51 10/29/20 23 10/29/2023 urina lysis panel , auto Unknown Analyte Negati ve Not Available [facility] [address], [place], [address], 10/29/2023 13:47:51 Result Notes None recorded. Problems Name Problem SNOMED Code Status Onset Date Resolution Date Notes Provider Name and Address Organization Details Recorded Time Left lower quadrant pain 616232730 Active 2015 From Automated Load;Provi sangeetha: Darrell Win;Statu s: Active Not Available [facility] 7 06:46:12 Gastroint estinal tract finding Active 2015 From Automated Load;Provi sangeetha: Darrell Win;Statu s: Active Not Available [facility] 7 07:19:53 Incomplet e passage of stool 288768425 Active 2015 From Automated Load;Provi sangeetha: Darrell Win;Statu s: Active Not Available [facility] 7 07:34:02 Abdominal bloating 050507538 Active 2015 From Automated Load;Provi sangeetha: Darrell Win;Statu s: Active Not Available [facility] 7 07:48:06 Problem Notes None recorded. Procedures Surgical History Date Name Laterality Status Provider Name and Address Organization Details Recorded Time 10/23/20 19 PROSTATECTOMY, LAPAROSCOPIC, ROBOTIC (SURG) completed Marcelino Hsieh [facility] 10/24/2019 09:09:24 Cholecystectomy completed Murelene Damien [facility] 02/16/2017 15:23:07 Imaging Results None recorded. Procedure Notes None recorded. Medical Equipment None Reported. Allergies Allergen ID Allergen Name Allergen Category Reaction Reaction Severity Criticality Documentation Date Start Date Code Code System Note Provider Name and Address Organization Details Recorded Time 011273 nabumeton e medicatio n chest pain severe Not available 03/09/20172016 96516 RxNorm Deseriguy oh [facility] 7 14:26:05 Medications Name Sig Start Date [...] Updated DateTime 04/20/2021 180.34 cm 25.8 kg/m2 24738.59 g Ameena Sagastumesarina [facility] 04/20/2021 14:47:15 Date Recorded Body height Body mass index (BMI) Body weight Provider Name and Address Organization Details Last Updated DateTime 10/10/2021 180.34 cm 25.8 kg/m2 23390.59 g Priya Aguilar [facility] 10/10/2021 11:55:13 Date Recorded Body height Body mass index (BMI) Body weight Provider Name and Address Organization Details Last Updated DateTime 10/18/2020 180.34 cm 25.8 kg/m2 64364.59 Priya Aguilar [facility] 10/18/2020 13:52:23 Date Recorded Body weight Body mass index (BMI) Body height Provider Name and Address Organization Details Last Updated DateTime 10/29/2023 82883.77 g 26.1 kg/m2 180.34 cm Linn Ashley [facility] 10/29/2023 13:35:28 Social History Question Answer Notes LastModified by Organizat ion Details LastModified Time Tobacco Smoking Status Never Smoker Priya Aguilar [facility] 06/20/2019 14:08:07 How Much Tobacco Do You Chew? None [email or web address] Information not available 12/11/2018 Marital Status [email or web address] Informatio n not available 02/16/2017 What Was The Date Of Your Most Recent Tobacco Screening? 12/11/2018 8 Information not available 01/06/2020 How Much Tobacco Do You Smoke? No [email or web address] Information not available 08/22/2019 Has Tobacco Cessation Counseling Been Provided? No [email or web address] Information not available 10/10/2021 Have You Recently Traveled Abroad? No [email or web address] Information not available 10/10/2021 Sex: Unknown Functional Status Question Answer Note LastModified by Organizat ion Details LastModified Time Do you use any illicit or recreational drugs? No [email or web address] Information not available 10/10/2021 Do you or have you ever used any other forms of tobacco or nicotine? No [email or web address] Information not available 10/10/2021 What is your level of alcohol consumption? None [email or web address] Information not available 10/18/2020 Mental Status None [...] ICD10 Code Diagnosis IMO Codes Diagnosis Note [id number] LEIGHA LOMBARDI MD [facility] [address] [place] [address] 02/16/2017 14:39:58 02/16/2017 16:16:37 Chronic prostatitis 57063956 N41.1 follow-up 3 weeks with PSA [id number] LEIGHA LOMBARDI MD [facility] [address] [address] 03/09/2017 13:50:51 03/12/2017 09:01:26 Chronic prostatitis 34533421 N41.1 follow-up 6 weeks with PSA Prostate s pecific antigen above reference range 423198649 R97.20 [id number] LEIGHA LOMBARDI MD [facility] [address] [place] [address] 04/20/2017 15:03:00 04/23/2017 09:18:47 Chronic prostatitis 73872096 N41.1 follow-up 6 Months Prostate s pecific antigen above reference range 265380972 R97.20 [id number] LEIGHA LOMBARDI MD [facility] [address] [address] 09/28/2017 10:06:36 09/28/2017 11:47:46 Chronic prostatitis N41.1 follow-up 3 months. He will take 2 months of doxycyclin e. Prostate s pecific antigen above reference range 913408017 R97.20 repeat PSA and follow-up [id number] LEIGHA LOMBARDI MD [facility] [address] [address] 12/28/2017 10:24:15 12/31/2017 09:16:21 Chronic prostatitis 84242251 N41.1 6 months Benign pro static hyperplasia 055578145 N40.0 [id number] LEIGHA LOMBARDI MD [facility] [address],[place] [address] 02/25/2018 10:42:12 02/25/2018 13:12:53 Prostate specific antigen above reference range 374862133 R97.20 repeat PSA Chronic prostatitis 19899 N41.1 6 months [id number] LEIGHA LOMBARDI MD [facility] [address] [address] 08/16/2018 08:43:51 08/16/2018 10:30:44 Chronic prostatitis N41.1 as above Prostate s pecific antigen above reference range 616687976 R97.20 repeat PSAat follow-up in 1 month [id number] LEIGHA LOMBARDI MD [facility] [address] [address] 09/30/2018 11:49:36 09/30/2018 12:44:14 Prostate specific antigen above reference range 717592776 R97.20 follow-up 2 months with repeat PSA Chronic prostatitis 1989 5009 N41.1 as above [id number] LEIGHA LOMBARDI MD [facility] [address] 0 12/11/2018 15:23:45 12/11/2018 16:49:04 Prostate specific antigen above reference range 179288650 R97.20 follow-up 6 months with repeat PSA Chronic prostatitis 1989 5009 N41.1 as above [id number] LEIGHA LOMBARDI MD [facility] [address] [address] 06/20/2019 13:25:30 06/20/2019 14:29:27 Prostate specific antigen above reference range 399063673 R97.20 follow-up 1 months with repeat PSA Chronic prostatitis 1990 5009 N41.1 as above [id number] LEIGHA LOMBARDI MD [facility] [address] [address] 07/23/2019 13:45:44 07/23/2019 14:55:10 Prostate specific antigen above reference range 700587732 R97.20 we will arrange for transrecta l ultrasound and needle biopsy the prostate under local monitored. We will use cefuroxime in place of Levaquin as he has not tolerated the Cipro very well. discussion time 30 minutes [id number] LEIGHA LOMBARDI MD SURGERY SCHEDULE [address] [place] [address] 07/30/2019 08:15:56 07/30/2019 08:18:05 [id number] LEIGHA LOMBARDI MD [facility] [address] [address] 08/22/2019 14:34:05 08/22/2019 15:14:53 Malignant neoplasm of prostate 832353950 C61 plan as above we will arrange for robotic-as sisted laparoscop ic radical prostatect merrill with left-sided pelvic lymph node dissection .discussio n time 25 minutes [id number] MD [facility] [address] [place] [address] 11/03/2019 13:12:38 11/03/2019 14:18:17 Malignant neoplasm of prostate 987546786 C61 follow-up 3-4 weeks with PSA [id number] LEIGHA LOMBARDI MD [facility] [address] [address] 11/24/2019 12:37:30 11/24/2019 13:38:39 History of malignant neoplasm of prostate 404778630 Z85.46 follow-up 3 months with PSA Secondary erectile dysfunction 620255803 N52.37 plan as above [id number] LEIGHA LOMBARDI MD [facility] [address] [address] 01/19/2020 11:43:42 01/19/2020 12:43:44 Dysuria 77294171 R30.9 Malignant neoplasm of prostate 053187287 C61 follow-up 1 month with PSA [id number] LEIGHA LOMBARDI MD [facility] [address] [address] 03/29/2020 15:00:20 03/29/2020 15:58:26 Malignant neoplasm of prostate 466667823 C61 follow-up 3 month with PSA Secondary erectile dysfunction 339356252 N52.37 plan as above [id number] LEIGHA LOMBARDI MD [facility] [address] [address] 06/25/2020 12:41:49 06/25/2020 13:45:10 Malignant neoplasm of prostate 019735982 C61 follow-up 3 month with PSA Secondary erectile dysfunction 694869095 N52.37 plan as above [id number] LEIGHA LOMBARDI MD [facility] [address] [address] 10/18/2020 13:09:33 10/18/2020 14:40:18 History of malignant neoplasm of prostate 060607556 Z85.46 follow-up 6 months with PSA Secondary erectile dysfunction 687628436 N52.37 plan as above [id number] LEIGHA LOMBARDI MD [facility] [address] [address] 04/20/2021 13:43:00 04/20/2021 15:02:21 Urolithiasis 96583552 N20.9 History of malignant neoplasm of prostate 423562498 Z85.46 follow-up 6 months with PSA Secondary erectile dysfunction 419359750 N52.37 plan as above [id number] LEIGHA LOMBARDI MD [facility] [address] [address] 10/10/2021 11:11:19 10/10/2021 12:43:20 History of malignant neoplasm of prostate 235140917 Z85.46 follow-up 6 months with PSA [id number] LEIGHA LOMBARDI MD [facility] [address] [place] [address] 08/21/2022 13:28:43 08/21/2022 14:20:39 History of malignant neoplasm of prostate 516044946 Z85.46 follow-up 6 months with PSA Urolithiasis 57969861 N2 0.9 observed. [id number] LEIGHA LOMBARDI MD [facility] [address] [facility] [facility] [address] 10/29/2023 13:26:03 10/29/2023 14:02:39 History of malignant neoplasm of prostate 947512450 Z85.46 follow-up 6 months with PSA Contractur e of neck of urinary bladder 4083602010 9103 N32.0 Plan as above cystoscopy with possible interventi on under anesthesia Erectile d ysfunction following radical prostatectomy 1000182399 96190 N52.31 As above Health Concerns Section Related Observation LastModified by Organization Detai ls LastModified Time None Recorded Concern Status LastModified by Organization Details LastModified Time None Recorded Advance Directives Directive None Recorded Payers Insurance Date Sequence Insurance Name Policy Number Policy Oro Covered Member ID Oro Member ID Guarantor Name 10/29/2023 1 [place] [id number] Kevin Haines [id number] Kevin Haines 09/22/2025 2 [place] [id number] Kevin Haines [id number] Kevin Haines 09/22/2025 1 [place] Kevin Haines [id number] Kevin Haines Notes Date Note Type [...] PSA today was nondetectable. LEIGHA LOMBARDI MD [address] [place] [address], [phone], [facility] 10/18/2020 14:03:15 04/20/2021 text/html Patient is here history of prostate carcinoma treated with robotic prostatectomy 18 months ago. He has no incontinence. He has had return of significant spontaneous erection function. He is not recently tried sildenafil. PSA today was Nondetectable. He is also having history of urolithiasis. He has passed several small stones recently. We discussed adding potassium citrate. LEIGHA LOMBARDI MD [address] [place] [address], [phone], [facility] 04/21/2021 19:38:42 10/10/2021 text/html patient is now 2 years following robotic prostatectomy. PSA today is pending. He has some spontaneous erectile function but not complete rigidity. He is not interested in additional therapy at this time. He has no incontinence. Assuming his PSA is nondetectable we will follow [facility] in [facility]/10[facility] 16:57:52 08/21/2022 text/html patient is here [...] to continue current therapy. LEIGHA LOMBARDI MD [address] [place] [address], [phone], [facility] 08/21/2022 15:14:24 10/29/2023 text/html Patient is here [...] and will try that. LEIGHA LOMBARDI MD [facility] [place], [address], [facility] 10/29/2023 21:45:09
--- OUTSIDE RECORDS SUMMARY | 2025-10-16 13:06 | XMS_ITS | Referral Summary ---
Author Organization [employer] ([place], [place], [place], [place], [place]) Address [address] [place] [address] Care Team Providers Care Chamber Walker Name Role Phone Tee Wade MD Primary Care Provider [phone] Lennie Coates PA-C Unavailable [phone] Allergies Active Allergy Reactions Criticality Noted Date Comments [facility] 02/16/2017 Other reaction(s): Chest Pain, Nausea [...] Date Dennis rded Speak language other than Khmer at home Not on file 12/07/2023 Want [...] BLUE CROSS/BLUE SHIELD MEDICARE PART A B [facility] SUPP Care Teams Chamber Walker Relationship Specialty Start Date End Date Tee Wade MD [address] [facility] [address] [place] [address] PCP - General Neurology 03/07/23 Lennie Coates, PA-C [address] [place] [address] [address] [place] [address] Cardiology 03/11/24
--- OUTSIDE RECORDS SUMMARY | 2025-10-16 13:06 | XMS_ITS | Encounter Summary ---
Author Organization [employer] ([place], [place], [place], [place], [place]) Address [address] [place] [address] Care Team Providers Care Commercial Insurance Underwriter Name Role Phone Tee Wade MD Primary Care Provider + [phone] Lennie Coates PA-C Unavailable [phone] Encounter Details Date Type Department Care Team (Late st Contact Info) Description 10/24/2019 Transcribed Document [facility] Family Medicine [address] [place] [address] ProviderJuan MD [address] [place] [address] Social History Tobacco Use Types Packs/Day Years Used Date Smoking Tobacco: Never Assessed Sex and Gender Information Value Date Recorded Sex Assigned at Not on file Legal Sex Male 3:26 PM CDT Gender Identity Not on file Sexual Orientation Not on file documented as of this encounter Miscellaneous Notes * Cerner Conversion Note - Juan Summers MD - 10/24/2019 12:30 PM DIRECTOR INDUSTRIAL RELATIONS UM Authorization Entered On: 10/24/2019 12:32 EST Performed On: 10/24/2019 12:30 EST by TAMIKO HUERTAS RN Primary Insurance Authorization Authorization and Policy Numbers : Insurance 1 Health Plan: [employer] Policy Number: [id number] Authorization Number: Insurance Primary Name : [facility] Policy Number: [id number] Authorization Comments-Primary : Pt not precerted for IP surgery, the CPT code 53596 is for out pt surgery. Pt has d/c order on chart, Called MD office spoke to Marcelino and requested her to notify MD/oral surgery physician. Awaiting callback Historical Authorization Comments-Primary : No Authorization Comments Found TAMIKO HUERTAS, RN - 10/24/2019 12:30 EST Electronically signed by [facility] Conversion Reversal Print Inspector Cerner at 03/07/2023 10:18 AM CDT documented in this encounter Plan of Treatment Not on file documented as of this encounter Visit Diagnoses Not on filedocumented in this encounter Care Teams Commercial Insurance Underwriter Relationship Specialty Start Date End Date Tee Wade MD [address] [facility] [address] [place] [address] PCP - General Neurology 03/07/23 Lennie Coates PA-C [address] [place] [address] [address] [place] [address] Cardiology 03/11/24 documented as of this encounter
--- OUTSIDE RECORDS SUMMARY | 2025-10-16 13:06 | XMS_ITS | Encounter Summary ---
Author Organization [email or web address] ([place], [place], [place], [place], [place]) Address [address] [place] [address] Care Team Providers Care Gore Maker Name Role Phone Tee Wade MD Primary Care Provider + [phone] Lennie Coates PA-C Unavailable [phone] Encounter Details Date Type Department Care Team (Late st Contact Info) Description 10/23/2019 Transcribed Document [facility] Family Medicine [address] [place] [address] ProviderJuan MD [address] [place], [place] [address] Social History Tobacco Use Types Packs/Day Years Used Date Smoking Tobacco: Never Assessed Sex and Gender Information Value Date Recorded Sex Assigned at Not on file Legal Sex Male 3:26 PM CDT Gender Identity Not on file Sexual Orientation Not on file documented as of this encounter Miscellaneous Notes * Cerner Conversion Note - Juan Summers MD - 10/23/2019 8:01 AM GENERAL MEDICAL PRACTITIONER Procedural Documentation Entered On: 10/23/2019 8:05 EST Performed On: 10/23/2019 8:01 EST by Jannette Reyes marketing programs specialist Documentation Procedure to be Performed : [...] Anesthesiologist Procedure Case Attendee Role 2 : marketing programs specialist Case Attendee 2 : Jannette Reyes RN Procedure Case Attendee Role 3 : marketing programs specialist Case Attendee 3 : ROBERTO PORTER [...] 10/23/2019 8:01 EST Electronically signed by [facility] Conversion Nailing Machine Operator Cerner at 03/07/2023 10:37 AM CDT documented in this encounter Plan of Treatment Not on file documented as of this encounter Visit Diagnoses Not on filedocumented in this encounter Care Teams Gore Maker Relationship Specialty Start Date End Date Tee Wade MD [address] [address] PCP - General Neurology 03/07/23 Lennie Coates PALoveC [address] [facility] [place] [address] Cardiology 03/11/24 documented as of this encounter
--- OUTSIDE RECORDS SUMMARY | 2025-10-16 13:06 | XMS_ITS | Encounter Summary ---
Author Organization [employer] ([place], [place], [place], [place], [place]) Address [address] [place] [address] Care Team Providers Care Saddle Stitch Operator Name Role Phone Tee Wade MD Primary Care Provider + [phone] Lennie Coates PA-C Unavailable [phone] Encounter Details Date Type Department Care Team (Late st Contact Info) Description 10/23/2019 Transcribed Document [facility] [place] [address] [place] [address] ProviderJuan MD [address] [place], [place] [address] Social History Tobacco Use Types Packs/Day Years Used Date Smoking Tobacco: Never Assessed Sex and Gender Information Value Date Recorded Sex Assigned at Not on file Legal Sex Male 3:26 PM CDT Gender Identity Not on file Sexual Orientation Not on file documented as of this encounter Miscellaneous Notes * Cerner Conversion Note - Juan Summers MD - 10/23/2019 5:00 PM OUTSOLE COMPRESSOR Chart Check - Review Order Profile Entered [...] on filedocumented in this encounter Care Teams Saddle Stitch Operator Relationship Specialty Start Date End Date Tee Wade MD [address] [facility] [address] [place] [address] PCP - General Neurology 03/07/23 Lennie Coates PALoveC [address] [facility] [address] [place] [address] Cardiology 03/11/24 documented as of this encounter
--- OUTSIDE RECORDS SUMMARY | 2025-10-16 13:06 | XMS_ITS | Encounter Summary ---
Author Organization [employer] ([place], [place], [place], [place], [place]) Address [address] [place] [address] Care Team Providers Care Bobbin Drier Name Role Phone Tee Wade MD Primary Care Provider + [phone] Lennie Coates PA-C Unavailable [phone] Encounter Details Date Type Department Care Team (Late st Contact Info) Description 10/24/2019 Transcribed Document [facility] Family Medicine [facility] [place] [address] Juan Summers MD [address] [place] [address] Social History Tobacco Use Types Packs/Day Years Used Date Smoking Tobacco: Never Assessed Sex and Gender Information Value Date Recorded Sex Assigned at Not on file Legal Sex Male 3:26 PM CDT Gender Identity Not on file Sexual Orientation Not on file documented as of this encounter Miscellaneous Notes * Cerner Conversion Note - Juan Summers MD - 10/24/2019 8:48 AM DRY MILL OPERATOR DATE OF DISCHARGE: 10/24/2019 DISCHARGE DIAGNOSIS: Adenocarcinoma [...] Bactrim Double Strength b.i.d. through that time. /[id number] Ty Ghotra MD TDA/AQ / TDA / MODL /[id number] CC: Ty Ghotra MD Electronically signed by [facility] Conversion Notching Machine Operator Cerner at 03/07/2023 10:28 AM CDT documented in this encounter Plan of Treatment Not on file documented as of this encounter Visit Diagnoses Not on filedocumented in this encounter Care Teams Bobbin Drier Relationship Specialty Start Date End Date Tee Wade MD [address] [place] [address] PCP - General Neurology 03/07/23 Lennie Coates PA-C [address] [facility] [address] [place] [address] Cardiology 03/11/24 documented as of this encounter
--- OUTSIDE RECORDS SUMMARY | 2025-10-16 13:06 | XMS_ITS | Encounter Summary ---
Author Organization [employer] ([place], [place], [place], [place], [place]) Address [address] [place] [address] Care Team Providers Care Farm Crew Member Name Role Phone Tee Wade MD Primary Care Provider + [phone] Lennie Coates PA-C Unavailable [phone] Encounter Details Date Type Department Care Team (Late st Contact Info) Description 10/23/2019 Transcribed Document [facility] [place] Family Medicine [address] [place] [address] ProviderJuan MD [address] [place] [address] Social History Tobacco Use Types Packs/Day Years Used Date Smoking Tobacco: Never Assessed Sex and Gender Information Value Date Recorded Sex Assigned at Not on file Legal Sex Male 3:26 PM CDT Gender Identity Not on file Sexual Orientation Not on file documented as of this encounter Miscellaneous Notes * Cerner Conversion Note - Juan Summers MD - 10/23/2019 11:28 AM WORKFORCE MANAGEMENT CONSULTANT Pain Assessment Entered On: 10/24/2019 15:27 EST Performed On: 10/24/2019 10:48 EST by Jessica Oshea RN-Traveler Intervention Information: acetaminophen-HYDROcodone Performed by Jessica Oshea RN-Traveler on 10/24/2019 09:48:00 EST acetaminophen-HYDROcodone,1Tab Oral,Pain Pain Assessment Pain Assessment : Follow-up assessment Pain Scale Goal : 4 Pain Improved by Intervention : Yes Jessica Oshea RN-Traveler - 10/24/2019 15:27 EST documented in this encounter Plan of Treatment Not on file documented as of this encounter Visit Diagnoses Not on filedocumented in this encounter Care Teams Farm Crew Member Relationship Specialty Start Date End Date Tee Wade MD [address] [facility] [address] [place] [address] PCP - General Neurology 03/07/23 Lennie Coates, PA-C [address] [place] [address] [address] [place] [address] Cardiology 03/11/24 documented as of this encounter
--- OUTSIDE RECORDS SUMMARY | 2025-10-16 13:06 | XMS_ITS | Encounter Summary ---
Author Organization [employer] ([place], [place], [place], [place], [place]) Address [address] [place] [address] Care Team Providers Care Small Boat Engineer Name Role Phone Tee Wade MD Primary Care Provider + [phone] Lennie Coates PA-C Unavailable [phone] Encounter Details Date Type Department Care Team (Late st Contact Info) Description 10/23/2019 Transcribed Document [facility] [place] Family Medicine [address] [place] [address] ProviderJuan MD [address] [place] [address] Social History Tobacco Use Types Packs/Day Years Used Date Smoking Tobacco: Never Assessed Sex and Gender Information Value Date Recorded Sex Assigned at Not on file Legal Sex Male 3:26 PM CDT Gender Identity Not on file Sexual Orientation Not on file documented as of this encounter Miscellaneous Notes * Cerner Conversion Note - Juan Summers MD - 10/23/2019 6:00 AM SENIOR ELECTRICAL DESIGNER RX Interventions Entered On: 10/17/2019 11:30 EST [...] 10/17/2019 11:29 EST Electronically signed by Mima [facility] Conversion Wafer Fabricator Cerner at 03/07/2023 10:39 AM CDT documented in this encounter Plan of Treatment Not on file documented as of this encounter Visit Diagnoses Not on filedocumented in this encounter Care Teams Small Boat Engineer Relationship Specialty Start Date End Date Tee Wade MD [address] [facility] [address] [place] [address] PCP - General Neurology 03/07/23 Lennie Coates PA-C [address] [facility] [address] [place] [address] Cardiology 03/11/24 documented as of this encounter
--- OUTSIDE RECORDS SUMMARY | 2025-10-16 13:06 | XMS_ITS | Encounter Summary ---
Author Organization [employer] ([place], [place], [place], [place], [place]) Address [address] [place] [address] Care Team Providers Care Liquefaction Supervisor Name Role Phone Tee Wade MD Primary Care Provider + [phone] Lennie Coates PA-C Unavailable [phone] Encounter Details Date Type Department Care Team (Late st Contact Info) Description 10/23/2019 Transcribed Document [facility] [place] Family Medicine [address] [place] [address] ProviderJuan MD [address] [place] [address] Social History Tobacco Use Types Packs/Day Years Used Date Smoking Tobacco: Never Assessed Sex and Gender Information Value Date Recorded Sex Assigned at Not on file Legal Sex Male 3:26 PM CDT Gender Identity Not on file Sexual Orientation Not on file documented as of this encounter Miscellaneous Notes * Cerner Conversion Note - Juan Summers MD - 10/23/2019 9:01 AM DRAFTER ELECTRICAL [facility] Main OR IntraOp Summary Primary Physician: LEIGHA LOMBARDI MD-URO Finalized Date/Time: 10/26/19 10:56:42 Pt. Name: JHOANA HAINESO.B./Sex: 1955 Male Med Rec #: [id number] Physician: LEIGHA LOMBARDI MD-URO Financial #: [id number] Pt. Type: O Room/Bed: [facility]/ Admit/Disch: 10/24/19 12:26:00 - 10/24/19 12:40:00 Institution: [facility] IntraOp Case Attendance Entry 1 Entry 2 Entry 3 Case Attendee LEIGHA LOMBARDI GILBERT, DAVID M, A CLASS LINEMAN, AMALIA CARLOS MD-ANS -URO PRECISE WINDER-ANS Role Performed Surgeon/Proceduralist, PRECISE WINDER/Nurse Physical Ther Anesthesiologist of First Record Time In 10/23/19 [...] JIGNESH LING Robin A, Surgical TODD, JUDY Wash Rack Operator Role Performed Director Of Sales Support, First Scrub, First Scrub, Second Time In [...] HAGER SSI Poff, Janie, OSVALDO Role Performed Wash Rack Operator, Ancillary Wash Rack Operator, Ancillary Adobe Flex Developer, First Time In 10/23/19 08:27:00 10/23/19 08:27:00 [...] 11 Case Attendee Nilsa Fu, REGINE BLOCK, PRECISE WINDER Role Performed Adobe Flex Developer, First PRECISE WINDER/Nurse Physical Ther Time In 10/23/19 09:23:00 10/23/19 10:52:00 Time Out 10/23/19 09:45:00 10/23/19 11:20:00 Procedure Prostatectomy Radical Prostatectomy Radical Robotic, Lymph Node Robotic, Lymph Node Dissection Pelvic Dissection Pelvic Laparoscopi(Left) Laparoscopi(Left) Other Attendee Break relief Superficial Wound Closed By: Last Modified By: Mary Carmen Caro RN Poff, Janie, RN 10/23/19 09:47:22 10/23/19 10:52:27 [facility] IntraOp Case Attendance Audit 10/23/19 11:30:57 Geoscience Laboratory Technician: NILSON Modifier: NILSON 1 <+> Time Out [...] Lymph Node Dissection Pelvic Laparoscopi(Left) 10/23/19 11:20:22 Geoscience Laboratory Technician: NILSON Modifier: POFFJAN 11 <+> Time Out 11 <*> Procedure Prostatectomy Radical Robotic, Lymph Node Dissection Pelvic Laparoscopi(Left) 10/23/19 10:52:27 Geoscience Laboratory Technician: NILSON Modifier: POVAMSHIJAN <+> 11 Case Attendee <+> 11 Role Performed <+> 11 Time In <+> 11 Procedure <+> 11 Other Attendee 10/23/19 09:47:22 Geoscience Laboratory Technician: NILSON Modifier: NGOCJAN 1 <*> Procedure Prostatectomy [...] Time Out <+> 10 Procedure 10/23/19 09:12:34 Geoscience Laboratory Technician: NILSON Modifier: POFFJAN 1 <*> Procedure Prostatectomy [...] <+> 9 Role Performed <+> 9 Procedure [facility] IntraOp Case Times Entry 1 Patient In Room Time 10/23/19 08:27:00 Out Room Time 10/23/19 11:30:00 Anesthesia Start Time 10/23/19 08:27:00 Stop Time 10/23/19 11:30:00 Surgery / Procedure Times Start Time 10/23/19 09:01:00 Stop Time 10/23/19 11:21:00 Last Modified By: Mary Carmen Caro RN 10/23/19 11:21:33 [facility] IntraOp Case Times Audit 10/23/19 11:30:52 Geoscience Laboratory Technician: NILSON Modifier: POFFJAN <+> 1 Out Room Time <+> 1 Stop Time 10/23/19 11:21:33 Geoscience Laboratory Technician: NILSON Modifier: POFFJAN <+> 1 Stop Time [facility] IntraOp Cautery Entry 1 ESU Identification Cautery Type Monopolar ESU ID Number [id number] ID Type Hospital Number Cautery Settings Cut [...] By: Mary Carmen Caro RN 10/23/19 09:17:43 [facility] IntraOp Communication Entry 1 Entry 2 Communication To Family/Significant other Family/Significant other Comment PROCEDURE START UPDATE Communication By Mary Carmen Caro, Mary Carmen Syed RN Date and Time 10/23/19 09:01:00 10/23/19 10:08:00 Last Modified By: Mary Carmen Caro RN Poff, Janie, RN 10/23/19 09:18:28 10/23/19 10:08:23 [facility] IntraOp Communication Audit 10/23/19 10:08:23 Geoscience Laboratory Technician: NILSON Modifier: NILSON <+> 2 Communication By <+> 2 Date and Time <+> 2 Communication To <+> 2 Comment [facility] IntraOp Counts Verification Entry 1 Procedure Prostatectomy Radical Robotic, Lymph Node Dissection Pelvic Laparoscopi(Left) Count Info Count Type Sponge, Sharps, Instrument, Miscellaneous Counts Verification Baseline/pre-procedure Sequence Count Results Not Applicable Counts Performed By Count Performed By Rajiv Haro, Surgical (Scrub) Wash Rack Operator Count Performed By Mary Carmen Caro RN (RN) Last Modified By: Mary Carmen Caro RN 10/23/19 09:15:13 [facility] IntraOp Counts Final Entry 1 Procedure Prostatectomy Radical Robotic, Lymph Node Dissection Pelvic Laparoscopi(Left) Final Count Info Count Type Sponge, Sharps, Miscellaneous Counts Verification Skin Closure/end of Sequence procedure Count Results Correct, surgeon notified Counts Performed By Count Performed By Rajiv Haro, Surgical (Scrub) Wash Rack Operator Count Performed By Mary Carmen Caro RN (RN) Last Modified By: Mary Carmen Caro RN 10/23/19 09:19:50 [facility] IntraOp Counts Final Audit 10/23/19 11:13:54 Geoscience Laboratory Technician: NILSON Modifier: NILSON 1 <*> Procedure Prostatectomy Radical Robotic, Lymph Node Dissection Pelvic Laparoscopi(Left) 1 <+> Count Performed By (Scrub) 1 <+> Count Performed By (RN) [facility] IntraOp Cultures and Spec Summary Entry 1 Cultrures and Specimens Specimen Ordered: Yes Test(s) Routine/Path-Lab Requested/Final Disposition Last Modified By: Mary Carmen Caro RN 10/23/19 09:19:26 General Comments: A. BLADDER NECK B. LEFT OBTURATOR LYMPH NODE C. PROSTATE AND SEMINAL VESICLES [facility] IntraOp Departure from OR Entry 1 Integumentary Assessment Integumentary WDL with patient Assessment WDL specific variances Patient's Normal Surgical Integumentary incisions-abdomen Variance(s) Transfer/Handoff Transfer to PACU Phase I Handoff Method Phone call Post-op Transport Stretcher/Gurney Via Patient Transport EDITH TERRELL APRN, Accompanied by PRECISE WINDER-ANURADHA CESAR KAREN A. Last Modified By: Mary Carmen Caro RN 10/23/19 09:20:07 [facility] IntraOp Drains and Tubes Entry 1 Device Type Aydin Hamm flat drain Size 10 mm Drain/Tube Activity Inserted Drain/Tube Suction Bulb Drain/Tube Drainage Sanguineous Device Location Abdomen Method of Drainage Active Tube Dressing Dry, Intact Condition Last Modified By: Mary Carmen Caro RN 10/23/19 09:19:41 [facility] IntraOp Dressing and Packing Entry 1 Type Dressing Location Abdomen Wound Dressing Item Skin Closure Glue, 4x4's Tape Type Other Applied By JIGNESH LING Other Comments MEDIPORE TAPE APPLIED TO DRAIN DRESSING. Last Modified By: Mary Carmen Caro RN 10/23/19 09:19:58 [facility] IntraOp Fire Risk Assessment Entry 1 Fire [...] By: Mary Carmen Caro RN 10/23/19 09:13:50 [facility] IntraOp General Case Program Engineer 1 Case Information OR OR 13 [facility] Case Level 1 Room Verified Yes Wound Class II - Clean-Contaminated Specialty SN Urology Anesthesia Type General ASA Class 2 Diagnosis Preop Diagnosis PROSTATE CANCER Postop Same As Preop No Postop Diagnosis SEE POSTOPERATIVE NOTE Last Modified By: Mary Carmen Caro RN 10/23/19 09:15:36 [facility] IntraOp Intraoperative Assessment Entry 1 Handoff Method [...] By: Mary Carmen Caro RN 10/23/19 09:14:51 [facility] IntraOp Intraoperative Equipment Entry 1 Type Monitoring Equipment Equipment Jeannie Suction System ID Number [id number] Intraop Monitoring Electrocardiogram Three lead placement (ECG) Electrode Placement Blood Pressure Non-Invasive BP Device Source Blood Pressure Arm, right upper Location Pulse Oximeter Hand, left Probe Site Antiembolic Devices Antiembolic Devices Sequential compression device, knee high Antiembolic Device Bilateral Location Antiembolic Device [id number] ID Number Antiembolic Device 40 mmHg Setting Scopes Photo/Video Documentation Photo No Video No Intraop Equipment Sequential compression Comment devices on and in operation prior to induction of anesthesia. Last Modified By: Mary Carmen Caro RN 10/23/19 09:16:59 [facility] IntraOp Medication Admin Entry 1 Medication/Irrigant JESSICA IRR 0.9% NACL 1000ML --200689 Time Administered 10/23/19 09:01:00 Route of Irrigation Administration Dose Administered By JIGNESH LING Procedure Irrigation Last Modified By: Mary Carmen Caro RN 10/23/19 09:18:51 [facility] IntraOp Patient Positioning Entry 1 Procedure Prostatectomy [...] By: Mary Carmen Caro RN 10/23/19 09:13:09 [facility] IntraOp Sign In Entry 1 Patient, Site, [...] By: Mary Carmen Caro RN 10/23/19 09:06:55 [facility] IntraOp Sign Out Entry 1 RN Confirmation [...] By: Mary Carmen Caro RN 10/23/19 09:20:30 [facility] IntraOp Sign Out Audit 10/23/19 11:31:11 Geoscience Laboratory Technician: NILSON Modifier: NILSON <+> 1 RN Sign Out Signature Date/Time [facility] IntraOp Skin Prep Entry 1 Procedure Prostatectomy [...] By: Mary Carmen Caro RN 10/23/19 09:16:12 [facility] IntraOp Surgical Procedures Entry 1 Entry 2 [...] Poff, Janie, RN 10/23/19 09:13:39 10/23/19 09:20:40 [facility] IntraOp Surgical Procedures Audit 10/23/19 11:31:02 Geoscience Laboratory Technician: NILSON Modifier: POVAMSHIADARSH <+> 1 Stop <+> 2 Stop 10/23/19 09:20:40 Geoscience Laboratory Technician: NILSON Modifier: NILSON 2 <*> Procedure Lymph Node Dissection Pelvic Laparoscopic 2 <*> Wound Class I - Clean [facility] IntraOp Temp Regulation Devices Entry 1 Temp Regulation Temperature Warm blankets, Forced Regulation Device Air Warming device, Room temperature Temperature 54025 Regulation Device Serial/Unit Number Temperature Upper body Regulation Site Temperature Device 43 degrees Celsius Setting Temperature EDITH TERRELL APRN, Regulation Device PRECISE WINDER-ANS Applied by Temperature Patient's temperature Regulation Comment and forced air warming device settings monitored by anesthesia provider. Last Modified By: Mary Carmen Caro RN 10/23/19 09:17:12 [facility] IntraOP Time Out Entry 1 Procedure to [...] WATJESSA Correct Billing Electronically signed by Mima, [facility] Conversion Basket Mender Cerner at 03/07/2023 10:44 AM CDT documented in this encounter Plan of Treatment Not on file documented as of this encounter Visit Diagnoses Not on filedocumented in this encounter Care Teams Liquefaction Supervisor Relationship Specialty Start Date End Date Tee Wade MD [address] [facility] [address] [place] [address] PCP - General Neurology 03/07/23 Lennie Coates PA-C [address] [facility] [address] [place] [address] Cardiology 03/11/24 documented as of this encounter
--- OUTSIDE RECORDS SUMMARY | 2025-10-16 13:06 | XMS_ITS | Encounter Summary ---
Author Organization [employer] ([place], [place], [place], [place], [place]) Address [address] [place] [address] Care Team Providers Care Enroute Controller Name Role Phone Tee Wade MD Primary Care Provider + [phone] Lennie Coates PA-C Unavailable [phone] Encounter Details Date Type Department Care Team (Late st Contact Info) Description 10/23/2019 Transcribed Document [facility] [place] Family Medicine [facility] [address] ProviderJuan MD [address] [place] [address] Social History Tobacco Use Types Packs/Day Years Used Date Smoking Tobacco: Never Assessed Sex and Gender Information Value Date Recorded Sex Assigned at Not on file Legal Sex Male 3:26 PM CDT Gender Identity Not on file Sexual Orientation Not on file documented as of this encounter Miscellaneous Notes * Cerner Conversion Note - Juan Summers MD - 10/23/2019 6:40 AM AUTHORIZER Patient: JHOANA BRAMBILA Age: 64 years Sex: Male : 1955 Associated Diagnoses: None Author: JASON CASIANO, COLLEGE AND CAREER COUNSELOR Chief Complaint prostate cancer Review of Systems [...] Hepatitis A//age early 20,s / SNOMED CT 75992641 / Confirmed at risk Sleep apnea / SNOMED CT 573106660 / Confirmed Renal calculus//HX / SNOMED CT 605215496 / Confirmed Neck pain//shoulder / SNOMED CT 061987896 / Confirmed IBS (irritable bowel syndrome) / SNOMED CT 7098865442 / Confirmed High blood pressure / SNOMED CT 07671894 / Confirmed Diverticulosis of colon / SNOMED CT 0451907127 / Confirmed DDD (degenerative disc disease), cervical / SNOMED CT 019220699 / Confirmed Colitis / SNOMED CT 789770040 / Confirmed Chronic pain / SNOMED CT 240735838 / Confirmed CA - Cancer of prostate / SNOMED CT 1085531223 / Confirmed Back pain / SNOMED CT 2844547738 / Confirmed At risk for sleep apnea / IMO 68478878 / Confirmed Arthritis / SNOMED CT 0096310 / Confirmed, Active Problems (14) Arthritis at [...] of motion, Normal strength. Integumentary: Warm, Dry, [place]. Neurologic: Alert, Oriented. Psychiatric: Cooperative, Appropriate mood & affect. Review / Management Results review: Labs (Last four charted values) HCT 46.2 (OCT 17) K 4.1 (OCT 17) . Impression and Plan Condition: Stable. documented in this encounter Plan of Treatment Not on file documented as of this encounter Visit Diagnoses Not on filedocumented in this encounter Care Teams Enroute Controller Relationship Specialty Start Date End Date Tee Wade MD [address] [facility] [address] [place] [address] PCP - General Neurology 03/07/23 Lennie Coates PA-C [address] [place] [address] [place] [address] Cardiology 03/11/24 documented as of this encounter
--- OUTSIDE RECORDS SUMMARY | 2025-10-16 13:06 | XMS_ITS | Encounter Summary ---
Author Organization [employer] ([place], [place], [place], [place], [place]) Address [address] [place] [address] Care Team Providers Care Financial Health Counselor Name Role Phone Tee Wade MD Primary Care Provider + [phone] Lennie Coates PA-C Unavailable [phone] Encounter Details Date Type Department Care Team (Late st Contact Info) Description 10/25/2019 Transcribed Document [facility] [place] Family Medicine [address] [place] [address] ProviderJuan MD [address] [place] [address] Social History Tobacco Use Types Packs/Day Years Used Date Smoking Tobacco: Never Assessed Sex and Gender Information Value Date Recorded Sex Assigned at Not on file Legal Sex Male 3:26 PM CDT Gender Identity Not on file Sexual Orientation Not on file documented as of this encounter Miscellaneous Notes * Cerner Conversion Note - Juan Summers MD - 10/25/2019 12:36 PM COMPOUNDING ASSISTANT UM Authorization Entered On: 10/25/2019 12:36 EST Performed On: 10/25/2019 12:36 EST by Ashley López Rn-Utilization Review Primary Insurance Authorization Authorization and Policy Numbers : Insurance 1 Health Plan: ANTHEM HMOPPO Policy Number: [id number] Authorization Number: Insurance Primary Name : [employer]M [employer]OPPO Policy Number: [id number] Historical Authorization Comments-Primary : Comment 1: Pt not precerted for IP surgery, the CPT code 66972 is for out pt surgery. Pt has d/c order on chart, Called MD office spoke to Marcelino and requested her to notify MD/retail key holder. Awaiting callback (TAMIKO HUERTAS RN 10/24/2019 12:30) Ashley López Rn-Utilization Review - 10/25/2019 12:36 EST Electronically signed by [facility] Conversion Wood Car Builder Cerner at 03/07/2023 10:35 AM CDT documented in this encounter Plan of Treatment Not on file documented as of this encounter Visit Diagnoses Not on filedocumented in this encounter Care Teams Financial Health Counselor Relationship Specialty Start Date End Date Tee Wade MD [address] [facility] [address] [place] [address] PCP - General Neurology 03/07/23 Lennie Coates PA-C [address] [place] [address] [address] [place] [address] Cardiology 03/11/24 documented as of this encounter
--- OUTSIDE RECORDS SUMMARY | 2025-10-16 13:06 | XMS_ITS | Encounter Summary ---
Author Organization [employer] ([place], [place], [place], [place], [place]) Address [address] [place] [address] Care Team Providers Care Vp Security Name Role Phone Tee Wade MD Primary Care Provider + [phone] Lennie Coates PA-C Unavailable [phone] Encounter Details Date Type Department Care Team (Late st Contact Info) Description 10/24/2019 Transcribed Document [facility] [place] Family Medicine [facility] [place] [address] Juan Summers MD [address] [place] [address] Social History Tobacco Use Types Packs/Day Years Used Date Smoking Tobacco: Never Assessed Sex and Gender Information Value Date Recorded Sex Assigned at Not on file Legal Sex Male 3:26 PM CDT Gender Identity Not on file Sexual Orientation Not on file documented as of this encounter Miscellaneous Notes * Cerner Conversion Note - Juan Summers MD - 10/24/2019 12:14 PM AERONAUTICS COMMISSION DIRECTOR Patient Education Materials Follows: Incision Care, Adult [...] and water are not available, use hand soda dry house operator. ? Change your dressing as told by [...] even if your condition improves. ??? Take kvhh-ohg-eejjpjc and prescription medicines only as told by [...] 05/25/2006 Document Revised: 07/13/2017 Document Reviewed: 05/23/2017 [employer] Interactive Patient Education ? 2019 [employer]. Indwelling Urinary Catheter Care, Adult An indwelling [...] on each side. Do this in a iyord-ve-kapd direction. ? If you are male: ? [...] and water are not available, use hand soda dry house operator. ??? Always make sure there are no [...] 11/05/2006 Document Revised: 06/21/2018 Document Reviewed: 06/21/2018 [employer] Interactive Patient Education ? 2019 [employer]. Laparoscopic Prostatectomy, Care After This sheet gives [...] these instructions at home: Medicines ??? Take iggx-bqb-ghmhaeq and prescription medicines only as told by [...] urine clear or pale yellow. ? Take pdey-qqr-ujnahbb or prescription medicines. ? Eat foods that [...] and water are not available, use hand soda dry house operator. ? Change your dressing as told by [...] pain, abdominal discomfort, and nausea. ??? Take rwgh-apc-qbbipgr and prescription medicines only as told by [...] 11/05/2006 Document Revised: 10/10/2017 Document Reviewed: 10/10/2017 [employer] Interactive Patient Education ? 2019 [employer] Laparoscopic Prostatectomy Laparoscopic prostatectomy is a [...] including vitamins, herbs, eye drops, creams, and xesf-yzl-rpcegyu medicines. ??? Any problems you or family [...] 11/05/2006 Document Revised: 10/22/2017 Document Reviewed: 10/22/2017 [employer] Interactive Patient Education ? 2019 [employer]. documented in this encounter Plan of Treatment Not on file documented as of this encounter Visit Diagnoses Not on filedocumented in this encounter Care Teams Vp Security Relationship Specialty Start Date End Date Tee Wade MD [address] [place] [address] PCP - General Neurology 03/07/23 Lennie Coates PA-C [address] [place] [address] [address] [place] [id number] Cardiology 03/11/24 documented as of this encounter
--- OUTSIDE RECORDS SUMMARY | 2025-10-16 13:06 | XMS_ITS | Encounter Summary ---
Author Organization [employer] ([place], [place], [place], [place], [place]) Address [address] [place] [address] Care Team Providers Care Junior Accountant Name Role Phone Tee Wade MD Primary Care Provider [phone] Lennie Coates PA-C Unavailable [phone] Encounter Details Date Type Department Care Team (Late st Contact Info) Description 10/17/2019 Transcribed Document [facility] [place] [address] [place] [address] ProviderJuan MD [address] [place], [place] [address] Social History Tobacco Use Types Packs/Day Years Used Date Smoking Tobacco: Never Assessed Sex and Gender Information Value Date Recorded Sex Assigned at Not on file Legal Sex Male 3:26 PM CDT Gender Identity Not on file Sexual Orientation Not on file documented as of this encounter Miscellaneous Notes * Cerner Conversion Note - Juan Summers MD - 10/17/2019 11:47 AM DIRECTOR OF SAFETY AND SECURITY PAT Adult Entered On: 10/17/2019 11:56 EST [...] Source : Measured Height Entry Format : [place] Height, Feet : 5 ft(Converted to: 152 cm, 60 Inch) Height, Inches : 11 Inch(Converted to: 0 ft 11 Inch, 27.94 cm) Clinical Height : 180.34 cm Weight Source : Standing scale Weight Entry Format : [place] Clinical Dosing Weight : 89.05 kg Weight, Pounds : 195.9 lb Body Surface Area (BSA) : 2.09 m2 Body Mass Index : 27.4 kg/m2 (HI) [place] Body Weight : 74 kg MARY ALVES [...] MARY ALVES RN - 10/17/2019 12:00 EST [place] Suicide Severity Rating Scale (C-SSRS) CSSRS Past [...] Obtained From : Patient Primary Language : [place] Preferred Communication Mode : Verbal Communication Barrier [...] 10/17/2019 12:00 EST Electronically signed by Mima, [facility] Conversion Ironworker Apprentice Shop Cerner at 03/07/2023 10:22 AM CDT documented in this encounter Plan of Treatment Not on file documented as of this encounter Visit Diagnoses Not on filedocumented in this encounter Care Teams Junior Accountant Relationship Specialty Start Date End Date Tee Wade MD [address] [place] [address] PCP - General Neurology 03/07/23 Lennie Coates PALoveC [address] [facility] [address] [place] [address] Cardiology 03/11/24 documented as of this encounter
--- OUTSIDE RECORDS SUMMARY | 2025-10-16 13:06 | XMS_ITS | Encounter Summary ---
Author Organization [employer] ([place], [place], [place], [place], [place]) Address [address] [place] [address] Care Team Providers Care Daycare Manager Name Role Phone Tee Wade MD Primary Care Provider + [phone] Lennie Coates PA-C Unavailable [phone] Encounter Details Date Type Department Care Team (Late st Contact Info) Description 10/24/2019 Transcribed Document [facility] [place] [address] [place] [address] ProviderJuan MD [address] [place], [place] [address] Social History Tobacco Use Types Packs/Day Years Used Date Smoking Tobacco: Never Assessed Sex and Gender Information Value Date Recorded Sex Assigned at Not on file Legal Sex Male 3:26 PM CDT Gender Identity Not on file Sexual Orientation Not on file documented as of this encounter Miscellaneous Notes * Cerner Conversion Note - Juan Summers MD - 10/24/2019 5:00 AM ELECTRIC ENGINE MECHANIC Chart Check - Review Order Profile Entered [...] on filedocumented in this encounter Care Teams Daycare Manager Relationship Specialty Start Date End Date Tee Wade MD [address] [facility] [address] [place] [address] PCP - General Neurology 03/07/23 Lennie Coates, PALoveC [address] [facility] [address] [place], [place] [id number] Cardiology 03/11/24 documented as of this encounter
--- OUTSIDE RECORDS SUMMARY | 2025-10-16 13:06 | XMS_ITS | Encounter Summary ---
Author Organization [employer] ([place], [place], [place], [place], [place]) Address [address] [place] [address] Care Team Providers Care Respiratory Care Faculty Name Role Phone Tee Wade MD Primary Care Provider + [phone] Lennie Coates PA-C Unavailable [phone] Encounter Details Date Type Department Care Team (Late st Contact Info) Description 10/25/2019 Transcribed Document [facility] [place] [facility] [place] [address] ProviderJuan MD [address] [place] [address] Social History Tobacco Use Types Packs/Day Years Used Date Smoking Tobacco: Never Assessed Sex and Gender Information Value Date Recorded Sex Assigned at Not on file Legal Sex Male 3:26 PM CDT Gender Identity Not on file Sexual Orientation Not on file documented as of this encounter Miscellaneous Notes * Cerner Conversion Note - Juan Summers MD - 10/25/2019 12:36 PM RECAPPER UM Authorization Entered On: 10/25/2019 12:36 EST Performed On: 10/25/2019 12:36 EST by Ashley López Rn-Utilization Review Primary Insurance Authorization Authorization and Policy Numbers : Insurance 1 Health Plan: [employer] Policy Number: [id number] Authorization Number: Insurance Primary Name : ANTH HMOPPO Policy Number: [id number] Authorized Service Begin Date-Primary : 10/24/2019 EST Historical Authorization Comments-Primary : Comment 1: Pt not precerted for IP surgery, the CPT code 77031 is for out pt surgery. Pt has d/c order on chart, Called MD office spoke to Marcelino and requested her to notify MD/doctor of dental surgery. Awaiting callback (TAMIKO HUERTAS RN 10/24/2019 12:30) Ashley López Rn-Utilization Review - 10/25/2019 12:36 EST Electronically signed by [facility], [facility] Conversion Sample Steamer Cerner at 03/07/2023 10:11 AM CDT documented in this encounter Plan of Treatment Not on file documented as of this encounter Visit Diagnoses Not on filedocumented in this encounter Care Teams Respiratory Care Faculty Relationship Specialty [place] [address] [place] [address] [address] [place] [address] PCP - General Neurology 03/07/23 Lennie Coates, PA-C [address] [facility] [address] [place] [id number] Cardiology 03/11/24 documented as of this encounter
--- OUTSIDE RECORDS SUMMARY | 2025-10-16 13:06 | XMS_ITS | Encounter Summary ---
Author Organization [employer] ([place], [place], [place], [place], [place]) Address [address] [place] [address] Care Team Providers Care Tire Repairman Name Role Phone Tee Wade MD Primary Care Provider + [phone] Lennie Coates PA-C Unavailable [phone] Encounter Details Date Type Department Care Team (Late st Contact Info) Description 10/24/2019 Transcribed Document [facility] [place] Family Medicine [address] [place] [address] ProviderJuan MD [address] [place] [address] Social History Tobacco Use Types Packs/Day Years Used Date Smoking Tobacco: Never Assessed Sex and Gender Information Value Date Recorded Sex Assigned at Not on file Legal Sex Male 3:26 PM CDT Gender Identity Not on file Sexual Orientation Not on file documented as of this encounter Miscellaneous Notes * Cerner Conversion Note - Juan Summers MD - 10/24/2019 12:13 PM PROFESSIONAL DRIVER Stroke/Warfarin Instructions Entered On: 10/24/2019 12:13 EST Performed On: 10/24/2019 12:13 EST by Jessica Oshea RN-Traveler Stroke/Warfarin Instructions Stroke/TIA Discharge Ins : N/A Warfarin Discharge Ins : N/A Jessica Oshea RN-Traveler - 10/24/2019 12:13 EST Electronically signed by Slim Guillermo Conversion Parachute/Combatant Diver Officer Cerner at 03/07/2023 10:42 AM CDT documented in this encounter Plan of Treatment Not on file documented as of this encounter Visit Diagnoses Not on filedocumented in this encounter Care Teams Tire Repairman Relationship Specialty Start Date End Date Tee Wade MD [address] [facility] [address] [place] [address] PCP - General Neurology 03/07/23 Lennie Coates PALoveC [address] [facility] [address] [place] [address] Cardiology 03/11/24 documented as of this encounter
--- OUTSIDE RECORDS SUMMARY | 2025-10-16 13:06 | XMS_ITS | Encounter Summary ---
Author Organization [employer] ([place], [place], [place], [place], [place]) Address [address] [place] [address] Care Team Providers Care Corner Former Name Role Phone Tee Wade MD Primary Care Provider + [phone] Lennie Coates PA-C Unavailable [phone] Encounter Details Date Type Department Care Team (Late st Contact Info) Description 10/23/2019 Transcribed Document [facility] [place] [facility] [place] [address] Juan Summers MD [address] [place] [address] Social History Tobacco Use Types Packs/Day Years Used Date Smoking Tobacco: Never Assessed Sex and Gender Information Value Date Recorded Sex Assigned at Not on file Legal Sex Male 3:26 PM CDT Gender Identity Not on file Sexual Orientation Not on file documented as of this encounter Miscellaneous Notes * Cerner Conversion Note - Juan Summers MD - 10/23/2019 11:39 AM CASUAL SHOE INSPECTOR DATE OF PROCEDURE: 10/23/2019 SURGEON: Ty Ghotra MD PREOPERATIVE DIAGNOSIS: Adenocarcinoma of the prostate. POSTOPERATIVE DIAGNOSIS: Adenocarcinoma of the prostate. PROCEDURE PERFORMED: Laparoscopic adhesiolysis, robotic-assisted laparoscopic radical prostatectomy with left pelvic lymph node dissection. ANESTHESIA: General. LEVEE SUPERINTENDENT: Faviola Alatorre CFA. SPECIMENS: Prostate with seminal [...] to postoperative recovery room in stable condition. /[id number] MD REENA Larry/AQ / TDDaniel / MODL /[id number] CC: Dr. Bernard Ghotra MD Electronically signed by Mima, [facility] Conversion Microbiology Teacher Cerner at 03/07/2023 10:31 AM CDT documented in this encounter Plan of Treatment Not on file documented as of this encounter Visit Diagnoses Not on filedocumented in this encounter Care Teams Corner Former Relationship Specialty Start Date End Date Tee Wade MD [address] [facility] [address] [place] [address] PCP - General Neurology 03/07/23 Lennie Coates, PA-C [address] [facility] [address] [place] [address] Cardiology 03/11/24 documented as of this encounter
--- OUTSIDE RECORDS SUMMARY | 2025-10-16 13:07 | XMS_ITS | Patient Health Record ---
[facility] [address] [facility] [address] [facility] [address] [place] [id number] Care Team Providers Care Graphic Artist Name Role Phone José Miguel Pizarro Primary Care Provider Anastasiya Martinez Unavailable [phone] Allergies Allergen (clinical drug ingredient) Drug/Non Drug Allergy documented on EMR Reaction Allergy Type Onset Date Status MYCIN (uncoded) upsets stomach Allergy Active nabumetone Nabumetone chest pain Drug Allergy Acti ve Medications Medication SIG (Take, Route, Frequency, Duration) Notes Start Date End Date Status Triamterene-HCTZ 37.5-25 MG 1 tab(s) orally once a day; Duration: 30 day(s) 01/09/2022 Active Vitamin A 3 MG (19085 UT) 1 capsule by mouth once daily Active Garlic 1 TAB PO BID *Please review and pick correct strength-formula tion from [employer] options. If intended option is not shown, discontinue and re-order from Quick Search* Active Ventolin HFA 108 (90 Base) MCG/ACT 2 puff(s) inhaled every 6 hours 12/21/2021 Not-Taking Vitamin C 1000 MG 1 tab(s) orally bid Active amLODIPine Besylate 5 MG 1 tab(s) orally bid Not-Taking Vitamin B-12 1000 MCG 1 tab(s) orally once a day prn 1 or twice weekly 11/28/2011 Active Zinc 50 MG 1 tab(s) orally once a day; Duration: 30 day(s) Active hydroCHLOROthiazide 25 MG 1 tablet orally once a day as needed off and on 12/09/2015 Active Valsartan 160 MG 1 tab(s) orally once a day; Duration: 30 day(s) 12/21/2021 Active Vitamin D3 50 MCG (1999 UT) 1 tab(s) orally once a day....takes off and on off and on 11/28/2011 Active FiberCon 2 P.O. Q DAY *Please review and pick correct strength-formula tion from [employer]an options. If intended option is not shown, discontinue and re-order from Quick Search* 04/10/2016 Active Problems Problem Type SNOMED Code ICD Code Onset Dates Problem Status W/U Status Risk Notes Problem Essential hypertension (38788545) Essential (primary) hypertension (I10) Active confirmed Problem Vitamin D deficiency (71411577) Vitamin D deficiency (E55.9) Active confirmed Problem Vitamin B12 deficiency (705765041) Vitamin B12 deficiency (E53.8) Active confirmed Problem Gout (18677101) Gout (M10.9) Active confirmed Problem Essential hypertension (56876187) Essential hypertension (I10) Active confirmed Problem Coronary artery disease (42961980) CAD (coronary artery disease) (I25.10) Active confirmed Problem Mixed hyperlipidemia (942422339) Mixed hyperlipidemia (E78.2) Active confirmed Problem Chronic pain (22732478) Other chronic pain (G89.29) Active confirmed Problem Irritable bowel syndrome (17866436) Irritable bowel syndrome without diarrhea (K58.9) Active confirmed Problem Male erectile disorder (546892228) Male erectile disorder (N52.9) Active confirmed Problem Lower urinary tract symptoms due to benign prostatic hypertrophy (12789117066519) Benign prostatic hyperplasia with lower urinary tract symptoms (N40.1) Active confirmed Problem Elevated PSA (045498636) Elevated PSA (R97.20) Active confirmed Problem History of malignant neoplasm of prostate (374106256) History of malignant neoplasm of prostate (Z85.46) Active confirmed Problem STEMI - ST elevation myocardial infarction (679783585) Acute ST elevation myocardial infarction (STEMI), unspecified artery (I21.3) Active confirmed Encounters Encounter Location Date Provider Diagnosis [facility] [address] [facility] [address] [id number] 10/07/2025 José Miguel Pizarro Plan Of Treatment No Information Insurance Providers Payer Name Payer Address Payer Phone Subscriber Number Group Number Insured Name Patient Relationship to Insured Coverage Start Date Coverage End Date MEDICARE PART B [address] [address] [place] [address] [id number] Kevin Morton Self - patient is the insured GWENDOLYN MUNO[facility] [address] [place] [address] [id number] Justen Kevin gonzalez Self - patient is the insured Medications Administered Medication Instructions Date of Administration Dosage Notes B-12 08/13/2012 1 mL B-12 09/29/2014 1 mg B-12 06/27/2017 1 mL Medical (General) History Medical History History ICD Code hyperlipidemia hypertension diverticulitis Surgical History Surgery Date(Month/Year) left index finger amputation gallbladder 12-28 wisdom teeth extractions 06/2012 prostate surgery, Dr. Ghotra, carcinoma 10/23/2019 Hospitalization History Reason Date(Month/Year) [facility] ER-kidney stone 09/27
--- OUTSIDE RECORDS SUMMARY | 2025-10-16 13:07 | XMS_ITS | Encounter Summary ---
Author Organization [employer] ([place], [place], [place], [place], [place]) Address [address] [place] [address] Care Team Providers Care Estate Planning Counselor Name Role Phone Tee Wade MD Primary Care Provider + [phone] Lennie Coates PA-C Unavailable [phone] Encounter Details Date Type Department Care Team (Late st Contact Info) Description 10/24/2019 Transcribed Document [facility] [place] [address] [place] [address] ProviderJuan MD [address] [place] [address] Social History Tobacco Use Types Packs/Day Years Used Date Smoking Tobacco: Never Assessed Sex and Gender Information Value Date Recorded Sex Assigned at Not on file Legal Sex Male 3:26 PM CDT Gender Identity Not on file Sexual Orientation Not on file documented as of this encounter Miscellaneous Notes * Cerner Conversion Note - Juan Summers MD - 10/24/2019 3:39 PM HYDROBLASTER Nursing Discharge Summary Entered On: 10/24/2019 15:40 [...] 10/24/2019 15:39 EST Electronically signed by Mima, [facility] Conversion Office Support Clerk Cerner at 03/07/2023 10:41 AM CDT documented in this encounter Plan of Treatment Not on file documented as of this encounter Visit Diagnoses Not on filedocumented in this encounter Care Teams Estate Planning Counselor Relationship Specialty Start Date End Date Tee Wade MD [address] [facility] [address] [place] [address] PCP - General Neurology 03/07/23 Lennie Coates, PA-C [address] [facility] [address] [place] [address] Cardiology 03/11/24 documented as of this encounter
--- OUTSIDE RECORDS SUMMARY | 2025-10-16 13:07 | XMS_ITS | Encounter Summary ---
Author Organization [employer] ([place], [place], [place], [place], [place]) Address [address] [place] [address] Care Team Providers Care Advanced Registered Nurse Name Role Phone Tee Aguilar MD Primary Care Provider + [phone] Lennie Coates PA-C Unavailable [phone] Encounter Details Date Type Department Care Team (Late st Contact Info) Description 10/24/2019 Transcribed Document [facility] [place] [address] [place] [address] ProviderJuan MD [address] [place] [address] Social History Tobacco Use Types Packs/Day Years Used Date Smoking Tobacco: Never Assessed Sex and Gender Information Value Date Recorded Sex Assigned at Not on file Legal Sex Male 3:26 PM CDT Gender Identity Not on file Sexual Orientation Not on file documented as of this encounter Miscellaneous Notes * Cerner Conversion Note - Juan Summers MD - 10/24/2019 12:14 PM INDEPENDENT SALES REPRESENTATIVE [facility] [place], [place] [id number] KOSTA JHOANA LYNN :1955 Visit Time:10/23/2019 Your [...] Instructions: follow up 12-16 with cystogram at [facility] radiology prior to visit Activity: Discharge Activity: No heavy lifting over 10 lbs Diet: Discharge Diet: Resume usual diet as tolerated Showering/Bathing Instructions: May shower Follow-Up Appointments Follow Up with LEIGHA LOMBARDI MD-URO When 11/03/2019 12:00 AM EST Comments Call for follow up appointment Where: [address] [facility] [address] [place] [address]- Follow Up with TEE AGUILAR IM When Within 2 to 3 days Where: [address] [facility] [address] [place] [address]- Medications What How Much When Instructions Next Dose acetaminophen-hydrocodone ([place] 7.5 mg-325 mg oral tablet) 1 Tablet(s) [...] and water are not available, use hand locomotive boilermaker. ? Change your dressing as told by [...] even if your condition improves. ??? Take bgxf-eax-ojgrdeb and prescription medicines only as told by [...] 05/25/2006 Document Revised: 07/13/2017 Document Reviewed: 05/23/2017 [employer] Patient Education ?? 2019 [employer] Indwelling Urinary Catheter Care, Adult An [...] on each side. Do this in a fdely-lb-eemg direction. ? If you are male: ? [...] and water are not available, use hand locomotive boilermaker. ??? Always make sure there are no [...] 11/05/2006 Document Revised: 06/21/2018 Document Reviewed: 06/21/2018 [employer] Patient Education ?? 2019 [email or web address]. Laparoscopic Prostatectomy, Care After This sheet gives [...] these instructions at home: Medicines ??? Take ojmn-fvs-mjofete and prescription medicines only as told by [...] urine clear or pale yellow. ? Take wxsr-eki-abkejhz or prescription medicines. ? Eat foods that [...] and water are not available, use hand locomotive boilermaker. ? Change your dressing as told by [...] pain, abdominal discomfort, and nausea. ??? Take toub-wyz-alqtntz and prescription medicines only as told by [...] 11/05/2006 Document Revised: 10/10/2017 Document Reviewed: 10/10/2017 [employer] Patient Education ?? 2019 [email or web address]. Laparoscopic Prostatectomy Laparoscopic prostatectomy is a surgery [...] including vitamins, herbs, eye drops, creams, and bcyt-nrx-xyuluap medicines. ??? Any problems you or family [...] 11/05/2006 Document Revised: 10/22/2017 Document Reviewed: 10/22/2017 [employer] Patient Education ?? 2019 [employer] Emergency Awareness and Preventative Care STROKE [...] Assistance with quitting is available by contacting 5-243-KKFUNOW. This is a free resource providing counseling, support, and referral. Or you may contact your personal physician. [place] Suicide Prevention Lifeline: The National Suicide Prevention [...] was given the opportunity to ask questions. Patient/Vocational Psychologist Name: Patient/Vocational Psychologist Signature: Relationship to Patient: Clinician/Hospital Vocational Psychologist Signature: Date: documented in this encounter Plan of Treatment Not on file documented as of this encounter Visit Diagnoses Not on filedocumented in this encounter Care Teams Advanced Registered Nurse Relationship Specialty Start Date End Date Tee Aguilar MD [address] [address] PCP - General Neurology 03/07/23 Lennie Coates PA-C [address] [facility] [address] [place] [address] Cardiology 03/11/24 documented as of this encounter
--- OUTSIDE RECORDS SUMMARY | 2025-10-16 13:07 | XMS_ITS | Encounter Summary ---
Author Organization [employer] ([place], [place], [place], [place], [place]) Address [address] [place] [address] Care Team Providers Care Creative Services Writer Name Role Phone Tee Wade MD Primary Care Provider + [phone] Lennie Coates PA-C Unavailable [phone] Encounter Details Date Type Department Care Team (Late st Contact Info) Description 10/24/2019 Transcribed Document [facility] [place] [address] [place] [address] ProviderJuan MD [address] [place] [address] Social History Tobacco Use Types Packs/Day Years Used Date Smoking Tobacco: Never Assessed Sex and Gender Information Value Date Recorded Sex Assigned at Not on file Legal Sex Male 3:26 PM CDT Gender Identity Not on file Sexual Orientation Not on file documented as of this encounter Miscellaneous Notes * Cerner Conversion Note - Juan Summers MD - 10/24/2019 11:37 AM CORK SLABS SAWYER Initial Discharge Planning Entered On: 10/24/2019 11:44 EST Performed On: 10/24/2019 11:37 EST by LINDA BARRY Solutions Analyst Initial Assessment I Previously Documented Living Environment [...] Is Guardianship Needed : No LINDA BARRY Solutions Analyst - 10/24/2019 11:37 EST Initial Assessment II [...] - 10/24/2019 11:37 EST Electronically signed by [facility], [facility] Conversion Mortgage Processing Clerk Cerner at 03/07/2023 10:42 AM CDT documented in this encounter Plan of Treatment Not on file documented as of this encounter Visit Diagnoses Not on filedocumented in this encounter Care Teams Creative Services Writer Relationship Specialty Start Date End Date Tee Wade MD [address] [facility] [address] [place] [address] PCP - General Neurology 03/07/23 Lennie Coates PA-C [address] [facility] [address] [place], [place] [id number] Cardiology 03/11/24 documented as of this encounter
== END 2025-10-16 23:59 | disposition home or self-care (01) ==
LOC: RT 13:04
PROVIDERS: PCP Nurse Practitioner Family; Visit Provider Internal Medicine
DX: R00.2 Palpitations (principal)
CPT/HCPCS: 93270

== ENCOUNTER 2025-10-25 02:10 | Inpatient (IN) | payer MEDICARE, BC, SELFPAY ==
--- OUTSIDE RECORDS SUMMARY | 2025-01-13 05:15 | XMS_ITS ---
Author Organization [facility] Address [address] [place] [address] [id number] Care Team Providers [facility] [employer] Name Role Phone José Miguel Pizarro Primary Care Provider [phone] Anastasiya Martinez [phone] REASON FOR VISIT check up and nlood, Needs labs with PSA & Prevnar Encounters Encounter Location Date Provider Diagnosis [facility] [address] [place] [id number] 01/13/2025 Anastasiya Martinez Plan Of Treatment No Information Progress Notes * Kevin BRAMBILADOB:1954 (70 yo M)Acc No.[id number]:01/13/2025 Progress Notes Patient: Kevin BROWN Provider: NYASIA Araujo :1955 A ge:69 Y S ex:Male Date:01/13/2025 Address:[address] [place], [place] [id number] Pcp:José Miguel Pizarro Subjective: * Chief Complaints: * 1 . Check up and nlood. 2. Needs labs with PSA & Prevnar. * Medical History: Objective: * Vitals: Assessment: Plan: * Treatment: * Images: Billing Information: * Visit Code: * Procedure Codes: * Electronic signature of Marybeth Martinez APRN on 10/25/2025 at 02:37 PM EST Sign off status: Pending * Provider: NYASIA Araujo Date: 0 01/13/2025 Generated for Sapphire morin/Jose/Logan on: 1 12/26/2024 02:37 PM EST
--- OUTSIDE RECORDS SUMMARY | 2025-10-12 10:30 | XMS_ITS ---
[facility] [address] [facility] [address] [phone] Care Team Providers Care Promotor Group Ticket Sales Name Role Phone José Miguel Pizarro Primary Care Provider Anastasiya Martinez [phone] REASON FOR VISIT check PSA Encounters Encounter Location Date Provider Diagnosis [facility] [address] [id number] 10/12/2025 Anastasiya Martinez Plan Of Treatment No Information Progress Notes * Kevin BRAMBILADOB:1954 (70 yo M)Acc No.[id number]:10/12/2025 Progress Notes Patient: Kevin BROWN Provider: NYASIA Araujo :1955 A ge:70 Y S ex:Male Date:10/12/2025 Address:[address] [place], [place] [id number] Pcp:José Miguel Pizarro Subjective: * Chief Complaints: * 1 . check PSA. * Medical History: Objective: * Vitals: Assessment: Plan: * Treatment: * Images: Billing Information: * Visit Code: * Procedure Codes: * Electronic signature of Marybeth Martinez APRN on 10/25/2025 at 02:37 PM EST Sign off status: Pending * Provider: NYASIA Araujo Date: 12/12/2024 Generated for Sapphire morin/Jose/eTransmitting on: 12/26/2024 02:37 PM EST
[2025-10-25] VITALS (16 sets, daily range): BP systolic 120–210; BP diastolic 69–90; PULSE 48–80; RESP 13–18; TEMP 36.6–37.1; O2SAT 94–98; BMI 25.7
--- OUTSIDE RECORDS SUMMARY | 2025-10-25 02:18 | XMS_ITS | Data Portability ---
Author Organization [facility], [facility] CLOSED Address [address] [place] [address] Care Team Providers Care Service Porter Name Role Phone LUIZ AGUILAR Primary Care Provider Assessment No assessment recorded. Plan of Treatment Reminders Order Date Submit Date Provider Last Modified By Organization Details Last Modified Time Details Appointments RECHECK 2025 02:45P M LEIGHA LOMBARDI MD Not available Not available Not available Lab urinalysi s panel, auto [email or web address] [facility], [address], [address], [place], [address], 10/29/2023 21:44:33 PSA, serum or plasma 2022 023 [email or web address] [facility], [address], [address], [place], [address], 10/29/2023 21:44:34 urinalysi s panel, auto 2021 022 [facility], [address], [address], [place], [address], 08/21/2022 15:13:49 PSA, serum or plasma 2021 022 [email or web address] [facility], [address], [address], [place], [address], 08/21/2022 15:46:48 PSA, serum or plasma 2020 021 [facility], [address], [address], [place], [address], 10/18/2021 12:10:00 urinalysi s panel, auto 2020 [address] [facility], [address], [address], [place], [address], 04/20/2021 16:37:26 PSA, serum or plasma 2020 021 [facility], [address], [address], [place], [address], 04/20/2021 16:57:54 PSA, serum or plasma 2019 020 [address] [facility], [address], [address], [place], [address], 10/18/2020 14:02:39 urinalysi s panel, auto [address] [facility], [address], [address], [place], [address], 10/18/2020 14:02:39 Referral None recorded. Procedures None recorded. Surgeries None recorded. Imaging None recorded. Medication Orders potassium citrate ER 10 mEq (1,080 mg) tablet,ex tended release [address] [facility], [address], [address], 04/21/2021 18:04:27 Patient TargetsNo targets recorded. Patient InstructionsNo instructions recorded. Reason for Referral None Reported. Results Created Date Observation Date Name Description Value Unit Range Abnormal Flag Note LastModifiedBy Organization Detail LastModifiedTime 04/20/20 21 04/20/2021 urina lysis panel , auto Unknown Analyte Clean Catch Not Available [facility] [address], [place], [address], 04/20/2021 14:47:36 04/20/2004/20/2021 urina lysis panel , auto Unknown Analyte Yellow Not Available [facility] [address], [place], [address], 04/20/2021 14:47:36 04/20/2004/20/2021 urina lysis panel , auto Unknown Analyte Clear Not Available [facility] [address], [place], [address], 04/20/2021 14:47:36 04/20/2004/20/2021 urina lysis panel , auto Unknown Analyte 1.015 Not Available [facility] [address], [address], 04/20/2021 14:47:36 04/20/2004/20/2021 urina lysis panel , auto Unknown Analyte 1.003- 1.035 Not Available [facility] [address], [place], [address], 04/20/2021 14:47:36 04/20/20 21 04/20/2021 urina lysis panel , auto Unknown Analyte 6.0 Not Available [facility] [address], [place], [address], 04/20/2021 14:47:36 04/20/2004/20/2021 urina lysis panel , auto Unknown Analyte 5.0-8. 0 Not Available [facility] [address], [place], [address], 04/20/2021 14:47:36 04/20/20 21 04/20/2021 urina lysis panel , auto Unknown Analyte Negati ve Not Available [facility] [address], [place], [address], 04/20/2021 14:47:36 04/20/2004/20/2021 urina lysis panel , auto Unknown Analyte Negati ve Not Available [facility] [address], [place], [address], 04/20/2021 14:47:36 04/20/2004/20/2021 urina lysis panel , auto Unknown Analyte Negati ve Not Available [facility] [address], [place], [address], 04/20/2021 14:47:36 04/20/2004/20/2021 urina lysis panel , auto Unknown Analyte Negati ve Not Available [facility] [address] [place] [address] Rd [address], [place], [address], 04/20/2021 14:47:36 04/20/20 21 04/20/2021 urina lysis panel , auto Unknown Analyte Negati ve Not Available [facility] [address], [place], [address], 04/20/2021 14:47:36 04/20/20 21 04/20/2021 urina lysis panel , auto Unknown Analyte Negati ve Not Available [facility] [address], [place], [address], 04/20/2021 14:47:36 04/20/20 21 04/20/2021 urina lysis panel , auto Unknown Analyte Normal Not Available [facility] [address], [place], [address], 04/20/2021 14:47:36 04/20/20 21 04/20/2021 urina lysis panel , auto Unknown Analyte Normal Not Available [facility] [address], [place], [address], 04/20/2021 14:47:36 04/20/2004/20/2021 urina lysis panel , auto Unknown Analyte Negati ve Not Available [facility] [address], [place], [address], 04/20/2021 14:47:36 04/20/2004/20/2021 urina lysis panel , auto Unknown Analyte Negati ve Not Available [facility] [address], [address], 04/20/2021 14:47:36 04/20/20 21 04/20/2021 urina lysis panel , auto Unknown Analyte Normal Not Available [facility] [address], [address], 04/20/2021 14:47:36 04/20/20 21 04/20/2021 urina lysis panel , auto Unknown Analyte Normal 1 mg/dl Not Available [facility] [address], [place], [address], 04/20/2021 14:47:36 04/20/20 21 04/20/2021 urina lysis panel , auto Unknown Analyte Negati ve Not Available [facility] [address], [place], [address], 04/20/2021 14:47:36 04/20/20 21 04/20/2021 urina lysis panel , auto Unknown Analyte Negati ve Not Available [facility] [address], [place], [address], 04/20/2021 14:47:36 04/20/2004/20/2021 urina lysis panel , auto Unknown Analyte Negati ve Not Available [facility] [address], [place], [address], 04/20/2021 14:47:36 04/20/2004/20/2021 urina lysis panel , auto Unknown Analyte Negati ve Not Available [facility] [address], [place], [address], 04/20/2021 14:47:36 10/18/20 20 10/18/2020 urina lysis panel , auto Unknown Analyte Clean Catch Not Available [facility] [address], [place], [address], 10/18/2020 13:53:07 10/18/20 20 10/18/2020 urina lysis panel , auto Unknown Analyte Yellow Not Available [facility] [address], [place], [address], 10/18/2020 13:53:07 10/18/20 20 10/18/2020 urina lysis panel , auto Unknown Analyte Clear Not Available [facility] [address], [place], [address], 10/18/2020 13:53:07 10/18/20 20 10/18/2020 urina lysis panel , auto Unknown Analyte 1.020 Not Available [facility] [address], [place], [address], 10/18/2020 13:53:07 10/18/20 20 10/18/2020 urina lysis panel , auto Unknown Analyte 1.003- 1.035 Not Available [facility] [address], [place], [address], 10/18/2020 13:53:07 10/18/20 20 10/18/2020 urina lysis panel , auto Unknown Analyte 5.0 Not Available [facility] [address], [place], [address], 10/18/2020 13:53:07 10/18/20 20 10/18/2020 urina lysis panel , auto Unknown Analyte 5.0-8. 0 Not Available [facility] [address], [address], 10/18/2020 13:53:07 10/18/20 20 10/18/2020 urina lysis panel , auto Unknown Analyte Negati ve Not Available [facility] [address], [place], [address], 10/18/2020 13:53:07 10/18/2010/18/2020 urina lysis panel , auto Unknown Analyte Negati ve Not Available [facility] [address], [place], [address], 10/18/2020 13:53:07 10/18/2010/18/2020 urina lysis panel , auto Unknown Analyte Negati ve Not Available [facility] [address] [place] [address] [address], [place], [address], 10/18/2020 13:53:07 10/18/2010/18/2020 urina lysis panel , auto Unknown Analyte Negati ve Not Available [facility] [address] [place] [address] [address], [place], [address], 10/18/2020 13:53:07 10/18/2010/18/2020 urina lysis panel , auto Unknown Analyte Negati ve Not Available [facility] [address] [place] [address] [address], [place], [address], 10/18/2020 13:53:07 10/18/2010/18/2020 urina lysis panel , auto Unknown Analyte Negati ve Not Available [facility] [address] [place] [address] [address], [place], [address], 10/18/2020 13:53:07 10/18/2010/18/2020 urina lysis panel , auto Unknown Analyte Normal Not Available [facility] [address], [place], [address], 10/18/2020 13:53:07 10/18/20 20 10/18/2020 urina lysis panel , auto Unknown Analyte Normal Not Available [facility] [address], [place], [address], 10/18/2020 13:53:07 10/18/2010/18/2020 urina lysis panel , auto Unknown Analyte Negati ve Not Available [facility] [address], [place], [address], 10/18/2020 13:53:07 10/18/2010/18/2020 urina lysis panel , auto Unknown Analyte Negati ve Not Available [facility] [address], [place], [address], 10/18/2020 13:53:07 10/18/20 20 10/18/2020 urina lysis panel , auto Unknown Analyte Normal Not Available [facility] [address], [place], [address], 10/18/2020 13:53:07 10/18/20 20 10/18/2020 urina lysis panel , auto Unknown Analyte Normal 1 mg/dl Not Available [facility] [address], [place], [address], 10/18/2020 13:53:07 10/18/20 20 10/18/2020 urina lysis panel , auto Unknown Analyte Negati ve Not Available [facility] [address], [place], [address], 10/18/2020 13:53:07 10/18/20 20 10/18/2020 urina lysis panel , auto Unknown Analyte Negati ve Not Available [facility] [address], [place], [address], 10/18/2020 13:53:07 10/18/20 20 10/18/2020 urina lysis panel , auto Unknown Analyte Negati ve Not Available [facility] [address], [place], [address], 10/18/2020 13:53:07 10/18/20 20 10/18/2020 urina lysis panel , auto Unknown Analyte Negati ve Not Available [facility] [address], [place], [address], 10/18/2020 13:53:07 10/18/20 20 10/18/2020 PSA, serum or plasm a PSA <0.04 NG/mL 0.0 - 4.0 Not Available [facility] [address], [address], 10/18/2020 13:52:42 04/20/20 21 04/20/2021 PSA, serum or plasm a PSA <0.04 NG/mL 0.0 - 4.0 Not Available [facility] [address], [address], 04/20/2021 14:48:22 10/10/20 21 10/10/2021 PSA, serum or plasm a PSA <0.04 NG/mL 0.0 - 4.0 Not Available [facility] [address], [place], [address], 10/10/2021 11:55:58 08/21/2008/21/2022 PSA, serum or plasm a PSA <0.04 NG/mL 0.0 - 4.0 Not Available [facility] [address], [place], [address], 08/21/2022 13:40:35 08/21/2008/21/2022 urina lysis panel , auto Unknown Analyte Clean Catch Not Available [facility] [address], [place], [address], 08/21/2022 13:39:48 08/21/2008/21/2022 urina lysis panel , auto Unknown Analyte Yellow Not Available [facility] [address], [address], 08/21/2022 13:39:48 08/21/2008/21/2022 urina lysis panel , auto Unknown Analyte Clear Not Available [facility] [address], [address], 08/21/2022 13:39:48 08/21/20 22 08/21/2022 urina lysis panel , auto Unknown Analyte 1.020 Not Available [facility] [address], [address], 08/21/2022 13:39:48 08/21/20 22 08/21/2022 urina lysis panel , auto Unknown Analyte 1.003- 1.035 Not Available [facility] [address] [place] [address] [address], [place], [address], 08/21/2022 13:39:48 08/21/2008/21/2022 urina lysis panel , auto Unknown Analyte 5.0 Not Available [facility] [address], [place], [address], 08/21/2022 13:39:48 08/21/2008/21/2022 urina lysis panel , auto Unknown Analyte 5.0-8. 0 Not Available [facility] [address] [place] [address] [address], [place], [address], 08/21/2022 13:39:48 08/21/2008/21/2022 urina lysis panel , auto Unknown Analyte 25 Miya/ul Trace Not Available [facility] [address], [place], [address], 08/21/2022 13:39:48 08/21/20 22 08/21/2022 urina lysis panel , auto Unknown Analyte Negati ve Not Available [facility] [address], [place], [address], 08/21/2022 13:39:48 08/21/20 22 08/21/2022 urina lysis panel , auto Unknown Analyte Negati ve Not Available [facility] [address] [place] [address] [address], [place], [address], 08/21/2022 13:39:48 08/21/20 22 08/21/2022 urina lysis panel , auto Unknown Analyte Negati ve Not Available [facility] [address], [place], [address], 08/21/2022 13:39:48 08/21/2008/21/2022 urina lysis panel , auto Unknown Analyte 30 mg/dl (+) Not Available [facility] [address], [place], [address], 08/21/2022 13:39:48 08/21/2008/21/2022 urina lysis panel , auto Unknown Analyte Negati ve Not Available [facility] [address] [place] [address] [address], [place], [address], 08/21/2022 13:39:48 08/21/2008/21/2022 urina lysis panel , auto Unknown Analyte Normal Not Available [facility] [address], [place], [address], 08/21/2022 13:39:48 08/21/20 22 08/21/2022 urina lysis panel , auto Unknown Analyte Normal Not Available [facility] [address], [place], [address], 08/21/2022 13:39:48 08/21/2008/21/2022 urina lysis panel , auto Unknown Analyte Negati ve Not Available [facility] [address] [place] [address] [address], [place], [address], 08/21/2022 13:39:48 08/21/20 22 08/21/2022 urina lysis panel , auto Unknown Analyte Negati ve Not Available [facility] [address], [place], [address], 08/21/2022 13:39:48 08/21/2008/21/2022 urina lysis panel , auto Unknown Analyte 1 mg/dl Not Available [facility] [address] [place] [address] [address], [place], [address], 08/21/2022 13:39:48 08/21/2008/21/2022 urina lysis panel , auto Unknown Analyte Normal 1 mg/dl Not Available [facility] [address], [place], [address], 08/21/2022 13:39:48 08/21/2008/21/2022 urina lysis panel , auto Unknown Analyte 1 mg/dl (+) Not Available [facility] [address] [place] [address] [address], [place], [address], 08/21/2022 13:39:48 08/21/20 22 08/21/2022 urina lysis panel , auto Unknown Analyte Negati ve Not Available [facility] [address] [place] [address] [address], [place], [address], 08/21/2022 13:39:48 08/21/20 22 08/21/2022 urina lysis panel , auto Unknown Analyte Negati ve Not Available [facility] [address] [place] [address] [address], [place], [address], 08/21/2022 13:39:48 08/21/20 22 08/21/2022 urina lysis panel , auto Unknown Analyte Negati ve Not Available [facility] [address], [place], [address], 08/21/2022 13:39:48 10/29/2010/29/2023 PSA, serum or plasm a PSA <0.04 NG/mL 0.0 - 4.0 Not Available [facility] [address], [place], [address], 10/29/2023 14:13:50 10/29/2010/29/2023 urina lysis panel , auto Unknown Analyte Clean Catch Not Available [facility] [address], [place], [address], 10/29/2023 13:47:51 10/29/2010/29/2023 urina lysis panel , auto Unknown Analyte Yellow Not Available [facility] [address], [place], [address], 10/29/2023 13:47:51 10/29/20 23 10/29/2023 urina lysis panel , auto Unknown Analyte Clear Not Available [facility] [address], [place], [address], 10/29/2023 13:47:51 10/29/2010/29/2023 urina lysis panel , auto Unknown Analyte 1.020 Not Available [facility] [address], [place], [address], 10/29/2023 13:47:51 10/29/20 23 10/29/2023 urina lysis panel , auto Unknown Analyte 1.003- 1.035 Not Available [facility] [address], [place], [address], 10/29/2023 13:47:51 10/29/20 23 10/29/2023 urina lysis panel , auto Unknown Analyte 5.0 Not Available [facility] [address] [place] [address] [address], [place], [address], 10/29/2023 13:47:51 10/29/2010/29/2023 urina lysis panel , auto Unknown Analyte 5.0-8. 0 Not Available [facility] [address], [place], [address], 10/29/2023 13:47:51 10/29/20 23 10/29/2023 urina lysis panel , auto Unknown Analyte 25 Miya/ul Trace Not Available [facility] [address] [place] [address] [address], [place], [address], 10/29/2023 13:47:51 10/29/20 23 10/29/2023 urina lysis panel , auto Unknown Analyte Negati ve Not Available [facility] [address] [place] [address] [address], [place], [address], 10/29/2023 13:47:51 10/29/20 23 10/29/2023 urina lysis panel , auto Unknown Analyte Negati ve Not Available [facility] [address] [place] [address] [address], [place], [address], 10/29/2023 13:47:51 10/29/20 23 10/29/2023 urina lysis panel , auto Unknown Analyte Negati ve Not Available [facility] [address], [place], [address], 10/29/2023 13:47:51 10/29/2010/29/2023 urina lysis panel , auto Unknown Analyte 30 mg/dl (+) Not Available [facility] [address], [place], [address], 10/29/2023 13:47:51 10/29/20 23 10/29/2023 urina lysis panel , auto Unknown Analyte Negati ve Not Available [facility] [address], [place], [address], 10/29/2023 13:47:51 10/29/20 23 10/29/2023 urina lysis panel , auto Unknown Analyte Normal Not Available [facility] [address], [place], [address], 10/29/2023 13:47:51 10/29/2010/29/2023 urina lysis panel , auto Unknown Analyte Normal Not Available [facility] [address], [place], [address], 10/29/2023 13:47:51 10/29/2010/29/2023 urina lysis panel , auto Unknown Analyte Negati ve Not Available [facility] [address], [place], [address], 10/29/2023 13:47:51 10/29/20 23 10/29/2023 urina lysis panel , auto Unknown Analyte Negati ve Not Available [facility] [address], [place], [address], 10/29/2023 13:47:51 10/29/2010/29/2023 urina lysis panel , auto Unknown Analyte Normal Not Available [facility] [address], [place], [address], 10/29/2023 13:47:51 10/29/2010/29/2023 urina lysis panel , auto Unknown Analyte Normal 1 mg/dl Not Available [facility] [address], [place], [address], 10/29/2023 13:47:51 10/29/20 23 10/29/2023 urina lysis panel , auto Unknown Analyte Negati ve Not Available [facility] [address], [place], [address], 10/29/2023 13:47:51 10/29/2010/29/2023 urina lysis panel , auto Unknown Analyte Negati ve Not Available [facility] [address], [place], [address], 10/29/2023 13:47:51 10/29/2010/29/2023 urina lysis panel , auto Unknown Analyte Negati ve Not Available [facility] [address], [place], [address], 10/29/2023 13:47:51 10/29/20 23 10/29/2023 urina lysis panel , auto Unknown Analyte Negati ve Not Available [facility] [address], [place], [address], 10/29/2023 13:47:51 Result Notes None recorded. Problems Name Problem SNOMED Code Status Onset Date Resolution Date Notes Provider Name and Address Organization Details Recorded Time Left lower quadrant pain 861647539 Active 2015 From Automated Load;Provi sangeetha: Darrell Win;Statu s: Active Not Available [facility] 7 06:46:12 Gastroint estinal tract finding Active 2015 From Automated Load;Provi sangeetha: Darrell Win;Statu s: Active Not Available [facility] 7 07:19:53 Incomplet e passage of stool 248579019 Active 2015 From Automated Load;Provi sangeetha: Darrell Win;Statu s: Active Not Available [facility] 7 07:34:02 Abdominal bloating 578913230 Active 2015 From Automated Load;Provi sangeetha: Darrell Win;Statu s: Active Not Available [facility] 7 07:48:06 Problem Notes None recorded. Procedures Surgical History Date Name Laterality Status Provider Name and Address Organization Details Recorded Time 10/23/20 19 PROSTATECTOMY, LAPAROSCOPIC, ROBOTIC (SURG) completed Marcelino Hsieh [facility] 10/24/2019 09:09:24 Cholecystectomy completed Murelene Damien [facility] 02/16/2017 15:23:07 Imaging Results None recorded. Procedure Notes None recorded. Medical Equipment None Reported. Allergies Allergen ID Allergen Name Allergen Category Reaction Reaction Severity Criticality Documentation Date Start Date Code Code System Note Provider Name and Address Organization Details Recorded Time 560939 [place] medicatio n chest pain severe Not available 03/09/20172016 33308 RxNorm Deseriguy oh [facility] 7 14:26:05 Medications Name Sig Start Date [...] Updated DateTime 04/20/2021 180.34 cm 25.8 kg/m2 38792.59 g Ameena Sagastumesarina [facility] 04/20/2021 14:47:15 Date Recorded Body height Body mass index (BMI) Body weight Provider Name and Address Organization Details Last Updated DateTime 10/10/2021 180.34 cm 25.8 kg/m2 34001.59 g Priya Aguilar [facility] 10/10/2021 11:55:13 Date Recorded Body height Body mass index (BMI) Body weight Provider Name and Address Organization Details Last Updated DateTime 10/18/2020 180.34 cm 25.8 kg/m2 77092.59 Priya Aguilar [facility] 10/18/2020 13:52:23 Date Recorded Body weight Body mass index (BMI) Body height Provider Name and Address Organization Details Last Updated DateTime 10/29/2023 42631.77 g 26.1 kg/m2 180.34 cm Linn Ashley [facility] 10/29/2023 13:35:28 Social History Question Answer Notes LastModified by Organizat ion Details LastModified Time Tobacco Smoking Status Never Smoker Priya Aguilar [facility] 06/20/2019 14:08:07 How Much Tobacco Do You Chew? None [email or web address] Information not available 12/11/2018 Marital Status [email or web address] Informatio n not available 02/16/2017 What Was The Date Of Your Most Recent Tobacco Screening? 12/11/2018 8 Information not available 01/06/2020 How Much Tobacco Do You Smoke? No [email or web address] Information not available 08/22/2019 Has Tobacco Cessation Counseling Been Provided? No [email or web address] Information not available 10/10/2021 Have You Recently Traveled Abroad? No Information not available 10/10/2021 Sex: Unknown Functional Status Question Answer Note LastModified by Organizat ion Details LastModified Time Do you use any illicit or recreational drugs? No [email or web address] Information not available 10/10/2021 Do you or have you ever used any other forms of tobacco or nicotine? No [email or web address] Information not available 10/10/2021 What is your level of alcohol consumption? None [email or web address] Information not available 10/18/2020 Mental Status None recorded. Family History Relationship Description Onset Age of this Age Resolved Age Notes LastModified by Organization Details LastModified Time Father Malignant neoplasm of prostate [email or web address] Not available 2016 15:22:49 Medical History Condition Response Kidney Stones Y Hepatitis Y Hypertension Y Past Encounters Encounter ID Performer Location Encounter Start Date Encounter Closed Date Diagnosis/Indication Diagnosis SNOMED-CT Code Diagnosis ICD10 Code Diagnosis IMO Codes Diagnosis Note [id number] LEIGHA LOMBARDI MD [facility] [address] [address] 02/16/2017 14:39:58 02/16/2017 16:16:37 Chronic prostatitis 40902018 N41.1 follow-up 3 weeks with PSA [id number] LEIGHA LOMBARDI MD [facility] [address] [address] 03/09/2017 13:50:51 03/12/2017 09:01:26 Chronic prostatitis 93880867 N41.1 follow-up 6 weeks with PSA Prostate s pecific antigen above reference range 711025176 R97.20 [id number] LEIGHA LOMBARDI MD [facility] [address] [place] [address] 04/20/2017 15:03:00 04/23/2017 09:18:47 Chronic prostatitis 07640695 N41.1 follow-up 6 Months Prostate s pecific antigen above reference range 343726667 R97.20 [id number] LEIGHA LOMBARDI MD [facility] [address] [address] 09/28/2017 10:06:36 09/28/2017 11:47:46 Chronic prostatitis N41.1 follow-up 3 months. He will take 2 months of doxycyclin e. Prostate s pecific antigen above reference range 856801832 R97.20 repeat PSA and follow-up [id number] LEIGHA LOMBARDI MD [facility] [address] [place] [address] 12/28/2017 10:24:15 12/31/2017 09:16:21 Chronic prostatitis 95312801 N41.1 6 months Benign pro static hyperplasia 479519200 N40.0 [id number] LEIGHA LOMBARDI MD [facility] [address] [place] [address] 0 02/25/2018 10:42:12 02/25/2018 13:12:53 Prostate specific antigen above reference range 542888248 R97.20 repeat PSA Chronic prostatitis 19899 N41.1 6 months [id number] LEIGHA LOMBARDI MD [facility] [address] [place] [address] 0 08/16/2018 08:43:51 08/16/2018 10:30:44 Chronic prostatitis N41.1 as above Prostate s pecific antigen above reference range 572250845 R97.20 repeat PSAat follow-up in 1 month [id number] LEIGHA LOMBARDI MD [facility] [address] [place] [address] 0 09/30/2018 11:49:36 09/30/2018 12:44:14 Prostate specific antigen above reference range 736870717 R97.20 follow-up 2 months with repeat PSA Chronic prostatitis 1989 5009 N41.1 as above [id number] LEIGHA LOMBARDI MD [facility] [address] 0 12/11/2018 15:23:45 12/11/2018 16:49:04 Prostate specific antigen above reference range 861405089 R97.20 follow-up 6 months with repeat PSA Chronic prostatitis 1989 5009 N41.1 as above [id number] LEIGHA LOMBARDI MD [facility] [address] [address] 06/20/2019 13:25:30 06/20/2019 14:29:27 Prostate specific antigen above reference range 165730804 R97.20 follow-up 1 months with repeat PSA Chronic prostatitis 1990 5009 N41.1 as above [id number] LEIGHA LOMBARDI MD [facility] [address] [address] 07/23/2019 13:45:44 07/23/2019 14:55:10 Prostate specific antigen above reference range 966327299 R97.20 we will arrange for transrecta l ultrasound and needle biopsy the prostate under local monitored. We will use cefuroxime in place of Levaquin as he has not tolerated the Cipro very well. discussion time 30 minutes [id number] LEIGHA LOMBARDI MD SURGERY SCHEDULE [address] [place] [id number] 07/30/2019 08:15:56 07/30/2019 08:18:05 [id number] LEIGHA LOMBARDI MD [facility] [address] [place] [address] 08/22/2019 14:34:05 08/22/2019 15:14:53 Malignant neoplasm of prostate 986488542 C61 plan as above we will arrange for robotic-as sisted laparoscop ic radical prostatect merrill with left-sided pelvic lymph node dissection .discussio n time 25 minutes [id number] MD [facility] [address] [place] [address] 11/03/2019 13:12:38 11/03/2019 14:18:17 Malignant neoplasm of prostate 957426922 C61 follow-up 3-4 weeks with PSA [id number] LEIGHA [facility]ARDI [facility] [address],[place] [address] 11/24/2019 12:37:30 11/24/2019 13:38:39 History of malignant neoplasm of prostate 695190490 Z85.46 follow-up 3 months with PSA Secondary erectile dysfunction 917844275 N52.37 plan as above [id number] LEIGHA LOMBARDI MD [facility] [address] [place] [address] 01/19/2020 11:43:42 01/19/2020 12:43:44 Dysuria 46581042 R30.9 Malignant neoplasm of prostate 646087323 C61 follow-up 1 month with PSA [id number] LEIGHA LOMBARDI MD [facility] [address] [place] [address] 03/29/2020 15:00:20 03/29/2020 15:58:26 Malignant neoplasm of prostate 284254320 C61 follow-up 3 month with PSA Secondary erectile dysfunction 891332557 N52.37 plan as above [id number] LEIGHA LOMBARDI MD [facility] [address] [place] [address] 06/25/2020 12:41:49 06/25/2020 13:45:10 Malignant neoplasm of prostate 670930605 C61 follow-up 3 month with PSA Secondary erectile dysfunction 851060122 N52.37 plan as above [id number] LEIGHA LOMBARDI MD [facility] [address] [place] [address] 10/18/2020 13:09:33 10/18/2020 14:40:18 History of malignant neoplasm of prostate 206748080 Z85.46 follow-up 6 months with PSA Secondary erectile dysfunction 113074231 N52.37 plan as above [id number] LEIGHA LOMBARDI MD [facility] [address] [place] [address] 04/20/2021 13:43:00 04/20/2021 15:02:21 Urolithiasis 77910495 N20.9 History of malignant neoplasm of prostate 809732591 Z85.46 follow-up 6 months with PSA Secondary erectile dysfunction 199377586 N52.37 plan as above [id number] LEIGHA LOMBARDI MD [facility] [address] [address] 10/10/2021 11:11:19 10/10/2021 12:43:20 History of malignant neoplasm of prostate 535323057 Z85.46 follow-up 6 months with PSA [id number] LEIGHA LOMBARDI MD [facility] [address] [place] [address] 08/21/2022 13:28:43 08/21/2022 14:20:39 History of malignant neoplasm of prostate 327714422 Z85.46 follow-up 6 months with PSA Urolithiasis 27992371 N2 0.9 observed. [id number] LEIGHA LOMBARDI MD [facility] [address] [facility] [address] 10/29/2023 13:26:03 10/29/2023 14:02:39 History of malignant neoplasm of prostate 021273738 Z85.46 follow-up 6 months with PSA Contractur e of neck of urinary bladder 0272778359 9103 N32.0 Plan as above cystoscopy with possible interventi on under anesthesia Erectile d ysfunction following radical prostatectomy 7559762265 72003 N52.31 As above Health Concerns Section Related Observation LastModified by Organization Detai ls LastModified Time None Recorded Concern Status LastModified by Organization Details LastModified Time None Recorded Advance Directives Directive None Recorded Payers Insurance Date Sequence Insurance Name Policy Number Policy Oro Covered Member ID Oro Member ID Guarantor Name 10/29/2023 1 [place] [id number] Kevin Haines [id number] Kevin Haines 09/22/2025 2 [place] [id number] Kevin Haines [id number] Kevin Haines 09/22/2025 1 [place] Kevin Haines [id number] Kevin Haines Notes Date Note Type [...] PSA today was nondetectable. LEIGHA LOMBARDI MD [address] [place] [address], [phone], [facility] 10/18/2020 14:03:15 04/20/2021 text/html Patient is here history of prostate carcinoma treated with robotic prostatectomy 18 months ago. He has no incontinence. He has had return of significant spontaneous erection function. He is not recently tried sildenafil. PSA today was Nondetectable. He is also having history of urolithiasis. He has passed several small stones recently. We discussed adding potassium citrate. LEIGHA LOMBARDI MD [address] [place] [address], [phone], [facility] 04/21/2021 19:38:42 10/10/2021 text/html patient is now 2 years following robotic prostatectomy. PSA today is pending. He has some spontaneous erectile function but not complete rigidity. He is not interested in additional therapy at this time. He has no incontinence. Assuming his PSA is nondetectable we will [facility] 16:57:52 08/21/2022 text/html patient is [...] to continue current therapy. LEIGHA LOMBARDI MD [address] [place] [address], [phone], [facility] 08/21/2022 15:14:24 10/29/2023 text/html Patient is here [...] and will try that. LEIGHA LOMBARDI MD [facility] [place], [address], [facility] 10/29/2023 21:45:09
--- NOTE | 2025-10-25 02:30 | ECG_ITS ---
APPROVED REPORT Exam: Resting ECG HR:52 bpm ECG Measurements Heart Rate 52 AXES WA 187 P 47 QRSd 102 QRS 82 QT 465 T 65 QTc 446 Conclusion SINUS BRADYCARDIA WITH OCCASIONAL SUPRAVENTRICULAR PREMATURE COMPLEXES ST DEVIATION AND MODERATE T-WAVE ABNORMALITY, CONSIDER INFERIOR ISCHEMIA [-0.1+ mV T-WAVE IN II/aVF] No STEMI Electronically signed by : LISSETH SIN, 10/26/2025 07:50:11
--- NOTE | 2025-10-25 02:49 | XR_ITS ---
PROCEDURE INFORMATION: Exam: XR Chest Exam date and time: 10/25/2025 3:43 AM Age: 70 years old Clinical indication: Other: HTN, sensation in chest TECHNIQUE: Imaging protocol: Radiologic exam of the chest. Views: 2 views. COMPARISON: CR XR CHEST PORTABLE 10/02/2025 1:46 PM FINDINGS: Lungs: Unremarkable. No consolidation. Pleural spaces: Unremarkable. No pleural effusion. No pneumothorax. Heart/Mediastinum: Unremarkable. No cardiomegaly. Bones/joints: Unremarkable. IMPRESSION: No acute findings.
[2025-10-25] MEDS: ASPIRIN 81MG CHEWABLE TABLET 324 MG PO (03:02)
[2025-10-25] MEDS: NITROGLYCERIN 0.4MG SL TABLET 0.4 MG SL (03:02)
[2025-10-25 03:27] LABS: Hematocrit 41.3 % (42.0-52.0); Hemoglobin 14.3 g/dL (14.1-18.0); Immature Granulocytes % 0.3 %; Mean Corpuscular HGB Conc 34.6 g/dL (31.8-35.4); Mean Corpuscular Hemoglobin 29.8 pg (27.0-31.2); Mean Corpuscular Volume 86.0 fl (80-94); Nucleated Red Blood Cells % 0 %; Platelet Count 189 K/mm3 (142-424); Red Blood Count 4.80 M/mm3 (4.60-6.20); Red Cell Distribution Width-SD 41.2 fL; White Blood Count 7.3 K/mm3 (4.8-10.8)
[2025-10-25 03:36] LABS: INR 1.01 (0.9-1.1); Prothrombin Time 11.2 seconds (10.1-12.5)
[2025-10-25 03:38] LABS: Alanine Aminotransferase 21 U/L (12-78); Albumin Level 4.2 g/dl (3.5-5.0); Albumin/Globulin Ratio 1.2 (1.1-1.8); Alkaline Phosphatase 78 U/L (38-126); Anion Gap 10.2 mEq/L (5-15); Aspartate Amino Transferase 26 U/L (17-59); Bilirubin,Total 0.7 mg/dl (0.2-1.3); Blood Urea Nitrogen 12 mg/dl (9-20); Calcium 8.8 mg/dl (8.4-10.2); Carbon Dioxide 26 mmol/L (22.0-30.0); Chloride 104 mmol/L (98-107); Creatinine Clearance Estimated 81 mL/min (50-200); Creatinine,Serum 0.90 mg/dl (0.66-1.25); Estimated Glomerular Filt Rate 83 ml/min (>60); GFR (African American) 101 ML/MIN (>60); Globulin 3.4 g/dL (1.3-3.2); Glucose 102 mg/dl (74-100); Potassium 3.2 mmoL/L (3.5-5.1); Sodium 137 mmol/L (136-145); Total Protein,Serum 7.6 g/dl (6.3-8.2)
--- NOTE | 2025-10-25 03:40 | ECG_ITS ---
APPROVED REPORT Exam: Resting ECG HR:71 bpm ECG Measurements Heart Rate 71 AXES ME 186 P 54 QRSd 114 QRS 89 QT 432 T 62 QTc 455 Conclusion SINUS RHYTHM MODERATE INTRAVENTRICULAR CONDUCTION DELAY [110+ ms QRS DURATION] NONSPECIFIC ST & T-WAVE ABNORMALITY No STEMI Electronically signed by : LISSETH SIN, 10/26/2025 07:51:17
[2025-10-25 03:49] LABS: NT Pro Brain Natriuretic Pep. 534 pg/mL (0-125)
[2025-10-25 03:50] LABS: Troponin I < 0.01 ng/ml (0.00-0.034)
--- NOTE | 2025-10-25 03:55 | ED_ITS ---
Discharge Plan Disposition Patient Disposition: Admitted Clinical Impressions Clinical Impression: Bradycardia HTN (hypertension) Qualifiers: Hypertension type: primary hypertension Qualified Code(s): I10 - Essential (primary) hypertension Syncope Qualifiers: Syncope type: unspecified Qualified Code(s): R55 - Syncope and collapse Discharge ED Provider: Erica Danielle Adult HPI General Chief complaint: PAIN Stated complaint: stints placed in September, high b/p Time Seen by Provider: 10/25/25 02:14 Mode of Arrival: Ambulatory Source of Information: Patient Description of Symptoms (Recalled from ER Triage Doc. by RN): Patient reports to the ER for left sided jaw discomfort, reports its not a pain, but its not normal. States he recently had a heart attack in , where they plaed 5 stents. States he was placed on mulitple new medications. Reports stopping the Beta arash for two days, before restarting it on sunday. States around 1-2 hours prior to coming to the hospital he began to have jaw pain, woke up checked his bp and it was 230/115. Reports taking an amalodipine 5mg, and states his bp did not go down. Denies CP, N&V or syncope. History of Present Illness HPI narrative: 70-year-old male with recent cardiac stenting 1 month ago who reports recent labile blood pressures and palpitations presents to the ER with complaints of left-sided jaw discomfort but not truly a pain as well as high blood pressure. He states he has been monitoring his blood pressure frequently through the day because it will be low and then high, tonight it was 230 so he took his as needed amlodipine but then he noted he was having some discomfort in the left jaw so he came to the ER for further evaluation. When he arrived his blood pressure had already improved and patient stated he felt back to normal regarding his jaw discomfort. Patient reports recently they have been changing his medications around to fix his blood pressure but he also changes them at home because he did not like the way his beta-arash makes him feel. He states he will have blood pressures as low as 110s at home or as high as 230s in the course of 24 hours. Denies chest pain or difficulty breathing, no sweating, nausea, vomiting, diarrhea, fevers, chills, sore throat, runny nose, or any other associated symptoms. No headache or dizziness. No numbness, tingling, or weakness. Related Data Home Medications ?Medication ?Instructions ?Recorded ?Confirmed amlodipine 5 mg tablet 5 mg PO DAILY PRN 09/29/25 1 12/12/24 Previous Rx's ?Medication ?Instructions ?Recorded aspirin 81 mg tablet,delayed 81 mg PO DAILY #90 tabs 1 11/26/24 release atorvastatin 40 mg tablet 40 mg PO HS #30 tabs 5 losartan 100 mg tablet 100 mg PO DAILY #30 tabs metoprolol succinate 25 mg 12.5 mg (11/20 x 25 mg) PO DA DOROTHEA #30 10/12/25 tablet,extended release 24 hr tabs clopidogrel 75 mg tablet 75 mg PO DAILY #30 tabs 03/13 Allergies Allergy/AdvReac Type Severity Reaction Status Date / Time No Known Drug Allergies Allergy Unknown Verified 10/12/25 15:12 allergy reaction [facility] Disclaimer: The information contained in this section may have been updated after the patient was seen, as this information can be updated by other users. Medical History Back pain History of prostate cancer CAD (coronary artery disease) Hypertension Prostate cancer Cholecystectomy planned Surgical History Stented coronary artery Family History Other Family history of acute heart failure Family history of hypertension Family history of stroke Social History Smoking Status: Never smoker alcohol intake: never current occupational status: other Travel in the last 8 weeks?: None Have you lived/traveled outside US in past 30 days?: No Contact w/someone who lives/traveled outside US past 30 days?: No Exposure to someone with infectious disease in past 14 days?: No Do you have a fever (greater than 100.4 F or 38 C)?: No Have you tested positive for COVID-19?: No Exposed to someone with COVID-19 in past 14 days?: No Do you have a sore throat?: No Do you have a cough?: No Do you have any weakness?: No Do you have any diarrhea?: No Are you experiencing any unusual bleeding?: No Do you have any muscle aches/pain?: No Do you have any abdominal pain?: No Are you experiencing loss of taste or smell?: No Other Medical History Have you received the Flu Vaccine for this season: No Have you received the Pneumonia Vaccine: No ROS Obtained: Yes Systems reviewed as appropriate & no additional complaints except as documented Per HPI Physical Exam General General appearance: alert and in no apparent distress Head Head exam: atraumatic and normocephalic Eye Eye exam: Present PERRL and EOMI ENT ENT exam: Present mucous membranes moist Neck Neck exam: Present normal inspection and full ROM Chest Chest inspection: Present symmetric chest wall rise Respiratory Respiratory exam: Present normal lung sounds bilaterally; Absent respiratory distress, wheezes or stridor Cardiovascular Cardiovascular exam: Present regular rate and normal rhythm Abdominal Exam Abdominal exam: Present soft; Absent distention or tenderness Extremities Exam Extremities exam: Present full ROM Neurological Exam Neurological exam: Present alert and oriented X3; Absent motor sensory deficit Psychiatric Psychiatric exam: Present normal affect and normal mood Skin Skin exam: Present warm and dry Medical Decision Making Medical Records Medical records reviewed: Yes I reviewed the patient's medical records. Screening: Per USPSTF and CDC recommendations, given the prevalence of disease in our region, it is our hospital?s policy to screen for HIV and viral Hepatitis for all patients aged 18 and over and those with ongoing risk factors. Rhys Inquiry Pt receiving controlled substance: No Vital Signs: 10/25/25 02:23 10/25/25 02:53 Temperature 98.8 F 98.8 F Temperature Source Oral Pulse Rate 74 Pulse Rate [Right] 64 Respiratory Rate 18 18 Blood Pressure 176/78 H Blood Pressure [Right Arm] 210/89 H Blood Pressure Mean [Right Arm] 129 02 Sat by Pulse Oximetry 98 98 Oxygen Delivery Method Room Air Room Air Lab Data Lab Results 10/25/25 03:15: WBC 7.3, RBC 4.80, Hgb 14.3, Hct 41.3 L, MCV 86.0, MCH 29.8, MCHC 34.6, RDW 13.2, Plt Count 189, MPV 11.1 H, Neut % (Auto) 62.2, Lymph % (Auto) 26.4, Jackson % (Auto) 8.3, Eos % (Auto) 2.3, Baso % (Auto) 0.5, Neut # (Auto) 4.6, Lymph # (Auto) 1.9, Jackson # (Auto) 0.6, Eos # (Auto) 0.2, Baso # (Auto) 0.0, PT 11.2, INR 1.01, Sodium 137, Potassium 3.2 L, Chloride 104, Carbon Dioxide 26, Anion Gap 10.2, BUN 12, Creatinine 0.90, Estimated Creat Clear 81, Estimated GFR 83, Est GFR ( Amer) 101, Glucose 102 H, Calcium 8.8, Total Bilirubin 0.7, AST 26, ALT 21, Alkaline Phosphatase 78, Troponin I < 0.01, N T-Pro-B Natriuret Pep 534 H, Total Protein 7.6, Albumin 4.2, Globulin 3.4 H, Albumin/Globulin Ratio 1.2 10/25/25 03:15 10/25/25 03:15 Orders (Tests/Meds): ED MEDICATIONS Generic Name Dose Route Start Last Admin Trade Name Freq PRN Reason Stop Dose Admin Nitroglycerin 0.4 mg 10/25/25 02:49 10/25/25 03:02 Nitroglycerin 0.4mg Sl Tablet SL 10/26/25 02:49 0.4 mg [id number] PRN Administration Chest Pain Discontinued Medications Generic Name Dose Route Start Last Admin Trade Name Freq PRN Reason Stop Dose Admin Aspirin 324 mg 10/25/25 02:49 10/25/25 03:02 Aspirin 81mg Chewable Tablet PO 10/25/25 02:50 324 mg ONCE ONE Administration Atropine Sulfate 1 mg 10/25/25 04:16 10/25/25 04:21 Atropine 1mg/10ml Syringe (Crash Cart) IV 10/25/25 04:17 1 mg ONCE ONE Administration ORDERS Category Date Time Status XR chest 2V Stat Exams 10/25/25 02:49 Taken Complete Blood Count Auto Diff Stat Lab 10/25/25 03:15 Completed Comprehensive Metabolic Panel Stat Lab 10/25/25 03:15 Completed NT Pro Brain Natriuretic Pep. Stat Lab 10/25/25 03:15 Completed Prothrombin Time INR Stat Lab 10/25/25 03:15 Completed Troponin I Q3H Lab 10/25/25 06:00 Ordered Troponin I Q3H Lab 10/25/25 09:00 Ordered Troponin I Stat Lab 10/25/25 03:15 Completed ECG Request Stat Y 10/25/25 03:35 Ordered Medical Decision Narrative: In summary, this 70-year-old male with comorbidities described in the HPI presents to the emergency department today with concerns of high blood pressure, discomfort in the jaw. On initial evaluation patient is hypertensive but otherwise hemodynamically stable, afebrile, GCS 15, neurovascularly intact, no reproducible pain on exam, no tenderness, cardiopulmonary exam benign, abdominal exam benign. Differential diagnosis includes but is not limited to medication noncompliance, medication side effects, palpitations, arrhythmia, electrolyte abnormality, hypertensive urgency, hypertensive emergency, I considered ACS though I have lower suspicion for this, considered thyroid abnormality, among others. Patient has no evidence of stroke but I did consider kidney injury as well with the hypertension. Based on these concerns, I ordered hematologic and serum labs, cardiac workup. ECG personally interpreted demonstrates sinus bradycardia, rate 52, normal axis, normal OK and QTc, artifact limits interpretation otherwise but there does not appear to be evidence of STEMI repeat ECG personally interpreted demonstrates sinus rhythm, rate 71, normal axis, normal OK and QTc, slight ST depression in the inferior leads and V5 and 6 but this is stable compared to previous ECGs since the time of the patient's heart attack. No dynamic changes. Patient received aspirin, nitro for treatment. Labs personally reviewed demonstrate no leukocytosis or anemia, normal platelets, PT/INR normal, not acutely actionable, initial troponin undetectably low less than 0.01 reassuring in the setting of nonischemic ECG, BNP mildly elevated at 534 but patient has no other findings of volume overload XR personally interpreted demonstrates no acute intrathoracic abnormality, see radiology read for final interpretation. When patient came back from x-ray, he was pale and feeling lightheaded, he syncopized while still in the wheelchair. He was unconscious for approximately 30 to 45 seconds. I was at bedside. Patient had a very slow but faintly palpable pulse, he was immediately transferred over to the bed and placed on pads, he was in a bradycardic rhythm without P waves, ECG was not able to be obtained prior to atropine being administered. Atropine fixed the patient's heart rate and improved to the 80s. His blood pressure improved to the 120s. EKG immediately obtained demonstrates sinus rhythm with unchanged ST depressions but his QTc is prolonged at 522. I do have concern about possible transient complete heart block versus other arrhythmia. At this point I reached out to Dr. Mercado and discussed the patient's ECGs, presentation, history, and events in the ER with him. Patient is currently hemodynamically stable, alert, oriented, and feeling at baseline. He recommended admission to the hospital with no further intervention in the ER but continued blood pressure and cardiac monitoring. We did discuss it is possible that the patient had a vagal episode after holding his breath for chest x-ray however I am concerned that patient did not have P waves while bradycardic with heart rate in the 30s when he syncopized. I appreciate Dr. Mercado's recommendations. I discussed this patient with the hospitalist, Adalberto who graciously accepted the patient for admission. Prior to being admitted to the hospital however patient felt like he was again going to pass out, repeat ECG obtained demonstrates sinus rhythm, rate 73, normal axis, normal OK and QTc, no STEMI, no dynamic changes. He feels improved, alert, oriented, continues to be hemodynamically stable. He was admitted to the hospital stepdown unit in stable condition. Critical Care Critical Care Time Critical Care Time: No
--- NOTE | 2025-10-25 04:04 | ECG_ITS ---
APPROVED REPORT Exam: Resting ECG HR:89 bpm ECG Measurements Heart Rate 89 AXES WY 160 P 31 QRSd 105 QRS 85 QT 476 T 62 QTc 522 Conclusion SINUS RHYTHM MODERATE ST DEPRESSION [0.05+ mV ST DEPRESSION] PROLONGED QT INTERVAL No STEMI Electronically signed by : LISSETH SIN, 10/26/2025 07:50:25
--- NOTE | 2025-10-25 04:08 | PC.NURSE ---
While transitioning from the CT wheel chair, radiology told nurses the patient feels like he is gonna pass out. Once in the room, patient was pale, lethargic and diaphoretic, and unconscious. Patient came to but was slow to respond. Patient lifted to the bed. States he was holding his breath and passed out, patient states he was alert the whole time. Patient states he was just in CT holding his breath. Once patient on bed side vitals, Heart rate was 37. Dr. alves was at bedside. Dr alves advised to give 1mg of Atropine. Base line vitals became normotensive. Patient color came back.
[2025-10-25] MEDS: ATROPINE 1MG/10ML SYRINGE (CRASH CART) 1 MG IV (04:21)
--- NOTE | 2025-10-25 04:29 | HMH.ITSTN ---
Pt was taken back to x ray via wheelchair. Pt ambulated to x ray board and images were taken, on last image after following breathing instructions pt stated he felt dizzy and nauseaous . Pt ambulated back to chair. Pt was then handed a emesis bag. After wheeling pt back to his room, upon transporting back to bed pt stated he felt he was going to black out . Help from ER staff was then called to assess pt.
--- NOTE | 2025-10-25 04:42 | P.HP_ITS ---
<Statement entered by Bernard Pena MD - 10/25/25 16:09> Agree with plan of care as outlined by the [facility]. Personally evaluated the patient. Chest, jaw pain resolved. Patient did have an episode of dizziness, syncope apparently after shortly after nitro tab. Was given atropine for bradycardia, improving to the 80s. However, patient's baseline chronic heart rate in the 50s. History of CAD with 5 stents in September 2025. Has been adherent to his antiplatelets, medications. He does note that he takes amlodipine 10 mg as needed for SBP greater than 150 as he was advised by cardiology but takes losartan 100 mg daily. He states amlodipine 5 mg historically worked well for him and wonders why he can use that instead, he was counseled that losartan was likely chosen for cardioprotection due to recent coronary events. Given hypertensive, restarted losartan with improvement in pressures currently 120/77. Orthostatics, full respiratory panel, UA normal. B12 low normal, started multivitamin. Currently asymptomatic, ambulating without issues. Will monitor overnight on cardiac telemetry, and cardiology consultation in the morning. History of Present Illness *Admission Date: 10/25/25 *Reason for visit:: High blood pressure *History of present illness: This is a 70-year-old male who has a past medical history significant for coronary artery disease, hypertension, DE with 5 stents, prostate cancer, and back pain who presents with a chief complaint of jaw pain and high and low blood pressure. Due to patient's symptoms, he presents to the emergency room for evaluation. While in the emergency room, patient was given nitro and his heart rate decreased to the 30s and he had a syncopal episode. As a result, his case was discussed with product representative who recommended admission. Patient received atropine and his heart rate improved to the 80s. As a result, patient has been admitted for further management. During my evaluation of the patient, patient states he has been having left- sided jaw discomfort with blood pressures ranging from systolic 230 to systolic of 110. He states he recently had some of his antihypertensive medications changed around. He reports that he has an intolerance to beta-blockers. Patient states he also has been experiencing kaleidoscope eyes. He recently had an DE back in September and received 5 stents. 2D echo revealed an EF of 55%. Patient states that he did receive a nitro. He went to have an x-ray when he stood up his heart rate decreased in the felt like passing out. He is currently denying any chest pain, lightheadedness, dizziness, fever, chills, rigors, shortness of breath, dyspnea, nausea, vomiting, or diarrhea. EKG revealed a sinus bradycardia, QTc of 446, normal axis, and negative STEMI. Additional pertinent labs obtained including potassium of 3.2, blood glucose of 102, and BNP of 534. [facility] Disclaimer: The information contained in this section may have been updated after the patient was seen, as this information can be updated by other users. Medical History Back pain History of prostate cancer CAD (coronary artery disease) Hypertension Prostate cancer Cholecystectomy planned Surgical History Stented coronary artery Family History Other Family history of acute heart failure Family history of hypertension Family history of stroke Social History Smoking Status: Never smoker alcohol intake: never current occupational status: other Travel in the last 8 weeks?: None Have you lived/traveled outside US in past 30 days?: No Contact w/someone who lives/traveled outside US past 30 days?: No Exposure to someone with infectious disease in past 14 days?: No Do you have a fever (greater than 100.4 F or 38 C)?: No Have you tested positive for COVID-19?: No Exposed to someone with COVID-19 in past 14 days?: No Do you have a sore throat?: No Do you have a cough?: No Do you have any weakness?: No Do you have any diarrhea?: No Are you experiencing any unusual bleeding?: No Do you have any muscle aches/pain?: No Do you have any abdominal pain?: No Are you experiencing loss of taste or smell?: No Other Medical History Have you received the Flu Vaccine for this season: No Have you received the Pneumonia Vaccine: No Review of Systems Review of Systems Review of systems:: pertinent systems reviewed and negative unless documented below Constitutional Constitutional: Reports system reviewed and no additional complaints, except as documented Eyes Eyes: Reports change in vision ENT Ears, Nose, Mouth, and Throat: Reports system reviewed and no additional complaints, except as documented *Cardiovascular Cardiovascular: Reports slow heart rate and Reports syncope *Respiratory Respiratory: Reports system reviewed and no additional complaints, except as documented *Gastrointestinal Gastrointestinal: Reports system reviewed and no additional complaints, except as documented *Genitourinary Genitourinary: Reports system reviewed and no additional complaints, except as documented *Musculoskeletal Musculoskeletal: Reports system reviewed and no additional complaints, except as documented Integumentary/Breasts Skin/Breast: Reports system reviewed and no additional complaints, except as documented *Neurologic Neurologic: Reports syncope Psychiatric Psychiatric: Reports system reviewed and no additional complaints, except as documented Endocrine Endocrine: Reports system reviewed and no additional complaints, except as documented Hematologic/Lymphatic Hematologic/Lymphatic: Reports system reviewed and no additional complaints, except as documented Allergic/Immunologic Allergic/Immunologic: Reports system reviewed and no additional complaints, except as documented Meds Home Medications and Allergies Home Medications ?Medication ?Instructions ?Recorded ?Confirmed ?Type aspirin 81 mg tablet,delayed 81 mg PO DAILY #90 tabs 1 11/26/24 10/25/25 Rx release amlodipine 5 mg tablet 5 mg PO DAILY 09/29/2510/25 History losartan 100 mg tablet 100 mg PO DAILY #30 tabs 10/25/25 Rx clopidogrel 75 mg tablet 75 mg PO DAILY #30 tabs 03/1310/25/25 Rx New Prescriptions to Start Prescriptions: Allergies Allergy/AdvReac Type Severity Reaction Status Date / Time No Known Drug Allergies Allergy Unknown Verified 10/12/25 15:12 allergy reaction Exam Data for Last 24 hours Vital signs and Labs for Last 24 Hours: Temp Pulse Resp BP Pulse Ox O2 Del Method 98.8 F 74 18 176/78 H 98 Room Air 10/25/25 02:53 10/25/25 02:53 10/25/25 02:53 10/25/25 02:53 10/25/25 02:53 10/25/25 02:53 Laboratory Results - last 24 hr 10/25/25 03:15: WBC 7.3, RBC 4.80, Hgb 14.3, Hct 41.3 L, MCV 86.0, MCH 29.8, MCHC 34.6, RDW 13.2, Plt Count 189, MPV 11.1 H, Neut % (Auto) 62.2, Lymph % (Auto) 26.4, Ware % (Auto) 8.3, Eos % (Auto) 2.3, Baso % (Auto) 0.5, Neut # (Auto) 4.6, Lymph # (Auto) 1.9, Ware # (Auto) 0.6, Eos # (Auto) 0.2, Baso # (Auto) 0.0, PT 11.2, INR 1.01, Sodium 137, Potassium 3.2 L, Chloride 104, Carbon Dioxide 26, Anion Gap 10.2, BUN 12, Creatinine 0.90, Estimated Creat Clear 81, Estimated GFR 83, Est GFR ( Amer) 101, Glucose 102 H, Calcium 8.8, Total Bilirubin 0.7, AST 26, ALT 21, Alkaline Phosphatase 78, Troponin I < 0.01, NT-Pro-B Natriuret Pep 534 H, Total Protein 7.6, Albumin 4.2, Globulin 3.4 H, Albumin/Globulin Ratio 1.2 I & O for Last 24 hours: Intake & Output 10/22/25 10/23/25 10/24/25 10/25/25 23:59 23:59 23:59 23:59 Weight 83.461 kg Constitutional Constitutional: no acute distress, mild distress and cachectic *Routine HEENT Exam Head: Present normocephalic Eye: Present EOMI, PERRL and normal accommodation ENT: Present mucous membranes moist *Routine Neck Exam Neck: Present supple, full ROM and trachea midline *Routine Respiratory Exam Respiratory: Present CTA bilaterally, normal respiratory effort, able to speak in complete sentences and symmetric chest movement *Routine Cardiovascular Exam Cardiovascular: Present RRR, Normal S1 and Normal S2 *Routine Abdominal Exam Abdominal: Present soft and normoactive bowel sounds *Routine Rectal Exam Rectal:: deferred *Routine Genitalia Exam Genitalia:: deferred *Routine Extremities Exam Extremities: Present pulses intact and normal capillary refill Routine Back/Spine/Pelvis Exam Back/Spine: Present full ROM *Routine Skin Exam Skin: Present intact, dry, warm and normal turgor *Routine Neurological Exam Neurological: Present alert, oriented X3, CN II-XII intact, moving all extremities and normal speech Routine Psychiatric Exam Psychiatric: Present normal affect, normal thought process, cooperative, good insight and good judgment H&P: Result Impressions 70-year-old male who has known coronary artery disease presents with labile blood pressures was given nitro and had a episode of sinus bradycardia with near syncope/syncopal event. Assessment and Plan *Assessment and plan (1) Syncope: Status: Acute Qualifiers: Syncope type: unspecified Qualified Code(s): R55 - Syncope and collapse Category: Medical Code(s): R55 - Syncope and collapse (2) Bradycardia: Status: Acute Category: Medical Code(s): R00.1 - Bradycardia, unspecified (3) Hypertensive urgency: Status: Acute Category: Medical Code(s): I16.0 - Hypertensive urgency (4) CAD (coronary artery disease): Status: Acute Qualifiers: Associated angina: with unstable angina Coronary Disease-Associated Artery/Lesion type: [place] artery [place] vs. transplanted heart: [place] heart Qualified Code(s): I25.110 - Atherosclerotic heart disease of [place] coronary artery with unstable angina pectoris Category: Medical Code(s): I25.10 - Atherosclerotic heart disease of [place] coronary artery without angina pectoris (5) Hypokalemia: Status: Acute Category: Medical Code(s): E87.6 - Hypokalemia Plan Assessment: Syncope Sinus bradycardia Coronary artery disease Hypertension urgency - Will monitor patient in stepdown unit for any further episodes of bradycardia - Obtain TSH with free T4 - Will continue dual antiplatelet therapy - Will continue statin therapy - Will reintroduce antihypertensive to keep blood pressure medication less than 160 while inpatient - If patient have additional episodes of bradycardia, will start epinephrine drip - Will hold nitro Hypokalemia - 20 mill equivalents in close of potassium x 1 - Electrolyte protocol Plan: Admit patient to the stepdown unit on telemetry Activity as tolerated Vital signs every 2 hours Cardiac diet CBC/BMP daily Will continue to trend patient's troponin 40 mg Lovenox subcu daily for DVT prophylax 5 mg Palmer p.o. every 4 hours PMR pain 4 mg Zofran IV push every 8 hours pain nausea bowel Full code I will discussed this case with attending physician Dr. Pena and I look forward to more input
--- NOTE | 2025-10-25 04:47 | PC.NURSE ---
Report called to Marina RILEY.
--- NOTE | 2025-10-25 04:53 | ECG_ITS ---
APPROVED REPORT Exam: Resting ECG HR:73 bpm ECG Measurements Heart Rate 73 AXES FL 194 P 0 QRSd 116 QRS 30 QT 417 T 52 QTc 442 Conclusion SINUS RHYTHM MODERATE INTRAVENTRICULAR CONDUCTION DELAY [110+ ms QRS DURATION] NONSPECIFIC ST & T-WAVE ABNORMALITY No STEMI Electronically signed by : LISSETH SIN, 10/26/2025 07:50:40
--- NOTE | 2025-10-25 05:33 | PC.NURSE ---
patient arrived to the Unit by Stretcher from the ED at 0505.
[2025-10-25 05:38] LABS: Free T4 (Free Thyroxine) 1.28 ng/dl (0.78-2.19)
[2025-10-25] MEDS: POTASSIUM CHLORIDE 20MEQ TAB 20 MEQ PO (05:40)
[2025-10-25 05:53] LABS: Thyroid Stimulating Hormone 1.87 uIU/mL (0.465-4.68)
[2025-10-25 08:26] LABS: Troponin I 0.01 ng/ml (0.00-0.034)
--- NOTE | 2025-10-25 08:36 | HMH.PHAINT1 ---
Pharmacy Intervention Comments: MEDICATION RECONCILIATION COMPLETED ON PATIENT USING EXTERNAL FILL HISTORY FROM PHARMACY AND LIST FROM CARDIOLOGY OFFICE. PER ER NOTE, PATIENT HAS BEEN MAKING MEDICATION CHANGES ON HIS OWN AT HOME WELL. -LORRI BLISS, FAVIAND
[2025-10-25] MEDS: ASPIRIN EC 81MG TABLET 81 MG PO (08:41)
[2025-10-25] MEDS: IRBESARTAN 150MG TAB 150 MG PO (08:41)
[2025-10-25] MEDS: CLOPIDOGREL 75MG TAB 75 MG PO (08:41)
[2025-10-25 09:34] LABS: Vitamin B12 268 pg/mL (239-931)
[2025-10-25 09:57] LABS: Adenovirus,PCR Not Detected (NotDetected); Chlamydophila Pneumoniae, PCR Not Detected (NotDetected); Coronavirus 19, PCR Not Detected (NotDetected); Coronovirus HKU1,PCR Not Detected (NotDetected); Influenza A, PCR Not Detected (NotDetected); Influenza AH1, 2009 Not Detected (NotDetected); Influenza AH1, PCR Not Detected (NotDetected); Influenza AH3,PCR Not Detected (NotDetected); Influenza B, PCR Not Detected (NotDetected); Mycoplasma Pneumoniae, PCR Not Detected (NotDetected); Parainfluenza 1, PCR Not Detected (NotDetected); Parainfluenza 2, PCR Not Detected (NotDetected); Parainfluenza 3, PCR Not Detected (NotDetected); Parainfluenza 4, PCR Not Detected (NotDetected)
[2025-10-25 10:03] LABS: Troponin I < 0.01 ng/ml (0.00-0.034)
[2025-10-25 11:53] LABS: Microscopic, Urine URINE MICROSCOPIC (MICROSCOPIC)
[2025-10-25 13:29] LABS: Bilirubin,Urine Negative (Negative); Color,Urine YELLOW (Yellow); Glucose,Urine (UA) Negative (Negative); Ketones,Urine Negative (Negative); Leukocyte Esterase,Urine Negative (Negative); PH,Urine 7.5 (5.0-8.5); Protein,Urine Negative (Negative); Specific Gravity, Urine 1.015 (1.005-1.030); Urobilinogen,Urine 0.2 EU/dl (0.2)
--- OUTSIDE RECORDS SUMMARY | 2025-10-25 14:37 | XMS_ITS | Encounter Summary ---
Author Organization [employer] ([place], [place], [place], [place], [place]) Address [address] [place] [address] Care Team Providers Care Md Physician Dermatologist Name Role Phone Tee Wade MD Primary Care Provider + [phone] Lennie Coates PA-C Unavailable [phone] Encounter Details Date Type Department Care Team (Late st Contact Info) Description 10/23/2019 Transcribed Document [facility] [place] Family Medicine [address] [place] [address] ProviderJuan MD [address] [place] [address] Social History Tobacco Use Types Packs/Day Years Used Date Smoking Tobacco: Never Assessed Sex and Gender Information Value Date Recorded Sex Assigned at Not on file Legal Sex Male 3:26 PM CDT Gender Identity Not on file Sexual Orientation Not on file documented as of this encounter Miscellaneous Notes * Cerner Conversion Note - Juan Summers MD - 10/23/2019 9:01 AM DRY CAN TENDER [facility] Main OR IntraOp Summary Primary Physician: LEIGHA LOMBARDI MD-URO Finalized Date/Time: 10/26/19 10:56:42 Pt. Name: JHOANA HAINESO.B./Sex: 1955 Male Med Rec #: [id number] Physician: LEIGHA LOMBARDI MD-URO Financial #: [id number] Pt. Type: O Room/Bed: [facility]/ Admit/Disch: 10/24/19 12:26:00 - 10/24/19 12:40:00 Institution: [facility] IntraOp Case Attendance Entry 1 Entry 2 Entry 3 Case Attendee LEIGHA LOMBARDI GILBERT, DAVID M, HOISTING ENGINE OPERATOR, AMALIA CARLOS MD-ANS -URO CUPOLA HOIST OPERATOR-ANS Role Performed Surgeon/Proceduralist, CUPOLA HOIST OPERATOR/Nurse Beef Pluck Trimmer Anesthesiologist of First Record Time In 10/23/19 [...] JIGNESH LING Robin A, Surgical TODD, JUDY Sizer Machine Role Performed Sample Weaver, First Scrub, First Scrub, Second Time In [...] HAGER SSI Poff, Janie, OSVALDO Role Performed Sizer Machine, Ancillary Sizer Machine, Ancillary Watch Technician, First Time In 10/23/19 08:27:00 10/23/19 08:27:00 [...] 11 Case Attendee Nilsa Fu, REGINE BLOCK, CUPOLA HOIST OPERATOR Role Performed Watch Technician, First CUPOLA HOIST OPERATOR/Nurse Beef Pluck Trimmer Time In 10/23/19 09:23:00 10/23/19 10:52:00 Time Out 10/23/19 09:45:00 10/23/19 11:20:00 Procedure Prostatectomy Radical Prostatectomy Radical Robotic, Lymph Node Robotic, Lymph Node Dissection Pelvic Dissection Pelvic Laparoscopi(Left) Laparoscopi(Left) Other Attendee Break relief Superficial Wound Closed By: Last Modified By: Mary Carmen Caro RN Poff, Janie, RN 10/23/19 09:47:22 10/23/19 10:52:27 [facility] IntraOp Case Attendance Audit 10/23/19 11:30:57 Plane Tableman: NILSON Modifier: NILSON 1 <+> Time Out [...] Lymph Node Dissection Pelvic Laparoscopi(Left) 10/23/19 11:20:22 Plane Tableman: NILSON Modifier: POFFJAN 11 <+> Time Out 11 <*> Procedure Prostatectomy Radical Robotic, Lymph Node Dissection Pelvic Laparoscopi(Left) 10/23/19 10:52:27 Plane Tableman: NILSON Modifier: POVAMSHIJAN <+> 11 Case Attendee <+> 11 Role Performed <+> 11 Time In <+> 11 Procedure <+> 11 Other Attendee 10/23/19 09:47:22 Plane Tableman: NILSON Modifier: NGOCJAN 1 <*> Procedure Prostatectomy [...] Time Out <+> 10 Procedure 10/23/19 09:12:34 Plane Tableman: NILSON Modifier: POFFJAN 1 <*> Procedure Prostatectomy [...] <+> 9 Role Performed <+> 9 Procedure [facility] IntraOp Case Times Entry 1 Patient In Room Time 10/23/19 08:27:00 Out Room Time 10/23/19 11:30:00 Anesthesia Start Time 10/23/19 08:27:00 Stop Time 10/23/19 11:30:00 Surgery / Procedure Times Start Time 10/23/19 09:01:00 Stop Time 10/23/19 11:21:00 Last Modified By: Mary Carmen Caro RN 10/23/19 11:21:33 [facility] IntraOp Case Times Audit 10/23/19 11:30:52 Plane Tableman: NILSON Modifier: POFFJAN <+> 1 Out Room Time <+> 1 Stop Time 10/23/19 11:21:33 Plane Tableman: NILSON Modifier: POFFJAN <+> 1 Stop Time [facility] IntraOp Cautery Entry 1 ESU Identification Cautery Type Monopolar ESU ID Number [id number] ID Type Hospital Number Cautery Settings Cut [...] By: Mary Carmen Caro RN 10/23/19 09:17:43 [facility] IntraOp Communication Entry 1 Entry 2 Communication To Family/Significant other Family/Significant other Comment PROCEDURE START UPDATE Communication By Mary Carmen Caro, Mary Carmen Syed RN Date and Time 10/23/19 09:01:00 10/23/19 10:08:00 Last Modified By: Mary Carmen Caro RN Poff, Janie, RN 10/23/19 09:18:28 10/23/19 10:08:23 [facility] IntraOp Communication Audit 10/23/19 10:08:23 Plane Tableman: NILSON Modifier: NILSON <+> 2 Communication By <+> 2 Date and Time <+> 2 Communication To <+> 2 Comment [facility] IntraOp Counts Verification Entry 1 Procedure Prostatectomy Radical Robotic, Lymph Node Dissection Pelvic Laparoscopi(Left) Count Info Count Type Sponge, Sharps, Instrument, Miscellaneous Counts Verification Baseline/pre-procedure Sequence Count Results Not Applicable Counts Performed By Count Performed By Rajiv Haro, Surgical (Scrub) Sizer Machine Count Performed By Mary Carmen Caro RN (RN) Last Modified By: Mary Carmen Caro RN 10/23/19 09:15:13 [facility] IntraOp Counts Final Entry 1 Procedure Prostatectomy Radical Robotic, Lymph Node Dissection Pelvic Laparoscopi(Left) Final Count Info Count Type Sponge, Sharps, Miscellaneous Counts Verification Skin Closure/end of Sequence procedure Count Results Correct, surgeon notified Counts Performed By Count Performed By Rajiv Haro, Surgical (Scrub) Sizer Machine Count Performed By Mary Carmen Caro RN (RN) Last Modified By: Mary Carmen Caro RN 10/23/19 09:19:50 [facility] IntraOp Counts Final Audit 10/23/19 11:13:54 Plane Tableman: NILSON Modifier: NILSON 1 <*> Procedure Prostatectomy Radical Robotic, Lymph Node Dissection Pelvic Laparoscopi(Left) 1 <+> Count Performed By (Scrub) 1 <+> Count Performed By (RN) [facility] IntraOp Cultures and Spec Summary Entry 1 Cultrures and Specimens Specimen Ordered: Yes Test(s) Routine/Path-Lab Requested/Final Disposition Last Modified By: Mary Carmen Caro RN 10/23/19 09:19:26 General Comments: A. BLADDER NECK B. LEFT OBTURATOR LYMPH NODE C. PROSTATE AND SEMINAL VESICLES [facility] IntraOp Departure from OR Entry 1 Integumentary Assessment Integumentary WDL with patient Assessment WDL specific variances Patient's Normal Surgical Integumentary incisions-abdomen Variance(s) Transfer/Handoff Transfer to PACU Phase I Handoff Method Phone call Post-op Transport Stretcher/Gurney Via Patient Transport EDITH TERRELL APRN, Accompanied by CUPOLA HOIST OPERATOR-ANURADHA CESAR KAREN A. Last Modified By: Mary Carmen Caro RN 10/23/19 09:20:07 [facility] IntraOp Drains and Tubes Entry 1 Device Type Aydin Hamm flat drain Size 10 mm Drain/Tube Activity Inserted Drain/Tube Suction Bulb Drain/Tube Drainage Sanguineous Device Location Abdomen Method of Drainage Active Tube Dressing Dry, Intact Condition Last Modified By: Mary Carmen Caro RN 10/23/19 09:19:41 [facility] IntraOp Dressing and Packing Entry 1 Type Dressing Location Abdomen Wound Dressing Item Skin Closure Glue, 4x4's Tape Type Other Applied By JIGNESH LING Other Comments MEDIPORE TAPE APPLIED TO DRAIN DRESSING. Last Modified By: Mary Carmen Caro RN 10/23/19 09:19:58 [facility] IntraOp Fire Risk Assessment Entry [...] By: Mary Carmen Caro RN 10/23/19 09:13:50 [facility] IntraOp General Case Instruments Sales Representative 1 Case Information OR OR 13 [facility] Case Level 1 Room Verified Yes Wound Class II - Clean-Contaminated Specialty SN Urology Anesthesia Type General ASA Class 2 Diagnosis Preop Diagnosis PROSTATE CANCER Postop Same As Preop No Postop Diagnosis SEE POSTOPERATIVE NOTE Last Modified By: Mary Carmen Caro RN 10/23/19 09:15:36 [facility] IntraOp Intraoperative Assessment Entry 1 [...] By: Mary Carmen Caro RN 10/23/19 09:14:51 [facility] IntraOp Intraoperative Equipment Entry 1 Type Monitoring Equipment Equipment Jeannie Suction System ID Number [id number] Intraop Monitoring Electrocardiogram Three lead placement (ECG) Electrode Placement Blood Pressure Non-Invasive BP Device Source Blood Pressure Arm, right upper Location Pulse Oximeter Hand, left Probe Site Antiembolic Devices Antiembolic Devices Sequential compression device, knee high Antiembolic Device Bilateral Location Antiembolic Device [id number] ID Number Antiembolic Device 40 mmHg Setting Scopes Photo/Video Documentation Photo No Video No Intraop Equipment Sequential compression Comment devices on and in operation prior to induction of anesthesia. Last Modified By: Mary Carmen Caro RN 10/23/19 09:16:59 [facility] IntraOp Medication Admin Entry 1 Medication/Irrigant JESSICA IRR 0.9% NACL 1000ML --[id number] Time Administered 10/23/19 09:01:00 Route of Irrigation Administration Dose Administered By JIGNESH LING Procedure Irrigation Last Modified By: Mary Carmen Caro RN 10/23/19 09:18:51 [facility] IntraOp Patient Positioning Entry 1 [...] By: Mary Carmen Caro RN 10/23/19 09:13:09 [facility] IntraOp Sign In Entry 1 [...] By: Mary Carmen Caro RN 10/23/19 09:06:55 [facility] IntraOp Sign Out Entry 1 [...] By: Mary Carmen Caro RN 10/23/19 09:20:30 [facility] IntraOp Sign Out Audit 10/23/19 11:31:11 Plane Tableman: NILSON Modifier: NILSON <+> 1 RN Sign Out Signature Date/Time [facility] IntraOp Skin Prep Entry 1 [...] By: Mary Carmen Caro RN 10/23/19 09:16:12 [facility] IntraOp Surgical Procedures Entry 1 [...] Poff, Janie, RN 10/23/19 09:13:39 10/23/19 09:20:40 [facility] IntraOp Surgical Procedures Audit 10/23/19 11:31:02 Plane Tableman: NILSON Modifier: POVAMSHIADARSH <+> 1 Stop <+> 2 Stop 10/23/19 09:20:40 Plane Tableman: NILSON Modifier: NILSON 2 <*> Procedure Lymph Node Dissection Pelvic Laparoscopic 2 <*> Wound Class I - Clean [facility] IntraOp Temp Regulation Devices Entry 1 Temp Regulation Temperature Warm blankets, Forced Regulation Device Air Warming device, Room temperature Temperature 23331 Regulation Device Serial/Unit Number Temperature Upper body Regulation Site Temperature Device 43 degrees Celsius Setting Temperature EDITH TERRELL APRN, Regulation Device CUPOLA HOIST OPERATOR-ANS Applied by Temperature Patient's temperature Regulation Comment and forced air warming device settings monitored by anesthesia provider. Last Modified By: Mary Carmen Caro RN 10/23/19 09:17:12 [facility] IntraOP Time Out Entry 1 [...] WATJESSA Correct Billing Electronically signed by Mima, [facility] Conversion Driveway Sealer Cerner at 03/07/2023 10:44 AM CDT documented in this encounter Plan of Treatment Not on file documented as of this encounter Visit Diagnoses Not on filedocumented in this encounter Care Teams Md Physician Dermatologist Relationship Specialty Start Date End Date Tee Wade MD [address] [facility] [address] [place] [address] PCP - General Neurology 03/07/23 Lennie Coates PA-C [address] [facility] [address] [place] [address] Cardiology 03/11/24 documented as of this encounter
--- OUTSIDE RECORDS SUMMARY | 2025-10-25 14:37 | XMS_ITS | Encounter Summary ---
Author Organization [employer] ([place], [place], [place], [place], [place]) Address [address] [place] [address] Care Team Providers Care Special Service Officer Name Role Phone Tee Wade MD Primary Care Provider + [phone] Lennie Coates PA-C Unavailable Encounter Details Date Type Department Care Team (Late st Contact Info) Description 10/23/2019 Transcribed Document [facility] [place] [address] [place] [address] ProviderJuan MD [address] [place] [address] Social History Tobacco Use Types Packs/Day Years Used Date Smoking Tobacco: Never Assessed Sex and Gender Information Value Date Recorded Sex Assigned at Not on file Legal Sex Male 3:26 PM CDT Gender Identity Not on file Sexual Orientation Not on file documented as of this encounter Miscellaneous Notes * Cerner Conversion Note - Juan Summers MD - 10/23/2019 9:30 AM CARE TRANSPORT NURSE Pain Assessment Entered On: 10/23/2019 15:57 [...] on filedocumented in this encounter Care Teams Special Service Officer Relationship Specialty Start Date End Date Tee Wade MD [facility] [address] [place] [address] PCP - General Neurology 03/07/23 Lennie Coates, PA-C [address] [place] [address] [address] [place] [address] Cardiology 03/11/24 documented as of this encounter
--- OUTSIDE RECORDS SUMMARY | 2025-10-25 14:37 | XMS_ITS | Encounter Summary ---
Author Organization [employer] ([place], [place], [place], [place], [place]) Address [address] [place] [address] Care Team Providers Care Newspaper Stuffer Name Role Phone Tee Wade MD Primary Care Provider + [phone] Lennie Coates PA-C Unavailable Encounter Details Date Type Department Care Team (Late st Contact Info) Description 10/23/2019 Transcribed Document [facility] [place] Family Medicine [address] [place] [address] ProviderJuan MD [address] [place], [place] [address] Social History Tobacco Use Types Packs/Day Years Used Date Smoking Tobacco: Never Assessed Sex and Gender Information Value Date Recorded Sex Assigned at Not on file Legal Sex Male 3:26 PM CDT Gender Identity Not on file Sexual Orientation Not on file documented as of this encounter Miscellaneous Notes * Cerner Conversion Note - Juan Summers MD - 10/23/2019 5:00 PM SPANISH INTERPRETER Chart Check - Review Order Profile Entered [...] on filedocumented in this encounter Care Teams Newspaper Stuffer Relationship Specialty Start Date End Date Tee Wade MD [address] [facility] [address] [place] [address] PCP - General Neurology 03/07/23 Lennie Coates PALoveC [address] [facility] [address] [place] [address] Cardiology 03/11/24 documented as of this encounter
--- OUTSIDE RECORDS SUMMARY | 2025-10-25 14:37 | XMS_ITS | Encounter Summary ---
Author Organization [employer] ([place], [place], [place], [place], [place]) Address [address] [place] [address] Care Team Providers Care Cpht Name Role Phone Tee Wade MD Primary Care Provider + [phone] Lennie Coates PA-C Unavailable [phone] Encounter Details Date Type Department Care Team (Late st Contact Info) Description 10/23/[address] [facility] [place] Family Medicine [address] [place] [address] ProviderJuan MD [address] [place] [address] Social History Tobacco Use Types Packs/Day Years Used Date Smoking Tobacco: Never Assessed Sex and Gender Information Value Date Recorded Sex Assigned at Not on file Legal Sex Male 3:26 PM CDT Gender Identity Not on file Sexual Orientation Not on file documented as of this encounter Miscellaneous Notes * Cerner Conversion Note - Juan Summers MD - 10/23/2019 8:30 AM CHOIR TEACHER [facility] Main OR Preop Summary Primary Physician: LEIGHA LOMBARDI MD-URO Finalized Date/Time: 10/23/19 08:49:37 Pt. Name: JHOANA BRAMBILAO.B./Sex: 1955 Male Med Rec #: [id number] Physician: LEIGHA LOMBARDI MD-URO Financial #: [id number] Pt. Type: O Room/Bed: / Admit/Disch: 10/23/19 08:00:00 - Institution: [facility] PreOp Case Times Entry 1 In Preop 10/23/19 06:30:00 Ready for Holding n/a Room Patient Ready for 10/23/19 08:10:00 Surgery Patient Out of Preop 10/23/19 08:24:00 Patient Out of n/a Holding Room Last Modified By: Jannette Reyes RN 10/23/19 08:49:36 [facility] PreOp Case Times Audit 10/23/19 08:49:36 Chair Car Driver: WRIGHTVP Modifier: WRIGHTVP <+> 1 Patient Out of Preop 10/23/19 08:08:10 Chair Car Driver: WRIGHTVP Modifier: WRIGHTVP <+> 1 Patient Ready for Surgery Finalized By: Jannette Reyes, RN Document Signatures Signed By: Jannette Reyes RN 10/23/19 08:49 Electronically signed by Mima [facility] Conversion Repairer Shoe Sticks Cerner at 03/07/2023 10:44 AM CDT documented in this encounter Plan of Treatment Not on file documented as of this encounter Visit Diagnoses Not on filedocumented in this encounter Care Teams Cpht Relationship Specialty [place] [address] [place] [address] PCP - General Neurology 03/07/23 Lennie Coates, PA-C [address] [facility] [address] [place] [address] Cardiology 03/11/24 documented as of this encounter
--- OUTSIDE RECORDS SUMMARY | 2025-10-25 14:37 | XMS_ITS | Encounter Summary ---
Author Organization [email or web address] ([place], [place], [place], [place], [place]) Address [address] [place] [address] Care Team Providers Care Ski Production Supervisor Name Role Phone Tee Wade MD Primary Care Provider + [phone] Lennie Coates PA-C Unavailable [phone] Encounter Details Date Type Department Care Team (Late st Contact Info) Description 10/23/2019 Transcribed Document [facility] [place] [facility] [place] [address] Juan Summers MD [address] [place] [address] Social History Tobacco Use Types Packs/Day Years Used Date Smoking Tobacco: Never Assessed Sex and Gender Information Value Date Recorded Sex Assigned at Not on file Legal Sex Male 3:26 PM CDT Gender Identity Not on file Sexual Orientation Not on file documented as of this encounter Miscellaneous Notes * Cerner Conversion Note - Juan Summers MD - 10/23/2019 11:39 AM POWER BARKER DATE OF PROCEDURE: 10/23/2019 SURGEON: Ty Ghotra MD PREOPERATIVE DIAGNOSIS: Adenocarcinoma of the prostate. POSTOPERATIVE DIAGNOSIS: Adenocarcinoma of the prostate. PROCEDURE PERFORMED: Laparoscopic adhesiolysis, robotic-assisted laparoscopic radical prostatectomy with left pelvic lymph node dissection. ANESTHESIA: General. ASSISTANT FIELD HOCKEY COACH: Faviola Alatorre CFA. SPECIMENS: Prostate with seminal [...] to postoperative recovery room in stable condition. /[id number] MD REENA Larry/AQ / TDDaniel / MODL /[id number] CC: Dr. Bernard Ghotra MD Electronically signed by Mima, [facility] Conversion [employer] Principal Cerner at 03/07/2023 10:31 AM CDT documented in this encounter Plan of Treatment Not on file documented as of this encounter Visit Diagnoses Not on filedocumented in this encounter Care Teams Ski Production Supervisor Relationship Specialty Start Date End Date Tee Wade MD [address] [facility] [address] [place] [address] PCP - General Neurology 03/07/23 Lennie Coates, PA-C [address] [facility] [address] [place] [address] Cardiology 03/11/24 documented as of this encounter
--- OUTSIDE RECORDS SUMMARY | 2025-10-25 14:37 | XMS_ITS | Encounter Summary ---
Author Organization [employer] ([place], [place], [place], [place], [place]) Address [address] [place] [address] Care Team Providers Care Oil Burner Journeyman Name Role Phone Tee Wade MD Primary Care Provider + [phone] Lennie Coates PA-C Unavailable Encounter Details Date Type Department Care Team (Late st Contact Info) Description 10/23/2019 Transcribed Document [facility] [place] [address] [place] [address] ProviderJuan MD [address] [place] [address] Social History Tobacco Use Types Packs/Day Years Used Date Smoking Tobacco: Never Assessed Sex and Gender Information Value Date Recorded Sex Assigned at Not on file Legal Sex Male 3:26 PM CDT Gender Identity Not on file Sexual Orientation Not on file documented as of this encounter Miscellaneous Notes * Cerner Conversion Note - Juan Summers MD - 10/23/2019 11:28 AM PAD MACHINE OPERATOR Pain Assessment Entered On: 10/24/2019 15:27 EST Performed On: 10/24/2019 10:48 EST by Jessica Oshea RN-Traveler Intervention Information: acetaminophen-HYDROcodone Performed by Jessica Oshea RN-Traveler on 10/24/2019 09:48:00 EST acetaminophen-HYDROcodone,1Tab Oral,Pain Pain Assessment Pain Assessment : Follow-up assessment Pain Scale Goal : 4 Pain Improved by Intervention : Yes Jessica Oshea RN-Traveler - 10/24/2019 15:27 EST Electronically signed by Mima [facility] Conversion Cloth Printing Inspector Cerner at 03/09/2023 10:56 AM CDT documented in this encounter Plan of Treatment Not on file documented as of this encounter Visit Diagnoses Not on filedocumented in this encounter Care Teams Oil Burner Journeyman Relationship Specialty Start Date End Date Tee Wade MD [facility] [address] [place] [address] PCP - General Neurology 03/07/23 Lennie Coates, PA-C [address] [place] [address] [address] [place] [address] Cardiology 03/11/24 documented as of this encounter
--- OUTSIDE RECORDS SUMMARY | 2025-10-25 14:37 | XMS_ITS | Encounter Summary ---
Author Organization [employer] ([place], [place], [place], [place], [place]) Address [address] [place] [address] Care Team Providers Care Core Worker Name Role Phone Tee Wade MD Primary Care Provider + [phone] Lennie Coates PA-C Unavailable [phone] Encounter Details Date Type Department Care Team (Late st Contact Info) Description 10/25/2019 Transcribed Document [facility] [place] [facility] [place] [address] ProviderJuan MD [address] [place] [address] Social History Tobacco Use Types Packs/Day Years Used Date Smoking Tobacco: Never Assessed Sex and Gender Information Value Date Recorded Sex Assigned at Not on file Legal Sex Male 3:26 PM CDT Gender Identity Not on file Sexual Orientation Not on file documented as of this encounter Miscellaneous Notes * Cerner Conversion Note - Juan Summers MD - 10/25/2019 12:36 PM COLOR EXPERT UM Authorization Entered On: 10/25/2019 12:36 EST Performed On: 10/25/2019 12:36 EST by Ashley López Rn-Utilization Review Primary Insurance Authorization Authorization and Policy Numbers : Insurance 1 Health Plan: [employer] Policy Number: [id number] Authorization Number: Insurance Primary Name : [employer] Policy Number: [id number] Authorized Service Begin Date-Primary : 10/24/2019 EST Historical Authorization Comments-Primary : Comment 1: Pt not precerted for IP surgery, the CPT code 72090 is for out pt surgery. Pt has d/c order on chart, Called MD office spoke to Marcelino and requested her to notify MD/timber framer. Awaiting callback (TAMIKO HUERTAS RN 10/24/2019 12:30) Ashley López Rn-Utilization Review - 10/25/2019 12:36 EST Electronically signed by [facility], [facility] Conversion Cephalometric Technician Cerner at 03/07/2023 10:11 AM CDT documented in this encounter Plan of Treatment Not on file documented as of this encounter Visit Diagnoses Not on filedocumented in this encounter Care Teams Core Worker Relationship Specialty [place] [address] [place] [address] [address] [place] [address] PCP - General Neurology 03/07/23 Lennie Coates, PA-C [address] [facility] [address] [place] [id number] Cardiology 03/11/24 documented as of this encounter
--- OUTSIDE RECORDS SUMMARY | 2025-10-25 14:37 | XMS_ITS | Encounter Summary ---
Author Organization [employer] ([place], [place], [place], [place], [place]) Address [address] [place] [address] Care Team Providers Care Stablehand Name Role Phone Tee Wade MD Primary Care Provider + [phone] Lennie Coates PA-C Unavailable [phone] Encounter Details Date Type Department Care Team (Late st Contact Info) Description 10/23/2019 Transcribed Document [facility] Family Medicine [address] [place] [address] ProviderJuan MD [address] [place] [address] Social History Tobacco Use Types Packs/Day Years Used Date Smoking Tobacco: Never Assessed Sex and Gender Information Value Date Recorded Sex Assigned at Not on file Legal Sex Male 3:26 PM CDT Gender Identity Not on file Sexual Orientation Not on file documented as of this encounter Miscellaneous Notes * Cerner Conversion Note - Juan Summers MD - 10/23/2019 6:00 AM FLORAL MANAGER RX Interventions Entered On: 10/17/2019 11:30 [...] 10/17/2019 11:29 EST Electronically signed by Mima [facility] Conversion Glass Rolling Machine Operator Cerner at 03/07/2023 10:39 AM CDT documented in this encounter Plan of Treatment Not on file documented as of this encounter Visit Diagnoses Not on filedocumented in this encounter Care Teams Stablehand Relationship Specialty Start Date End Date Tee Wade MD [address] [facility] [address] [place] [address] PCP - General Neurology 03/07/23 Lennie Coates PA-C [address] [facility] [address] [place] [address] Cardiology 03/11/24 documented as of this encounter
--- OUTSIDE RECORDS SUMMARY | 2025-10-25 14:37 | XMS_ITS | Encounter Summary ---
Author Organization [employer] ([place], [place], [place], [place], [place]) Address [address] [place] [address] Care Team Providers Care Tool Setter Name Role Phone Tee Wade MD Primary Care Provider + [phone] Lennie Coates PA-C Unavailable [phone] Encounter Details Date Type Department Care Team (Late st Contact Info) Description 10/25/2019 Transcribed Document [facility] Family Medicine [address] [place] [address] ProviderJuan MD [address] [place] [address] Social History Tobacco Use Types Packs/Day Years Used Date Smoking Tobacco: Never Assessed Sex and Gender Information Value Date Recorded Sex Assigned at Not on file Legal Sex Male 3:26 PM CDT Gender Identity Not on file Sexual Orientation Not on file documented as of this encounter Miscellaneous Notes * Cerner Conversion Note - Juan Summers MD - 10/25/2019 12:36 PM NURSING RESIDENT UM Authorization Entered On: 10/25/2019 12:36 EST Performed On: 10/25/2019 12:36 EST by Ashley López Rn-Utilization Review Primary Insurance Authorization Authorization and Policy Numbers : Insurance 1 Health Plan: ANTHEM HMOPPO Policy Number: [id number] Authorization Number: Insurance Primary Name : ANTHEM HMOPPO Policy Number: [id number] Historical Authorization Comments-Primary : Comment 1: Pt not precerted for IP surgery, the CPT code 80124 is for out pt surgery. Pt has d/c order on chart, Called MD office spoke to Marcelino and requested her to notify MD/scanning supervisor. Awaiting callback (TAMIKO HUERTAS RN 10/24/2019 12:30) Ashley López Rn-Utilization Review - 10/25/2019 12:36 EST Electronically signed by [facility] Conversion Decorating Machine Operator Cerner at 03/07/2023 10:35 AM CDT documented in this encounter Plan of Treatment Not on file documented as of this encounter Visit Diagnoses Not on filedocumented in this encounter Care Teams Tool Setter Relationship Specialty Start Date End Date Tee Wade MD [address] [facility] [address] [place] [address] PCP - General Neurology 03/07/23 Lennie Coates PA-C [address] [place] [address] [address] [place] [address] Cardiology 03/11/24 documented as of this encounter
--- OUTSIDE RECORDS SUMMARY | 2025-10-25 14:37 | XMS_ITS | Encounter Summary ---
Author Organization [employer] ([place], [place], [place], [place], [place]) Address [address] [place] [address] Care Team Providers Care Manager Bilingual Name Role Phone Tee Wade MD Primary Care Provider + [phone] Lennie Coates PA-C Unavailable [phone] Encounter Details Date Type Department Care Team (Late st Contact Info) Description 10/24/2019 Transcribed Document [facility] Family Medicine [facility] [place] [address] Juan Summers MD [address] [place] [address] Social History Tobacco Use Types Packs/Day Years Used Date Smoking Tobacco: Never Assessed Sex and Gender Information Value Date Recorded Sex Assigned at Not on file Legal Sex Male 3:26 PM CDT Gender Identity Not on file Sexual Orientation Not on file documented as of this encounter Miscellaneous Notes * Cerner Conversion Note - Juan Summers MD - 10/24/2019 12:14 PM ASSEMBLY LINE LEADER Patient Education Materials Follows: Incision Care, Adult [...] and water are not available, use hand assistant scientist. ? Change your dressing as told by [...] even if your condition improves. ??? Take jpas-dvf-pjinwkt and prescription medicines only as told by [...] 05/25/2006 Document Revised: 07/13/2017 Document Reviewed: 05/23/2017 [employer] Interactive Patient Education ? 2019 [employer]. Indwelling Urinary Catheter Care, Adult An indwelling [...] on each side. Do this in a pbepw-px-ysbs direction. ? If you are male: ? [...] and water are not available, use hand assistant scientist. ??? Always make sure there are no [...] 11/05/2006 Document Revised: 06/21/2018 Document Reviewed: 06/21/2018 [employer] Interactive Patient Education ? 2019 [employer]. Laparoscopic Prostatectomy, Care After This sheet gives [...] these instructions at home: Medicines ??? Take rlgd-tsx-zmcviwy and prescription medicines only as told by [...] urine clear or pale yellow. ? Take bbtf-ved-jbykqzj or prescription medicines. ? Eat foods that [...] and water are not available, use hand assistant scientist. ? Change your dressing as told by [...] pain, abdominal discomfort, and nausea. ??? Take sqzn-cyt-mskafrm and prescription medicines only as told by [...] 11/05/2006 Document Revised: 10/10/2017 Document Reviewed: 10/10/2017 [employer] Interactive Patient Education ? 2019 [employer] Laparoscopic Prostatectomy Laparoscopic prostatectomy is a [...] including vitamins, herbs, eye drops, creams, and ocbf-aca-cptkjyc medicines. ??? Any problems you or family [...] 11/05/2006 Document Revised: 10/22/2017 Document Reviewed: 10/22/2017 [employer] Interactive Patient Education ? 2019 [place] [employer]. documented in this encounter Plan of Treatment Not on file documented as of this encounter Visit Diagnoses Not on filedocumented in this encounter Care Teams Manager Bilingual Relationship Specialty Start Date End Date Tee Wade MD [address] [place] [address] PCP - General Neurology 03/07/23 Lennie Coates PA-C [address] [place] [address] [address] [place] [id number] Cardiology 03/11/24 documented as of this encounter
--- OUTSIDE RECORDS SUMMARY | 2025-10-25 14:37 | XMS_ITS | Encounter Summary ---
Author Organization [employer] ([place], [place], [place], [place], [place]) Address [address] [place] [address] Care Team Providers Care Fire Control System Installer Name Role Phone Tee Wade MD Primary Care Provider + [phone] Lennie Coates PA-C Unavailable [phone] Encounter Details Date Type Department Care Team (Late st Contact Info) Description 10/24/2019 Transcribed Document [facility] Family Medicine [address] [place] [address] ProviderJuan MD [address] [place], [place] [address] Social History Tobacco Use Types Packs/Day Years Used Date Smoking Tobacco: Never Assessed Sex and Gender Information Value Date Recorded Sex Assigned at Not on file Legal Sex Male 3:26 PM CDT Gender Identity Not on file Sexual Orientation Not on file documented as of this encounter Miscellaneous Notes * Cerner Conversion Note - Juan Summers MD - 10/24/2019 12:13 PM DIRECTOR OF ANALYTICAL DEVELOPMENT Stroke/Warfarin Instructions Entered On: 10/24/2019 12:13 EST Performed On: 10/24/2019 12:13 EST by Jessica Oshea RN-Traveler Stroke/Warfarin Instructions Stroke/TIA Discharge Ins : N/A Warfarin Discharge Ins : N/A Jessica Oshea RN-Traveler - 10/24/2019 12:13 EST documented in this encounter Plan of Treatment Not on file documented as of this encounter Visit Diagnoses Not on filedocumented in this encounter Care Teams Fire Control System Installer Relationship Specialty Start Date End Date Tee Wade MD [address] [facility] [address] [place] [address] PCP - General Neurology 03/07/23 Lennie Coates PALoveC [address] [facility] [address] [place] [address] Cardiology 03/11/24 documented as of this encounter
--- OUTSIDE RECORDS SUMMARY | 2025-10-25 14:37 | XMS_ITS | Encounter Summary ---
Author Organization [employer] ([place], [place], [place], [place], [place]) Address [address] [place] [address] Care Team Providers Care Sandblast Or Shotblast Equipment Tender Name Role Phone Tee Wade MD Primary Care Provider + [phone] Lennie Coates PA-C Unavailable [phone] Encounter Details Date Type Department Care Team (Late st Contact Info) Description 10/23/2019 Transcribed Document [facility] Family Medicine [address] [place] [address] ProviderJuan MD [address] [place], [place] [address] Social History Tobacco Use Types Packs/Day Years Used Date Smoking Tobacco: Never Assessed Sex and Gender Information Value Date Recorded Sex Assigned at Not on file Legal Sex Male 3:26 PM CDT Gender Identity Not on file Sexual Orientation Not on file documented as of this encounter Miscellaneous Notes * Cerner Conversion Note - Juan Summers MD - 10/23/2019 8:01 AM LICENSED VETERINARY TECHNICIAN Procedural Documentation Entered On: 10/23/2019 8:05 EST Performed On: 10/23/2019 8:01 EST by Jannette Reyes instructional design manager Documentation Procedure to be Performed : taps [...] Anesthesiologist Procedure Case Attendee Role 2 : instructional design manager Case Attendee 2 : Jannette Reyes RN Procedure Case Attendee Role 3 : instructional design manager Case Attendee 3 : ROBERTO PORTER RN [...] 10/23/2019 8:01 EST Electronically signed by Mima [facility] Conversion Ink Jet Operator Cerner at 03/07/2023 10:37 AM CDT documented in this encounter Plan of Treatment Not on file documented as of this encounter Visit Diagnoses Not on filedocumented in this encounter Care Teams Sandblast Or Shotblast Equipment Tender Relationship Specialty Start Date End Date Tee Wade MD [address] [address] PCP - General Neurology 03/07/23 Lennie Coates PALvoeC [address] [place] [address] Cardiology 03/11/24 documented as of this encounter
--- OUTSIDE RECORDS SUMMARY | 2025-10-25 14:37 | XMS_ITS | Encounter Summary ---
Author Organization [employer] ([place], [place], [place], [place], [place]) Address [address] [place] [address] Care Team Providers Care Portable Sawyer Name Role Phone Tee Wade MD Primary Care Provider + [phone] Lennie Coates PA-C Unavailable [phone] Encounter Details Date Type Department Care Team (Late st Contact Info) Description 10/23/2019 Transcribed Document [facility] [place] Family Medicine [address] [place] [address] ProviderJuan MD [address] [place] [address] Social History Tobacco Use Types Packs/Day Years Used Date Smoking Tobacco: Never Assessed Sex and Gender Information Value Date Recorded Sex Assigned at Not on file Legal Sex Male 3:26 PM CDT Gender Identity Not on file Sexual Orientation Not on file documented as of this encounter Miscellaneous Notes * Cerner Conversion Note - Juan Summers MD - 10/23/2019 9:01 AM SHELLS INSPECTOR [facility] Main OR PACU Summary Primary Physician: LEIGHA LOMBARDI MD-URO Finalized Date/Time: 10/23/19 15:50:55 Pt. Name: JHOANA BRAMBILA D.O.B./Sex: 1955 Male Med Rec #: [id number] Physician: LEIGHA LOMBARDI MD-URO Financial #: [id number] Pt. Type: I Room/Bed: [facility]/ Admit/Disch: 10/23/19 08:00:00 - Institution: [facility] Main OR PACU I Case Times Entry 1 In PACU I 10/23/19 11:32:00 Ready for PACU 10/23/19 13:00:00 Discharge Discharge from PACU 10/23/19 15:35:00 I Last Modified By: TRAVIS CHRISTIANSON RN 10/23/19 15:50:45 [facility] Main OR PACU Acuity Entry 1 Start Time 10/23/19 13:00:00 Stop Time 10/23/19 15:35:00 Acuity Level [facility] PACU Acuity I Last Modified By: TRAVIS CHRISTIANSON RN 10/23/19 15:50:53 Finalized By: TRAVIS CHRISTIANSON RN Document Signatures Signed By: TRAVIS CHRISTIANSON RN 10/23/19 15:50 Electronically signed by Mima [facility] Conversion Launching Pad Mechanic Cerner at 03/07/2023 10:30 AM CDT documented in this encounter Plan of Treatment Not on file documented as of this encounter Visit Diagnoses Not on filedocumented in this encounter Care Teams Portable Sawyer Relationship Specialty [place] [address] [place] [address] [address] [place] [address] PCP - General Neurology 03/07/23 Lennie Coates PA-C [address] [facility] [address] [place] [address] Cardiology 03/11/24 documented as of this encounter
--- OUTSIDE RECORDS SUMMARY | 2025-10-25 14:38 | XMS_ITS | Encounter Summary ---
Author Organization [employer] ([place], [place], [place], [place], [place]) Address [address] [place] [address] Care Team Providers Care Movement Therapist Name Role Phone Tee Wade MD Primary Care Provider + [phone] Lennie Coates PA-C Unavailable [phone] Encounter Details Date Type Department Care Team (Late st Contact Info) Description 10/23/2019 Transcribed Document [facility] Family Medicine [facility] [place] [address] ProviderJuan MD [address] [place] [address] Social History Tobacco Use Types Packs/Day Years Used Date Smoking Tobacco: Never Assessed Sex and Gender Information Value Date Recorded Sex Assigned at Not on file Legal Sex Male 3:26 PM CDT Gender Identity Not on file Sexual Orientation Not on file documented as of this encounter Miscellaneous Notes * Cerner Conversion Note - Juan Summers MD - 10/23/2019 6:40 AM WAREHOUSE SHIPPING CLERK Patient: JHOANA BRAMBILA Age: 64 years Sex: Male : 1955 Associated Diagnoses: None Author: JASON CASIANO, REPOSSESSION AGENT Chief Complaint prostate cancer Review of Systems [...] Hepatitis A//age early 20,s / SNOMED CT 16764906 / Confirmed at risk Sleep apnea / SNOMED CT 976638746 / Confirmed Renal calculus//HX / SNOMED CT 285835716 / Confirmed Neck pain//shoulder / SNOMED CT 125365940 / Confirmed IBS (irritable bowel syndrome) / SNOMED CT 7692337393 / Confirmed High blood pressure / SNOMED CT 51275930 / Confirmed Diverticulosis of colon / SNOMED CT 1388837548 / Confirmed DDD (degenerative disc disease), cervical / SNOMED CT 844569428 / Confirmed Colitis / SNOMED CT 146615997 / Confirmed Chronic pain / SNOMED CT 573518457 / Confirmed CA - Cancer of prostate / SNOMED CT 3218501605 / Confirmed Back pain / SNOMED CT 4744398570 / Confirmed At risk for sleep apnea / IMO 58938008 / Confirmed Arthritis / SNOMED CT 7768187 / Confirmed, Active Problems (14) Arthritis at [...] of motion, Normal strength. Integumentary: Warm, Dry, [place]. Neurologic: Alert, Oriented. Psychiatric: Cooperative, Appropriate mood & affect. Review / Management Results review: Labs (Last four charted values) HCT 46.2 (OCT 17) K 4.1 (OCT 17) . Impression and Plan Condition: Stable. documented in this encounter Plan of Treatment Not on file documented as of this encounter Visit Diagnoses Not on filedocumented in this encounter Care Teams Movement Therapist Relationship Specialty Start Date End Date Tee Wade MD [address] [facility] [address] [place] [address] PCP - General Neurology 03/07/23 Lennie Coates PA-C [address] [place] [address] [place] [address] Cardiology 03/11/24 documented as of this encounter
--- OUTSIDE RECORDS SUMMARY | 2025-10-25 14:38 | XMS_ITS | Referral Summary ---
Author Organization [employer] ([place], [place], [place], [place], [place]) Address [address] [place] [address] Care Team Providers Care Horse And Wagon Driver Name Role Phone Tee Wade MD Primary Care Provider [phone] Lennie Coates PA-C Unavailable [phone] Allergies Active Allergy Reactions Criticality Noted Date Comments [facility] 02/16/2017 Other reaction(s): Chest Pain, Nausea [...] Date Dennis rded Speak language other than Andorran at home Not on file 12/07/2023 Want [...] BLUE CROSS/BLUE SHIELD MEDICARE PART A B [facility] Care Teams Horse And Wagon Driver Relationship Specialty Start Date End Date Tee Wade MD [address] [facility] [address] [place] [address] PCP - General Neurology 03/07/23 Lennie Coates, PA-C [address] [place] [address] [address] [place] [address] Cardiology 03/11/24
--- OUTSIDE RECORDS SUMMARY | 2025-10-25 14:38 | XMS_ITS | Patient Health Record ---
[facility] Address [address] [facility] 36 [facility] [address] [place] [id number] Care Team Providers Care Cable Tester Name Role Phone José Miguel Pizarro Primary Care Provider Anastasiya Martinez Unavailable [phone] Allergies Allergen (clinical drug ingredient) Drug/Non Drug Allergy documented on EMR Reaction Allergy Type Onset Date Status MYCIN (uncoded) upsets stomach Allergy Active nabumetone Nabumetone chest pain Drug Allergy Acti ve Medications Medication SIG (Take, Route, Frequency, Duration) Notes Start Date End Date Status Triamterene-HCTZ 37.5-25 MG 1 tab(s) orally once a day; Duration: 30 day(s) 01/09/2022 Active Vitamin A 3 MG (70476 UT) 1 capsule by mouth once daily Active Garlic 1 TAB PO BID *Please review and pick correct strength-formula tion from [employer] options. If intended option is not shown, [...] review and pick correct strength-formula tion from [employer] options. If intended option is not shown, discontinue and re-order from Quick Search* 04/10/2016 Active Problems Problem Type SNOMED Code ICD Code Onset Dates Problem Status W/U Status Risk Notes Problem Essential hypertension (55624875) Essential (primary) hypertension (I10) Active confirmed Problem Vitamin D deficiency (25791704) Vitamin D deficiency (E55.9) Active confirmed Problem Vitamin B12 deficiency (554382392) Vitamin B12 deficiency (E53.8) Active confirmed Problem Gout (76308266) Gout (M10.9) Active confirmed Problem Essential hypertension (67386333) Essential hypertension (I10) Active confirmed Problem Coronary artery disease (49039562) CAD (coronary artery disease) (I25.10) Active confirmed Problem Mixed hyperlipidemia (522475227) Mixed hyperlipidemia (E78.2) Active confirmed Problem Chronic pain (40543789) Other chronic pain (G89.29) Active confirmed Problem Irritable bowel syndrome (27929220) Irritable bowel syndrome without diarrhea (K58.9) Active confirmed Problem Male erectile disorder (538491358) Male erectile disorder (N52.9) Active confirmed Problem Lower urinary tract symptoms due to benign prostatic hypertrophy (28771229181183) Benign prostatic hyperplasia with lower urinary tract symptoms (N40.1) Active confirmed Problem Elevated PSA (847355941) Elevated PSA (R97.20) Active confirmed Problem History of malignant neoplasm of prostate (666393493) History of malignant neoplasm of prostate (Z85.46) Active confirmed Problem STEMI - ST elevation myocardial infarction (615109109) Acute ST elevation myocardial infarction (STEMI), unspecified artery (I21.3) Active confirmed Encounters Encounter Location Date Provider Diagnosis [facility] [address] [facility] [address] [place] [phone] 10/07/2025 José Miguel Pizarro Plan Of Treatment No Information Insurance Providers Payer Name Payer Address Payer Phone Subscriber Number Group Number Insured Name Patient Relationship to Insured Coverage Start Date Coverage End Date MEDICARE PART B [address] [address] [place] [address] [id number] Kevin Morton Self - patient is the insured GWENDOLYN MUNOZ [facility] [address] [place] [address] [id number] Justen Kevin gonzalez Self - patient is [...] Ghotra, carcinoma 10/23/2019 Hospitalization History Reason Date(Month/Year) [facility] ER-kidney stone 09/27
--- OUTSIDE RECORDS SUMMARY | 2025-10-25 14:38 | XMS_ITS | Clinical Summary ---
Author Organization [employer] ([place], [place], [place], [place], [place]) Address [address] [place] [address] Care Team Providers Care Associate Oracle Retail Name Role Phone Tee Wade MD Primary Care Provider [phone] Lennie Coates PA-C Unavailable [phone] Allergies Active Allergy Reactions Criticality Noted Date Comments [facility] 02/16/2017 Other reaction(s): Chest Pain, Nausea [...] Date Dennis rded Speak language other than Lebanese at home Not on file 12/07/2023 Want [...] BLUE CROSS/BLUE SHIELD MEDICARE PART A [place] [address] Care Teams Associate Oracle Retail Relationship Specialty Start Date End Date Tee Wade MD [address] [facility] [address] [place] [address] PCP - General Neurology 03/07/23 Lennie Coates, PA-C [address] [facility] [place] [address] [facility] 03/11/24
--- OUTSIDE RECORDS SUMMARY | 2025-10-25 14:38 | XMS_ITS | Encounter Summary ---
Author Organization [employer] ([place], [place], [place], [place], [place]) Address [address] [place] [address] Care Team Providers Care Data Entry Supervisor Name Role Phone Tee Wade MD Primary Care Provider + [phone] Lennie Coates PA-C Unavailable [phone] Encounter Details Date Type Department Care Team (Late st Contact Info) Description 10/24/2019 Transcribed Document [facility] [place] [address] [place] [address] ProviderJuan MD [address] [place] [address] Social History Tobacco Use Types Packs/Day Years Used Date Smoking Tobacco: Never Assessed Sex and Gender Information Value Date Recorded Sex Assigned at Not on file Legal Sex Male 3:26 PM CDT Gender Identity Not on file Sexual Orientation Not on file documented as of this encounter Miscellaneous Notes * Cerner Conversion Note - Juan Summers MD - 10/24/2019 12:30 PM GRINDING WHEEL DRESSER UM Authorization Entered On: 10/24/2019 12:32 EST Performed On: 10/24/2019 12:30 EST by TAMIKO HUERTAS RN Primary Insurance Authorization Authorization and Policy Numbers : Insurance 1 Health Plan: [employer]PO Policy Number: [id number] Authorization Number: Insurance Primary Name : ANTHEM OPPO Policy Number: [id number] Authorization Comments-Primary : Pt not precerted for IP surgery, the CPT code 27656 is for out pt surgery. Pt has d/c order on chart, Called MD office spoke to Marcelino and requested her to notify MD/oral and maxillofacial surgery. Awaiting callback Historical Authorization Comments-Primary : No Authorization Comments Found TAMIKO HUERTAS, RN - 10/24/2019 12:30 EST Electronically signed by Mima [facility] Conversion Food Service Kitchen Supervisor Cerner at 03/07/2023 10:18 AM CDT documented in this encounter Plan of Treatment Not on file documented as of this encounter Visit Diagnoses Not on filedocumented in this encounter Care Teams Data Entry Supervisor Relationship Specialty Start Date End Date Tee Wade MD 2 [facility] [address] [place] [address] PCP - General Neurology 03/07/23 Lennie Coates PA-C [address] [place] [address] [address] [place] [address] Cardiology 03/11/24 documented as of this encounter
--- OUTSIDE RECORDS SUMMARY | 2025-10-25 14:38 | XMS_ITS | Encounter Summary ---
Author Organization [employer] ([place], [place], [place], [place], [place]) Address [address] [place] [address] Care Team Providers Care Filling Machine Operator Name Role Phone Tee Wade MD Primary Care Provider + [phone] Lennie Coates PA-C Unavailable [phone] Encounter Details Date Type Department Care Team (Late st Contact Info) Description 10/24/2019 Transcribed Document [facility] [place] [facility] [place] [address] ProviderJuan MD [address] [place] [address] Social History Tobacco Use Types Packs/Day Years Used Date Smoking Tobacco: Never Assessed Sex and Gender Information Value Date Recorded Sex Assigned at Not on file Legal Sex Male 3:26 PM CDT Gender Identity Not on file Sexual Orientation Not on file documented as of this encounter Miscellaneous Notes * Cerner Conversion Note - Juan Summers MD - 10/24/2019 11:45 AM IMMIGRATION ATTORNEY Final Discharge Planning Entered On: 10/24/2019 11:45 EST Performed On: 10/24/2019 11:45 EST by LINDA BARRY, Deputy Sheriff Building Guard Final Discharge Planning Discharge Arrangements : Patient Post-Acute Information Patient Name: JHOANA BRAMBILA Gender: Male : 55 Age: 64 Years No Post-Acute Placement(s) Listed No Post-Acute Service(s) Listed No [place] Referral(s) Listed Transportation Needs : Family/Friend Is Patient High/Moderate Readmission Risk? : No Discharge To Care Management : Home/Residential/[facility] or Self Care -01 LINDA BARRY, Deputy Sheriff Building Guard - 10/24/2019 11:45 EST Electronically signed by Mima, [facility] Conversion Gas Tender Cerner at 03/07/2023 10:11 AM CDT documented in this encounter Plan of Treatment Not on file documented as of this encounter Visit Diagnoses Not on filedocumented in this encounter Care Teams Filling Machine Operator Relationship Specialty Start Date End Date Tee Wade MD [address] [place] [address] [address] [place] [address] PCP - General Neurology 03/07/23 Lennie Coates, PA-C [address] [place] [address] [address] [place] [address] Cardiology 03/11/24 documented as of this encounter
--- OUTSIDE RECORDS SUMMARY | 2025-10-25 14:38 | XMS_ITS | Encounter Summary ---
Author Organization [employer] ([place], [place], [place], [place], [place]) Address [address] [place] [address] Care Team Providers Care Natural Science Manager Name Role Phone Tee Aguilar MD Primary Care Provider + [phone] Lennie Coates PA-C Unavailable [phone] Encounter Details Date Type Department Care Team (Late st Contact Info) Description 10/24/2019 Transcribed Document [facility] [place] [address] [place] [address] ProviderJuan MD [address] [place] [address] Social History Tobacco Use Types Packs/Day Years Used Date Smoking Tobacco: Never Assessed Sex and Gender Information Value Date Recorded Sex Assigned at Not on file Legal Sex Male 3:26 PM CDT Gender Identity Not on file Sexual Orientation Not on file documented as of this encounter Miscellaneous Notes * Cerner Conversion Note - Juan Summers MD - 10/24/2019 12:14 PM IMPROVEMENT ADVISOR [facility] [place], [place] [id number] KOSTA JHOANA LYNN :1955 Visit Time:10/23/2019 Your [...] Instructions: follow up 12-16 with cystogram at [facility] radiology prior to visit Activity: Discharge Activity: No heavy lifting over 10 lbs Diet: Discharge Diet: Resume usual diet as tolerated Showering/Bathing Instructions: May shower Follow-Up Appointments Follow Up with LEIGHA LOMBARDI MD-URO When 11/03/2019 12:00 AM EST Comments Call for follow up appointment Where: [address] [facility] [address] [place] [address]- Follow Up with TEE AGUILRA IM When Within 2 to 3 days Where: [address] [facility] [address] [place] [address]- Medications What How Much When Instructions Next Dose acetaminophen-hydrocodone ([place] 7.5 mg-325 mg oral tablet) 1 Tablet(s) [...] and water are not available, use hand pill coater. ? Change your dressing as told by [...] even if your condition improves. ??? Take dcbx-blm-ewqujfa and prescription medicines only as told by [...] 05/25/2006 Document Revised: 07/13/2017 Document Reviewed: 05/23/2017 [employer] Patient Education ?? 2019 [employer] Indwelling Urinary Catheter Care, Adult An [...] on each side. Do this in a dcnao-za-llis direction. ? If you are male: ? [...] and water are not available, use hand pill coater. ??? Always make sure there are no [...] 11/05/2006 Document Revised: 06/21/2018 Document Reviewed: 06/21/2018 [employer] Patient Education ?? 2019 [employer]. Laparoscopic Prostatectomy, Care After This sheet gives [...] these instructions at home: Medicines ??? Take vqfi-ojg-pfgeiyf and prescription medicines only as told by [...] urine clear or pale yellow. ? Take uojx-imz-hiijism or prescription medicines. ? Eat foods that [...] and water are not available, use hand pill coater. ? Change your dressing as told by [...] pain, abdominal discomfort, and nausea. ??? Take mluk-usd-gdbokfn and prescription medicines only as told by [...] 11/05/2006 Document Revised: 10/10/2017 Document Reviewed: 10/10/2017 [employer] Interactive Patient Education ?? 2019 [employer]. Laparoscopic Prostatectomy Laparoscopic prostatectomy is a surgery [...] including vitamins, herbs, eye drops, creams, and rdrl-qhp-cxghihu medicines. ??? Any problems you or family [...] 11/05/2006 Document Revised: 10/22/2017 Document Reviewed: 10/22/2017 [employer] Interactive Patient Education ?? 2019 [employer] Emergency Awareness and Preventative Care STROKE [...] Assistance with quitting is available by contacting 9-624-QNEINOW. This is a free resource providing counseling, support, and referral. Or you may contact your personal physician. [place] Suicide Prevention Lifeline: The National Suicide Prevention [...] was given the opportunity to ask questions. Patient/Rotary Slicing Machine Operator Name: Patient/Rotary Slicing Machine Operator Signature: Relationship to Patient: Clinician/Hospital Rotary Slicing Machine Operator Signature: Date: Electronically signed by Mima, [facility] Conversion Motor Vehicle Light Assembler [employer]ner at 03/07/2023 10:36 AM CDT documented in this encounter Plan of Treatment Not on file documented as of this encounter Visit Diagnoses Not on filedocumented in this encounter Care Teams Natural Science Manager Relationship Specialty Start Date End Date Tee Aguilar MD [address] [address] PCP - General Neurology 03/07/23 Lennie Coates PA-C [address] [facility] [address] [place] [address] Cardiology 03/11/24 documented as of this encounter
--- OUTSIDE RECORDS SUMMARY | 2025-10-25 14:38 | XMS_ITS | Encounter Summary ---
Author Organization [employer] ([place], [place], [place], [place], [place]) Address [address] [place] [address] Care Team Providers Care Sales Specialist Name Role Phone Tee Wade MD Primary Care Provider + [phone] Lennie Coates PA-C Unavailable [phone] Encounter Details Date Type Department Care Team (Late st Contact Info) Description 10/24/[address] [facility] [place] Medicine [address] [place] [address] ProviderJuan MD [address] [place] [address] Social History Tobacco Use Types Packs/Day Years Used Date Smoking Tobacco: Never Assessed Sex and Gender Information Value Date Recorded Sex Assigned at Not on file Legal Sex Male 3:26 PM CDT Gender Identity Not on file Sexual Orientation Not on file documented as of this encounter Miscellaneous Notes * Cerner Conversion Note - Juan Summers MD - 10/24/2019 11:37 AM CAPITAL CAMPAIGN FUNDRAISER Initial Discharge Planning Entered On: 10/24/2019 11:44 EST Performed On: 10/24/2019 11:37 EST by LINDA BARRY News Specialist Initial Assessment I Previously Documented Living Environment [...] Is Guardianship Needed : No LINDA BARRY News Specialist - 10/24/2019 11:37 EST Initial Assessment II [...] - 10/24/2019 11:37 EST Electronically signed by [facility] Conversion Production Pattern Maker Cerner at 03/07/2023 10:42 AM CDT documented in this encounter Plan of Treatment Not on file documented as of this encounter Visit Diagnoses Not on filedocumented in this encounter Care Teams Sales Specialist Relationship Specialty Start Date End Date Tee Wade MD [address] [facility] [address] [place] [address] PCP - General Neurology 03/07/23 Lennie Coates PA-C [address] [facility] [address] [place], [place] [id number] Cardiology 03/11/24 documented as of this encounter
--- OUTSIDE RECORDS SUMMARY | 2025-10-25 14:38 | XMS_ITS | Encounter Summary ---
Author Organization [employer] ([place], [place], [place], [place], [place]) Address [address] [place] [address] Care Team Providers Care Service Girl Name Role Phone Tee Wade MD Primary Care Provider + [phone] Lennie Coates PA-C Unavailable [phone] Encounter Details Date Type Department Care Team (Late st Contact Info) Description 10/24/[address] [facility] [place] [address] [place] [address] ProviderJuan MD [address] [place] [address] Social History Tobacco Use Types Packs/Day Years Used Date Smoking Tobacco: Never Assessed Sex and Gender Information Value Date Recorded Sex Assigned at Not on file Legal Sex Male 3:26 PM CDT Gender Identity Not on file Sexual Orientation Not on file documented as of this encounter Miscellaneous Notes * Cerner Conversion Note - Juan ProviderMD - 10/24/2019 2:00 AM SAND TESTER Lead Relay Tester Details Entered On: 10/24/2019 1:16 EST Performed [...] on filedocumented in this encounter Care Teams Service Girl Relationship Specialty Start Date End Date Tee Wade MD [facility] [address] [place] [address] PCP - General Neurology 03/07/23 Lennie Coates PA-C [address] [place] [address] [address] [place] [id number] Cardiology 03/11/24 documented as of this encounter
--- OUTSIDE RECORDS SUMMARY | 2025-10-25 14:38 | XMS_ITS | Encounter Summary ---
Author Organization [employer] ([place], [place], [place], [place], [place]) Address [address] [place] [address] Care Team Providers Care Information Security Director Name Role Phone Tee Wade MD Primary Care Provider + [phone] Lennie Coates PA-C Unavailable [phone] Encounter Details Date Type Department Care Team (Late st Contact Info) Description 10/24/2019 Transcribed Document [facility] [place] [facility] [place] [address] Juan Summers MD [address] [place] [address] Social History Tobacco Use Types Packs/Day Years Used Date Smoking Tobacco: Never Assessed Sex and Gender Information Value Date Recorded Sex Assigned at Not on file Legal Sex Male 3:26 PM CDT Gender Identity Not on file Sexual Orientation Not on file documented as of this encounter Miscellaneous Notes * Cerner Conversion Note - Juan Summers MD - 10/24/2019 8:48 AM MEDICAL DRIVER DATE OF DISCHARGE: 10/24/2019 DISCHARGE DIAGNOSIS: Adenocarcinoma of the prostate. OPERATION/PROCEDURE: Robotic assisted laparoscopic radical prostatectomy with left-sided pelvic lymph node dissection Dr. Ty Ghotra. BRIEF HISTORY: The patient is a 64-year-old gentleman who recently was diagnosed with adenocarcinoma of prostate, 6 cores positive on the left side, [place] score of 6. He underwent a metastatic [...] Bactrim Double Strength b.i.d. through that time. /[id number] Ty Ghotra MD TDA/AQ / TDA / MODL /[id number] CC: Ty Ghotra MD Electronically signed by [facility], [facility] Conversion Washtub Worker Cerner at 03/07/2023 10:28 AM CDT documented in this encounter Plan of Treatment Not on file documented as of this encounter Visit Diagnoses Not on filedocumented in this encounter Care Teams Information Security Director Relationship Specialty Start Date End Date Tee Wade MD [address] [place] [address] PCP - General Neurology 03/07/23 Lennie Coates PA-C [address] [facility] [address] [place] [address] Cardiology 03/11/24 documented as of this encounter
--- OUTSIDE RECORDS SUMMARY | 2025-10-25 14:38 | XMS_ITS | Encounter Summary ---
Author Organization [employer] ([place], [place], [place], [place], [place]) Address [address] [place] [address] Care Team Providers Care Company Pilot Name Role Phone Tee Wade MD Primary Care Provider [phone] Lennie Coates PA-C Unavailable [phone] Encounter Details Date Type Department Care Team (Late st Contact Info) Description 10/17/2019 Transcribed Document [facility] [place] [address] [place] [address] ProviderJuan MD [address] [place], [place] [address] Social History Tobacco Use Types Packs/Day Years Used Date Smoking Tobacco: Never Assessed Sex and Gender Information Value Date Recorded Sex Assigned at Not on file Legal Sex Male 3:26 PM CDT Gender Identity Not on file Sexual Orientation Not on file documented as of this encounter Miscellaneous Notes * Cerner Conversion Note - Juan Summers MD - 10/17/2019 11:47 AM PLANT TECH PAT Adult Entered On: 10/17/2019 11:56 EST [...] Source : Measured Height Entry Format : [place] Height, Feet : 5 ft(Converted to: 152 cm, 60 Inch) Height, Inches : 11 Inch(Converted to: 0 ft 11 Inch, 27.94 cm) Clinical Height : 180.34 cm Weight Source : Standing scale Weight Entry Format : [place] Clinical Dosing Weight : 89.05 kg Weight, Pounds : 195.9 lb Body Surface Area (BSA) : 2.09 m2 Body Mass Index : 27.4 kg/m2 (HI) [place] Body Weight : 74 kg MARY ALVES [...] MARY ALVES RN - 10/17/2019 12:00 EST [place] Suicide Severity Rating Scale (C-SSRS) CSSRS Past [...] Obtained From : Patient Primary Language : Tajik Preferred Communication Mode : Verbal Communication Barrier [...] 10/17/2019 12:00 EST Electronically signed by Mima, [facility] Conversion Stock Room Manager Cerner at 03/07/2023 10:22 AM CDT documented in this encounter Plan of Treatment Not on file documented as of this encounter Visit Diagnoses Not on filedocumented in this encounter Care Teams Company Pilot Relationship Specialty Start Date End Date Tee Wade MD [address] [place] [address] PCP - General Neurology 03/07/23 Lennie Coates PALoveC [address] [facility] [address] [place] [address] Cardiology 03/11/24 documented as of this encounter
--- OUTSIDE RECORDS SUMMARY | 2025-10-25 14:38 | XMS_ITS | Encounter Summary ---
Author Organization [email or web address] ([place], [place], [place], [place], [place]) Address [address] [place] [address] Care Team Providers Care Programmable Logic Controller Assembler Name Role Phone Tee Wade MD Primary Care Provider + [phone] Lennie Coates PA-C Unavailable [phone] Encounter Details Date Type Department Care Team (Late st Contact Info) Description 10/24/2019 Transcribed Document [facility] [place] [address] [place] [address] ProviderJuan MD [address] [place] [address] Social History Tobacco Use Types Packs/Day Years Used Date Smoking Tobacco: Never Assessed Sex and Gender Information Value Date Recorded Sex Assigned at Not on file Legal Sex Male 3:26 PM CDT Gender Identity Not on file Sexual Orientation Not on file documented as of this encounter Miscellaneous Notes * Cerner Conversion Note - Juan Summers MD - 10/24/2019 3:39 PM CUSTOMER SERVICE TECHNICIAN Nursing Discharge Summary Entered On: 10/24/2019 15:40 [...] 10/24/2019 15:39 EST Electronically signed by Mima, [facility] Conversion Flat Sorter Processor Cerner at 03/07/2023 10:41 AM CDT documented in this encounter Plan of Treatment Not on file documented as of this encounter Visit Diagnoses Not on filedocumented in this encounter Care Teams Programmable Logic Controller Assembler Relationship Specialty Start Date End Date Tee Wade MD [address] [facility] [address] [place] [address] PCP - General Neurology 03/07/23 Lennie Coates, PA-C [address] [facility] [address] [place] [address] Cardiology 03/11/24 documented as of this encounter
--- OUTSIDE RECORDS SUMMARY | 2025-10-25 14:38 | XMS_ITS | Encounter Summary ---
Author Organization [employer] ([place], [place], [place], [place], [place]) Address [address] [place] [address] Care Team Providers Care Equine Pharmacology Technician Name Role Phone Tee Wade MD Primary Care Provider + [phone] Lennie Coates PA-C Unavailable [phone] Encounter Details Date Type Department Care Team (Late st Contact Info) Description 10/24/2019 Transcribed Document [facility] [place] [address] [place] [address] ProviderJuan MD [address] [place], [place] [address] Social History Tobacco Use Types Packs/Day Years Used Date Smoking Tobacco: Never Assessed Sex and Gender Information Value Date Recorded Sex Assigned at Not on file Legal Sex Male 3:26 PM CDT Gender Identity Not on file Sexual Orientation Not on file documented as of this encounter Miscellaneous Notes * Cerner Conversion Note - Juan Summers MD - 10/24/2019 5:00 AM GROUNDS/MAINTENANCE SPECIALIST Chart Check - Review Order Profile Entered [...] on filedocumented in this encounter Care Teams Equine Pharmacology Technician Relationship Specialty Start Date End Date Tee Wade MD [address] [facility] [address] [place] [address] PCP - General Neurology 03/07/23 Lennie Coates, PALoveC [address] [facility] [address] [place], [place] [address] Cardiology 03/11/24 documented as of this encounter
--- OUTSIDE RECORDS SUMMARY | 2025-10-25 14:38 | XMS_ITS | Encounter Summary ---
Author Organization [employer] ([place], [place], [place], [place], [place]) Address [address] [place] [address] Care Team Providers Care Lock Maintenance Supervisor Name Role Phone eTe Wade MD Primary Care Provider + [phone] Lennie Coates PA-C Unavailable [phone] Encounter Details Date Type Department Care Team (Late st Contact Info) Description 10/23/2019 Transcribed Document [facility] [place] [address] [place] [address] ProviderJuan MD [address] [place] [address] Social History Tobacco Use Types Packs/Day Years Used Date Smoking Tobacco: Never Assessed Sex and Gender Information Value Date Recorded Sex Assigned at Not on file Legal Sex Male 3:26 PM CDT Gender Identity Not on file Sexual Orientation Not on file documented as of this encounter Miscellaneous Notes * Cerner Conversion Note - Juan Summers MD - 10/23/2019 8:00 AM DRY STARCH OPERATOR Admission History, Adult Entered On: 10/23/2019 16:15 [...] Obtained From : Patient Primary Language : Estonian Preferred Communication Mode : Verbal Communication Barrier [...] of Ambulatory Aid : Bed rest/Nurse assist RBOERTS IV Therapy or IV Access : Yes Roberts Gait/Transferring : Normal, bedrest, immobile Roberts Mental Status : Oriented to own ability Roberts Fall Risk Score : 35 ROBERTS Fall Scale Risk Level : 25-45 Medium Risk [place] Fall Interventions : Adequate lighting, Assistive devices [...] Source : Measured Height Entry Format : [place] Height, Feet : 5 ft(Converted to: 152 cm, 60 Inch) Height, Inches : 11 Inch(Converted to: 0 ft 11 Inch, 27.94 cm) Clinical Height : 180.34 cm Weight Source : Standing scale Weight Entry Format : [place] Clinical Dosing Weight : 89.05 kg Weight, Pounds : 195.9 lb Body Surface Area (BSA) : 2.09 m2 Body Mass Index : 27.4 kg/m2 (HI) [place] Body Weight : 74 kg Jessica Oshea [...] Assessment < Age 65 : None Jessica Oseha RN-Traveler - 10/23/2019 16:10 EST Nutrition History Eating Poorly Due to Decreased Appetite : No Unplanned Weight Loss in Past 3-6 Months : No Malnutrition Screening Tool Total(mal) : 0 Malnutrition Screening Tool Risk Level : Patient not at risk Jessica Oshea RN-Traveler - 10/23/2019 16:10 EST [place] Suicide Severity Rating Scale (C-SSRS) CSSRS Past [...] EST Electronically signed by Slim Guillermo Conversion Neurophysiological Technician Cerner at 03/07/2023 10:14 AM CDT documented in this encounter Plan of Treatment Not on file documented as of this encounter Visit Diagnoses Not on filedocumented in this encounter Care Teams Lock Maintenance Supervisor Relationship Specialty Start Date End Date Tee Wade MD [address] [address] PCP - General Neurology 03/07/23 Lennie Coates PALoveC [address] [facility] [place] [address] Cardiology 03/11/24 documented as of this encounter
--- OUTSIDE RECORDS SUMMARY | 2025-10-25 17:29 | XMS_ITS | Encounter Summary ---
Author Organization [employer] ([place], [place], [place], [place], [place]) Address [address] [place] [address] Care Team Providers Care Change Management Expert Name Role Phone Tee Wade MD Primary Care Provider + [phone] Lennie Coates PA-C Unavailable [phone] Encounter Details Date Type Department Care Team (Late st Contact Info) Description 10/23/2019 Transcribed Document [facility] [place] [address] [place] [address] ProviderJuan MD [address] [place] [address] Social History Tobacco Use Types Packs/Day Years Used Date Smoking Tobacco: Never Assessed Sex and Gender Information Value Date Recorded Sex Assigned at Not on file Legal Sex Male 3:26 PM CDT Gender Identity Not on file Sexual Orientation Not on file documented as of this encounter Miscellaneous Notes * Cerner Conversion Note - Juan Summers MD - 10/23/2019 11:28 AM GENERAL PARTNER Pain Assessment Entered On: 10/24/2019 15:27 EST Performed On: 10/24/2019 10:48 EST by Jessica Oshea RN-Traveler Intervention Information: acetaminophen-HYDROcodone Performed by Jessica Oshea RN-Traveler on 10/24/2019 09:48:00 EST acetaminophen-HYDROcodone,1Tab Oral,Pain Pain Assessment Pain Assessment : Follow-up assessment Pain Scale Goal : 4 Pain Improved by Intervention : Yes Jessica Oshea RN-Traveler - 10/24/2019 15:27 EST Electronically signed by Mima [facility] Conversion Commercial Sales Specialist Cerner at 03/09/2023 10:56 AM CDT documented in this encounter Plan of Treatment Not on file documented as of this encounter Visit Diagnoses Not on filedocumented in this encounter Care Teams Change Management Expert Relationship Specialty Start Date End Date Tee Wade MD 6 [facility] [address] [place] [address] PCP - General Neurology 03/07/23 Lennie Coates, PA-C [address] [place] [address] [address] [place] [address] Cardiology 03/11/24 documented as of this encounter
--- OUTSIDE RECORDS SUMMARY | 2025-10-25 17:29 | XMS_ITS | Encounter Summary ---
Author Organization [employer] ([place], [place], [place], [place], [place]) Address [address] [place] [address] Care Team Providers Care Safe And Vault Installer Name Role Phone Tee Wade MD Primary Care Provider + [phone] Lennie Coates PA-C Unavailable [phone] Encounter Details Date Type Department Care Team (Late st Contact Info) Description 10/24/2019 Transcribed Document [facility] [place] [address] [place] [address] ProviderJuan MD [address] [place], [place] [address] Social History Tobacco Use Types Packs/Day Years Used Date Smoking Tobacco: Never Assessed Sex and Gender Information Value Date Recorded Sex Assigned at Not on file Legal Sex Male 3:26 PM CDT Gender Identity Not on file Sexual Orientation Not on file documented as of this encounter Miscellaneous Notes * Cerner Conversion Note - Juan Summers MD - 10/24/2019 5:00 AM VOICE INTERCEPT TECHNICIAN Chart Check - Review Order Profile Entered [...] on filedocumented in this encounter Care Teams Safe And Vault Installer Relationship Specialty Start Date End Date Tee Wade MD [address] [facility] [address] [place] [address] PCP - General Neurology 03/07/23 Lennie Coates, PALoveC [address] [facility] [address] [place], [place] [id number] Cardiology 03/11/24 documented as of this encounter
--- OUTSIDE RECORDS SUMMARY | 2025-10-25 17:29 | XMS_ITS | Encounter Summary ---
Author Organization [employer] ([place], [place], [place], [place], [place]) Address [address] [place] [address] Care Team Providers Care Outbound Sales Agent Name Role Phone Tee Wade MD Primary Care Provider + [phone] Lennie Coates PA-C Unavailable [phone] Encounter Details Date Type Department Care Team (Late st Contact Info) Description 10/25/2019 Transcribed Document [facility] [place] [address] [place] [address] ProviderJuan MD [address] [place] [address] Social History Tobacco Use Types Packs/Day Years Used Date Smoking Tobacco: Never Assessed Sex and Gender Information Value Date Recorded Sex Assigned at Not on file Legal Sex Male 3:26 PM CDT Gender Identity Not on file Sexual Orientation Not on file documented as of this encounter Miscellaneous Notes * Cerner Conversion Note - Juan Summers MD - 10/25/2019 12:36 PM FLOWER CUTTER UM Authorization Entered On: 10/25/2019 12:36 EST Performed On: 10/25/2019 12:36 EST by Ashley López Rn-Utilization Review Primary Insurance Authorization Authorization and Policy Numbers : Insurance 1 Health Plan: ANTHEM HMOPPO Policy Number: [id number] Authorization Number: Insurance Primary Name : ANTHEM HMOPPO Policy Number: [id number] Historical Authorization Comments-Primary : Comment 1: Pt not precerted for IP surgery, the CPT code 55210 is for out pt surgery. Pt has d/c order on chart, Called MD office spoke to Marcelino and requested her to notify MD/utility tractor operator. Awaiting callback (TAMIKO HUERTAS RN 10/24/2019 12:30) Ashley López Rn-Utilization Review - 10/25/2019 12:36 EST Electronically signed by [facility], [facility] Conversion Missionary Coordinator Cerner at 03/07/2023 10:35 AM CDT documented in this encounter Plan of Treatment Not on file documented as of this encounter Visit Diagnoses Not on filedocumented in this encounter Care Teams Outbound Sales Agent Relationship Specialty Start Date End Date Tee Wade MD [address] [facility] [address] [place] [address] PCP - General Neurology 03/07/23 Lennie Coates PA-C [address] [place] [address] [address] [place] [address] Cardiology 03/11/24 documented as of this encounter
--- OUTSIDE RECORDS SUMMARY | 2025-10-25 17:29 | XMS_ITS | Encounter Summary ---
Author Organization [employer] ([place], [place], [place], [place], [place]) Address [address] [place] [address] Care Team Providers Care Operations Trainer Name Role Phone Tee Wade MD Primary Care Provider + [phone] Lennie Coates PA-C Unavailable [phone] Encounter Details Date Type Department Care Team (Late st Contact Info) Description 10/24/2019 Transcribed Document [facility] [place] [facility] [place] [address] Juan Summers MD [address] [place] [address] Social History Tobacco Use Types Packs/Day Years Used Date Smoking Tobacco: Never Assessed Sex and Gender Information Value Date Recorded Sex Assigned at Not on file Legal Sex Male 3:26 PM CDT Gender Identity Not on file Sexual Orientation Not on file documented as of this encounter Miscellaneous Notes * Cerner Conversion Note - Juan Summers MD - 10/24/2019 8:48 AM PROCESSOR SOLID PROPELLANT DATE OF DISCHARGE: 10/24/2019 DISCHARGE DIAGNOSIS: Adenocarcinoma of the prostate. OPERATION/PROCEDURE: Robotic assisted laparoscopic radical prostatectomy with left-sided pelvic lymph node dissection Dr. Ty Ghotra. BRIEF HISTORY: The patient is a 64-year-old gentleman who recently was diagnosed with adenocarcinoma of prostate, 6 cores positive on the left side, [place] score of 6. He underwent a metastatic [...] Bactrim Double Strength b.i.d. through that time. /[id number] Ty Ghotra MD TDA/AQ / TDA / MODL /[id number] CC: Ty Ghotra MD Electronically signed by [facility], [facility] Conversion Shipping And Receiving Clerk Cerner at 03/07/2023 10:28 AM CDT documented in this encounter Plan of Treatment Not on file documented as of this encounter Visit Diagnoses Not on filedocumented in this encounter Care Teams Operations Trainer Relationship Specialty Start Date End Date Tee Wade MD [address] [place] [address] PCP - General Neurology 03/07/23 Lennie Coatse PA-C [address] [facility] [address] [place] [address] Cardiology 03/11/24 documented as of this encounter
--- OUTSIDE RECORDS SUMMARY | 2025-10-25 17:29 | XMS_ITS | Encounter Summary ---
Author Organization [employer] ([place], [place], [place], [place], [place]) Address [address] [place] [address] Care Team Providers Care Insurance Sales Specialist Name Role Phone Tee Wade MD Primary Care Provider + [phone] Lennie Coates PA-C Unavailable [phone] Encounter Details Date Type Department Care Team (Late st Contact Info) Description 10/23/2019 Transcribed Document [facility] [place] [address] [place] [address] ProviderJuan MD [address] [place], [place] [address] Social History Tobacco Use Types Packs/Day Years Used Date Smoking Tobacco: Never Assessed Sex and Gender Information Value Date Recorded Sex Assigned at Not on file Legal Sex Male 3:26 PM CDT Gender Identity Not on file Sexual Orientation Not on file documented as of this encounter Miscellaneous Notes * Cerner Conversion Note - Juan Summers MD - 10/23/2019 8:01 AM POULTRY AND FISH BUTCHER Procedural Documentation Entered On: 10/23/2019 8:05 EST Performed On: 10/23/2019 8:01 EST by Jannette Reyes overhead distribution engineer Documentation Procedure to be Performed : taps [...] Anesthesiologist Procedure Case Attendee Role 2 : overhead distribution engineer Case Attendee 2 : Jannette Reyes RN Procedure Case Attendee Role 3 : overhead distribution engineer Case Attendee 3 : ROBERTO PORTER RN [...] 10/23/2019 8:01 EST Electronically signed by Mima [facility] Conversion Clinical Supervisor Cerner at 03/07/2023 10:37 AM CDT documented in this encounter Plan of Treatment Not on file documented as of this encounter Visit Diagnoses Not on filedocumented in this encounter Care Teams Insurance Sales Specialist Relationship Specialty Start Date End Date Tee Wade MD [address] [address] PCP - General Neurology 03/07/23 Lennie Coates PALoveC [address] [facility] [place] [address] Cardiology 03/11/24 documented as of this encounter
--- OUTSIDE RECORDS SUMMARY | 2025-10-25 17:29 | XMS_ITS | Encounter Summary ---
Author Organization [employer] ([place], [place], [place], [place], [place]) Address [address] [place] [address] Care Team Providers Care Computer Network And Systems Engineer Name Role Phone Tee Wade MD Primary Care Provider + [phone] Lennie Coates PA-C Unavailable [phone] Encounter Details Date Type Department Care Team (Late st Contact Info) Description 10/23/2019 Transcribed Document [facility] [place] [address] [place] [address] ProviderJuan MD [address] [place] [address] Social History Tobacco Use Types Packs/Day Years Used Date Smoking Tobacco: Never Assessed Sex and Gender Information Value Date Recorded Sex Assigned at Not on file Legal Sex Male 3:26 PM CDT Gender Identity Not on file Sexual Orientation Not on file documented as of this encounter Miscellaneous Notes * Cerner Conversion Note - Juan Summers MD - 10/23/2019 9:01 AM FOOD BAGGING MACHINE OPERATOR [facility] Main OR PACU Summary Primary Physician: LEIGHA LOMBARDI MD-URO Finalized Date/Time: 10/23/19 15:50:55 Pt. Name: JHOANA BRAMBILA D.O.B./Sex: 1955 Male Med Rec #: [id number] Physician: LEIGHA LOMBARDI MD-URO Financial #: [id number] Pt. Type: I Room/Bed: [facility]/ Admit/Disch: 10/23/19 08:00:00 - Institution: [facility] Main OR PACU I Case Times Entry 1 In PACU I 10/23/19 11:32:00 Ready for PACU 10/23/19 13:00:00 Discharge Discharge from PACU 10/23/19 15:35:00 I Last Modified By: TRAVIS CHRISTIANSON RN 10/23/19 15:50:45 [facility] Main OR PACU Acuity Entry 1 Start Time 10/23/19 13:00:00 Stop Time 10/23/19 15:35:00 Acuity Level [facility] PACU Acuity I Last Modified By: TRAVIS CHRISTIANSON RN 10/23/19 15:50:53 Finalized By: TRAVIS CHRISTIANSON RN Document Signatures Signed By: TRAVIS CHRISTIANSON RN 10/23/19 15:50 Electronically signed by Mima [facility] Conversion Manager Contract Cerner at 03/07/2023 10:30 AM CDT documented in this encounter Plan of Treatment Not on file documented as of this encounter Visit Diagnoses Not on filedocumented in this encounter Care Teams Computer Network And Systems Engineer Relationship Specialty [place] [address] [place] [address] [address] [place] [address] PCP - General Neurology 03/07/23 Lennie Coates PA-C [address] [facility] [address] [place] [address] Cardiology 03/11/24 documented as of this encounter
--- OUTSIDE RECORDS SUMMARY | 2025-10-25 17:29 | XMS_ITS | Encounter Summary ---
Author Organization [employer] ([place], [place], [place], [place], [place]) Address [address] [place] [address] Care Team Providers Care Senior Relationship Manager Name Role Phone Tee Wade MD Primary Care Provider + [phone] Lennie Coates PA-C Unavailable [phone] Encounter Details Date Type Department Care Team (Late st Contact Info) Description 10/23/2019 Transcribed Document [facility] [place] [address] [place] [address] ProviderJuan MD [address] [place] [address] Social History Tobacco Use Types Packs/Day Years Used Date Smoking Tobacco: Never Assessed Sex and Gender Information Value Date Recorded Sex Assigned at Not on file Legal Sex Male 3:26 PM CDT Gender Identity Not on file Sexual Orientation Not on file documented as of this encounter Miscellaneous Notes * Cerner Conversion Note - Juan Summers MD - 10/23/2019 8:00 AM PUBLIC RELATIONS SENIOR ASSOCIATE Admission History, Adult Entered On: 10/23/2019 16:15 [...] Obtained From : Patient Primary Language : Welsh Preferred Communication Mode : Verbal Communication Barrier [...] Scale Risk Level : 25-45 Medium Risk Landing Fall Interventions : Adequate lighting, Assistive devices [...] Source : Measured Height Entry Format : [place] Height, Feet : 5 ft(Converted to: 152 cm, 60 Inch) Height, Inches : 11 Inch(Converted to: 0 ft 11 Inch, 27.94 cm) Clinical Height : 180.34 cm Weight Source : Standing scale Weight Entry Format : [place] Clinical Dosing Weight : 89.05 kg Weight, Pounds : 195.9 lb Body Surface Area (BSA) : 2.09 m2 Body Mass Index : 27.4 kg/m2 (HI) [place] Body Weight : 74 kg Jessica Oshea [...] Jessica Oshea RN-Traveler - 10/23/2019 16:10 EST [place] Suicide Severity Rating Scale (C-SSRS) CSSRS Past [...] filedocumented in this encounter Care Teams Senior Relationship Manager Relationship Specialty Start Date End Date Tee Wade MD [address] [address] PCP - General Neurology 03/07/23 Lennie Coates PALoveC [address] [facility] [place] [address] Cardiology 03/11/24 documented as of this encounter
--- OUTSIDE RECORDS SUMMARY | 2025-10-25 17:29 | XMS_ITS | Encounter Summary ---
Author Organization [employer] ([place], [place], [place], [place], [place]) Address [address] [place] [address] Care Team Providers Care Mems Process Engineer Name Role Phone Tee Wade MD Primary Care Provider + [phone] Lennie Coates PA-C Unavailable [phone] Encounter Details Date Type Department Care Team (Late st Contact Info) Description 10/23/2019 Transcribed Document [facility] [place] [address] [place] [address] ProviderJuan MD [address] [place] [address] Social History Tobacco Use Types Packs/Day Years Used Date Smoking Tobacco: Never Assessed Sex and Gender Information Value Date Recorded Sex Assigned at Not on file Legal Sex Male 3:26 PM CDT Gender Identity Not on file Sexual Orientation Not on file documented as of this encounter Miscellaneous Notes * Cerner Conversion Note - Juan Summers MD - 10/23/2019 6:00 AM ROOFER VINYL COATING RX Interventions Entered On: 10/17/2019 11:30 EST [...] 10/17/2019 11:29 EST Electronically signed by Mima [facility] Conversion Beef Cattle Specialist Cerner at 03/07/2023 10:39 AM CDT documented in this encounter Plan of Treatment Not on file documented as of this encounter Visit Diagnoses Not on filedocumented in this encounter Care Teams Mems Process Engineer Relationship Specialty Start Date End Date Tee Wade MD [address] [facility] [address] [place] [address] PCP - General Neurology 03/07/23 Lennie Coates PA-C [address] [facility] [address] [place] [address] Cardiology 03/11/24 documented as of this encounter
--- OUTSIDE RECORDS SUMMARY | 2025-10-25 17:29 | XMS_ITS | Encounter Summary ---
Author Organization [employer] ([place], [place], [place], [place], [place]) Address [address] [place] [address] Care Team Providers Care Reception Centre Manager Name Role Phone Tee Wade MD Primary Care Provider + [phone] Lennie Coates PA-C Unavailable [phone] Encounter Details Date Type Department Care Team (Late st Contact Info) Description 10/24/2019 Transcribed Document [facility] [place] [address] [place] [address] ProviderJuan MD [address] [place] [address] Social History Tobacco Use Types Packs/Day Years Used Date Smoking Tobacco: Never Assessed Sex and Gender Information Value Date Recorded Sex Assigned at Not on file Legal Sex Male 3:26 PM CDT Gender Identity Not on file Sexual Orientation Not on file documented as of this encounter Miscellaneous Notes * Cerner Conversion Note - Juan Summers MD - 10/24/2019 12:30 PM METAL MODEL MAKER UM Authorization Entered On: 10/24/2019 12:32 EST Performed On: 10/24/2019 12:30 EST by TAMIKO HUERTAS RN Primary Insurance Authorization Authorization and Policy Numbers : Insurance 1 Health Plan: ANTH[employer]ocon[employer] SystemsOPPO Policy Number: [id number] Authorization Number: Insurance Primary Name : ANTHEM OPPO Policy Number: [id number] Authorization Comments-Primary : Pt not precerted for IP surgery, the CPT code 80173 is for out pt surgery. Pt has d/c order on chart, Called MD office spoke to Marcelino and requested her to notify MD/arch cushion press operator. Awaiting callback Historical Authorization Comments-Primary : No Authorization Comments Found TAMIKO HUERTAS, RN - 10/24/2019 12:30 EST Electronically signed by Mima [facility] Conversion Press Loader Cerner at 03/07/2023 10:18 AM CDT documented in this encounter Plan of Treatment Not on file documented as of this encounter Visit Diagnoses Not on filedocumented in this encounter Care Teams Reception Centre Manager Relationship Specialty Start Date End Date Tee Wade MD [facility] [address] [place] [address] PCP - General Neurology 03/07/23 Lennie Coates PA-C [address] [place] [address] [address] [place] [address] Cardiology 03/11/24 documented as of this encounter
--- OUTSIDE RECORDS SUMMARY | 2025-10-25 17:29 | XMS_ITS | Encounter Summary ---
Author Organization [employer] ([place], [place], [place], [place], [place]) Address [address] [place] [address] Care Team Providers Care Operation Research Analyst Name Role Phone Tee Wade MD Primary Care Provider + [phone] Lennie Coates PA-C Unavailable [phone] Encounter Details Date Type Department Care Team (Late st Contact Info) Description 10/23/2019 Transcribed Document [facility] [place] [facility] [place] [address] ProviderJuan MD [address] [place] [address] Social History Tobacco Use Types Packs/Day Years Used Date Smoking Tobacco: Never Assessed Sex and Gender Information Value Date Recorded Sex Assigned at Not on file Legal Sex Male 3:26 PM CDT Gender Identity Not on file Sexual Orientation Not on file documented as of this encounter Miscellaneous Notes * Cerner Conversion Note - Juan Summers MD - 10/23/2019 6:40 AM CHURN TENDER Patient: JHOANA BRAMBILA Age: 64 years Sex: Male : 1955 Associated Diagnoses: None Author: JASON CASIANO, FINAL EXPENSE AGENT Chief Complaint prostate cancer Review of [...] Hepatitis A//age early 20,s / SNOMED CT 20577369 / Confirmed at risk Sleep apnea / SNOMED CT 867341582 / Confirmed Renal calculus//HX / SNOMED CT 213300497 / Confirmed Neck pain//shoulder / SNOMED CT 997199729 / Confirmed IBS (irritable bowel syndrome) / SNOMED CT 9383580844 / Confirmed High blood pressure / SNOMED CT 78330216 / Confirmed Diverticulosis of colon / SNOMED CT 1325669581 / Confirmed DDD (degenerative disc disease), cervical / SNOMED CT 957274713 / Confirmed Colitis / SNOMED CT 936019849 / Confirmed Chronic pain / SNOMED CT 002385744 / Confirmed CA - Cancer of prostate / SNOMED CT 6665808726 / Confirmed Back pain / SNOMED CT 1803794719 / Confirmed At risk for sleep apnea / IMO 10516801 / Confirmed Arthritis / SNOMED CT 4124468 / Confirmed, Active Problems (14) Arthritis at [...] of motion, Normal strength. Integumentary: Warm, Dry, [place]. Neurologic: Alert, Oriented. Psychiatric: Cooperative, Appropriate mood & affect. Review / Management Results review: Labs (Last four charted values) HCT 46.2 (OCT 17) K 4.1 (OCT 17) . Impression and Plan Condition: Stable. documented in this encounter Plan of Treatment Not on file documented as of this encounter Visit Diagnoses Not on filedocumented in this encounter Care Teams Operation Research Analyst Relationship Specialty Start Date End Date Tee Wade MD [address] [facility] [address] [place] [address] PCP - General Neurology 03/07/23 Lennie Coates PA-C [address] [place] [address] [place] [address] Cardiology 03/11/24 documented as of this encounter
--- OUTSIDE RECORDS SUMMARY | 2025-10-25 17:29 | XMS_ITS | Encounter Summary ---
Author Organization [employer] ([place], [place], [place], [place], [place]) Address [address] [place] [address] Care Team Providers Care Shuttle Operator Name Role Phone Tee Wade MD Primary Care Provider + [phone] Lennie Coates PA-C Unavailable [phone] Encounter Details Date Type Department Care Team (Late st Contact Info) Description 10/24/2019 Transcribed Document [facility] [place] [address] [place] [address] ProviderJuan MD [address] [place] [address] Social History Tobacco Use Types Packs/Day Years Used Date Smoking Tobacco: Never Assessed Sex and Gender Information Value Date Recorded Sex Assigned at Not on file Legal Sex Male 3:26 PM CDT Gender Identity Not on file Sexual Orientation Not on file documented as of this encounter Miscellaneous Notes * Cerner Conversion Note - Juan ProviderMD - 10/24/2019 2:00 AM ACCOUNTS RECEIVABLE REPRESENTATIVE Special Ed Assistant Details Entered On: 10/24/2019 1:16 EST Performed [...] on filedocumented in this encounter Care Teams Shuttle Operator Relationship Specialty Start Date End Date Tee Wade MD 1 [facility] [address] [place] [address] PCP - General Neurology 03/07/23 Lennie Coates PA-C [address] [place] [address] [address] [place] [id number] Cardiology 03/11/24 documented as of this encounter
--- OUTSIDE RECORDS SUMMARY | 2025-10-25 17:29 | XMS_ITS | Encounter Summary ---
Author Organization [employer] ([place], [place], [place], [place], [place]) Address [address] [place] [address] Care Team Providers Care Folder Seamer Name Role Phone Tee Wade MD Primary Care Provider + [phone] Lennie Coates PA-C Unavailable [phone] Encounter Details Date Type Department Care Team (Late st Contact Info) Description 10/24/2019 Transcribed Document [facility] [place] [facility] [place] [address] ProviderJuan MD [address] [place] [address] Social History Tobacco Use Types Packs/Day Years Used Date Smoking Tobacco: Never Assessed Sex and Gender Information Value Date Recorded Sex Assigned at Not on file Legal Sex Male 3:26 PM CDT Gender Identity Not on file Sexual Orientation Not on file documented as of this encounter Miscellaneous Notes * Cerner Conversion Note - Juan Summers MD - 10/24/2019 11:45 AM AURIST Final Discharge Planning Entered On: 10/24/2019 11:45 EST Performed On: 10/24/2019 11:45 EST by LINDA BARRY, History Card Clerk Final Discharge Planning Discharge Arrangements : Patient Post-Acute Information Patient Name: JHOANA BRAMBILA Gender: Male : [birth year] Age: 64 Years No Post-Acute Placement(s) Listed No Post-Acute Service(s) Listed No [place] Referral(s) Listed Transportation Needs : Family/Friend Is Patient High/Moderate Readmission Risk? : No Discharge To Care Management : Home/Residential/Snf or Self Care -01 LINDA BARRY, History Card Clerk - 10/24/2019 11:45 EST Electronically signed by Mima, [facility] Conversion Hook And Eye Machine Operator Cerner at 03/07/2023 10:11 AM CDT documented in this encounter Plan of Treatment Not on file documented as of this encounter Visit Diagnoses Not on filedocumented in this encounter Care Teams Folder Seamer Relationship Specialty Start Date End Date Tee Wade MD [address] [place] [address] [address] [place] [address] PCP - General Neurology 03/07/23 Lennie Coates, PA-C [address] [place] [address] [address] [place] [address] Cardiology 03/11/24 documented as of this encounter
--- OUTSIDE RECORDS SUMMARY | 2025-10-25 17:29 | XMS_ITS | Referral Summary ---
Author Organization [employer] ([place], [place], [place], [place], [place]) Address [address] [place] [address] Care Team Providers Care Philosophy Professor Name Role Phone Tee Wade MD Primary Care Provider [phone] Lennie Coates PA-C Unavailable [phone] Allergies Active Allergy Reactions Criticality Noted Date Comments [facility] 02/16/2017 Other reaction(s): Chest Pain, Nausea [...] Date Dennis rded Speak language other than South African at home Not on file 12/07/2023 Want [...] BLUE CROSS/BLUE SHIELD MEDICARE PART A B [facility] SUPP Care Teams Philosophy Professor Relationship Specialty Start Date End Date Tee Wade MD [address] [facility] [address] [place] [address] PCP - General Neurology 03/07/23 Lennie Coates, PA-C [address] [place] [address] [address] [place] [address] Cardiology 03/11/24
--- OUTSIDE RECORDS SUMMARY | 2025-10-25 17:29 | XMS_ITS | Encounter Summary ---
Author Organization [employer] ([place], [place], [place], [place], [place]) Address [address] [place] [address] Care Team Providers Care Clinic Supervisor Name Role Phone Tee Wade MD Primary Care Provider + [phone] Lennie Coates PA-C Unavailable [phone] Encounter Details Date Type Department Care Team (Late st Contact Info) Description 10/23/2019 Transcribed Document [facility] [place] [address] [place] [address] ProviderJuan MD [address] [place] [address] Social History Tobacco Use Types Packs/Day Years Used Date Smoking Tobacco: Never Assessed Sex and Gender Information Value Date Recorded Sex Assigned at Not on file Legal Sex Male 3:26 PM CDT Gender Identity Not on file Sexual Orientation Not on file documented as of this encounter Miscellaneous Notes * Cerner Conversion Note - Juan Summers MD - 10/23/2019 9:01 AM AUTO EMISSIONS TECHNICIAN [facility] Main OR IntraOp Summary Primary Physician: LEIGHA LOMBARDI MD-URO Finalized Date/Time: 10/26/19 10:56:42 Pt. Name: JHOANA HAINESO.B./Sex: 1955 Male Med Rec #: [id number] Physician: LEIGHA LOMBARDI MD-URO Financial #: [id number] Pt. Type: O Room/Bed: [facility]/ Admit/Disch: 10/24/19 12:26:00 - 10/24/19 12:40:00 Institution: [facility] IntraOp Case Attendance Entry 1 Entry 2 Entry 3 Case Attendee LEIGHA LOMBARDI GILBERT, DAVID M, WARM IN WORKER, AMALIA CARLOS MD-ANS -URO SAFETY SITTER-ANS Role Performed Surgeon/Proceduralist, SAFETY SITTER/Nurse Radio Maintainer Anesthesiologist of First Record Time In 10/23/19 [...] JIGNESH LING Robin A, Surgical TODD, JUDY Costumed Character Entertainer Role Performed Aerial Gunner, First Scrub, First Scrub, Second Time In [...] HAGER SSI Poff, Janie, OSVALDO Role Performed Costumed Character Entertainer, Ancillary Costumed Character Entertainer, Ancillary Compensation Manager, First Time In 10/23/19 08:27:00 [...] 11 Case Attendee Nilsa Fu, REGINE BLOCK, SAFETY SITTER Role Performed Compensation Manager, First SAFETY SITTER/Nurse Radio Maintainer Time In 10/23/19 09:23:00 10/23/19 10:52:00 Time Out 10/23/19 09:45:00 10/23/19 11:20:00 Procedure Prostatectomy Radical Prostatectomy Radical Robotic, Lymph Node Robotic, Lymph Node Dissection Pelvic Dissection Pelvic Laparoscopi(Left) Laparoscopi(Left) Other Attendee Break relief Superficial Wound Closed By: Last Modified By: Mary Carmen Caro RN Poff, Janie, RN 10/23/19 09:47:22 10/23/19 10:52:27 [facility] IntraOp Case Attendance Audit 10/23/19 11:30:57 Assistant Store Manager Operations: NILSON Modifier: NILSON 1 <+> Time Out [...] Lymph Node Dissection Pelvic Laparoscopi(Left) 10/23/19 11:20:22 Assistant Store Manager Operations: NILSON Modifier: POFFJAN 11 <+> Time Out 11 <*> Procedure Prostatectomy Radical Robotic, Lymph Node Dissection Pelvic Laparoscopi(Left) 10/23/19 10:52:27 Assistant Store Manager Operations: NILSON Modifier: POVAMSHIJAN <+> 11 Case Attendee <+> 11 Role Performed <+> 11 Time In <+> 11 Procedure <+> 11 Other Attendee 10/23/19 09:47:22 Assistant Store Manager Operations: NILSON Modifier: NGOCJAN 1 <*> Procedure Prostatectomy [...] Time Out <+> 10 Procedure 10/23/19 09:12:34 Assistant Store Manager Operations: NILSON Modifier: POFFJAN 1 <*> Procedure Prostatectomy [...] <+> 9 Role Performed <+> 9 Procedure [facility] IntraOp Case Times Entry 1 Patient In Room Time 10/23/19 08:27:00 Out Room Time 10/23/19 11:30:00 Anesthesia Start Time 10/23/19 08:27:00 Stop Time 10/23/19 11:30:00 Surgery / Procedure Times Start Time 10/23/19 09:01:00 Stop Time 10/23/19 11:21:00 Last Modified By: Mary Carmen Caro RN 10/23/19 11:21:33 [facility] IntraOp Case Times Audit 10/23/19 11:30:52 Assistant Store Manager Operations: NILSON Modifier: POFFJAN <+> 1 Out Room Time <+> 1 Stop Time 10/23/19 11:21:33 Assistant Store Manager Operations: NILSON Modifier: POFFJAN <+> 1 Stop Time [facility] IntraOp Cautery Entry 1 ESU Identification Cautery Type Monopolar ESU ID Number [id number] ID Type Hospital Number Cautery Settings Cut [...] By: Mary Carmen Caro RN 10/23/19 09:17:43 [facility] IntraOp Communication Entry 1 Entry 2 Communication To Family/Significant other Family/Significant other Comment PROCEDURE START UPDATE Communication By Mary Carmen Caro, Mary Carmen Syed RN Date and Time 10/23/19 09:01:00 10/23/19 10:08:00 Last Modified By: Mary Carmen Caro RN Poff, Janie, RN 10/23/19 09:18:28 10/23/19 10:08:23 [facility] IntraOp Communication Audit 10/23/19 10:08:23 Assistant Store Manager Operations: NILSON Modifier: NILSON <+> 2 Communication By <+> 2 Date and Time <+> 2 Communication To <+> 2 Comment [facility] IntraOp Counts Verification Entry 1 Procedure Prostatectomy Radical Robotic, Lymph Node Dissection Pelvic Laparoscopi(Left) Count Info Count Type Sponge, Sharps, Instrument, Miscellaneous Counts Verification Baseline/pre-procedure Sequence Count Results Not Applicable Counts Performed By Count Performed By Rajiv Haro, Surgical (Scrub) Costumed Character Entertainer Count Performed By Mary Carmen Caro RN (RN) Last Modified By: Mary Carmen Caro RN 10/23/19 09:15:13 [facility] IntraOp Counts Final Entry 1 Procedure Prostatectomy Radical Robotic, Lymph Node Dissection Pelvic Laparoscopi(Left) Final Count Info Count Type Sponge, Sharps, Miscellaneous Counts Verification Skin Closure/end of Sequence procedure Count Results Correct, surgeon notified Counts Performed By Count Performed By Rajiv Haro, Surgical (Scrub) Costumed Character Entertainer Count Performed By Mary Carmen Caro RN (RN) Last Modified By: Mary Carmen Caro RN 10/23/19 09:19:50 [facility] IntraOp Counts Final Audit 10/23/19 11:13:54 Assistant Store Manager Operations: NILSON Modifier: NILSON 1 <*> Procedure Prostatectomy Radical Robotic, Lymph Node Dissection Pelvic Laparoscopi(Left) 1 <+> Count Performed By (Scrub) 1 <+> Count Performed By (RN) [facility] IntraOp Cultures and Spec Summary Entry 1 Cultrures and Specimens Specimen Ordered: Yes Test(s) Routine/Path-Lab Requested/Final Disposition Last Modified By: Mary Carmen Caro RN 10/23/19 09:19:26 General Comments: A. BLADDER NECK B. LEFT OBTURATOR LYMPH NODE C. PROSTATE AND SEMINAL VESICLES [facility] IntraOp Departure from OR Entry 1 Integumentary Assessment Integumentary WDL with patient Assessment WDL specific variances Patient's Normal Surgical Integumentary incisions-abdomen Variance(s) Transfer/Handoff Transfer to PACU Phase I Handoff Method Phone call Post-op Transport Stretcher/Gurney Via Patient Transport EDITH TERRELL APRN, Accompanied by SAFETY SITTER-ANURADHA CESAR KAREN A. Last Modified By: Mary Carmen Caro RN 10/23/19 09:20:07 [facility] IntraOp Drains and Tubes Entry 1 Device Type Aydin Hamm flat drain Size 10 mm Drain/Tube Activity Inserted Drain/Tube Suction Bulb Drain/Tube Drainage Sanguineous Device Location Abdomen Method of Drainage Active Tube Dressing Dry, Intact Condition Last Modified By: Mary Carmen Caro RN 10/23/19 09:19:41 [facility] IntraOp Dressing and Packing Entry 1 Type Dressing Location Abdomen Wound Dressing Item Skin Closure Glue, 4x4's Tape Type Other Applied By JIGNESH LING Other Comments MEDIPORE TAPE APPLIED TO DRAIN DRESSING. Last Modified By: Mary Carmen Caro RN 10/23/19 09:19:58 [facility] IntraOp Fire Risk Assessment Entry 1 Fire [...] By: Mary Carmen Caro RN 10/23/19 09:13:50 [facility] IntraOp General Case [address] Vendor 1 Case Information OR OR 13 [facility] Case Level 1 Room Verified Yes Wound Class II - Clean-Contaminated Specialty SN Urology Anesthesia Type General ASA Class 2 Diagnosis Preop Diagnosis PROSTATE CANCER Postop Same As Preop No Postop Diagnosis SEE POSTOPERATIVE NOTE Last Modified By: Mary Carmen Caro RN 10/23/19 09:15:36 [facility] IntraOp Intraoperative Assessment Entry 1 Handoff Method [...] By: Mary Carmen Caro RN 10/23/19 09:14:51 [facility] IntraOp Intraoperative Equipment Entry 1 Type Monitoring Equipment Equipment Jeannie Suction System ID Number [id number] Intraop Monitoring Electrocardiogram Three lead placement (ECG) Electrode Placement Blood Pressure Non-Invasive BP Device Source Blood Pressure Arm, right upper Location Pulse Oximeter Hand, left Probe Site Antiembolic Devices Antiembolic Devices Sequential compression device, knee high Antiembolic Device Bilateral Location Antiembolic Device [id number] ID Number Antiembolic Device 40 mmHg Setting Scopes Photo/Video Documentation Photo No Video No Intraop Equipment Sequential compression Comment devices on and in operation prior to induction of anesthesia. Last Modified By: Mary Carmen Caro RN 10/23/19 09:16:59 [facility] IntraOp Medication Admin Entry 1 Medication/Irrigant JESSICA IRR 0.9% NACL 1000ML --[id number] Time Administered 10/23/19 09:01:00 Route of Irrigation Administration Dose Administered By JIGNESH LING Procedure Irrigation Last Modified By: Mary Carmen Caro RN 10/23/19 09:18:51 [facility] IntraOp Patient Positioning Entry 1 Procedure Prostatectomy [...] By: Mary Carmen Caro RN 10/23/19 09:13:09 [facility] IntraOp Sign In Entry 1 Patient, Site, [...] By: Mary Carmen Caro RN 10/23/19 09:06:55 [facility] IntraOp Sign Out Entry 1 RN Confirmation [...] By: Mary Carmen Caro RN 10/23/19 09:20:30 [facility] IntraOp Sign Out Audit 10/23/19 11:31:11 Assistant Store Manager Operations: NILSON Modifier: NILSON <+> 1 RN Sign Out Signature Date/Time [facility] IntraOp Skin Prep Entry 1 Procedure Prostatectomy [...] By: Mary Carmen Caro RN 10/23/19 09:16:12 [facility] IntraOp Surgical Procedures Entry 1 Entry 2 [...] Poff, Janie, RN 10/23/19 09:13:39 10/23/19 09:20:40 [facility] IntraOp Surgical Procedures Audit 10/23/19 11:31:02 Assistant Store Manager Operations: NILSON Modifier: POVAMSHIADARSH <+> 1 Stop <+> 2 Stop 10/23/19 09:20:40 Assistant Store Manager Operations: NILSON Modifier: NILSON 2 <*> Procedure Lymph Node Dissection Pelvic Laparoscopic 2 <*> Wound Class I - Clean [facility] IntraOp Temp Regulation Devices Entry 1 Temp Regulation Temperature Warm blankets, Forced Regulation Device Air Warming device, Room temperature Temperature 70058 Regulation Device Serial/Unit Number Temperature Upper body Regulation Site Temperature Device 43 degrees Celsius Setting Temperature EDITH TERRELL APRN, Regulation Device SAFETY SITTER-ANS Applied by Temperature Patient's temperature Regulation Comment and forced air warming device settings monitored by anesthesia provider. Last Modified By: Mary Carmen Caro RN 10/23/19 09:17:12 [facility] IntraOP Time Out Entry 1 Procedure to [...] for Unfinalizing 10/26/19 10:52 WATJESSA Correct Billing documented in this encounter Plan of Treatment Not on file documented as of this encounter Visit Diagnoses Not on filedocumented in this encounter Care Teams Clinic Supervisor Relationship Specialty Start Date End Date Tee Wade MD [address] [facility] [address] [place] [address] PCP - General Neurology 03/07/23 Lennie Coates PA-C [address] [facility] [address] [place] [address] Cardiology 03/11/24 documented as of this encounter
--- OUTSIDE RECORDS SUMMARY | 2025-10-25 17:29 | XMS_ITS | Encounter Summary ---
Author Organization [employer] ([place], [place], [place], [place], [place]) Address [address] [place] [address] Care Team Providers Care Consumer Experience Consultant Name Role Phone Tee Aguilar MD Primary Care Provider + [phone] Lennie Coates PA-C Unavailable [phone] Encounter Details Date Type Department Care Team (Late st Contact Info) Description 10/24/2019 Transcribed Document [facility] [place] [address] [place] [address] ProviderJuan MD [address] [place] [address] Social History Tobacco Use Types Packs/Day Years Used Date Smoking Tobacco: Never Assessed Sex and Gender Information Value Date Recorded Sex Assigned at Not on file Legal Sex Male 3:26 PM CDT Gender Identity Not on file Sexual Orientation Not on file documented as of this encounter Miscellaneous Notes * Cerner Conversion Note - Juan Summers MD - 10/24/2019 12:14 PM CUSTOMER LOGISTICS MANAGER [facility] [place], [place] [id number] KOSTA JHOANA LYNN :1955 Visit Time:10/23/2019 Your [...] Instructions: follow up 12-16 with cystogram at [facility] radiology prior to visit Activity: Discharge Activity: No heavy lifting over 10 lbs Diet: Discharge Diet: Resume usual diet as tolerated Showering/Bathing Instructions: May shower Follow-Up Appointments Follow Up with LEIGHA LOMBARDI MD-URO When 11/03/2019 12:00 AM EST Comments Call for follow up appointment Where: [address] [facility] [address] [place] [address]- Follow Up with TEE AGUILAR IM When Within 2 to 3 days Where: [address] [facility] [address] [place] [address]- Medications What How Much When Instructions Next Dose acetaminophen-hydrocodone ([place] 7.5 mg-325 mg oral tablet) 1 Tablet(s) [...] and water are not available, use hand paper coating supervisor. ? Change your dressing as told by [...] even if your condition improves. ??? Take llku-xrn-uqrlwdu and prescription medicines only as told by [...] 05/25/2006 Document Revised: 07/13/2017 Document Reviewed: 05/23/2017 [employer] Interactive Patient Education ?? 2019 [employer] Indwelling Urinary Catheter Care, Adult An [...] on each side. Do this in a vvlkt-an-iwzo direction. ? If you are male: ? [...] and water are not available, use hand paper coating supervisor. ??? Always make sure there are no [...] 11/05/2006 Document Revised: 06/21/2018 Document Reviewed: 06/21/2018 [employer] Interactive Patient Education ?? 2019 [employer]. Laparoscopic Prostatectomy, Care After This sheet gives [...] these instructions at home: Medicines ??? Take ezvf-fqf-xwexres and prescription medicines only as told by [...] urine clear or pale yellow. ? Take bjqs-rde-kwhtscb or prescription medicines. ? Eat foods that [...] and water are not available, use hand paper coating supervisor. ? Change your dressing as told by [...] pain, abdominal discomfort, and nausea. ??? Take zvnr-ccg-arrnvbu and prescription medicines only as told by [...] 11/05/2006 Document Revised: 10/10/2017 Document Reviewed: 10/10/2017 [employer] Interactive Patient Education ?? 2019 [employer]. Laparoscopic Prostatectomy Laparoscopic prostatectomy is a surgery [...] including vitamins, herbs, eye drops, creams, and axtg-alo-hgsedpc medicines. ??? Any problems you or family [...] 11/05/2006 Document Revised: 10/22/2017 Document Reviewed: 10/22/2017 [employer] Interactive Patient Education ?? 2019 [employer] Emergency Awareness and Preventative Care STROKE [...] Assistance with quitting is available by contacting 5-996-ZJGTNOW. This is a free resource providing counseling, support, and referral. Or you may contact your personal physician. [place] Suicide Prevention Lifeline: The National Suicide Prevention [...] was given the opportunity to ask questions. Patient/Route Vending Machine Servicer Name: Patient/Route Vending Machine Servicer Signature: Relationship to Patient: Clinician/Hospital Route Vending Machine Servicer Signature: Date: documented in this encounter Plan of Treatment Not on file documented as of this encounter Visit Diagnoses Not on filedocumented in this encounter Care Teams Consumer Experience Consultant Relationship Specialty Start Date End Date Tee Aguilar MD [address] [address] PCP - General Neurology 03/07/23 Lennie Coates PA-C [address] [facility] [address] [place] [address] Cardiology 03/11/24 documented as of this encounter
--- OUTSIDE RECORDS SUMMARY | 2025-10-25 17:29 | XMS_ITS | Encounter Summary ---
Author Organization [employer] ([place], [place], [place], [place], [place]) Address [address] [place] [address] Care Team Providers Care Quantitative Strategy Analyst Name Role Phone Tee Wade MD Primary Care Provider + [phone] Lennie Coates PA-C Unavailable [phone] Encounter Details Date Type Department Care Team (Late st Contact Info) Description 10/24/2019 Transcribed Document [facility] [place] [facility] [place] [address] Juan Summers MD [address] [place] [address] Social History Tobacco Use Types Packs/Day Years Used Date Smoking Tobacco: Never Assessed Sex and Gender Information Value Date Recorded Sex Assigned at Not on file Legal Sex Male 3:26 PM CDT Gender Identity Not on file Sexual Orientation Not on file documented as of this encounter Miscellaneous Notes * Cerner Conversion Note - Juan Summers MD - 10/24/2019 12:14 PM P D DRIVER Patient Education Materials Follows: Incision Care, Adult [...] and water are not available, use hand pearl restorer. ? Change your dressing as told by [...] even if your condition improves. ??? Take zjul-aal-nczfnpc and prescription medicines only as told by [...] 05/25/2006 Document Revised: 07/13/2017 Document Reviewed: 05/23/2017 [employer] Interactive Patient Education ? 2019 [employer]. Indwelling Urinary Catheter Care, Adult An indwelling [...] on each side. Do this in a qvxke-xo-vbvs direction. ? If you are male: ? [...] and water are not available, use hand pearl restorer. ??? Always make sure there are no [...] 11/05/2006 Document Revised: 06/21/2018 Document Reviewed: 06/21/2018 [employer] Interactive Patient Education ? 2019 [employer]. Laparoscopic Prostatectomy, Care After This sheet gives [...] these instructions at home: Medicines ??? Take piyz-ejf-gdcndkm and prescription medicines only as told by [...] urine clear or pale yellow. ? Take hbbq-nrf-udhdqay or prescription medicines. ? Eat foods that [...] and water are not available, use hand pearl restorer. ? Change your dressing as told by [...] pain, abdominal discomfort, and nausea. ??? Take ypfd-daw-oiiawgd and prescription medicines only as told by [...] 11/05/2006 Document Revised: 10/10/2017 Document Reviewed: 10/10/2017 [employer] Interactive Patient Education ? 2019 [employer] Laparoscopic Prostatectomy Laparoscopic prostatectomy is a [...] including vitamins, herbs, eye drops, creams, and ztit-zia-absqfjf medicines. ??? Any problems you or family [...] 11/05/2006 Document Revised: 10/22/2017 Document Reviewed: 10/22/2017 [employer] Interactive Patient Education ? 2019 [employer]. documented in this encounter Plan of Treatment Not on file documented as of this encounter Visit Diagnoses Not on filedocumented in this encounter Care Teams Quantitative Strategy Analyst Relationship Specialty Start Date End Date Tee Wade MD [address] [place] [address] PCP - General Neurology 03/07/23 Lennie Coates PA-C [address] [place] [address] [address] [place] [id number] Cardiology 03/11/24 documented as of this encounter
--- OUTSIDE RECORDS SUMMARY | 2025-10-25 17:29 | XMS_ITS | Encounter Summary ---
Author Organization [employer] ([place], [place], [place], [place], [place]) Address [address] [place] [address] Care Team Providers Care Svp Research & Ebusiness Operations Name Role Phone Tee Wade MD Primary Care Provider [phone] Lennie Coates PA-C Unavailable [phone] Encounter Details Date Type Department Care Team (Late st Contact Info) Description 10/23/2019 Transcribed Document [facility] [place] [address] Juan Summers MD [address] [place] [address] Social History Tobacco Use Types Packs/Day Years Used Date Smoking Tobacco: Never Assessed Sex and Gender Information Value Date Recorded Sex Assigned at Not on file Legal Sex Male 3:26 PM CDT Gender Identity Not on file Sexual Orientation Not on file documented as of this encounter Miscellaneous Notes * Cerner Conversion Note - Juan Summers MD - 10/23/2019 11:39 AM SHAPING MACHINE OPERATOR DATE OF PROCEDURE: 10/23/2019 SURGEON: Ty Ghotra MD PREOPERATIVE DIAGNOSIS: Adenocarcinoma of the prostate. POSTOPERATIVE DIAGNOSIS: Adenocarcinoma of the prostate. PROCEDURE PERFORMED: Laparoscopic adhesiolysis, robotic-assisted laparoscopic radical prostatectomy with left pelvic lymph node dissection. ANESTHESIA: General. ROLL CLAMP OPERATOR: Faviola Alatorre CFA. SPECIMENS: Prostate with seminal [...] to postoperative recovery room in stable condition. /[id number] MD REENA Larry/AQ / TDDaniel / MODL /[id number] CC: Dr. Bernard Ghotra MD Electronically signed by Mima, [facility] Conversion Magnetic Resonance Technologist Cerner at 03/07/2023 10:31 AM CDT documented in this encounter Plan of Treatment Not on file documented as of this encounter Visit Diagnoses Not on filedocumented in this encounter Care Teams Svp Research & Ebusiness Operations Relationship Specialty Start Date End Date Tee Wade MD [address] [facility] [address] [place] [address] PCP - General Neurology 03/07/23 Lennie Coates, PA-C [address] [facility] [address] [place] [address] Cardiology 03/11/24 documented as of this encounter
--- OUTSIDE RECORDS SUMMARY | 2025-10-25 17:29 | XMS_ITS | Encounter Summary ---
Author Organization [employer] ([place], [place], [place], [place], [place]) Address [address] [place] [address] Care Team Providers Care Personnel Officer Name Role Phone Tee Wade MD Primary Care Provider + [phone] Lennie Coates PA-C Unavailable [phone] Encounter Details Date Type Department Care Team (Late st Contact Info) Description 10/24/2019 Transcribed Document [facility] [place] Family Medicine [address] [place] [address] ProviderJuan MD [address] [place], [place] [address] Social History Tobacco Use Types Packs/Day Years Used Date Smoking Tobacco: Never Assessed Sex and Gender Information Value Date Recorded Sex Assigned at Not on file Legal Sex Male 3:26 PM CDT Gender Identity Not on file Sexual Orientation Not on file documented as of this encounter Miscellaneous Notes * Cerner Conversion Note - Juan Summers MD - 10/24/2019 12:13 PM CONSTRUCTION MANAGER Stroke/Warfarin Instructions Entered On: 10/24/2019 12:13 EST Performed On: 10/24/2019 12:13 EST by Jessica Oshea RN-Traveler Stroke/Warfarin Instructions Stroke/TIA Discharge Ins : N/A Warfarin Discharge Ins : N/A Jessica Oshea RN-Traveler - 10/24/2019 12:13 EST documented in this encounter Plan of Treatment Not on file documented as of this encounter Visit Diagnoses Not on filedocumented in this encounter Care Teams Personnel Officer Relationship Specialty Start Date End Date Tee Wade MD [address] [facility] [address] [place] [address] PCP - General Neurology 03/07/23 Lennie Coates PALoveC [address] [facility] [address] [place] [address] Cardiology 03/11/24 documented as of this encounter
--- OUTSIDE RECORDS SUMMARY | 2025-10-25 17:29 | XMS_ITS | Clinical Summary ---
Author Organization [employer] ([place], [place], [place], [place], [place]) Address [address] [place] [address] Care Team Providers Care Electronic Instrument Trades Worker Name Role Phone Tee Wade MD Primary Care Provider [phone] Lennie Coates PA-C Unavailable [phone] Allergies Active Allergy Reactions Criticality Noted Date Comments [facility] 02/16/2017 Other reaction(s): Chest Pain, Nausea [...] Date Dennis rded Speak language other than [place] at home Not on file 12/07/2023 Want [...] BLUE CROSS/BLUE SHIELD MEDICARE [place] [address] Care Teams Electronic Instrument Trades Worker Relationship Specialty Start Date End Date Tee Wade MD [address] [facility] [address] [place] [address] PCP - General Neurology 03/07/23 Lennie Coates, PA-C [address] [facility] [place] [address] [facility] 03/11/24
--- OUTSIDE RECORDS SUMMARY | 2025-10-25 17:29 | XMS_ITS | Encounter Summary ---
Author Organization [employer] ([place], [place], [place], [place], [place]) Address [address] [place] [address] Care Team Providers Care Outside Medical Sales Representative Name Role Phone Tee Wade MD Primary Care Provider + [phone] Lennie Coates PA-C Unavailable [phone] Encounter Details Date Type Department Care Team (Late st Contact Info) Description 10/25/2019 Transcribed Document [facility] [place] [facility] [address] ProviderJuan MD [address] [place] [address] Social History Tobacco Use Types Packs/Day Years Used Date Smoking Tobacco: Never Assessed Sex and Gender Information Value Date Recorded Sex Assigned at Not on file Legal Sex Male 3:26 PM CDT Gender Identity Not on file Sexual Orientation Not on file documented as of this encounter Miscellaneous Notes * Cerner Conversion Note - Juan Summers MD - 10/25/2019 12:36 PM TRUCK DRIVER TEAMSTER UM Authorization Entered On: 10/25/2019 12:36 EST Performed On: 10/25/2019 12:36 EST by Ashley López Rn-Utilization Review Primary Insurance Authorization Authorization and Policy Numbers : Insurance 1 Health Plan: [email or web address] Policy Number: [id number] Authorization Number: Insurance Primary Name : ANTH HMOPPO Policy Number: [id number] Authorized Service Begin Date-Primary : 10/24/2019 EST Historical Authorization Comments-Primary : Comment 1: Pt not precerted for IP surgery, the CPT code 76977 is for out pt surgery. Pt has d/c order on chart, Called MD office spoke to Marcelino and requested her to notify MD/plastic surgery manager. Awaiting callback (TAMIKO HUERTAS RN 10/24/2019 12:30) Ashley López Rn-Utilization Review - 10/25/2019 12:36 EST Electronically signed by [facility], [facility] Conversion Staple Side Laster Cerner at 03/07/2023 10:11 AM CDT documented in this encounter Plan of Treatment Not on file documented as of this encounter Visit Diagnoses Not on filedocumented in this encounter Care Teams Outside Medical Sales Representative Relationship Specialty [place] [address] [place] [address] [address] [place] [address] PCP - General Neurology 03/07/23 Lennie Coates, PA-C [address] [facility] [address] [place] [id number] Cardiology 03/11/24 documented as of this encounter
--- OUTSIDE RECORDS SUMMARY | 2025-10-25 17:29 | XMS_ITS | Encounter Summary ---
Author Organization [employer] ([place], [place], [place], [place], [place]) Address [address] [place] [address] Care Team Providers Care Barn Worker Name Role Phone Tee Wade MD Primary Care Provider [phone] Lennie Coates PA-C Unavailable [phone] Encounter Details Date Type Department Care Team (Late st Contact Info) Description 10/17/2019 Transcribed Document [facility] [place] [address] [place] [address] ProviderJuan MD [address] [place], [place] [address] Social History Tobacco Use Types Packs/Day Years Used Date Smoking Tobacco: Never Assessed Sex and Gender Information Value Date Recorded Sex Assigned at Not on file Legal Sex Male 3:26 PM CDT Gender Identity Not on file Sexual Orientation Not on file documented as of this encounter Miscellaneous Notes * Cerner Conversion Note - Juan Summers MD - 10/17/2019 11:47 AM PHYSICAL DIRECTOR PAT Adult Entered On: 10/17/2019 11:56 EST [...] Body Mass Index : 27.4 kg/m2 (HI) [place] Body Weight : 74 kg MARY ALVES [...] MARY ALVES RN - 10/17/2019 12:00 EST [place] Suicide Severity Rating Scale (C-SSRS) CSSRS Past [...] Obtained From : Patient Primary Language : Portuguese Preferred Communication Mode : Verbal Communication Barrier [...] 10/17/2019 12:00 EST Electronically signed by Mima, [facility] Conversion University Manager Cerner at 03/07/2023 10:22 AM CDT documented in this encounter Plan of Treatment Not on file documented as of this encounter Visit Diagnoses Not on filedocumented in this encounter Care Teams Barn Worker Relationship Specialty Start Date End Date Tee Wade MD [address] [place] [address] PCP - General Neurology 03/07/23 Lennie Coates PALoveC [address] [facility] [address] [place] [address] Cardiology 03/11/24 documented as of this encounter
--- OUTSIDE RECORDS SUMMARY | 2025-10-25 17:29 | XMS_ITS | Encounter Summary ---
Author Organization [employer] ([place], [place], [place], [place], [place]) Address [address] [place] [address] Care Team Providers Care Orthopedic Coder Name Role Phone Tee Wade MD Primary Care Provider + [phone] Lennie Coates PA-C Unavailable [phone] Encounter Details Date Type Department Care Team (Late st Contact Info) Description 10/24/2019 Transcribed Document [facility] [place] [address] [place] [address] ProviderJuan MD [address] [place] [address] Social History Tobacco Use Types Packs/Day Years Used Date Smoking Tobacco: Never Assessed Sex and Gender Information Value Date Recorded Sex Assigned at Not on file Legal Sex Male 3:26 PM CDT Gender Identity Not on file Sexual Orientation Not on file documented as of this encounter Miscellaneous Notes * Cerner Conversion Note - Juan Summers MD - 10/24/2019 11:37 AM FIRE INFORMATION OFFICER Initial Discharge Planning Entered On: 10/24/2019 11:44 EST Performed On: 10/24/2019 11:37 EST by LINDA BARRY Marketing Engineer Initial Assessment I Previously Documented Living Environment [...] Is Guardianship Needed : No LINDA BARRY Marketing Engineer - 10/24/2019 11:37 EST Initial Assessment II [...] - 10/24/2019 11:37 EST Electronically signed by [facility], [facility] Conversion Product Safety Professional Cerner at 03/07/2023 10:42 AM CDT documented in this encounter Plan of Treatment Not on file documented as of this encounter Visit Diagnoses Not on filedocumented in this encounter Care Teams Orthopedic Coder Relationship Specialty Start Date End Date Tee Wade MD [address] [facility] [address] [place] [address] PCP - General Neurology 03/07/23 Lennie Coates PA-C [address] [facility] [address] [place], [place] [id number] Cardiology 03/11/24 documented as of this encounter
--- OUTSIDE RECORDS SUMMARY | 2025-10-25 17:29 | XMS_ITS | Encounter Summary ---
Author Organization [employer] ([place], [place], [place], [place], [place]) Address [address] [place] [address] Care Team Providers Care Medical Office Representative Name Role Phone Tee Wade MD Primary Care Provider + [phone] Lennie Coates PA-C Unavailable [phone] Encounter Details Date Type Department Care Team (Late st Contact Info) Description 10/24/2019 Transcribed Document [facility] [place] [address] [place] [address] ProviderJuan MD [address] [place] [address] Social History Tobacco Use Types Packs/Day Years Used Date Smoking Tobacco: Never Assessed Sex and Gender Information Value Date Recorded Sex Assigned at Not on file Legal Sex Male 3:26 PM CDT Gender Identity Not on file Sexual Orientation Not on file documented as of this encounter Miscellaneous Notes * Cerner Conversion Note - Juan Summers MD - 10/24/2019 3:39 PM FAUCET POLISHER Nursing Discharge Summary Entered On: 10/24/2019 15:40 [...] 10/24/2019 15:39 EST Electronically signed by Mima, [facility] Conversion Trial Manager Cerner at 03/07/2023 10:41 AM CDT documented in this encounter Plan of Treatment Not on file documented as of this encounter Visit Diagnoses Not on filedocumented in this encounter Care Teams Medical Office Representative Relationship Specialty Start Date End Date Tee Wade MD [address] [facility] [address] [place] [address] PCP - General Neurology 03/07/23 Lennie Coates, PA-C [address] [facility] [address] [place] [address] Cardiology 03/11/24 documented as of this encounter
--- OUTSIDE RECORDS SUMMARY | 2025-10-25 17:29 | XMS_ITS | Encounter Summary ---
Author Organization [employer] ([place], [place], [place], [place], [place]) Address [address] [place] [address] Care Team Providers Care Vitreo Retinal Surgeon Name Role Phone Tee Wade MD Primary Care Provider + [phone] Lennie Coates PA-C Unavailable [phone] Encounter Details Date Type Department Care Team (Late st Contact Info) Description 10/23/2019 Transcribed Document [facility] [place] [address] [place] [address] ProviderJuan MD [address] [place] [address] Social History Tobacco Use Types Packs/Day Years Used Date Smoking Tobacco: Never Assessed Sex and Gender Information Value Date Recorded Sex Assigned at Not on file Legal Sex Male 3:26 PM CDT Gender Identity Not on file Sexual Orientation Not on file documented as of this encounter Miscellaneous Notes * Cerner Conversion Note - Juan Summers MD - 10/23/2019 9:30 AM SENIOR EXAMINER Pain Assessment Entered On: 10/23/2019 15:57 EST Performed On: 10/23/2019 15:55 EST by Jessica Oshea RN-Traveler Intervention Information: fentaNYL Performed by TRAVIS CHRISTIANSON RN on 10/23/2019 15:25:00 EST fentaNYL,25mcg IV Push,Left Hand,Pain (Moderate 4-6) Pain Assessment Pain Assessment : Follow-up assessment Pain Scale Goal : 4 Pain Improved by Intervention : Yes Jessica Oshea RN-Traveler - 10/23/2019 15:57 EST Electronically signed by Slim Guillermo Conversion Cutting And Printing Machine Operator Cerner at 03/07/2023 10:16 AM CDT documented in this encounter Plan of Treatment Not on file documented as of this encounter Visit Diagnoses Not on filedocumented in this encounter Care Teams Vitreo Retinal Surgeon Relationship Specialty Start Date End Date Tee Wade MD [address] [facility] [address] [place] [address] PCP - General Neurology 03/07/23 Lennie Coates, PA-C [address] [place] [address] [address] [place] [address] Cardiology 03/11/24 documented as of this encounter
--- OUTSIDE RECORDS SUMMARY | 2025-10-25 17:29 | XMS_ITS | Encounter Summary ---
Author Organization [employer] ([place], [place], [place], [place], [place]) Address [address] [place] [address] Care Team Providers Care Senior Communications Specialist Name Role Phone Tee Wade MD Primary Care Provider + [phone] Lennie Coates PA-C Unavailable [phone] Encounter Details Date Type Department Care Team (Late st Contact Info) Description 10/23/2019 Transcribed Document [facility] [place] [address] [place] [address] ProviderJuan MD [address] [place] [address] Social History Tobacco Use Types Packs/Day Years Used Date Smoking Tobacco: Never Assessed Sex and Gender Information Value Date Recorded Sex Assigned at Not on file Legal Sex Male 3:26 PM CDT Gender Identity Not on file Sexual Orientation Not on file documented as of this encounter Miscellaneous Notes * Cerner Conversion Note - Juan Summers MD - 10/23/2019 8:30 AM DIRECTOR OF CONTENT MARKETING [facility] Main OR Preop Summary Primary Physician: LEIGHA LOMBARDI MD-URO Finalized Date/Time: 10/23/19 08:49:37 Pt. Name: JHOANA BRAMBILAO.B./Sex: 1955 Male Med Rec #: [id number] Physician: LEIGHA LOMBARDI MD-URO Financial #: [id number] Pt. Type: O Room/Bed: / Admit/Disch: 10/23/19 08:00:00 - [facility] PreOp Case Times Entry 1 In Preop 10/23/19 06:30:00 Ready for Holding n/a Room Patient Ready for 10/23/19 08:10:00 Surgery Patient Out of Preop 10/23/19 08:24:00 Patient Out of n/a Holding Room Last Modified By: Jannette Reyes RN 10/23/19 08:49:36 [facility] PreOp Case Times Audit 10/23/19 08:49:36 Caponizer: WRIGHTVP Modifier: WRIGHTVP <+> 1 Patient Out of Preop 10/23/19 08:08:10 Caponizer: WRIGHTVP Modifier: WRIGHTVP <+> 1 Patient Ready for Surgery Finalized By: Jannette Reyes, RN Document Signatures Signed By: Jannette Reyes RN 10/23/19 08:49 Electronically signed by Mima [facility] Conversion Chemical Processing Laborer Cerner at 03/07/2023 10:44 AM CDT documented in this encounter Plan of Treatment Not on file documented as of this encounter Visit Diagnoses Not on filedocumented in this encounter Care Teams Senior Communications Specialist Relationship Specialty [place] [address] [place] [address] PCP - General Neurology 03/07/23 Lennie Coates, PA-C [address] [facility] [address] [place] [address] Cardiology 03/11/24 documented as of this encounter
--- OUTSIDE RECORDS SUMMARY | 2025-10-25 17:29 | XMS_ITS | Encounter Summary ---
Author Organization [employer] ([place], [place], [place], [place], [place]) Address [address] [place] [address] Care Team Providers Care Combine Operator Name Role Phone Tee Wade MD Primary Care Provider + [phone] Lennie Coates PA-C Unavailable [phone] Encounter Details Date Type Department Care Team (Late st Contact Info) Description 10/23/2019 Transcribed Document [facility] [place] [address] [place] [address] ProviderJuan MD [address] [place], [place] [address] Social History Tobacco Use Types Packs/Day Years Used Date Smoking Tobacco: Never Assessed Sex and Gender Information Value Date Recorded Sex Assigned at Not on file Legal Sex Male 3:26 PM CDT Gender Identity Not on file Sexual Orientation Not on file documented as of this encounter Miscellaneous Notes * Cerner Conversion Note - Juan Summers MD - 10/23/2019 5:00 PM SURVEILLANCE MONITOR Chart Check - Review Order Profile Entered [...] on filedocumented in this encounter Care Teams Combine Operator Relationship Specialty Start Date End Date Tee Wade MD [address] [facility] [address] [place] [address] PCP - General Neurology 03/07/23 Lennie Coates PALoveC [address] [facility] [address] [place] [address] Cardiology 03/11/24 documented as of this encounter
--- NOTE | 2025-10-25 18:30 | PC.NURSE ---
Patient has done well this shift. He has ambulated to and from the bathroom independently. No episodes of dizziness. Remains on room air. Lungs clear. Alert and oriented x4. Heart rate has remained esau throughout the shift but he is asymptomatic and reports that his heart rate usually runs a little lower.
--- NOTE | 2025-10-25 20:35 | PC.NURSE ---
Report called to OSVALDO Puente. Ayana, interventional technologist transporting patient via wheelchair to [place] at this time.
--- NOTE | 2025-10-25 21:22 | PC.NURSE ---
Addendum entered by Cindi Majano RN 10/25/25 21:50: rechecked patient BP once he was relaxed around 30 minutes later, 138/72 - patient states he is relieved that it has come down and that he is not as nervous now about things. Original Note: patient was anxious about moving from ICU to [place] floor once move was made and expressed concerns that he wouldn't have a continuos blood pressure cuff on. Patient was reassured that we would take his concerns seriously, check his BP as ordered per MD and upon his request if he liked, patient is on tele, and educated to pressure call light if he has any HTN s/s - verbalized understanding. patient rang out minutes after discussion requesting RN - this RN went to bedside and patient had his home BP machine at bedside reading [id number] - rechecked with hospital data scope 165/79 - patient admits to some anxiety since moving and worrying about monitoring, but denies other s/s of HTN. Patient reassured once again, this RN offered to notify hospitalist but patient denied at this time. data scope left in patient room with BP cuff on patient to recheck BP in 30 minutes when patient relaxes.
[2025-10-26] VITALS: BP 130/77; PULSE 45; PULSE 51; RESP 16; TEMP 36.7; O2SAT 97
[2025-10-26 04:00] VITALS: BP 129/80; PULSE 40; PULSE 60; RESP 16; TEMP 36.9; O2SAT 97; BMI 26.4
[2025-10-26 07:15] LABS: Hematocrit 39.1 % (42.0-52.0); Hemoglobin 13.5 g/dL (14.1-18.0); Immature Granulocytes % 0.2 %; Mean Corpuscular HGB Conc 34.5 g/dL (31.8-35.4); Mean Corpuscular Hemoglobin 29.6 pg (27.0-31.2); Mean Corpuscular Volume 85.7 fl (80-94); Nucleated Red Blood Cells % 0 %; Platelet Count 176 K/mm3 (142-424); Red Blood Count 4.56 M/mm3 (4.60-6.20); Red Cell Distribution Width-SD 40.9 fL; White Blood Count 6.1 K/mm3 (4.8-10.8)
[2025-10-26 07:26] LABS: Chloride 108 mmol/L (98-107); Sodium 144 mmol/L (136-145)
[2025-10-26 07:27] LABS: Potassium 3.4 mmoL/L (3.5-5.1)
[2025-10-26 07:29] LABS: Blood Urea Nitrogen 15 mg/dl (9-20); Creatinine Clearance Estimated 83 mL/min (50-200); Creatinine,Serum 1.00 mg/dl (0.66-1.25); Estimated Glomerular Filt Rate 74 ml/min (>60); GFR (African American) 89 ML/MIN (>60)
[2025-10-26 07:30] LABS: Anion Gap 13.4 mEq/L (5-15); Calcium 8.4 mg/dl (8.4-10.2); Carbon Dioxide 26 mmol/L (22.0-30.0); Glucose 97 mg/dl (74-100)
[2025-10-26 08:00] VITALS: BP 162/84; PULSE 58; RESP 16; TEMP 36.7; O2SAT 96
--- NOTE | 2025-10-26 08:27 | EXP.PN ---
Subjective *Date: 10/26/25 *Time: 08:27 Interval history: Patient states he feels like normal today. He denies any chest pain and shortness of breath. He was able to eat without problems. Blood pressure has been better controlled. He is noted to have a bradycardia 40s up to 52 laboratory data shows a low potassium at 3.4 and a sodium of 144. Troponin I's have been negative x 3. Exam Data for Last 24 hours Vital signs and Labs for Last 24 Hours: Temp Pulse Resp BP Pulse Ox O2 Del Method 98.5 F 60 16 129/80 97 Room Air 10/26/25 04:00 10/26/25 04:00 10/26/25 04:00 10/26/25 04:00 10/26/25 04:00 10/26/25 06:22 Laboratory Results - last 24 hr 10/25/25 06:43: Vitamin B12 268 10/25/25 09:30: Chlamy pneumoniae PCR Not detected, Adenovirus (PCR) Not detected, B. pertussis DNA (PCR) Not detected, Coronavirus OC43 (PCR) Not detected, Coronavirus HKU1 (PCR) Not detected, Coronavirus 229E (PCR) Not detected, SARS-CoV-2 (PCR) Not detected, Coronavirus NL63 (PCR) Not detected, Human Metapneumovir PCR Not detected, Influenza A (H1) PCR Not detected, Influ A (H1N1/09) PCR Not detected, Influenza A (H3) PCR Not detected, Influenza Type A (PCR) Not detected, Influenza Type B (PCR) Not detected, M. pneumoniae (PCR) Not detected, Parainfluenza 1 (PCR) Not detected, Parainfluenza 2 (PCR) Not detected, Parainfluenza 3 (PCR) Not detected, Parainfluenza 4 (PCR) Not detected, RSV (PCR) Not detected, Entero/Rhino (PCR) Not detected 10/25/25 09:35: Troponin I < 0.01 10/25/25 11:00: Urine Color Yellow, Urine Appearance Clear, Urine pH 7.5, Ur Specific [place] 1.015, Urine Protein Negative, Urine Glucose (UA) Negative, Urine Ketones Negative, Urine Blood Negative, Urine Nitrate Negative, Urine Bilirubin Negative, Urine Urobilinogen 0.2, Ur Leukocyte Esterase Negative, Urine RBC None, Urine WBC None, Ur Squamous Epith Cells None, Urine Bacteria None 10/26/25 06:25: WBC 6.1, RBC 4.56 L, Hgb 13.5 L, Hct 39.1 L, MCV 85.7, MCH 29.6, MCHC 34.5, RDW 13.1, Plt Count 176, MPV 11.6 H, Neut % (Auto) 53.8, Lymph % (Auto) 33.6, [place] % (Auto) 9.8 H, Eos % (Auto) 2.1, Baso % (Auto) 0.5, Neut # (Auto) 3.3, Lymph # (Auto) 2.0, [place] # (Auto) 0.6, Eos # (Auto) 0.1, Baso # (Auto) 0.0, Sodium 144, Potassium 3.4 L, Chloride 108 H, Carbon Dioxide 26, Anion Gap 13.4, BUN 15, Creatinine 1.00, Estimated Creat Clear 83, Estimated GFR 74, Est GFR ( Amer) 89, Glucose 97, Calcium 8.4 I & O for Last 24 hours: Intake & Output 10/23/25 10/24/25 10/25/25 10/26/25 11:59 11:59 11:59 11:59 Intake Total 240 / 240 Output Total 100 / 100 0 / 0 Balance -100 / -100 240 / 240 Weight 184 lb 189 lb 3.2 oz Constitutional Constitutional: no acute distress Comments: Sitting on the bedside and appears comfortable *Routine Respiratory Exam Respiratory: Present CTA bilaterally (Anteriorly and posteriorly) *Routine Cardiovascular Exam Cardiovascular: Present RRR *Routine Abdominal Exam Abdominal: Present soft and normoactive bowel sounds; Absent tenderness *Routine Extremities Exam Extremities: Absent edema or calf tenderness *Routine Neurological Exam Neurological: Present alert and oriented X3 Assessment and Plan *Assessment and plan (1) Syncope: Status: Acute Qualifiers: Syncope type: unspecified Qualified Code(s): R55 - Syncope and collapse Category: Medical Code(s): R55 - Syncope and collapse (2) Bradycardia: Status: Acute Category: Medical Code(s): R00.1 - Bradycardia, unspecified (3) Hypertensive urgency: Status: Acute Category: Medical Code(s): I16.0 - Hypertensive urgency (4) CAD (coronary artery disease): Status: Acute Qualifiers: Coronary Disease-Associated Artery/Lesion type: [place] artery [place] vs. transplanted heart: [place] heart Associated angina: with unstable angina Qualified Code(s): I25.110 - Atherosclerotic heart disease of [place] coronary artery with unstable angina pectoris Category: Medical Code(s): I25.10 - Atherosclerotic heart disease of [place] coronary artery without angina pectoris (5) Hypokalemia: Status: Acute Category: Medical Code(s): E87.6 - Hypokalemia Plan Cardiology to see today. Currently patient is on Avapro 150 mg daily. Will add scheduled p.o. potassium.
[2025-10-26] MEDS: IRBESARTAN 150MG TAB 150 MG PO (09:49)
[2025-10-26] MEDS: ASPIRIN EC 81MG TABLET 81 MG PO (09:49)
[2025-10-26] MEDS: CLOPIDOGREL 75MG TAB 75 MG PO (09:49)
[2025-10-26] MEDS: POTASSIUM CHLORIDE 20MEQ TAB 40 MEQ PO (09:50)
[2025-10-26 10:54] LABS: Folate 6.08 ng/mL
--- NOTE | 2025-10-26 11:32 | EXP.DC.SUM ---
General Admission date:: 10/25/25 HPI HPI HPI: This is a 70-year-old male who has a past medical history significant for coronary artery disease, hypertension, NC with 5 stents, prostate cancer, and back pain who presents with a chief complaint of jaw pain and high and low blood pressure. Due to patient's symptoms, he presents to the emergency room for evaluation. While in the emergency room, patient was given nitro and his heart rate decreased to the 30s and he had a syncopal episode. As a result, his case was discussed with health information management director who recommended admission. Patient received atropine and his heart rate improved to the 80s. As a result, patient has been admitted for further management. During my evaluation of the patient, patient states he has been having left-sided jaw discomfort with blood pressures ranging from systolic 230 to systolic of 110. He states he recently had some of his antihypertensive medications changed around. He reports that he has an intolerance to beta-blockers. Patient states he also has been experiencing kaleidoscope eyes. He recently had an NC back in September and received 5 stents. 2D echo revealed an EF of 55%. Patient states that he did receive a nitro. He went to have an x-ray when he stood up his heart rate decreased in the felt like passing out. He is currently denying any chest pain, lightheadedness, dizziness, fever, chills, rigors, shortness of breath, dyspnea, nausea, vomiting, or diarrhea. EKG revealed a sinus bradycardia, QTc of 446, normal axis, and negative STEMI. Additional pertinent labs obtained including potassium of 3.2, blood glucose of 102, and BNP of 534. Hospital Course Hospital Course Hospital Course: Kevin Haines is a 70-year-old male who presented with chest, jaw pain. Patient had an episode of dizziness, syncope apparently after shortly after nitro tab in ED. Was given atropine for bradycardia, improving to the 80s. However, patient's baseline chronic heart rate in the 50s. History of CAD with 5 stents in September 2025. Has been adherent to his antiplatelets, medications. He does note that he takes amlodipine 10 mg as needed for SBP greater than 150 as he was advised by cardiology but takes losartan 100 mg daily. He states amlodipine 5 mg historically worked well for him and wonders why he can use that instead, he was counseled that losartan was likely chosen for cardioprotection due to recent coronary events. Given hypertensive, restarted losartan equivalent irbesartan 150 mg with improvement in pressures currently 120/77. Orthostatics, full respiratory panel, UA normal. B12 low normal, started multivitamin. Currently asymptomatic, ambulating without issues. No events on cardiac telemetry. Cardiology consulted, recommended pacemaker but patient would like to defer at this time. Will reconsider on an outpatient basis. Switch to losartan 100 mg irbesartan 150 mg. Will follow-up with cardiology and PCP within 2 weeks. Exam Data for Last 24 hours Vital signs and Labs for Last 24 Hours: Temp Pulse Resp BP Pulse Ox O2 Del Method 98.0 F 58 L 16 162/84 H 96 Room Air 10/26/25 08:00 10/26/25 08:00 10/26/25 08:00 10/26/25 08:00 10/26/25 08:00 10/26/25 09:15 Laboratory Results - last 24 hr 10/25/25 09:30: Chlamy pneumoniae PCR Not detected, Adenovirus (PCR) Not detected, B. pertussis DNA (PCR) Not detected, Coronavirus OC43 (PCR) Not detected, Coronavirus HKU1 (PCR) Not detected, Coronavirus 229E (PCR) Not detected, SARS-CoV-2 (PCR) Not detected, Coronavirus NL63 (PCR) Not detected, Human Metapneumovir PCR Not detected, Influenza A (H1) PCR Not detected, Influ A (H1N1/09) PCR Not detected, Influenza A (H3) PCR Not detected, Influenza Type A (PCR) Not detected, Influenza Type B (PCR) Not detected, M. pneumoniae (PCR) Not detected, Parainfluenza 1 (PCR) Not detected, Parainfluenza 2 (PCR) Not detected, Parainfluenza 3 (PCR) Not detected, Parainfluenza 4 (PCR) Not detected, RSV (PCR) Not detected, Entero/Rhino (PCR) Not detected 10/25/25 11:00: Urine Color Yellow, Urine Appearance Clear, Urine pH 7.5, Ur Specific [place] 1.015, Urine Protein Negative, Urine Glucose (UA) Negative, Urine Ketones Negative, Urine Blood Negative, Urine Nitrate Negative, Urine Bilirubin Negative, Urine Urobilinogen 0.2, Ur Leukocyte Esterase Negative, Urine RBC None, Urine WBC None, Ur Squamous Epith Cells None, Urine Bacteria None 10/26/25 06:25: WBC 6.1, RBC 4.56 L, Hgb 13.5 L, Hct 39.1 L, MCV 85.7, MCH 29.6, MCHC 34.5, RDW 13.1, Plt Count 176, MPV 11.6 H, Neut % (Auto) 53.8, Lymph % (Auto) 33.6, [place] % (Auto) 9.8 H, Eos % (Auto) 2.1, Baso % (Auto) 0.5, Neut # (Auto) 3.3, Lymph # (Auto) 2.0, [place] # (Auto) 0.6, Eos # (Auto) 0.1, Baso # (Auto) 0.0, Sodium 144, Potassium 3.4 L, Chloride 108 H, Carbon Dioxide 26, Anion Gap 13.4, BUN 15, Creatinine 1.00, Estimated Creat Clear 83, Estimated GFR 74, Est GFR ( Amer) 89, Glucose 97, Calcium 8.4, Folate 6.08 Temp Pulse Resp BP Pulse Ox O2 Del Method 98.0 F 58 L 16 162/84 H 96 Room Air 10/26/25 08:00 10/26/25 08:00 10/26/25 08:00 10/26/25 08:00 10/26/25 08:00 10/26/25 11:00 Laboratory Results - last 24 hr 10/25/25 11:00: Urine Color Yellow, Urine Appearance Clear, Urine pH 7.5, Ur Specific [place] 1.015, Urine Protein Negative, Urine Glucose (UA) Negative, Urine Ketones Negative, Urine Blood Negative, Urine Nitrate Negative, Urine Bilirubin Negative, Urine Urobilinogen 0.2, Ur Leukocyte Esterase Negative, Urine RBC None, Urine WBC None, Ur Squamous Epith Cells None, Urine Bacteria None 10/26/25 06:25: WBC 6.1, RBC 4.56 L, Hgb 13.5 L, Hct 39.1 L, MCV 85.7, MCH 29.6, MCHC 34.5, RDW 13.1, Plt Count 176, MPV 11.6 H, Neut % (Auto) 53.8, Lymph % (Auto) 33.6, [place] % (Auto) 9.8 H, Eos % (Auto) 2.1, Baso % (Auto) 0.5, Neut # (Auto) 3.3, Lymph # (Auto) 2.0, [place] # (Auto) 0.6, Eos # (Auto) 0.1, Baso # (Auto) 0.0, Sodium 144, Potassium 3.4 L, Chloride 108 H, Carbon Dioxide 26, Anion Gap 13.4, BUN 15, Creatinine 1.00, Estimated Creat Clear 83, Estimated GFR 74, Est GFR ( Amer) 89, Glucose 97, Calcium 8.4, Folate 6.08 I & O for Last 24 hours: Intake & Output 10/23/25 10/24/25 10/25/25 10/26/25 23:59 23:59 23:59 23:59 Intake Total 240 / 240 240 / 240 Output Total 100 / 100 Balance 140 / 140 240 / 240 Weight 83.461 kg 85.82 kg Intake & Output 10/23/25 10/24/25 10/25/25 10/26/25 23:59 23:59 23:59 23:59 Intake Total 240 / 240 240 / 240 Output Total 100 / 100 Balance 140 / 140 240 / 240 Weight 184 lb 189 lb 3.2 oz Constitutional Constitutional: no acute distress and average body habitus *Routine HEENT Exam Head: Present normocephalic and atraumatic ENT: Present mucous membranes moist *Routine Neck Exam Neck: Present supple, full ROM and normal carotid upstroke; Absent JVD, carotid bruit or lymphadenopathy *Routine Respiratory Exam Respiratory: Present CTA bilaterally, normal respiratory effort, able to speak in complete sentences and symmetric chest movement *Routine Cardiovascular Exam Cardiovascular: Present RRR, Normal S1 and Normal S2; Absent murmur or gallop *Routine Abdominal Exam Abdominal: Present soft and normoactive bowel sounds; Absent tenderness, distended or organomegaly *Routine Extremities Exam Extremities: Present full ROM, pulses intact and normal capillary refill; Absent cyanosis, clubbing or edema *Routine Skin Exam Skin: Present intact and warm; Absent erythema *Routine Neurological Exam Neurological: Present alert, oriented X3 and CN II-XII intact; Absent sensory deficit or motor deficit Routine Psychiatric Exam Psychiatric: Present normal affect Results Data Completed and Pending Labs on day of discharge: Labs from last 24 hours 10/26/25 10/25/25 10/25/25 06:25 11:00 09:30 WBC 6.1 RBC 4.56 L Hgb 13.5 L Hct 39.1 L MCV 85.7 MCH 29.6 MCHC 34.5 RDW 13.1 Plt Count 176 MPV 11.6 H Neut % (Auto) 53.8 Lymph % (Auto) 33.6 [place] % (Auto) 9.8 H Eos % (Auto) 2.1 Baso % (Auto) 0.5 Neut # (Auto) 3.3 Lymph # (Auto) 2.0 [place] # (Auto) 0.6 Eos # (Auto) 0.1 Baso # (Auto) 0.0 Sodium 144 Potassium 3.4 L Chloride 108 H Carbon Dioxide 26 Anion Gap 13.4 BUN 15 Creatinine 1.00 Estimated Creat Clear 83 Estimated GFR 74 Est GFR ( Amer) 89 Glucose 97 Calcium 8.4 Folate 6.08 Urine Color Yellow Urine Appearance Clear Urine pH 7.5 Ur Specific [place] 1.015 Urine Protein Negative Urine Glucose (UA) Negative Urine Ketones Negative Urine Blood Negative Urine Nitrate Negative Urine Bilirubin Negative Urine Urobilinogen 0.2 Ur Leukocyte Esterase Negative Urine RBC None Urine WBC None Ur Squamous Epith Cells None Urine Bacteria None Chlamy pneumoniae PCR Not detected Adenovirus (PCR) Not detected B. pertussis DNA (PCR) Not detected Coronavirus OC43 (PCR) Not detected Coronavirus HKU1 (PCR) Not detected Coronavirus 229E (PCR) Not detected SARS-CoV-2 (PCR) Not detected Coronavirus NL63 (PCR) Not detected Human Metapneumovir PCR Not detected Influenza A (H1) PCR Not detected Influ A (H1N1/09) PCR Not detected Influenza A (H3) PCR Not detected Influenza Type A (PCR) Not detected Influenza Type B (PCR) Not detected M. pneumoniae (PCR) Not detected Parainfluenza 1 (PCR) Not detected Parainfluenza 2 (PCR) Not detected Parainfluenza 3 (PCR) Not detected Parainfluenza 4 (PCR) Not detected RSV (PCR) Not detected Entero/Rhino (PCR) Not detected DS: Diagnosis Discharge Diagnosis (1) Syncope: Status: Acute Code(s): R55 - Syncope and collapse Qualifiers: Syncope type: unspecified Qualified Code(s): R55 - Syncope and collapse (2) Bradycardia: Status: Acute Code(s): R00.1 - Bradycardia, unspecified (3) Hypertensive urgency: Status: Acute Code(s): I16.0 - Hypertensive urgency (4) CAD (coronary artery disease): Status: Acute Code(s): I25.10 - Atherosclerotic heart disease of [place] coronary artery without angina pectoris Qualifiers: Associated angina: with unstable angina Coronary Disease-Associated Artery/Lesion type: [place] artery [place] vs. transplanted heart: [place] heart Qualified Code(s): I25.110 - Atherosclerotic heart disease of [place] coronary artery with unstable angina pectoris (5) Hypokalemia: Status: Acute Code(s): E87.6 - Hypokalemia Meds Home Medications and Allergies Home Medications ?Medication ?Instructions ?Recorded ?Confirmed ?Type aspirin 81 mg tablet,delayed 81 mg PO DAILY #90 tabs 09/26/25 10/25/25 Rx release amlodipine 5 mg tablet 5 mg PO DAILY 09/29/25 10/25/25 History clopidogrel 75 mg tablet 75 mg PO DAILY #30 tabs 10/22/25 10/25/25 Rx irbesartan 150 mg tablet 150 mg PO DAILY 30 days #30 tabs 10/26/25 Rx multivitamin with folic acid 400 1 tab PO 1700 30 days #30 tabs 10/26/25 Rx mcg tablet (Tab-A-Uma) New Prescriptions to Start Prescriptions: Bernard Williamson multivitamin with folic acid [Tab-A-Uma] Bernard Pena Allergies Allergy/AdvReac Type Severity Reaction Status Date / Time No Known Drug Allergies Allergy Unknown Verified 10/12/25 15:12 allergy reaction Discharge Plan Disposition Patient Disposition: Home, Self-Care Condition: Fair Discharge Order Discharge Orders: Discharge Order (Routine); Ordered 10/26/25 Ordered By: Bernard Pena Follow up Plan Follow up with: Rochelle Jaimes APRN [Nurse Practitioner, Cardiology] - 11/03/25 1:30 pm Henry Wade MD [Staff Physician, Medical] - 11/09/25 11:30 am Prescriptions/Medication Reconciliation: New irbesartan 150 mg Tablet 150 mg PO DAILY 30 Days Qty: 30 0RF multivitamin with folic acid [Tab-A-Uma] 400 mcg Tablet 1 tab PO 1700 30 Days Qty: 30 0RF Continued clopidogrel 75 mg tablet 75 mg PO DAILY Qty: 30 11RF aspirin 81 mg Tablet,Delayed Release (Dr/Ec) 81 mg PO DAILY Qty: 90 0RF amlodipine 5 mg tablet 5 mg PO DAILY Discontinued losartan 100 mg tablet 100 mg PO DAILY Qty: 30 5RF Problem Reconciliation Problems Reviewed?: Yes Patient Discharge Instructions Patient Instructions: DI for Syncope in Adults (Fainting), DI for Chest Pain Print Language: Slovenian Providers Primary Care Provider: Mallory Martinez Admit Provider: Bernard Pena Attending Provider: Bernard Pena
--- NOTE | 2025-10-26 11:51 | EXP.CARD.CON ---
History of Present Illness History of Present Illness Consult date: 10/26/25 Requesting physician: Bernard Pena Chief complaint: high blood pressure and jaw pain History of present illness: This is a 70-year-old white gentleman who presented to the emergency department with jaw pain and high blood pressure. The patient reports that he had stopped taking his beta-arash because it was making him feel bad with a chronically low heart rate and dizziness. He states that he was off of the beta-arash for several days. Then he read up on the medication and saw how beneficial it was for his heart so he restarted the medication on Sunday. He states that he started to feel really bad on Sunday after taking the medication. His blood pressure elevated after starting this medicine. He states his heart rate got low. He was very dizzy and having jaw pain. He decided to come here to the emergency department. He was treated with nitroglycerin and became very hypotensive and passed out. The patient states that his beta-arash has since been stopped and he has not received any more nitro and since that time he has been feeling great. He denies any chest pain or pressure this morning. He denies any shortness of breath or edema. He denies any fever, chills, nausea, vomiting or diarrhea. [facility] Disclaimer: The information contained in this section may have been updated after the patient was seen, as this information can be updated by other users. Medical History (Updated 10/26/25 @ 12:36 by Rochelle Jaimes APRN) Hypertensive urgency Bradycardia Hyperlipidemia STEMI (ST elevation myocardial infarction) Back pain History of prostate cancer CAD (coronary artery disease) Hypertension Prostate cancer Cholecystectomy planned Surgical History Stented coronary artery Family History Other Family history of acute heart failure Family history of hypertension Family history of stroke Social History Smoking Status: Never smoker alcohol intake: never current occupational status: other Travel in the last 8 weeks?: None Have you lived/traveled outside [place] in past 30 days?: No Contact w/someone who lives/traveled outside [place] past 30 days?: No Exposure to someone with infectious disease in past 14 days?: No Do you have a fever (greater than 100.4 F or 38 C)?: No Have you tested positive for COVID-19?: No Exposed to someone with COVID-19 in past 14 days?: No Do you have a sore throat?: No Do you have a cough?: No Do you have any weakness?: No Do you have any diarrhea?: No Are you experiencing any unusual bleeding?: No Do you have any muscle aches/pain?: No Do you have any abdominal pain?: No Are you experiencing loss of taste or smell?: No Review of Systems Review of Systems Review of systems:: pertinent systems reviewed and negative unless documented below Constitutional Constitutional: Reports system reviewed and no additional complaints, except as documented Eyes Eyes: Reports system reviewed and no additional complaints, except as documented ENT Ears, Nose, Mouth, and Throat: Reports system reviewed and no additional complaints, except as documented *Cardiovascular Cardiovascular: Reports system reviewed and no additional complaints, except as documented and Reports syncope *Respiratory Respiratory: Reports system reviewed and no additional complaints, except as documented *Gastrointestinal Gastrointestinal: Reports system reviewed and no additional complaints, except as documented *Genitourinary Genitourinary: Reports system reviewed and no additional complaints, except as documented *Musculoskeletal Musculoskeletal: Reports system reviewed and no additional complaints, except as documented and Reports other (Jaw pain) Integumentary/Breasts Skin/Breast: Reports system reviewed and no additional complaints, except as documented *Neurologic Neurologic: Reports system reviewed and no additional complaints, except as documented and Reports syncope Psychiatric Psychiatric: Reports system reviewed and no additional complaints, except as documented Endocrine Endocrine: Reports system reviewed and no additional complaints, except as documented Hematologic/Lymphatic Hematologic/Lymphatic: Reports system reviewed and no additional complaints, except as documented Allergic/Immunologic Allergic/Immunologic: Reports system reviewed and no additional complaints, except as documented Exam Data for Last 24 hours Vital signs and Labs for Last 24 Hours: Temp Pulse Resp BP Pulse Ox O2 Del Method 98.0 F 58 L 16 162/84 H 96 Room Air 10/26/25 08:00 10/26/25 08:00 10/26/25 08:00 10/26/25 08:00 10/26/25 08:00 10/26/25 11:00 Laboratory Results - last 24 hr 10/25/25 11:00: Urine Color Yellow, Urine Appearance Clear, Urine pH 7.5, Ur Specific [place] 1.015, Urine Protein Negative, Urine Glucose (UA) Negative, Urine Ketones Negative, Urine Blood Negative, Urine Nitrate Negative, Urine Bilirubin Negative, Urine Urobilinogen 0.2, Ur Leukocyte Esterase Negative, Urine RBC None, Urine WBC None, Ur Squamous Epith Cells None, Urine Bacteria None 10/26/25 06:25: WBC 6.1, RBC 4.56 L, Hgb 13.5 L, Hct 39.1 L, MCV 85.7, MCH 29.6, MCHC 34.5, RDW 13.1, Plt Count 176, MPV 11.6 H, Neut % (Auto) 53.8, Lymph % (Auto) 33.6, [place] % (Auto) 9.8 H, Eos % (Auto) 2.1, Baso % (Auto) 0.5, Neut # (Auto) 3.3, Lymph # (Auto) 2.0, [place] # (Auto) 0.6, Eos # (Auto) 0.1, Baso # (Auto) 0.0, Sodium 144, Potassium 3.4 L, Chloride 108 H, Carbon Dioxide 26, Anion Gap 13.4, BUN 15, Creatinine 1.00, Estimated Creat Clear 83, Estimated GFR 74, Est GFR ( Amer) 89, Glucose 97, Calcium 8.4, Folate 6.08 I & O for Last 24 hours: Intake & Output 10/23/25 10/24/25 10/25/25 10/26/25 23:59 23:59 23:59 23:59 Intake Total 240 / 240 240 / 240 Output Total 100 / 100 Balance 140 / 140 240 / 240 Weight 184 lb 189 lb 3.2 oz Constitutional Constitutional: no acute distress and average body habitus *Routine HEENT Exam Head: Present normocephalic and atraumatic ENT: Present mucous membranes moist *Routine Neck Exam Neck: Present supple, full ROM and normal carotid upstroke; Absent JVD, carotid bruit or lymphadenopathy *Routine Respiratory Exam Respiratory: Present CTA bilaterally, normal respiratory effort, able to speak in complete sentences and symmetric chest movement *Routine Cardiovascular Exam Cardiovascular: Present RRR, Normal S1 and Normal S2; Absent murmur or gallop *Routine Abdominal Exam Abdominal: Present soft and normoactive bowel sounds; Absent tenderness, distended or organomegaly *Routine Extremities Exam Extremities: Present full ROM, pulses intact and normal capillary refill; Absent cyanosis, clubbing or edema *Routine Skin Exam Skin: Present intact and warm; Absent erythema *Routine Neurological Exam Neurological: Present alert, oriented X3 and CN II-XII intact; Absent sensory deficit or motor deficit Routine Psychiatric Exam Psychiatric: Present normal affect Meds Home Medications and Allergies Home Medications ?Medication ?Instructions ?Recorded ?Confirmed ?Type aspirin 81 mg tablet,delayed 81 mg PO DAILY #90 tabs 09/26/25 10/25/25 Rx release amlodipine 5 mg tablet 5 mg PO DAILY 09/29/25 10/25/25 History clopidogrel 75 mg tablet 75 mg PO DAILY #30 tabs 10/22/25 10/25/25 Rx irbesartan 150 mg tablet 150 mg PO DAILY 30 days #30 tabs 10/26/25 Rx multivitamin with folic acid 400 1 tab PO 1700 30 days #30 tabs 10/26/25 Rx mcg tablet (Tab-A-Uma) New Prescriptions to Start Prescriptions: Bernard Williamson multivitamin with folic acid [Tab-A-Uma] Bernard Pena Allergies Allergy/AdvReac Type Severity Reaction Status Date / Time No Known Drug Allergies Allergy Unknown Verified 10/12/25 15:12 allergy reaction Assessment and Plan *Assessment and plan (1) Hypertensive urgency: Status: Acute Category: Medical Code(s): I16.0 - Hypertensive urgency (2) Bradycardia: Status: Acute Category: Medical Code(s): R00.1 - Bradycardia, unspecified (3) Hypokalemia: Status: Acute Category: Medical Code(s): E87.6 - Hypokalemia (4) Syncope: Status: Acute Qualifiers: Syncope type: unspecified Qualified Code(s): R55 - Syncope and collapse Category: Medical Code(s): R55 - Syncope and collapse (5) CAD (coronary artery disease): Status: Acute Qualifiers: Coronary Disease-Associated Artery/Lesion type: [place] artery [place] vs. transplanted heart: [place] heart Associated angina: with unstable angina Qualified Code(s): I25.110 - Atherosclerotic heart disease of [place] coronary artery with unstable angina pectoris Category: Medical Code(s): I25.10 - Atherosclerotic heart disease of [place] coronary artery without angina pectoris (6) Stented coronary artery: Status: Acute Category: Surgical Code(s): Z95.5 - Presence of coronary angioplasty implant and graft (7) History of prostate cancer: Status: Acute Category: Medical Code(s): Z85.46 - Personal history of malignant neoplasm of prostate (8) HTN (hypertension): Status: Acute Qualifiers: Hypertension type: primary hypertension Qualified Code(s): I10 - Essential (primary) hypertension Category: Medical Code(s): I10 - Essential (primary) hypertension (9) Hyperlipidemia: Status: Acute Qualifiers: Hyperlipidemia type: familial hypercholesterolemia Familial hypercholesterolemia type: heterozygous familial hypercholesterolemia (HeFH) Qualified Code(s): E78.011 - Heterozygous familial hypercholesterolemia [HeFH] Category: Medical Code(s): E78.5 - Hyperlipidemia, unspecified Plan Plan: 1. The patient was admitted to the hospital with hypertension urgency. His blood pressure has improved being started on Avapro. 2. The patient did get bradycardic after getting nitroglycerin and coming back from [place]. He was also hypotensive. The patient had to be given atropine. His heart rate has improved since being given the atropine. He reports that all of this stemmed from taking the beta-arash which she is intolerant to. The patient was offered permanent pacemaker placement today. He declined and states that this is all from the beta-arash in combination with the nitroglycerin causing him to be hypotensive and causing a syncopal episode. He declines wanting permanent pacemaker at this time. 3. The patient does have an event monitor in place. Will continue with the event monitor at this time to continue to monitor for bradycardia. 4. The patient does have a history of coronary artery disease. He denies any chest pain or pressure. Status post coronary stenting. He is on aspirin and Plavix for dual antiplatelet therapy. 5. His blood pressure is under better control today. 6. His LDL goal is less than 55. His LDL is 142. The patient is intolerant to statins. I have had a long discussion with the patient about injectable cholesterol medications. He is going to think about this and discuss at his follow-up appointment next week. 7. The patient is stable for discharge home today from a cardiac standpoint. He already has a follow-up scheduled next week in cardiology clinic. Thank you for the opportunity to Hel participate in the care of this patient. All recommendations and orders are per Dr. Cortes.
[2025-10-26 12:00] VITALS: BP 157/80; PULSE 66; RESP 14; TEMP 36.8; O2SAT 96
--- NOTE | 2025-10-26 12:33 | PC.NURSE ---
10/26/2025 called pt 2 x times left voice mail. No response
--- NOTE | 2025-10-27 10:04 | SW/DCPLANNER ---
Spoke with patient on the phone. Patient stated that he is doing well. Patient stated that he is aware of his upcoming appointments. Patient stated that he was able to get his new medicine picked up from clinic pharmacy. Patient stated that he has no concerns or questions at this time. Trevon Bartlett
== END 2025-10-26 13:13 | disposition home or self-care (01) | DRG 312 ==
LOC: ER 04:23 → ICU 04:42 → 2ND 20:25
PROVIDERS: Nurse Practitioner Family; Admitting Provider Student in an Organized Health Care Education/Training Program; Emergency Provider Emergency Medicine; PCP Nurse Practitioner Family; Visit Provider Student in an Organized Health Care Education/Training Program
DX: R55 Syncope and collapse (principal); I16.0 Hypertensive urgency; I25.10 Atherosclerotic heart disease of native coronary artery without angina pectoris; E87.6 Hypokalemia; E78.5 Hyperlipidemia, unspecified; I10 Essential (primary) hypertension; I95.9 Hypotension, unspecified; R00.1 Bradycardia, unspecified; Z79.02 Long term (current) use of antithrombotics/antiplatelets; Z79.899 Other long term (current) drug therapy; Z79.82 Long term (current) use of aspirin; Z85.46 Personal history of malignant neoplasm of prostate; Z95.5 Presence of coronary angioplasty implant and graft; Z91.148 Patient's other noncompliance with medication regimen for other reason
CPT/HCPCS: 0223U; 36415; 71046; 80048; 80053; 81001; 82607; 82746; 83880; 84439; 84443; 84484; 85025; 85610; 93005; 99284; J0461; J1650